=== PATIENT | female | born 1945 | race Hispanic/Latino ===

== ENCOUNTER 2019-07-05 19:05 | Emergency (ER) | payer MEDICARE ==
[~2019-07-05 19:05] MED LIST: AMLO-104 PO; ATOR40TA71 PO; DAPA5TAB PO; ESOM40SU PO; GLIP10TA19 PO; METF-446 PO
[2019-07-05] MEDS ORDERED: MECLIZINE HCL 25 MG TABLET ONE (19:33)
[2019-07-05 20:09] LABS: APPEARANCE,URINE Clear (CLEAR); BILIRUBIN,URINE Negative (NEGATIVE); COLOR,URINE Yellow (YELLOW); GLUCOSE, URINE (UA) >=1000 mg/dL (NEGATIVE); KETONES,URINE Negative (NEGATIVE); LEUKOCYTE ESTERASE ,URINE Negative (NEGATIVE); NITRATE,URINE Negative (NEGATIVE); OCCULT BLOOD,URINE Negative (NEGATIVE); PH,URINE 5.5 (5.0-8.0); PROTEIN,URINE POS 2+ mg/dL (NEGATIVE); UROBILINOGEN,URINE 0.2 mg/dL (0.2-1.0)
[2019-07-05 20:21] LABS: BACTERIA,URINE Rare /HPF (None Seen); MUCUS,URINE Few LPF (None Seen); RBC,URINE 0-1 /HPF (0-1); WBC,URINE 0-1 /HPF (0-1)
== END 2019-07-05 20:38 | disposition home or self-care (01) ==
LOC: EDH 19:05
DX: H81.399 Other peripheral vertigo, unspecified ear (principal); I10 Essential (primary) hypertension; E11.9 Type 2 diabetes mellitus without complications; K21.9 Gastro-esophageal reflux disease without esophagitis
CPT/HCPCS: 81001

== ENCOUNTER 2022-03-10 19:51 | Emergency (ER) | payer MEDICARE ==
[~2022-03-10] VITALS: Ht 157.5 cm; Wt 60.8 kg
[2022-03-10 20:40] LABS: BASOPHILS % (AUTO) 0.6 % (0.0-5.0); EOSINOPHILS % (AUTO) 2.7 % (0.0-8.0); HEMATOCRIT 37.7 % (36-48); LYMPHOCYTES % (AUTO) 18.9 % (21.0-51.0); MEAN CORPUSCULAR HEMOGLOBIN 30.6 pg (27.0-33.0); MEAN CORPUSCULAR HGB CONC 33.2 g/dL (32.0-36.0); MEAN CORPUSCULAR VOLUME 92.2 fL (79-99); MONOCYTES % (AUTO) 9.8 % (3.0-13.0); NEUTROPHILS % (AUTO) 67.7 % (40.0-77.0); PLATELET COUNT (AUTO) 262 K/uL (130-400); RED BLOOD CELL COUNT(AUTO) 4.09 MIL/uL (4.00-5.50); RED CELL DISTRIBUTION WIDTH 12.5 % (11.0-15.5); WHITE BLOOD COUNT (AUTO) 8.6 K/uL (4.8-10.8)
[2022-03-10 20:50] LABS: CREATININE 1.1 mg/dL (0.5-1.5); POTASSIUM 4.1 mmol/L (3.5-5.1)
[2022-03-10 20:57] LABS: ALBUMIN 3.3 g/dL (3.5-5.0); BILIRUBIN,TOTAL 0.6 mg/dL (0.2-1.0); MAGNESIUM 1.6 mg/dL (1.80-2.40); TOTAL PROTEIN, SERUM 6.8 g/dL (6.0-8.3)
[2022-03-10 21:28] LABS: APPEARANCE,URINE Clear (CLEAR); BILIRUBIN,URINE Negative (NEGATIVE); COLOR,URINE Yellow (YELLOW); GLUCOSE, URINE (UA) >=1000 mg/dL (NEGATIVE); KETONES,URINE Negative (NEGATIVE); LEUKOCYTE ESTERASE ,URINE Negative (NEGATIVE); NITRATE,URINE Negative (NEGATIVE); OCCULT BLOOD,URINE Negative (NEGATIVE); PROTEIN,URINE 300 mg/dL (NEGATIVE); UROBILINOGEN,URINE 0.2 mg/dL (0.2-1.0)
[2022-03-10] MEDS ORDERED: 0.9%NACL 1000ML 1,000 ML IV ONE (21:30)
[2022-03-10] MEDS ORDERED: MAGNESIUM 2GM PREMIX 50ML 50 ML IV SCH (21:30)
[2022-03-10 21:39] LABS: BACTERIA,URINE Few /HPF (None Seen); RBC,URINE 0-1 /HPF (0-1); SQUAMOUS EPITHELIAL CELL,UR Rare /HPF (0-2)
[2022-03-10] MEDS ORDERED: CEFTRIAXONE 1G VIAL IVP ONE (22:30)
[2022-03-10] MEDS ORDERED: CEPH500B PO (22:40)
[2022-03-10 23:00] VITALS: BP 132/74
== END 2022-03-10 23:54 | disposition home or self-care (01) ==
LOC: EDH 19:51
DX: R19.7 Diarrhea, unspecified (principal); N39.0 Urinary tract infection, site not specified; E83.42 Hypomagnesemia; E11.9 Type 2 diabetes mellitus without complications; E78.00 Pure hypercholesterolemia, unspecified; I10 Essential (primary) hypertension; Z90.89 Acquired absence of other organs; Z90.49 Acquired absence of other specified parts of digestive tract; Z79.899 Other long term (current) drug therapy; Z79.84 Long term (current) use of oral hypoglycemic drugs; Z98.890 Other specified postprocedural states
CPT/HCPCS: 36415; 74176; 80053; 81001; 83735; 84484; 85025; 87088; 93005; 96361; 96374; 99285; J0696; J3475; J7030

== ENCOUNTER 2022-04-14 19:03 | Observation (INO) | payer MEDICARE ==
[~2022-04-14] VITALS: Ht 157.5 cm; Wt 60.9 kg
[~2022-04-14 19:03] MED LIST changes: +CEPH500B PO
[2022-04-14 20:10] LABS: BASOPHILS % (AUTO) 0.5 % (0.0-5.0); EOSINOPHILS % (AUTO) 2.1 % (0.0-8.0); LYMPHOCYTES % (AUTO) 16.9 % (21.0-51.0); MEAN CORPUSCULAR HGB CONC 31.9 g/dL (32.0-36.0); MONOCYTES % (AUTO) 9.5 % (3.0-13.0); NEUTROPHILS % (AUTO) 70.6 % (40.0-77.0); PLATELET COUNT (AUTO) 240 K/uL (130-400); RED BLOOD CELL COUNT(AUTO) 3.83 MIL/uL (4.00-5.50); RED CELL DISTRIBUTION WIDTH 12.4 % (11.0-15.5); WHITE BLOOD COUNT (AUTO) 7.5 K/uL (4.8-10.8)
[2022-04-14 20:25] LABS: CREATININE 1.6 mg/dL (0.5-1.5); POTASSIUM 5.6 mmol/L (3.5-5.1)
[2022-04-14 20:29] LABS: ALBUMIN 3.3 g/dL (3.5-5.0); BILIRUBIN,TOTAL 0.4 mg/dL (0.2-1.0); TOTAL PROTEIN, SERUM 6.4 g/dL (6.0-8.3)
[2022-04-14] MEDS ORDERED: MORPHINE 2 MG SYG IVP ONE (20:30)
[2022-04-14] MEDS ORDERED: 0.9% NACL 500ML IV.SOLN 500 ML IV ONE ×2 (20:30)
[2022-04-14] MEDS ORDERED: ONDANSETRON 4MG INJ IVP ONE (20:30)
[2022-04-14] MEDS ORDERED: HYDRALAZINE 20MG/ML VIAL IV PRN (22:00)
[2022-04-14] MEDS ORDERED: ACETAMINOPHEN 650 MG SUPPOSITORY RC PRN (22:00)
[2022-04-14] MEDS ORDERED: ONDANSETRON 4MG INJ IVP PRN (22:00)
[2022-04-14] MEDS ORDERED: ACETAMINOPHEN 325 MG TAB PO PRN (22:00)
[2022-04-14] MEDS ORDERED: ATOR40TA71 PO (22:03)
[2022-04-14] MEDS ORDERED: GLIP10TA9 PO (22:03)
[2022-04-14] MEDS ORDERED: SITA50TA PO (22:03)
[2022-04-14] MEDS ORDERED: METF-446 PO (22:03)
[2022-04-14] MEDS ORDERED: AMLO1CAP6 PO (22:03)
[2022-04-14] MEDS ORDERED: MAGN250T10 PO (22:03)
[2022-04-14] MEDS ORDERED: DAPA10TA PO (22:03)
[2022-04-14] MEDS: LACTATED RINGERS 1000ML 1,000 ML IV SCH (22:16)
[2022-04-15] MEDS ORDERED: CALCIUM GLUC 1GM/10ML VIAL IV ONE
[2022-04-15] MEDS ORDERED: IPRATROPIUM 0.5 MG/2.5 ML INH IH SCH
[2022-04-15] MEDS ORDERED: INSULIN HUMULIN R 100 UNIT/ML 3ML SQ ONE
[2022-04-15 00:30] VITALS: BP 150/59
[2022-04-15] MEDS ORDERED: MAGNESIUM 2GM PREMIX 50ML 50 ML IV PRN (00:30)
[2022-04-15 01:59] LABS: APPEARANCE,URINE Clear (CLEAR); BILIRUBIN,URINE Negative (NEGATIVE); COLOR,URINE Yellow (YELLOW); GLUCOSE, URINE (UA) >=1000 mg/dL (NEGATIVE); KETONES,URINE Negative (NEGATIVE); LEUKOCYTE ESTERASE ,URINE Small (NEGATIVE); NITRATE,URINE Negative (NEGATIVE); OCCULT BLOOD,URINE Negative (NEGATIVE); PROTEIN,URINE POS 2+ mg/dL (NEGATIVE); UROBILINOGEN,URINE 0.2 mg/dL (0.2-1.0)
[2022-04-15 02:13] LABS: BACTERIA,URINE Rare /HPF (None Seen); RBC,URINE None Seen /HPF (0-1); SQUAMOUS EPITHELIAL CELL,UR 0-2 /HPF (0-2)
[2022-04-15 04:26] VITALS: BP 130/54
[2022-04-15 05:14] LABS: BASOPHILS % (AUTO) 0.5 % (0.0-5.0); EOSINOPHILS % (AUTO) 1.6 % (0.0-8.0); HEMATOCRIT 35.8 % (36-48); LYMPHOCYTES % (AUTO) 17.5 % (21.0-51.0); MEAN CORPUSCULAR HEMOGLOBIN 30.3 pg (27.0-33.0); MEAN CORPUSCULAR HGB CONC 32.4 g/dL (32.0-36.0); MEAN CORPUSCULAR VOLUME 93.5 fL (79-99); NEUTROPHILS % (AUTO) 69.8 % (40.0-77.0); PLATELET COUNT (AUTO) 236 K/uL (130-400); RED BLOOD CELL COUNT(AUTO) 3.83 MIL/uL (4.00-5.50); RED CELL DISTRIBUTION WIDTH 12.5 % (11.0-15.5); WHITE BLOOD COUNT (AUTO) 8.8 K/uL (4.8-10.8)
[2022-04-15 06:10] LABS: CREATININE 1.2 mg/dL (0.5-1.5); MAGNESIUM 2.2 mg/dL (1.80-2.40); PHOSPHORUS 3.5 mg/dL (2.5-4.9); POTASSIUM 4.8 mmol/L (3.5-5.1)
[2022-04-15] MEDS: INSULIN LISPRO 100 UNIT/ML 3ML SQ SCH ×4 (06:10→20:47)
[2022-04-15] MEDS: CEFTRIAXONE 2GM VIAL IVP SCH (06:17)
[2022-04-15] MEDS: ENOXAPARIN SODIUM 30 MG/0.3 ML SQ SCH (07:48)
[2022-04-15] MEDS: LACTATED RINGERS 1000ML 1,000 ML IV SCH ×2 (07:55→20:48)
[2022-04-15 08:00] VITALS: BP 150/56
[2022-04-15 12:00] VITALS: BP 162/68
[2022-04-15] MEDS: METRONIDAZOLE 500MG/100ML BAG 100 ML IVPB SCH ×2 (15:55→20:03)
[2022-04-15 16:00] VITALS: BP 158/68
[2022-04-15 20:00] VITALS: BP 183/78
[2022-04-16 00:25] VITALS: BP 164/68
[2022-04-16 04:41] VITALS: BP 152/69
[2022-04-16] MEDS: METRONIDAZOLE 500MG/100ML BAG 100 ML IVPB SCH ×2 (05:08→14:38)
[2022-04-16] MEDS: LACTATED RINGERS 1000ML 1,000 ML IV SCH ×2 (05:08→14:38)
[2022-04-16 05:17] LABS: HEMATOCRIT 36.7 % (36-48); MEAN CORPUSCULAR HEMOGLOBIN 30.1 pg (27.0-33.0); MEAN CORPUSCULAR HGB CONC 32.4 g/dL (32.0-36.0); MEAN CORPUSCULAR VOLUME 92.7 fL (79-99); RED BLOOD CELL COUNT(AUTO) 3.96 MIL/uL (4.00-5.50); RED CELL DISTRIBUTION WIDTH 12.1 % (11.0-15.5); WHITE BLOOD COUNT (AUTO) 6.3 K/uL (4.8-10.8)
[2022-04-16 05:31] LABS: MAGNESIUM 2.1 mg/dL (1.80-2.40); POTASSIUM 4.7 mmol/L (3.5-5.1)
[2022-04-16] MEDS: CEFTRIAXONE 2GM VIAL IVP SCH (07:01)
[2022-04-16] MEDS: INSULIN LISPRO 100 UNIT/ML 3ML SQ SCH ×3 (07:02→16:30)
[2022-04-16 07:47] VITALS: BP 159/62
[2022-04-16] MEDS: ENOXAPARIN SODIUM 30 MG/0.3 ML SQ SCH (09:29)
[2022-04-16] MEDS ORDERED: AMLODIPINE-BENAZEPRIL 5-20 MG PO SCH (11:34)
[2022-04-16] MEDS ORDERED: LINAGLIPTIN 5 MG TABLET PO SCH (11:36)
[2022-04-16 12:00] VITALS: BP 173/71
[2022-04-16] MEDS: METFORMIN HCL 500 MG TABLET PO SCH ×2 (12:08→16:55)
[2022-04-16 16:00] VITALS: BP 134/92
[2022-04-16] MEDS ORDERED: LEVO500T90 PO (17:51)
[2022-04-16] MEDS ORDERED: METR-172 PO (17:51)
[2022-04-16] MEDS ORDERED: ATORVASTATIN 40 MG TABLET PO SCH (21:00)
== END 2022-04-16 18:45 | disposition home or self-care (01) ==
LOC: EDH 19:03 → EDHIP 21:33 → 3DH 23:16
PROVIDERS: ADMIT Internal Medicine; ATTEND Internal Medicine
DX: K52.9 Noninfective gastroenteritis and colitis, unspecified (principal); Z20.822 Contact with and (suspected) exposure to COVID-19; N17.9 Acute kidney failure, unspecified; N39.0 Urinary tract infection, site not specified; E87.5 Hyperkalemia; E87.1 Hypo-osmolality and hyponatremia; I10 Essential (primary) hypertension; E83.42 Hypomagnesemia; E86.0 Dehydration; E11.65 Type 2 diabetes mellitus with hyperglycemia; E78.00 Pure hypercholesterolemia, unspecified; F41.9 Anxiety disorder, unspecified; Z90.710 Acquired absence of both cervix and uterus; Z79.899 Other long term (current) drug therapy; Z79.84 Long term (current) use of oral hypoglycemic drugs
CPT/HCPCS: 36415 ×3; 71045; 74176; 80048 ×2; 80053; 81001; 82550; 82948 ×7; 83605; 83690; 83735 ×3; 84100; 84484; 85025 ×2; 85027; 87077; 87088; 87186; 87635; 93005; 96361 ×2; 96365; 96366 ×2; 96367; 96375 ×2; 96376; 97039 ×3; 97116; 97161; 99285; C9803; G0378 ×44; J0610; J0696; J1650 ×2; J2405; J3475; J3490 ×4; J7040 ×2; J7120 ×2

== ENCOUNTER 2022-05-28 09:18 | Emergency (ER) | payer MEDICARE ==
[~2022-05-28 09:18] MED LIST changes: -AMLO-104 PO; +AMLO1CAP6 PO; -CEPH500B PO; +DAPA10TA PO; -DAPA5TAB PO; +DIPH1TAB PO; -ESOM40SU PO; -GLIP10TA19 PO; +GLIP10TA9 PO; +LEVO500T90 PO; +METR-172 PO; +SITA50TA PO
[2022-05-28 11:29] VITALS: BP 175/51
[2022-05-28] MEDS ORDERED: TETANUS/DIPHTHERIA TOXOID [ADULT] 0.5 ML VIAL IM ONE (11:30)
[2022-05-28] MEDS ORDERED: ACETAMINOPHEN 325 MG TAB PO ONE (11:30)
[2022-05-28] MEDS ORDERED: MECLIZINE HCL 25 MG TABLET PO ONE (11:30)
[2022-05-28] MEDS ORDERED: MECL-160 PO (12:08)
== END 2022-05-28 12:55 | disposition home or self-care (01) ==
LOC: EDH 09:18
DX: S60.222A Contusion of left hand, initial encounter (principal); S80.211A Abrasion, right knee, initial encounter; S80.212A Abrasion, left knee, initial encounter; R42 Dizziness and giddiness; E11.9 Type 2 diabetes mellitus without complications; I10 Essential (primary) hypertension; Z79.84 Long term (current) use of oral hypoglycemic drugs; Z79.899 Other long term (current) drug therapy; Z98.890 Other specified postprocedural states; W01.0XXA Fall on same level from slipping, tripping and stumbling without subsequent striking against object, initial encounter; Y93.89 Activity, other specified; Y92.89 Other specified places as the place of occurrence of the external cause; Y99.8 Other external cause status
CPT/HCPCS: 70450; 72125; 73130; 90471; 90714

== ENCOUNTER 2023-06-30 19:58 | Emergency (ER) | payer MEDICARE ==
[~2023-06-30] VITALS: Ht 160 cm; Wt 59.0 kg
[~2023-06-30 19:58] MED LIST changes: +CEPH500B PO; -DIPH1TAB PO; -LEVO500T90 PO; +MAG-55 PO; -METR-172 PO; +OMEP40CA21 PO
[2023-07-01 00:03] LABS: ADD UA MICROSCOPIC YES; APPEARANCE,URINE CLOUDY (CLEAR); BILIRUBIN,URINE NEGATIVE (NEGATIVE); COLOR,URINE LIGHT-YELLOW (YELLOW); GLUCOSE, URINE (UA) >=1000 mg/dL (NEGATIVE); KETONES,URINE NEGATIVE (NEGATIVE); LEUKOCYTE ESTERASE ,URINE 250 Leu/uL (NEGATIVE); NITRATE,URINE NEGATIVE (NEGATIVE); OCCULT BLOOD,URINE SMALL (NEGATIVE); PROTEIN,URINE 600 mg/dL (NEGATIVE); UROBILINOGEN,URINE 0.2 mg/dL (0.2-1.0)
[2023-07-01 00:04] LABS: MUCUS,URINE RARE LPF (None Seen); SQUAMOUS EPITHELIAL CELL,UR RARE /HPF (0-2); WBC,URINE 51-100 /HPF (0-1)
[2023-07-01 00:08] LABS: SARS-CoV-2, RNA, NAAT NEGATIVE SARS CoV-2 (NEGATIVE)
[2023-07-01 00:12] LABS: INFLUENZA TYPE A Negative For Type A (NEGATIVE); INFLUENZA TYPE B Negative For Type B (NEGATIVE)
[2023-07-01 00:30] LABS: CREATININE 2.2 mg/dL (0.5-1.5); POTASSIUM 4.8 mmol/L (3.5-5.1)
[2023-07-01 00:32] LABS: BASOPHILS # (AUTO) 0.08 K/uL (0.00-0.20); EOSINOPHILS # (AUTO) 0.22 K/uL (0.00-0.70); EOSINOPHILS % (AUTO) 2.6 % (0.0-8.0); HEMATOCRIT 35.1 % (36-48); IMMATURE GRANULOCYTE ABSOLUTE 0.04 K/uL (0-1); LYMPHOCYTES # (AUTO) 1.4 K/uL (1.0-4.8); LYMPHOCYTES % (AUTO) 16.5 % (21.0-51.0); MEAN CORPUSCULAR HEMOGLOBIN 30.3 pg (27.0-33.0); MEAN CORPUSCULAR HGB CONC 32.8 g/dL (32.0-36.0); MEAN CORPUSCULAR VOLUME 92.6 fL (79-99); MONOCYTES # (AUTO) 0.9 K/uL (0.1-1.0); MONOCYTES % (AUTO) 10.1 % (3.0-13.0); NEUTROPHILS # (AUTO) 5.8 K/uL (1.8-7.7); NEUTROPHILS % (AUTO) 69.3 % (40.0-77.0); PLATELET COUNT (AUTO) 275 K/uL (130-400); RED BLOOD CELL COUNT(AUTO) 3.79 MIL/uL (4.00-5.50); RED CELL DISTRIBUTION WIDTH 12.5 % (11.0-15.5); WHITE BLOOD COUNT (AUTO) 8.4 K/uL (4.8-10.8)
[2023-07-01 00:34] LABS: BILIRUBIN,TOTAL 0.4 mg/dL (0.2-1.0); TOTAL PROTEIN, SERUM 6.6 g/dL (6.0-8.3)
[2023-07-01] MEDS ORDERED: CEFTRIAXONE 1G VIAL IVPB ONE (01:30)
[2023-07-01] MEDS ORDERED: LIDOCAINE HCL 1% 20 ML VIAL ONE (02:22)
[2023-07-01 03:00] VITALS: BP 148/54; PULSE 80; RESP 18; O2SAT 99
[2023-07-01] MEDS ORDERED: ONDA-104 PO (03:27)
[2023-07-01] MEDS ORDERED: CEFU500T67 PO (03:27)
== END 2023-07-01 03:42 | disposition home or self-care (01) ==
LOC: EDH 19:58
DX: R53.1 Weakness (principal); R42 Dizziness and giddiness; R11.0 Nausea; E11.9 Type 2 diabetes mellitus without complications; E78.00 Pure hypercholesterolemia, unspecified; I10 Essential (primary) hypertension; Z79.84 Long term (current) use of oral hypoglycemic drugs; Z79.899 Other long term (current) drug therapy; Z90.49 Acquired absence of other specified parts of digestive tract; Z20.822 Contact with and (suspected) exposure to COVID-19
CPT/HCPCS: 99284; 87635; 80053; 83690; 85025; 87088; 87804 ×2; 81001; 36415; 96365; C9803; J0696

== ENCOUNTER 2023-11-17 09:51 | Emergency (ER) | payer MEDICARE ==
[~2023-11-17] VITALS: Ht 162.6 cm; Wt 63.5 kg
[~2023-11-17 09:51] MED LIST changes: +CEFU500T67 PO; +ONDA-104 PO
[2023-11-17 10:35] LABS: BASOPHILS # (AUTO) 0.05 K/uL (0.00-0.20); BASOPHILS % (AUTO) 0.5 % (0.0-5.0); EOSINOPHILS # (AUTO) 0.06 K/uL (0.00-0.70); EOSINOPHILS % (AUTO) 0.6 % (0.0-8.0); HEMATOCRIT 32.8 % (36-48); IMMATURE GRANULOCYTE ABSOLUTE 0.05 K/uL (0-1); LYMPHOCYTES # (AUTO) 0.8 K/uL (1.0-4.8); LYMPHOCYTES % (AUTO) 8.5 % (21.0-51.0); MEAN CORPUSCULAR HEMOGLOBIN 30.9 pg (27.0-33.0); MEAN CORPUSCULAR HGB CONC 32.9 g/dL (32.0-36.0); MONOCYTES # (AUTO) 0.5 K/uL (0.1-1.0); MONOCYTES % (AUTO) 5.8 % (3.0-13.0); NEUTROPHILS # (AUTO) 7.8 K/uL (1.8-7.7); NEUTROPHILS % (AUTO) 84.1 % (40.0-77.0); PLATELET COUNT (AUTO) 275 K/uL (130-400); RED BLOOD CELL COUNT(AUTO) 3.49 MIL/uL (4.00-5.50); RED CELL DISTRIBUTION WIDTH 13.2 % (11.0-15.5); WHITE BLOOD COUNT (AUTO) 9.3 K/uL (4.8-10.8)
[2023-11-17 10:40] LABS: CREATININE 2.2 mg/dL (0.5-1.5); POTASSIUM 4.6 mmol/L (3.5-5.1)
[2023-11-17 10:45] LABS: ALBUMIN 2.9 g/dL (3.5-5.0); BILIRUBIN,TOTAL 0.5 mg/dL (0.2-1.0); TOTAL PROTEIN, SERUM 6.8 g/dL (6.0-8.3)
[2023-11-17 12:27] LABS: APPEARANCE,URINE CLEAR (CLEAR); BILIRUBIN,URINE NEGATIVE (NEGATIVE); COLOR,URINE LIGHT-YELLOW (YELLOW); GLUCOSE, URINE (UA) 500 mg/dL (NEGATIVE); KETONES,URINE NEGATIVE (NEGATIVE); LEUKOCYTE ESTERASE ,URINE NEGATIVE Leu/uL (NEGATIVE); NITRATE,URINE NEGATIVE (NEGATIVE); OCCULT BLOOD,URINE SMALL (NEGATIVE); PROTEIN,URINE 300 mg/dL (NEGATIVE); UROBILINOGEN,URINE 0.2 mg/dL (0.2-1.0)
[2023-11-17 12:28] LABS: ADD UA MICROSCOPIC YES
[2023-11-17 12:33] LABS: BACTERIA,URINE RARE /HPF (None Seen); MUCUS,URINE RARE LPF (None Seen); SQUAMOUS EPITHELIAL CELL,UR RARE /HPF (0-2)
[2023-11-17 12:34] VITALS: BP 158/67; PULSE 67; RESP 16; O2SAT 97
[2023-11-17] MEDS: CEFTRIAXONE 1G VIAL IVPB ONE (12:45)
[2023-11-17] MEDS ORDERED: LANC1COM7 MC (12:54)
[2023-11-17] MEDS ORDERED: CEPH250C2 PO (12:54)
[2023-11-17] MEDS ORDERED: BLOO-140 MC (12:54)
== END 2023-11-17 13:13 | disposition home or self-care (01) ==
LOC: EDH 09:51
DX: E11.649 Type 2 diabetes mellitus with hypoglycemia without coma (principal); N39.0 Urinary tract infection, site not specified; N17.9 Acute kidney failure, unspecified; E78.00 Pure hypercholesterolemia, unspecified; Z79.84 Long term (current) use of oral hypoglycemic drugs; Z79.899 Other long term (current) drug therapy; Z90.49 Acquired absence of other specified parts of digestive tract
CPT/HCPCS: 99283; 96374; 80053; 85025; 87077 ×2; 87088; 87186 ×2; 82948 ×2; 81001; 36415; J0696 ×2

== ENCOUNTER 2024-05-31 10:36 | Inpatient (IN) | payer MEDICARE ==
[~2024-05-31] VITALS: Ht 165.1 cm; Wt 68.1 kg
[~2024-05-31 10:36] MED LIST changes: +BLOO-140 MC; +CEPH250C2 PO; +LANC1COM7 MC
[2024-05-31 11:01] LABS: BASOPHILS # (AUTO) 0.03 K/uL (0.00-0.20); BASOPHILS % (AUTO) 0.5 % (0.0-5.0); HEMATOCRIT 26.5 % (36-48); IMMATURE GRANULOCYTE ABSOLUTE 0.05 K/uL (0-1); LYMPHOCYTES # (AUTO) 0.7 K/uL (1.0-4.8); MEAN CORPUSCULAR HEMOGLOBIN 30.3 pg (27.0-33.0); MEAN CORPUSCULAR HGB CONC 32.5 g/dL (32.0-36.0); MEAN CORPUSCULAR VOLUME 93.3 fL (79-99); MONOCYTES # (AUTO) 0.6 K/uL (0.1-1.0); NEUTROPHILS % (AUTO) 76.7 % (40.0-77.0); PLATELET COUNT (AUTO) 294 K/uL (130-400); RED BLOOD CELL COUNT(AUTO) 2.84 MIL/uL (4.00-5.50); RED CELL DISTRIBUTION WIDTH 13.9 % (11.0-15.5); WHITE BLOOD COUNT (AUTO) 6.6 K/uL (4.8-10.8)
[2024-05-31 11:20] LABS: ALBUMIN 2.2 g/dL (3.5-5.0); BILIRUBIN,TOTAL 0.3 mg/dL (0.2-1.0); CREATININE 5.5 mg/dL (0.5-1.0); MAGNESIUM 1.5 mg/dL (1.80-2.40); POTASSIUM 4.4 mmol/L (3.5-5.1); TOTAL PROTEIN, SERUM 6.1 g/dL (6.0-8.3)
[2024-05-31 13:05] LABS: INR <= 0.93 (0.85-1.15); PROTHROMBIN TIME 10.1 SEC (9.6-11.6)
[2024-05-31 13:06] LABS: PARTIAL THROMBOPLASTIN TIME 25.6 SEC (26.3-35.5)
[2024-05-31] MEDS: 0.9%NACL 1000ML 1,000 ML IV ONE (14:04)
[2024-05-31] MEDS ORDERED: DiphenhydrAMINE HCL 50 MG/ML VIAL IV PRN (14:30)
[2024-05-31] MEDS ORDERED: GUAIFENESIN SUGAR-FREE 100 MG/5 ML UDCUP PO PRN (14:30)
[2024-05-31] MEDS ORDERED: DOCUSATE SODIUM 100 MG CAP PO PRN (14:30)
[2024-05-31] MEDS ORDERED: ZOLPIDEM TARTRATE 5 MG TAB PO PRN (14:30)
[2024-05-31] MEDS ORDERED: DIPHENHYDRAMINE HCL 25 MG CAPSULE PO PRN (14:30)
[2024-05-31] MEDS ORDERED: POLYETHYLENE GLYCOL 3350 17 GM POWD.PACK PO PRN (14:30)
[2024-05-31] MEDS ORDERED: LACTULOSE 20 GM/30 ML UDCUP PO PRN (14:30)
[2024-05-31] MEDS ORDERED: ONDANSETRON 4MG INJ IV PRN (14:30)
[2024-05-31 14:44] LABS: ADD UA MICROSCOPIC YES; APPEARANCE,URINE CLEAR (CLEAR); BILIRUBIN,URINE NEGATIVE (NEGATIVE); COLOR,URINE LIGHT-YELLOW (YELLOW); GLUCOSE, URINE (UA) >=1000 mg/dL (NEGATIVE); KETONES,URINE NEGATIVE (NEGATIVE); LEUKOCYTE ESTERASE ,URINE NEGATIVE Leu/uL (NEGATIVE); NITRATE,URINE NEGATIVE (NEGATIVE); OCCULT BLOOD,URINE SMALL (NEGATIVE); PROTEIN,URINE 300 mg/dL (NEGATIVE); UROBILINOGEN,URINE 0.2 mg/dL (0.2-1.0)
[2024-05-31 14:46] LABS: MUCUS,URINE RARE LPF (None Seen); SQUAMOUS EPITHELIAL CELL,UR RARE /HPF (0-2)
[2024-05-31] MEDS: HEPARIN 5,000 UNIT VIAL SQ SCH (14:47)
[2024-05-31 15:04] LABS: SARS-CoV-2, RNA, NAAT NEGATIVE SARS CoV-2 (NEGATIVE)
[2024-05-31 15:07] LABS: INFLUENZA TYPE A Negative For Type A (NEGATIVE); INFLUENZA TYPE B Negative For Type B (NEGATIVE)
[2024-05-31] MEDS: ACETAMINOPHEN 325 MG TAB PO PRN (15:24)
[2024-05-31] MEDS: INSULIN HUMULIN R 100 UNIT/ML 3ML SQ SCH (16:30)
[2024-05-31] MEDS: MAGNESIUM 2GM PREMIX 50ML 50 ML IV ONE ×2 (17:07→17:14)
[2024-05-31] MEDS: FAMOTIDINE 20MG TAB PO SCH (21:13)
[2024-06-01 03:30] VITALS: PULSE 88; RESP 18; O2SAT 96
[2024-06-01 07:28] LABS: ABG BASE EXCESS -10.2 mmol/L (-2.0-3.0); ABG OXYGEN SATURATION 93.6 % (95.0-99.0); ABG PCO2 31 mmHg (32-45); ABG PH 7.309 (7.35-7.450); CARBON MONOXIDE 0.3; HHb 6.4; PO2, ARTERIAL BG 73.8 mmHg (83.0-108.0); VENT MODE, BG RA,21 (ROOM AIR)
[2024-06-01] MEDS: AMLODIPINE-BENAZEPRIL 5-20 MG PO SCH (08:50)
[2024-06-01] MEDS: AMLODIPINE 5 MG TAB PO SCH (09:00)
[2024-06-01] MEDS: HYDRALAZINE 25MG TABLET PO PRN (15:27)
[2024-06-01 20:00] VITALS: O2SAT 96
[2024-06-01 21:36] VITALS: BP 162/68; PULSE 68; RESP 18
[2024-06-02] VITALS (9 sets, daily range): BP systolic 156–187; BP diastolic 62–74; PULSE 63–71; RESP 18–19; O2SAT 96
[2024-06-02] MEDS ORDERED: FOLI1TAB85 PO (02:26)
[2024-06-02] MEDS ORDERED: METO-391 PO (02:26)
[2024-06-02 05:59] LABS: BASOPHILS # (AUTO) 0.05 K/uL (0.00-0.20); BASOPHILS % (AUTO) 0.7 % (0.0-5.0); EOSINOPHILS # (AUTO) 0.34 K/uL (0.00-0.70); EOSINOPHILS % (AUTO) 4.9 % (0.0-8.0); HEMATOCRIT 24.2 % (36-48); IMMATURE GRANULOCYTE ABSOLUTE 0.04 K/uL (0-1); LYMPHOCYTES # (AUTO) 0.9 K/uL (1.0-4.8); LYMPHOCYTES % (AUTO) 13.3 % (21.0-51.0); MEAN CORPUSCULAR HEMOGLOBIN 29.3 pg (27.0-33.0); MEAN CORPUSCULAR HGB CONC 32.2 g/dL (32.0-36.0); MONOCYTES # (AUTO) 0.9 K/uL (0.1-1.0); MONOCYTES % (AUTO) 12.4 % (3.0-13.0); NEUTROPHILS # (AUTO) 4.8 K/uL (1.8-7.7); NEUTROPHILS % (AUTO) 68.1 % (40.0-77.0); PLATELET COUNT (AUTO) 274 K/uL (130-400); RED BLOOD CELL COUNT(AUTO) 2.66 MIL/uL (4.00-5.50)
[2024-06-02 06:30] LABS: CREATININE 5.3 mg/dL (0.5-1.0); PHOSPHORUS 5.2 mg/dL (2.5-4.9); POTASSIUM 3.9 mmol/L (3.5-5.1); THYROID STIMULATING HORMONE 4.51 uIU/mL (0.36-3.74)
[2024-06-02 06:35] LABS: % IRON SATURATION 20.6 % (22-44)
[2024-06-02] MEDS: IRON SUCROSE COMPLEX 300 MG in 0.9% NACL 250ML 250 ML IV ONE (21:01)
[2024-06-03] VITALS (17 sets, daily range): BP systolic 142–195; BP diastolic 58–81; PULSE 75–91; RESP 16–20; TEMP 98.6–98.7; O2SAT 94–96
[2024-06-03] MEDS: HYDRALAZINE 20MG/ML VIAL IV PRN (01:09)
[2024-06-03] MEDS: QUETIAPINE FUMARATE 25 MG TAB PO PRN (01:09)
[2024-06-03 01:27] LABS: CREATININE,URINE RANDOM 30.12 mg/dL (30-135)
[2024-06-03 01:39] LABS: PROTEIN,URINE RANDOM 369.5 mg/dL (0-11.9)
[2024-06-03] MEDS: LORAZEPAM 2 MG/ML 1 ML VIAL IVP STA (02:36)
[2024-06-03] MEDS ORDERED: HYDROCODONE/ACETAMINOPHEN 5/325 MG TAB PO PRN (04:30)
[2024-06-03] MEDS ORDERED: CYCLOBENZAPRINE HCL 10 MG TABLET PO PRN (04:30)
[2024-06-03] MEDS: HYDROMORPHONE 1 MG INJ IVP STA (04:32)
[2024-06-03 04:51] LABS: BASOPHILS # (AUTO) 0.03 K/uL (0.00-0.20); BASOPHILS % (AUTO) 0.4 % (0.0-5.0); EOSINOPHILS # (AUTO) 0.22 K/uL (0.00-0.70); EOSINOPHILS % (AUTO) 2.6 % (0.0-8.0); HEMATOCRIT 24.9 % (36-48); IMMATURE GRANULOCYTE ABSOLUTE 0.05 K/uL (0-1); LYMPHOCYTES # (AUTO) 0.7 K/uL (1.0-4.8); LYMPHOCYTES % (AUTO) 8.3 % (21.0-51.0); MEAN CORPUSCULAR HEMOGLOBIN 29.9 pg (27.0-33.0); MEAN CORPUSCULAR HGB CONC 33.3 g/dL (32.0-36.0); MEAN CORPUSCULAR VOLUME 89.6 fL (79-99); MONOCYTES # (AUTO) 0.8 K/uL (0.1-1.0); MONOCYTES % (AUTO) 9.4 % (3.0-13.0); NEUTROPHILS # (AUTO) 6.7 K/uL (1.8-7.7); NEUTROPHILS % (AUTO) 78.7 % (40.0-77.0); PLATELET COUNT (AUTO) 279 K/uL (130-400); RED BLOOD CELL COUNT(AUTO) 2.78 MIL/uL (4.00-5.50); WHITE BLOOD COUNT (AUTO) 8.5 K/uL (4.8-10.8)
[2024-06-03 05:05] LABS: INR 0.94 (0.85-1.15); PROTHROMBIN TIME 10.2 SEC (9.6-11.6)
[2024-06-03 05:06] LABS: PARTIAL THROMBOPLASTIN TIME 31.9 SEC (26.3-35.5)
[2024-06-03 05:19] LABS: ALBUMIN 2.1 g/dL (3.5-5.0); BILIRUBIN,DIRECT 0.1 mg/dL (0.0-0.3); BILIRUBIN,TOTAL 0.3 mg/dL (0.2-1.0); CREATININE 4.9 mg/dL (0.5-1.0); PHOSPHORUS 4.6 mg/dL (2.5-4.9); POTASSIUM 3.9 mmol/L (3.5-5.1); TOTAL PROTEIN, SERUM 5.6 g/dL (6.0-8.3)
[2024-06-03] MEDS: HEPARIN 5,000 UNIT VIAL SQ SCH (05:40)
[2024-06-03] MEDS ORDERED: 0.9%NACL 1000ML 1,000 ML IV PRN (09:00)
[2024-06-03 09:45] LABS: HEMATOCRIT 24.1 % (36-48)
[2024-06-03 10:03] LABS: % IRON SATURATION 89.7 % (22-44)
[2024-06-03 10:09] LABS: ALBUMIN 1.9 g/dL (3.5-5.0); CREATININE 4.9 mg/dL (0.5-1.0)
[2024-06-03 10:15] LABS: HEMOGLOBIN A1C 7.3 % (4.0-6.0)
[2024-06-03 10:21] LABS: HIV 1&2 ANTIBODY Non-Reactive (Negative); HIV-1 p24 Antigen Non-Reactive (Negative)
[2024-06-03] MEDS: EPOETIN ALFA-EPBX (NON-ESRD) 10,000 UNIT/ML VIAL SQ SCH (10:55)
[2024-06-03] MEDS ORDERED: LIDOCAINE HCL 400MG/20ML VIAL ONE (11:25)
[2024-06-03] MEDS ORDERED: HEPARIN 1,000 UNIT VIAL ONE (11:25)
[2024-06-03] MEDS ORDERED: HYDROMORPHONE 0.5 MG SYG (0.5MG/0.5ML) IVP PRN (16:30)
[2024-06-03 17:01] LABS: HEPATITIS B SURFACE ANTIGEN Non-Reactive (Nonreactive)
[2024-06-03] MEDS: AMLODIPINE 5 MG TAB PO SCH (17:15)
[2024-06-03] MEDS: TRAMADOL HCL 50 MG TABLET PO PRN (17:16)
[2024-06-03] MEDS: LIDOCAINE 4% ADH..PATCH TP SCH (17:17)
[2024-06-03] MEDS: GABAPENTIN 100 MG CAPSULE PO SCH (20:04)
[2024-06-03] MEDS: ATORVASTATIN 40 MG TABLET PO SCH (20:04)
[2024-06-03] MEDS: SODIUM BICARBONATE 650 MG TAB PO SCH (20:04)
[2024-06-04] VITALS (20 sets, daily range): BP systolic 137–175; BP diastolic 55–73; PULSE 61–85; RESP 16–20; TEMP 98.6–98.7; O2SAT 95–96
[2024-06-04] MEDS: BIOTIN PO SCH (08:55)
[2024-06-04] MEDS: [UNRECOGNIZED DRUG - OTHER] PO SCH (08:55)
[2024-06-04] MEDS: VIT B CMPLX PO SCH (08:55)
[2024-06-04] MEDS: METOPROLOL SUCCINATE 50 MG TAB.SR.24H PO SCH (09:20)
[2024-06-04] MEDS: NEOMY SULF/BACITRA/POLYMYXIN B 3.5 GM OINT OD SCH (16:26)
[2024-06-05] VITALS (7 sets, daily range): BP systolic 127–167; BP diastolic 52–64; PULSE 58–70; RESP 16–20; O2SAT 96
[2024-06-05 05:46] LABS: HEMATOCRIT 23.8 % (36-48); MEAN CORPUSCULAR HEMOGLOBIN 30.4 pg (27.0-33.0); MEAN CORPUSCULAR HGB CONC 33.6 g/dL (32.0-36.0); MEAN CORPUSCULAR VOLUME 90.5 fL (79-99); RED BLOOD CELL COUNT(AUTO) 2.63 MIL/uL (4.00-5.50); RED CELL DISTRIBUTION WIDTH 13.7 % (11.0-15.5); WHITE BLOOD COUNT (AUTO) 7.7 K/uL (4.8-10.8)
[2024-06-05 05:59] LABS: CREATININE 2.6 mg/dL (0.5-1.0); MAGNESIUM 1.4 mg/dL (1.80-2.40); POTASSIUM 3.1 mmol/L (3.5-5.1)
[2024-06-05] MEDS: KCL 20 MEQ ERTAB PO ONE (08:50)
[2024-06-05] MEDS: MAGNESIUM OXIDE 400 MG TABLET PO ONE (08:50)
[2024-06-05] MEDS: LISINOPRIL 40 MG TABLET PO SCH (09:01)
[2024-06-05] MEDS: ACETAMINOPHEN 325 MG TAB PO PRN (11:47)
[2024-06-06] VITALS (21 sets, daily range): BP systolic 113–157; BP diastolic 56–71; PULSE 53–71; RESP 14–20; TEMP 97.6–98.7; O2SAT 98
[2024-06-06 05:13] LABS: CREATININE 3.6 mg/dL (0.5-1.0); POTASSIUM 3.5 mmol/L (3.5-5.1)
[2024-06-06 14:12] LABS: ALBUMIN (IFE & ELECTROPHOR) 2.1 g/dL (2.9-4.4); ALBUMIN/GLOBULIN RATIO (IFE) 0.9 (0.7-1.7); ALPHA-1 (IFE & PEP) 0.3 g/dL (0.0-0.4); ALPHA-2 (IFE & PEP) 0.9 g/dL (0.4-1.0); BETA (IFE & ELP) 0.7 g/dL (0.7-1.3); GAMMA GLOBULINS (IFE & ELP) 0.6 g/dL (0.4-1.8); GLOBULIN TOTAL (IFE) 2.4 g/dL (2.2-3.9); IGA (IFE) 210 mg/dL (64-422); IGG (IMMUNOFIXATION) 631 mg/dL (586-1602); IGM (IMMUNOFIXATION) 9 mg/dL (26-217); M-SPIKE (IEP) Not Observed g/dL (Not Observed); TOTAL PROTEIN 4.5 g/dL (6.0-8.5)
[2024-06-06 15:13] LABS: ATYPICAL P-ANCA AB <1:20 titer (Neg:<1:20); CYTOPLASMIC (C-ANCA) AB, IGG <1:20 titer (Neg:<1:20)
[2024-06-06] MEDS: MAG/ALUM/SIMETH 30 ML UDCUP PO PRN (17:14)
[2024-06-06 18:27] LABS: HEPATITIS B SURFACE ANTIBODY Negative (Reactive)
[2024-06-06 18:28] LABS: HEPATITIS B CORE AB TOTAL Non-Reactive (Nonreactive); HEPATITIS C ANTIBODY Non-Reactive (Nonreactive)
[2024-06-06] MEDS ORDERED: HEPARIN 5,000 UNIT VIAL IV SCH (19:00)
[2024-06-06] MEDS ORDERED: 0.9% NACL 250ML 250 ML IV SCH (19:00)
[2024-06-06] MEDS: HEPARIN 5,000 UNIT VIAL IJ PRN (20:59)
[2024-06-06] MEDS: 0.9%NACL 1000ML 1,000 ML IV SCH (21:02)
[2024-06-06] MEDS: HEPARIN 5,000 UNIT VIAL SQ SCH (22:21)
[2024-06-07] VITALS (7 sets, daily range): BP systolic 123–162; BP diastolic 48–60; PULSE 59–70; RESP 16–20; O2SAT 95–96
[2024-06-07 08:47] LABS: HEMATOCRIT 23.6 % (36-48); MEAN CORPUSCULAR HEMOGLOBIN 29.8 pg (27.0-33.0); MEAN CORPUSCULAR HGB CONC 32.2 g/dL (32.0-36.0); MEAN CORPUSCULAR VOLUME 92.5 fL (79-99); NUCLEATED RED BLOOD CELLS 0.3 % (0.0-0.19); RED BLOOD CELL COUNT(AUTO) 2.55 MIL/uL (4.00-5.50); RED CELL DISTRIBUTION WIDTH 13.7 % (11.0-15.5); WHITE BLOOD COUNT (AUTO) 7.1 K/uL (4.8-10.8)
[2024-06-07 08:56] LABS: CREATININE 2.8 mg/dL (0.5-1.0); POTASSIUM 3.5 mmol/L (3.5-5.1)
[2024-06-07] MEDS: GABAPENTIN 100 MG CAPSULE PO SCH (20:48)
[2024-06-08] VITALS (22 sets, daily range): BP systolic 102–155; BP diastolic 45–60; PULSE 58–69; RESP 12–20; TEMP 97.9–98.4; O2SAT 95–96
[2024-06-08 08:26] LABS: APPEARANCE,URINE CLOUDY (CLEAR); BILIRUBIN,URINE NEGATIVE (NEGATIVE); COLOR,URINE LIGHT-YELLOW (YELLOW); GLUCOSE, URINE (UA) >=1000 mg/dL (NEGATIVE); KETONES,URINE NEGATIVE (NEGATIVE); LEUKOCYTE ESTERASE ,URINE 250 Leu/uL (NEGATIVE); NITRATE,URINE NEGATIVE (NEGATIVE); PROTEIN,URINE 300 mg/dL (NEGATIVE); UROBILINOGEN,URINE 0.2 mg/dL (0.2-1.0)
[2024-06-08 08:30] LABS: ADD UA MICROSCOPIC YES
[2024-06-08 08:45] LABS: BACTERIA,URINE RARE /HPF (None Seen); MUCUS,URINE RARE LPF (None Seen); SQUAMOUS EPITHELIAL CELL,UR RARE /HPF (0-2); UNCLASSIFIED CRYSTAL 1 /HPF (None Seen); WBC CLUMP FEW /HPF (0-1); WBC,URINE 51-100 /HPF (0-1)
[2024-06-08] MEDS: METOPROLOL SUCCINATE 50 MG TAB.SR.24H PO SCH (09:17)
[2024-06-08] MEDS ORDERED: 0.9%NACL 1000ML 1,000 ML IV SCH (12:00)
[2024-06-08] MEDS ORDERED: 0.9% NACL 250ML 250 ML IV SCH (12:00)
[2024-06-08] MEDS ORDERED: HEPARIN 5,000 UNIT VIAL SQ SCH (15:00)
[2024-06-08] MEDS: CEFTRIAXONE 2GM VIAL IVPB SCH (16:14)
[2024-06-08] MEDS: NYSTATIN 15 GM POWDER TP SCH (22:37)
[2024-06-09] VITALS (8 sets, daily range): BP systolic 128–169; BP diastolic 57–68; PULSE 59–69; RESP 18–19; O2SAT 96–98
[2024-06-10] VITALS (19 sets, daily range): BP systolic 129–180; BP diastolic 58–70; PULSE 63–71; RESP 14–18; TEMP 97.6–98.4; O2SAT 96
[2024-06-10 05:12] LABS: BASOPHILS # (AUTO) 0.03 K/uL (0.00-0.20); BASOPHILS % (AUTO) 0.4 % (0.0-5.0); EOSINOPHILS # (AUTO) 0.56 K/uL (0.00-0.70); EOSINOPHILS % (AUTO) 7.4 % (0.0-8.0); HEMATOCRIT 26.4 % (36-48); IMMATURE GRANULOCYTE ABSOLUTE 0.06 K/uL (0-1); LYMPHOCYTES # (AUTO) 0.8 K/uL (1.0-4.8); LYMPHOCYTES % (AUTO) 10.8 % (21.0-51.0); MEAN CORPUSCULAR HEMOGLOBIN 29.5 pg (27.0-33.0); MEAN CORPUSCULAR HGB CONC 31.4 g/dL (32.0-36.0); MONOCYTES % (AUTO) 12.9 % (3.0-13.0); NEUTROPHILS # (AUTO) 5.1 K/uL (1.8-7.7); NEUTROPHILS % (AUTO) 67.7 % (40.0-77.0); NUCLEATED RED BLOOD CELLS 0.3 % (0.0-0.19); PLATELET COUNT (AUTO) 275 K/uL (130-400); RED BLOOD CELL COUNT(AUTO) 2.81 MIL/uL (4.00-5.50); RED CELL DISTRIBUTION WIDTH 13.9 % (11.0-15.5); WHITE BLOOD COUNT (AUTO) 7.5 K/uL (4.8-10.8)
[2024-06-10 05:32] LABS: CREATININE 3.6 mg/dL (0.5-1.0); POTASSIUM 3.7 mmol/L (3.5-5.1)
[2024-06-10] MEDS ORDERED: 0.9%NACL 1000ML 1,000 ML IV SCH (14:00)
[2024-06-10] MEDS ORDERED: HEPARIN 5,000 UNIT VIAL IRRIG SCH (14:00)
== END 2024-06-10 18:10 | DRG 673 ==
LOC: EDH 10:36 → EDHIP 14:18 → 3DH 06-01 17:00
PROVIDERS: ADMIT Internal Medicine Critical Care Medicine; ATTEND Internal Medicine Critical Care Medicine
PROC: 5A1D70Z Performance of Urinary Filtration, Intermittent, Less than 6 Hours Per Day (ICD-10-PCS; principal; 2024-06-03)
PROC: 0JH63XZ Insertion of Tunneled Vascular Access Device into Chest Subcutaneous Tissue and Fascia, Percutaneous Approach (ICD-10-PCS; 2024-06-03)
PROC: 02HV33Z Insertion of Infusion Device into Superior Vena Cava, Percutaneous Approach (ICD-10-PCS; 2024-06-03)
PROC: B5181ZA Fluoroscopy of Superior Vena Cava using Low Osmolar Contrast, Guidance (ICD-10-PCS; 2024-06-03)
PROC: B548ZZA Ultrasonography of Superior Vena Cava, Guidance (ICD-10-PCS; 2024-06-03)
PROC: 5A1D70Z Performance of Urinary Filtration, Intermittent, Less than 6 Hours Per Day (ICD-10-PCS; 2024-06-04)
PROC: 5A1D70Z Performance of Urinary Filtration, Intermittent, Less than 6 Hours Per Day (ICD-10-PCS; 2024-06-06)
PROC: 5A1D70Z Performance of Urinary Filtration, Intermittent, Less than 6 Hours Per Day (ICD-10-PCS; 2024-06-08)
PROC: 5A1D70Z Performance of Urinary Filtration, Intermittent, Less than 6 Hours Per Day (ICD-10-PCS; 2024-06-10)
DX: N17.9 Acute kidney failure, unspecified (principal); G93.41 Metabolic encephalopathy; I12.0 Hypertensive chronic kidney disease with stage 5 chronic kidney disease or end stage renal disease; N30.00 Acute cystitis without hematuria; Z20.822 Contact with and (suspected) exposure to COVID-19; N18.6 End stage renal disease; E83.51 Hypocalcemia; E11.22 Type 2 diabetes mellitus with diabetic chronic kidney disease; E88.09 Other disorders of plasma-protein metabolism, not elsewhere classified; E83.42 Hypomagnesemia; F41.9 Anxiety disorder, unspecified; D63.1 Anemia in chronic kidney disease; E78.00 Pure hypercholesterolemia, unspecified; E11.65 Type 2 diabetes mellitus with hyperglycemia; G25.81 Restless legs syndrome; Z79.899 Other long term (current) drug therapy; Z99.2 Dependence on renal dialysis
CPT/HCPCS: 36415; 36558; 36600; 71045; 73030; 76770; 77001; 80048; 80053; 80061; 80076; 81001; 82040; 82435; 82565; 82570; 82728; 82803; 82947; 82948; 83036; 83540; 83550; 83605; 83735; 83970; 84100; 84132; 84156; 84295; 84443; 84484; 84520; 85014; 85018; 85025; 85027; 85610; 85730; 86255; 86334; 86701; 86704; 86706; 86803; 87086; 87186; 87340; 87390; 87635; 87804; 90935; 93005; 93306; 93356; 93971; C1750; G0378; J0360; J0696; J1170; J1644; J1756; J1815; J2060; J3475; J3490; J7050; C1894; Q5106

== ENCOUNTER 2024-10-12 20:07 | Emergency (ER) | payer MEDICARE ==
[~2024-10-12] VITALS: Ht 157.5 cm; Wt 55.8 kg
[~2024-10-12 20:07] MED LIST changes: +AMLO-258 PO; -AMLO1CAP6 PO; +ATOR10TA69 PO; -ATOR40TA71 PO; -BLOO-140 MC; -CEFU500T67 PO; -CEPH250C2 PO; -CEPH500B PO; +FOLI1TAB85 PO; +GABA-529 PO; -GLIP10TA9 PO; -LANC1COM7 MC; -MAG-55 PO; -METF-446 PO; -OMEP40CA21 PO; -ONDA-104 PO; -SITA50TA PO
[2024-10-12 20:24] VITALS: TEMP 98.5
[2024-10-12 21:22] LABS: BASOPHILS # (AUTO) 0.07 K/uL (0.00-0.20); BASOPHILS % (AUTO) 0.8 % (0.0-5.0); EOSINOPHILS # (AUTO) 0.23 K/uL (0.00-0.70); EOSINOPHILS % (AUTO) 2.5 % (0.0-8.0); HEMATOCRIT 37.3 % (36-48); IMMATURE GRANULOCYTE ABSOLUTE 0.04 K/uL (0-1); LYMPHOCYTES # (AUTO) 1.5 K/uL (1.0-4.8); LYMPHOCYTES % (AUTO) 16.1 % (21.0-51.0); MEAN CORPUSCULAR HEMOGLOBIN 31.5 pg (27.0-33.0); MEAN CORPUSCULAR HGB CONC 32.4 g/dL (32.0-36.0); MEAN CORPUSCULAR VOLUME 97.1 fL (79-99); MONOCYTES % (AUTO) 11.1 % (3.0-13.0); NEUTROPHILS # (AUTO) 6.4 K/uL (1.8-7.7); NEUTROPHILS % (AUTO) 69.1 % (40.0-77.0); PLATELET COUNT (AUTO) 174 K/uL (130-400); RED BLOOD CELL COUNT(AUTO) 3.84 MIL/uL (4.00-5.50); RED CELL DISTRIBUTION WIDTH 13.3 % (11.0-15.5); WHITE BLOOD COUNT (AUTO) 9.2 K/uL (4.8-10.8)
[2024-10-12] MEDS: INSULIN humuLIN R 100 UNIT/ML 3ML IV ONE ×2 (21:27→23:29)
--- NOTE | 2024-10-12 21:33 | ERN ---
General Chief Complaint: Hyperglycemia Stated Complaint: HIGH SUGAR LEVELS Time Seen by MD: 20:08 Source: patient History of Present Illness Initial Comments Patient is a 79-year-old female coming in to be evaluated for elevated blood glucose. Patient states that she checked her sugar noticed it too high to be read so she decided to come in to be evaluated. Patient does take glyburide for her hyperglycemia states he only took half of her normal dose and came in to be evaluated.. Allergies: Coded Allergies: No Known Drug Allergies (Verified Allergy, 10/16/12) Home Meds Reported Medications Atorvastatin Calcium (Atorvastatin Calcium) 10 Mg Tablet, 1 TAB PO HS for 30 Days, #30 TAB 0 Refills 09/13/24 Amlodipine Besylate (Amlodipine Besylate) 10 Mg Tablet, 10 MG PO DAILY, TAB 0 Refills 08/02/24 Gabapentin (Gabapentin) 100 Mg Capsule, 100 MG PO HS, CAP 08/02/24 Vit B Cmplx 3/FA/Vit C/Biotin (Shannan-Dia Rx Tablet) 1 Mg-60 Mg-300 Mcg Tablet, 1 TAB PO DAILY, TAB 06/02/24 Dapagliflozin Propanediol (Farxiga) 10 Mg Tablet, 10 MG PO DAILY, TAB 04/14/22 Past Medical History Past Medical History: Diabetes-Type II, High Cholesterol, Hypertension Past Surgical History: Other Surgical History Other: FISTULA TO LEFT ARM; Family History Family History: Negative Social History Social History: Negative, Lives with family Female( History) History: Not Applicable ROS Dictation CONSTITUTIONAL: No chills, no fever, no weakness, no diaphoresis, no malaise. HEAD/FACE: No signs of trauma. EENT: No eye pain, no blurred vision, no tearing, no double vision, no ear pain, no ear discharge, no nose pain, no nasal congestion, no throat pain, no throat swelling, no mouth pain. RESPIRATORY: No cough, no orthopnea, no SOB, no stridor, no wheezing. CARDIOVASCULAR: No chest pain, no edema, no palpitations, no syncope. GASTROINTESTINAL/ABDOMINAL: No abdominal pain, no constipation, no diarrhea, no nausea, no vomiting. GENITOURINARY: No abnormal discharge, no dysuria, no frequent urination, no hematuria. No complaints of pain in the genitals. MUSCULOSKELETAL: No back pain, no gout, no joint pain, no joint swelling, no muscle pain, no muscle stiffness, no neck pain. INTEGUMENTARY: No change in color, no change in hair/nails, no dryness, no lesion, no lumps, no rash. NEUROLOGICAL/PSYCH: No anxiety, not depressed, no emotional problem, no headache, no numbness, no pre-existing deficit, no history of seizures, no tremors, no weakness. HEMATOLOGIC/LYMPHATIC: Not anemic, no history of blood clots, no apparent bleeding, no bruising, glands not swollen. All Systems Negative, Except as Noted. Physical Exam Physical Exam Dictation VITAL SIGNS: Reviewed. GENERAL APPEARANCE: Alert, oriented x3, no acute distress, obese. HEAD AND FACE: Non-traumatic. EYES: PERRL, pink conjunctivas, eyelid no trauma, anterior chamber clear. EARS: Pinnas intact and no signs of trauma or erythema. Ear canals clear and no discharge. TMs no erythema. NOSE: No discharge, no bleeding. OROPHARYNX: Mouth normal, teeth no caries, tongue pink. Pharynx clear, no erythema. Tonsils no exudates, no abscesses noted. Mucous membrane moist. NECK: Supple, non-tender, no thyromegaly, no masses, no JVD, no bruits. BREAST: Deferred. CHEST: No tenderness, no crepitus, no paradoxical movement, no retractions. LUNGS: Clear, well-ventilated, symmetric, no rales, no wheezing, no rhonchi, no stridor, good breath sounds bilaterally. HEART: Regular rate, regular rhythm, no murmur, no gallops. VASCULAR: No peripheral edema. ABDOMEN: Soft, positive bowel sounds, nondistended, no guarding, nontender, no rebound, no masses no hepatomegaly, no splenomegaly, no Voss's sign, no hernias. RECTAL: Deferred. GENITAL: Deferred. NEUROLOGICAL: Normal speech, gross motor function intact, gross sensory function intact. MUSCULOSKELETAL: Neck nontender, full range of motion, back nontender, full range of motion. EXTREMITIES: Nontender, full range of motion. SKIN: Color pink, dry, no turgor, no rash, no lacerations, no abrasions, no contusions. LYMPHATICS: Deferred. Results Laboratory and Microbiology Lab and Micro Result Laboratory Tests Test 10/12/24 20:30 10/12/24 20:51 10/12/24 21:15 10/12/24 21:39 Whole Blood Glucose 507 MG/DL (70-110) *H 441 MG/DL (70-110) *H Bedside Glucose Comment Notified Nurse Notified Nurse White Blood Count 9.2 K/uL (4.8-10.8) Red Blood Count 3.84 MIL/uL (4.00-5.50) L Hemoglobin 12.1 g/dL (12.0-16.0) Hematocrit 37.3 % (36-48) Mean Corpuscular Volume 97.1 fL (79-99) Mean Corpuscular Hemoglobin 31.5 pg (27.0-33.0) Mean Corpuscular Hemoglobin Concent 32.4 g/dL (32.0-36.0) Red Cell Distribution Width 13.3 % (11.0-15.5) Platelet Count 174 K/uL (130-400) Mean Platelet Volume 11.2 fL (7.5-10.5) H Immature Granulocyte % (Auto) 0.4 % (0-1) Neutrophils (%) (Auto) 69.1 % (40.0-77.0) Lymphocytes (%) (Auto) 16.1 % (21.0-51.0) L Monocytes (%) (Auto) 11.1 % (3.0-13.0) Eosinophils (%) (Auto) 2.5 % (0.0-8.0) Basophils (%) (Auto) 0.8 % (0.0-5.0) Neutrophils # (Auto) 6.4 K/uL (1.8-7.7) Lymphocytes # (Auto) 1.5 K/uL (1.0-4.8) Monocytes # (Auto) 1.0 K/uL (0.1-1.0) Eosinophils # (Auto) 0.23 K/uL (0.00-0.70) Basophils # (Auto) 0.07 K/uL (0.00-0.20) Absolute Immature Granulocyte (auto 0.04 K/uL (0-1) Nucleated Red Blood Cells 0.0 % (0.0-0.19) Sodium Level 134 mmol/L (136-145) L Potassium Level 4.0 mmol/L (3.5-5.1) Chloride Level 97 mmol/L (101-111) L Carbon Dioxide Level 29 mmol/L (21-32) Blood Urea Nitrogen 47 mg/dL (7-18) H Creatinine 4.6 mg/dL (0.5-1.0) H Glomerular Filtration Rate Calc 9 mL/min (>90) Random Glucose 470 mg/dL (70-105) *H Total Calcium 8.3 mg/dL (8.5-10.1) L Test 10/12/24 23:07 Whole Blood Glucose 331 MG/DL (70-110) H Labs Reviewed?: Yes MDM MDM: Differential diagnosis: Hyperglycemia secondary to diabetes mellitus uncontrolled, end-stage renal disease Patient is a 79-year-old female coming in to be evaluated for elevated blood glucose. Patient states he has not taken her medications as indicated. Patient received insulin x2 doses of 5 units, patient's glucose improved significantly. Patient was educated on proper usage of her medications for hypoglycemia patient will be discharged in stable condition. Patient refused to stay states he would rather go home. ED Course Orders Procedure Category Date Status Time Cbc With Differential LAB 10/12/24 Complete 20:25 Insulin Regular, PHA 10/12/24 Complete Human 3ml (Humulin R 21:00 Basic Metabolic Panel LAB 10/12/24 Complete 21:30 Bedside Glucose CPOE 10/12/24 Transmitted Fingerstick 22:43 Insulin Regular, PHA 10/12/24 In Process Human 3ml (Humulin R 23:30 Current Medications Medications (Trade) Dose Ordered Sig/Sean Route PRN Reason Start Time Stop Time Status Last Admin Dose Admin Insulin Human Regular (humuLIN R 100 UNIT/ML 3ML) 5 unit ONCE ONCE IV 10/12/24 21:00 10/12/24 21:01 DC 10/12/24 21:27 Insulin Human Regular (humuLIN R 100 UNIT/ML 3ML) 5 unit ONCE ONCE IV 10/12/24 23:30 10/12/24 23:31 Vital Signs Date Time Temp Pulse Resp B/P (MAP) Pulse Ox O2 Delivery O2 Flow Rate FiO2 10/12/24 21:54 76 16 155/57 98 Room Air* 0 21 10/12/24 20:24 98.4 82 20 188/66 98 Room Air DX & DISP Disposition: Discharge Departure Impression: Primary Impression: Diabetes mellitus type 2, uncontrolled Condition: Stable Additional Instructions: FOLLOW-UP WITH PRIMARY CARE PROVIDER IN 1 TO 2 DAYS. TAKE MEDICATIONS DIRECTED HERE IN THE EMERGENCY ROOM. OKAY TO CONTINUE HOME MEDICATIONS UNLESS OTHERWISE DISCUSSED DURING YOUR VISIT IN THE EMERGENCY ROOM TODAY. RETURN TO YOUR NEAREST EMERGENCY ROOM IF SYMPTOMS WORSEN OR IF THERE IS NO IMPROVEMENT. CALL 911 IF YOU NEED IMMEDIATE ASSISTANCE. TAKE TYLENOL LNYD-NLO-RFIOLTU NEEDED AND IF NO CONTRAINDICATIONS ARE PRESENT. INCREASE ORAL HYDRATION. A WOUND CULTURE OR URINE CULTURE WAS ORDERED HERE IN THE EMERGENCY ROOM DEPARTMENT PLEASE FOLLOW-UP WITH PRIMARY CARE PROVIDER AND ADVISE THEM TO GET REPEAT PORTS FROM OUR FACILITY. IF YOU HAD ANY RAINA WRAP/SPLINTS THAT WERE APPLIED HERE, PLEASE DO NOT REMOVE THEM UNTIL YOU SEE YOUR PRIMARY CARE OR SPECIALTY. Referrals: Referrals: JOSHUA NUNES MD (PCP) Time of Disposition: 23:21 CASS WANG MD Oct 12, 2024 21:33
[2024-10-12 22:12] LABS: CREATININE 4.6 mg/dL (0.5-1.0)
[2024-10-12 23:40] VITALS: BP 149/48; PULSE 68; RESP 16; O2SAT 98
== END 2024-10-13 00:29 | disposition home or self-care (01) ==
LOC: EDH 20:07
DX: E11.65 Type 2 diabetes mellitus with hyperglycemia (principal); E78.00 Pure hypercholesterolemia, unspecified; I10 Essential (primary) hypertension; Z79.84 Long term (current) use of oral hypoglycemic drugs
CPT/HCPCS: 99284; 96374; 80048; 85025; 82948 ×4; 36415; 96376; J1815 ×2

== ENCOUNTER 2024-10-18 02:59 | Emergency (ER) | payer MEDICARE ==
[~2024-10-18] VITALS: Ht 157.5 cm; Wt 55.8 kg
[2024-10-18] MEDS ORDERED: 0.9%NACL 1000ML 1,000 ML IV ONE (03:30)
--- NOTE | 2024-10-18 03:45 | NUR ---
PATIENT REPORTS HIGH BLOOD SUGAR AT HOME 400
[2024-10-18 03:54] LABS: BASOPHILS # (AUTO) 0.05 K/uL (0.00-0.20); BASOPHILS % (AUTO) 0.6 % (0.0-5.0); EOSINOPHILS # (AUTO) 0.24 K/uL (0.00-0.70); EOSINOPHILS % (AUTO) 3.1 % (0.0-8.0); HEMATOCRIT 34.6 % (36-48); IMMATURE GRANULOCYTE ABSOLUTE 0.02 K/uL (0-1); LYMPHOCYTES # (AUTO) 1.4 K/uL (1.0-4.8); LYMPHOCYTES % (AUTO) 17.5 % (21.0-51.0); MEAN CORPUSCULAR HEMOGLOBIN 31.6 pg (27.0-33.0); MEAN CORPUSCULAR HGB CONC 33.2 g/dL (32.0-36.0); MEAN CORPUSCULAR VOLUME 95.1 fL (79-99); MONOCYTES # (AUTO) 0.8 K/uL (0.1-1.0); MONOCYTES % (AUTO) 10.5 % (3.0-13.0); NEUTROPHILS # (AUTO) 5.3 K/uL (1.8-7.7); PLATELET COUNT (AUTO) 218 K/uL (130-400); RED BLOOD CELL COUNT(AUTO) 3.64 MIL/uL (4.00-5.50); WHITE BLOOD COUNT (AUTO) 7.7 K/uL (4.8-10.8)
[2024-10-18] MEDS: 0.9% NACL 500ML IV.SOLN 500 ML IV ONE (04:07)
[2024-10-18 04:09] LABS: CREATININE 3.7 mg/dL (0.5-1.0); POTASSIUM 4.4 mmol/L (3.5-5.1)
--- NOTE | 2024-10-18 04:10 | ERN ---
ED Note History of Present Illness Stated Complaint: C/O HIGH SUGAR; 450 AT HOME Chief Complaint: Blood Sugar Problem Time Seen by MD: 03:06 Dictation: Patient is a 79-year-old female coming in to be evaluated for elevated blood glucose. Patient states that she checked her sugar noticed it too high to be read so she decided to come in to be evaluated. Patient does take glyburide for her hyperglycemia states he only took half of her normal dose and came in to be evaluated. Daughter stated that patient gets very weak and tired that is when they checked the sugar Temperature 98.1 pulse 73 respirations 20 blood pressure 154/52 with a pulse oximetry of 99% on room air Her chronic medical problems include diabetes mellitus type 2, hypertension, end-stage renal disease on hemodialysis-Thursday schedule Allergies: Coded Allergies: No Known Drug Allergies (Verified Allergy, 10/16/12) Home Meds Reported Medications Atorvastatin Calcium (Atorvastatin Calcium) 10 Mg Tablet, 1 TAB PO HS for 30 Days, #30 TAB 0 Refills 09/13/24 Amlodipine Besylate (Amlodipine Besylate) 10 Mg Tablet, 10 MG PO DAILY, TAB 0 Refills 08/02/24 Gabapentin (Gabapentin) 100 Mg Capsule, 100 MG PO HS, CAP 08/02/24 Vit B Cmplx 3/FA/Vit C/Biotin (Shannan-Dia Rx Tablet) 1 Mg-60 Mg-300 Mcg Tablet, 1 TAB PO DAILY, TAB 06/02/24 Dapagliflozin Propanediol (Farxiga) 10 Mg Tablet, 10 MG PO DAILY, TAB 04/14/22 Past Medical History Past Medical History: Diabetes-Type II, Hypertension, Renal Failure Surgical History: Other Surgical History Other: FISTULA TO LEFT ARM; Family History: Negative Social History: Negative, Lives with family History: Not Applicable RN Note Reviewed/Agreed w/PFSH: Yes Review of System Dictation Other than generalized body weakness with poor sugar control rest is as follows Constitutional: Negative for fever,chills, and weight loss Eyes: Negative for injury, pain,redness, and discharge ENT: Negative for injury,pain or swelling Cardiovascular: Negative for chest pain, palpitations, and edema Respiratory: Negative for shortness of breath, cough, and wheezing, Abdomen/GI: Negative for abdominal pain, nausea, vomiting, diarrhea, and constipation Back: Negative for injury and pain : Negative for injury, bleeding and discharge MS/Extremity: Negative for injury and deformity Skin: Negative for rash, and discoloration Neuro: Negative for headache, weakness, numbness, tingling, and seizure Psych: Negative for suicide ideation, homicidal ideation, and hallucinations Initial Vital Sign VS Vital Signs Date Time Temp Pulse Resp B/P (MAP) Pulse Ox O2 Delivery O2 Flow Rate FiO2 10/18/24 03:01 98.1 73 20 154/52 99 Room Air 10/18/24 05:00 0 21 Physical Exam Dictation General: awake, alert, NAD elderly lady not in any acute distress Head/Face: Normocephalic, atraumatic Eyes: PERRL, EOMI, vision at baseline ENT: oral cavity clear, TMs clear, no signs of infection Neck: Trachea midline, supple, no nuchal rigidity Cardiovascular: RRR, normal S1/S2, No MRGs, no JVD Respiratory: CTAB, no respiratory distress, No rales or wheezes Abdomen: Soft, non-tender, non-distended, normal bowel sounds, no guarding or rebound. Skin: Warm, dry, normal turgor, no rash MS/Extremity: Pulses equal, no cyanosis, neurovascular intact, FROM Neuro: COAx4, GCS 15, strength 5/5, CN 2-12 intact, normal cerebellar exam, normal gait, Psych: Normal behavior, mood, and affect normal Extremities-trace edema without any palpable cords, Homans sign is negative Results (Laboratory/Radiology) Laboratory/Radiology Laboratory Tests Test 10/18/24 03:04 10/18/24 03:40 10/18/24 04:05 10/18/24 04:56 Whole Blood Glucose 408 MG/DL (70-110) *H 195 MG/DL (70-110) #H White Blood Count 7.7 K/uL (4.8-10.8) Red Blood Count 3.64 MIL/uL (4.00-5.50) L Hemoglobin 11.5 g/dL (12.0-16.0) L Hematocrit 34.6 % (36-48) L Mean Corpuscular Volume 95.1 fL (79-99) Mean Corpuscular Hemoglobin 31.6 pg (27.0-33.0) Mean Corpuscular Hemoglobin Concent 33.2 g/dL (32.0-36.0) Red Cell Distribution Width 13.0 % (11.0-15.5) Platelet Count 218 K/uL (130-400) Mean Platelet Volume 10.5 fL (7.5-10.5) Immature Granulocyte % (Auto) 0.3 % (0-1) Neutrophils (%) (Auto) 68.0 % (40.0-77.0) Lymphocytes (%) (Auto) 17.5 % (21.0-51.0) L Monocytes (%) (Auto) 10.5 % (3.0-13.0) Eosinophils (%) (Auto) 3.1 % (0.0-8.0) Basophils (%) (Auto) 0.6 % (0.0-5.0) Neutrophils # (Auto) 5.3 K/uL (1.8-7.7) Lymphocytes # (Auto) 1.4 K/uL (1.0-4.8) Monocytes # (Auto) 0.8 K/uL (0.1-1.0) Eosinophils # (Auto) 0.24 K/uL (0.00-0.70) Basophils # (Auto) 0.05 K/uL (0.00-0.20) Absolute Immature Granulocyte (auto 0.02 K/uL (0-1) Nucleated Red Blood Cells 0.0 % (0.0-0.19) Sodium Level 137 mmol/L (136-145) Potassium Level 4.4 mmol/L (3.5-5.1) Chloride Level 98 mmol/L (101-111) L Carbon Dioxide Level 30 mmol/L (21-32) Blood Urea Nitrogen 30 mg/dL (7-18) H Creatinine 3.7 mg/dL (0.5-1.0) H Glomerular Filtration Rate Calc 12 mL/min (>90) Random Glucose 393 mg/dL (70-105) H Total Calcium 8.2 mg/dL (8.5-10.1) L Urine Color LIGHT-YELLOW (YELLOW) Urine Appearance CLEAR (CLEAR) Urine pH 6.0 (5.0-8.0) Urine Specific [place] 1.016 (1.001-1.031) Urine Protein 300 mg/dL (NEGATIVE) H Urine Glucose (UA) >=1000 mg/dL (NEGATIVE) H Urine Ketones NEGATIVE mg/dL (NEGATIVE) Urine Occult Blood +- (TRACE) (NEGATIVE) H Urine Nitrate NEGATIVE (NEGATIVE) Urine Bilirubin NEGATIVE mg/dL (NEGATIVE) Urine Urobilinogen 0.2 mg/dL (0.2-1.0) Urine Leukocyte Esterase 25 [place]/uL (NEGATIVE) H Urine RBC 0-1 /HPF (0-1) Urine WBC 6-10 /HPF (0-1) H Urine Squamous Epithelial Cells RARE /HPF (0-2) Urine Bacteria RARE /HPF (None Seen) Labs Reviewed?: Yes ED Course ED Course Orders Procedure Category Date Status Time Cbc With Differential LAB 10/18/24 Complete 03:06 Basic Metabolic Panel LAB 10/18/24 Complete 03:06 Urinalysis Profile LAB 10/18/24 Complete 03:06 0.9%Nacl 1000ml (Ns PHA 10/18/24 Complete 1000ml) 03:30 12 Lead Ekg Tracing- EKG 10/18/24 Logged Technical 03:22 0.9% Nacl 500ml PHA 10/18/24 Complete Iv.Soln (Ns 500ml 04:30 Insulin Regular, PHA 10/18/24 Complete Human 3ml (Humulin R 04:30 Culture Urine BABITA 10/18/24 In Process 04:52 Current Medications Medications (Trade) Dose Ordered Sig/Sean Route PRN Reason Start Time Stop Time Status Last Admin Dose Admin Insulin Human Regular (humuLIN R 100 UNIT/ML 3ML) 15 unit ONCE ONCE SQ 10/18/24 04:30 10/18/24 04:31 DC 10/18/24 04:22 Sodium Chloride 500 ml @ 0 mls/hr Q0M ONCE IV 10/18/24 04:30 10/18/24 04:31 DC 10/18/24 04:07 Sodium Chloride 1,000 ml @ 0 mls/hr ONCE ONCE IV 10/18/24 03:30 10/18/24 04:02 DC Vital Signs Date Time Temp Pulse Resp B/P (MAP) Pulse Ox O2 Delivery O2 Flow Rate FiO2 10/18/24 05:00 98.2 68 17 154/46 96 Room Air* 0 21 10/18/24 03:01 98.1 73 20 154/52 99 Room Air We will perform diagnostic labs, advanced imaging and administer medications according to the patient's complaint. Once the results are available, will review and personally interpreted the labs to rule out any acute life- threatening emergency the trach require immediate intervention and treatment. I will then re-evaluate the patient after treatment and diagnostic exams have return to determine whether the patient requires any further testing, can safely be discharged home or need further admission to hospital for additional treatment and evaluation. Labs reviewed CBC showed hemoglobin of 11.5. BNP 7 was significant for a BUN and creatinine of 30 and 3.7 and a glucose of 408. Patient received a small bolus of fluids and insulin-regular 5:12 a.m. repeat Accu-Chek 195. Patient feels better and she has not appointment with her primary care physician Dr. Velasco with [facility] and she wants to be discharged to home for optimal glycemic control Medical Decision Making MDM MDM: Differential diagnosis: Uncontrolled diabetes, hyperglycemia, DKA Rationale: Tests considered and ordered secondary to shared decision making include: Previous outside records reviewed: Old ER visits. Risk of complication and/or morbidity or mortality of patient management: None Medications-Per medication reconciliation Need for hospitalization: Patient does not meet criteria for hospitalization. Need for emergency major/minor surgery: No There are no social concerns with this patient. Prescription drug management Prescriptions will include symptomatic care Patient's prior external medical records from other ER visits were reviewed by me as indicated. Prior testing and results from previous visits were reviewed. Prior tests were taken into account with medical decision making and resource utilization, independent historian/historians were used to obtain complete medical history. I independently interpreted the test that were performed, results were reviewed by me and considered findings on radiology if ordered. Medical management and examination interpretation discussions were had by me with other qualified healthcare professionals as indicated for the patient's care. Problem List Problem List: (1) End stage renal disease on dialysis (2) Hypertension (3) Uncontrolled diabetes mellitus with hyperglycemia (4) Anemia of chronic kidney failure DX & DISP Disposition: Discharge Departure Impression: Primary Impression: Uncontrolled diabetes mellitus with hyperglycemia Additional Impressions: End stage renal disease on dialysis, Hypertension Condition: Stable Additional Instructions: Patient and the caregiver have been informed of all the diagnostic tests and the imaging conducted during the today's visit to the emergency room and has verbalized understanding of the results I have personally reviewed and interpreted all diagnostic exams performed here in the ER today as well as the vital signs documented by the nursing staff. The patient is now being discharge d to home and should follow up with the primary care physician or the specialist as directed by the ER staff. Follow-up with primary care provider in 1 to 2 days. Take medications as directed here in the emergency room. Okay to continue home medications unless otherwise discussed during your visit in the emergency room today. Return to your nearest emergency room if symptoms worsen or if there is no improvement. Call 911 if you need immediate assistance. Take Tylenol or Motrin [id number] as needed and if no contraindications are present. Increase oral hydration. A wound culture or urine culture was ordered here in the emergency room department please follow-up with primary care provider and advise them to get repeat ports from our facility. If you had any Gen wrap/splints that were applied here, please do not remove them until you see your primary care or specialty. Patient's primary care physician to address if patient has poorly controlled diabetes requiring insulin long-term Referrals: JOSHUA VELASCO MD (PCP) LIZ AVERY MD Oct 18, 2024 04:10
[2024-10-18] MEDS: INSULIN humuLIN R 100 UNIT/ML 3ML SQ ONE (04:22)
[2024-10-18 04:46] LABS: APPEARANCE,URINE CLEAR (CLEAR); BILIRUBIN,URINE NEGATIVE (NEGATIVE); COLOR,URINE LIGHT-YELLOW (YELLOW); GLUCOSE, URINE (UA) >=1000 mg/dL (NEGATIVE); KETONES,URINE NEGATIVE (NEGATIVE); LEUKOCYTE ESTERASE ,URINE 25 Leu/uL (NEGATIVE); NITRATE,URINE NEGATIVE (NEGATIVE); PROTEIN,URINE 300 mg/dL (NEGATIVE); UROBILINOGEN,URINE 0.2 mg/dL (0.2-1.0)
[2024-10-18 04:47] LABS: ADD UA MICROSCOPIC YES
[2024-10-18 04:48] LABS: BACTERIA,URINE RARE /HPF (None Seen); MUCUS,URINE RARE LPF (None Seen); RBC,URINE 0-1 /HPF (0-1); SQUAMOUS EPITHELIAL CELL,UR RARE /HPF (0-2)
[2024-10-18 05:00] VITALS: BP 154/46; PULSE 68; RESP 17; TEMP 98.2; O2SAT 96
--- NOTE | 2024-10-18 06:31 | EKG ---
[facility] Test Date: 2024-10-18 Test Time: 03:47:25 Pat Name: PREET DUKES Department: ED Room: Gender: F [employer] Coordinator: [id number] : 1945 Requested By: LIZ AVERY Order Number: [id number] Reading MD: Serafin Berman Measurements Intervals [place] Rate: 74 P: 15 AR: 179 QRS: -4 QRSD: 106 T: 21 QT: 420 QTc: 465 Interpretive Statements Sinus rhythm Compared to ECG 09/18/2024 12:05:31 No significant changes Electronically Signed On 10-18-2024 19:08:45 VAMPER by Serafin Berman Please click the below link to view image of tracing.
== END 2024-10-18 05:22 | disposition home or self-care (01) ==
LOC: EDH 02:59
DX: E11.65 Type 2 diabetes mellitus with hyperglycemia (principal); I12.0 Hypertensive chronic kidney disease with stage 5 chronic kidney disease or end stage renal disease; N18.6 End stage renal disease; E11.22 Type 2 diabetes mellitus with diabetic chronic kidney disease; Z79.84 Long term (current) use of oral hypoglycemic drugs; Z99.2 Dependence on renal dialysis
CPT/HCPCS: 99284; 80048; 85025; 87086; 82948 ×2; 81001; 36415; 93005; J1815; J7040; J7030

== ENCOUNTER 2024-10-24 22:38 | Emergency (ER) | payer MEDICARE ==
[~2024-10-24] VITALS: Ht 157.5 cm; Wt 55.8 kg
[2024-10-25 00:14] LABS: BASOPHILS # (AUTO) 0.07 K/uL (0.00-0.20); EOSINOPHILS # (AUTO) 0.24 K/uL (0.00-0.70); EOSINOPHILS % (AUTO) 3.5 % (0.0-8.0); HEMATOCRIT 32.9 % (36-48); IMMATURE GRANULOCYTE ABSOLUTE 0.02 K/uL (0-1); LYMPHOCYTES # (AUTO) 1.1 K/uL (1.0-4.8); LYMPHOCYTES % (AUTO) 15.7 % (21.0-51.0); MEAN CORPUSCULAR HGB CONC 33.4 g/dL (32.0-36.0); MEAN CORPUSCULAR VOLUME 95.6 fL (79-99); MONOCYTES # (AUTO) 0.7 K/uL (0.1-1.0); MONOCYTES % (AUTO) 9.9 % (3.0-13.0); NEUTROPHILS # (AUTO) 4.8 K/uL (1.8-7.7); NEUTROPHILS % (AUTO) 69.6 % (40.0-77.0); PLATELET COUNT (AUTO) 236 K/uL (130-400); RED BLOOD CELL COUNT(AUTO) 3.44 MIL/uL (4.00-5.50); RED CELL DISTRIBUTION WIDTH 12.8 % (11.0-15.5)
[2024-10-25 00:22] LABS: POTASSIUM 4.5 mmol/L (3.5-5.1)
--- NOTE | 2024-10-25 00:37 | HMCIMG ---
CT ABDOMEN/PELVIS W/O CONTRAST HISTORY: Bilateral flank pain COMPARISON: 09/18/2024 TECHNIQUE: Multiple sequential axial images of the abdomen and pelvis were obtained from the dome of the diaphragm through symphysis pubis. Patient was not given contrast through intravenous route. Oral contrast was not given. FINDINGS: No pleural effusion is seen bilaterally. There is no evidence of parenchymal disease or pulmonary nodule of the visualized lower lungs. Degenerative changes of the thoracolumbar spine are present. The heart is not enlarged. Liver is borderline in size measuring 16 cm. Postcholecystectomy changes are seen. There is right lower pole renal cyst measuring 4.3 cm. Mild small bowel dilatation is seen. The liver, spleen, adrenal glands and pancreas are unremarkable. There is no evidence of hydronephrosis bilaterally. No evidence of renal stone is seen. Fecal material is seen in the colon. There are normal size retroperitoneal and mesenteric lymph nodes. No ascites is seen. Atherosclerotic changes are present. No definite CT evidence of acute appendicitis is seen. There is diverticulosis Pelvic sidewalls are symmetric bilaterally. Bladder is poorly distended. IMPRESSION: 1. Diverticulosis. Fecal material in the colon. No ascites. CT was performed with one or more following dose reduction techniques: automated exposure control, adjustment of the mA and kv according to patient's size, or use of a iterative reconstruction technique.
[2024-10-25 01:00] LABS: APPEARANCE,URINE CLEAR (CLEAR); BILIRUBIN,URINE NEGATIVE (NEGATIVE); COLOR,URINE LIGHT-YELLOW (YELLOW); GLUCOSE, URINE (UA) >=1000 mg/dL (NEGATIVE); KETONES,URINE NEGATIVE (NEGATIVE); LEUKOCYTE ESTERASE ,URINE 75 Leu/uL (NEGATIVE); NITRATE,URINE NEGATIVE (NEGATIVE); PROTEIN,URINE 300 mg/dL (NEGATIVE); UROBILINOGEN,URINE 0.2 mg/dL (0.2-1.0)
[2024-10-25 01:01] LABS: ADD UA MICROSCOPIC YES
[2024-10-25 01:10] LABS: BACTERIA,URINE RARE /HPF (None Seen); MUCUS,URINE RARE LPF (None Seen); SQUAMOUS EPITHELIAL CELL,UR RARE /HPF (0-2)
[2024-10-25] MEDS: INSULIN humuLIN R 100 UNIT/ML 3ML IV STA (01:50)
--- NOTE | 2024-10-25 02:01 | ERN ---
ED Note History of Present Illness Stated Complaint: FLANK PAIN Chief Complaint: Flank Pain Time Seen by MD: 23:10 Time Seen by Midlevel: 23:14 Dictation: 79-YEAR-OLD FEMALE WITH A HISTORY OF ESRD, DIABETES, CHOLESTEROL, HYPERTENSION COMING IN COMPLAINING OF BILATERAL FLANK PAIN FOR THE LAST THREE DAYS. PATIENT STATES SHE TOOK TYLENOL BEFORE COMING TO THE ER, DENIES ANY FEVER, NAUSEA, VOMITING, OR DIARRHEA. PATIENT STATES SHE STARTED TRESIBIA THREE DAYS AGO. Allergies: Coded Allergies: No Known Drug Allergies (Verified Allergy, 10/16/12) Home Meds Reported Medications Atorvastatin Calcium (Atorvastatin Calcium) 10 Mg Tablet, 1 TAB PO HS for 30 Days, #30 TAB 0 Refills 09/13/24 Amlodipine Besylate (Amlodipine Besylate) 10 Mg Tablet, 10 MG PO DAILY, TAB 0 Refills 08/02/24 Gabapentin (Gabapentin) 100 Mg Capsule, 100 MG PO HS, CAP 08/02/24 Vit B Cmplx 3/FA/Vit C/Biotin (Shannan-Dia Rx Tablet) 1 Mg-60 Mg-300 Mcg Tablet, 1 TAB PO DAILY, TAB 06/02/24 Dapagliflozin Propanediol (Farxiga) 10 Mg Tablet, 10 MG PO DAILY, TAB 04/14/22 Past Medical History Past Medical History: Diabetes-Type II, High Cholesterol, Hypertension Surgical History: Cholecystectomy, Other, LAVA Surgical History Other: RIGHT UPPER ARM SX Family History: Negative Social History: Negative, Lives with family History: Not Applicable Review of System Dictation CONSTITUTIONAL: NEGATIVE FOR FEVER,CHILLS, AND WEIGHT LOSS EYES: NEGATIVE FOR INJURY, PAIN,REDNESS, AND DISCHARGE ENT: NEGATIVE FOR INJURY,PAIN OR SWELLING CARDIOVASCULAR: NEGATIVE FOR CHEST PAIN, PALPITATIONS, AND EDEMA RESPIRATORY: NEGATIVE FOR SHORTNESS OF BREATH, COUGH, AND WHEEZING, ABDOMEN/GI: NEGATIVE FOR ABDOMINAL PAIN, NAUSEA, VOMITING, DIARRHEA, AND CONSTIPATION BACK: NEGATIVE FOR INJURY AND PAIN COMPLAINING OF BILATERAL FLANK PAIN : NEGATIVE FOR INJURY, BLEEDING AND DISCHARGE MS/EXTREMITY: NEGATIVE FOR INJURY AND DEFORMITY SKIN: NEGATIVE FOR RASH, AND DISCOLORATION NEURO: NEGATIVE FOR HEADACHE, WEAKNESS, NUMBNESS, TINGLING, AND SEIZURE PSYCH: NEGATIVE FOR SUICIDE IDEATION, HOMICIDAL IDEATION, AND HALLUCINATIONS Review of Systems: was completed Initial Vital Sign VS Vital Signs Date Time Temp Pulse Resp B/P (MAP) Pulse Ox O2 Delivery O2 Flow Rate FiO2 12/9/24 22:41 98.8 76 18 163/52 100 Room Air 0 10/25/24 01:44 21 Physical Exam Dictation GENERAL: AWAKE, ALERT, NAD HEAD/FACE: NORMOCEPHALIC, ATRAUMATIC EYES: PERRL, EOMI, VISION AT BASELINE ENT: ORAL CAVITY CLEAR, TMS CLEAR, NO SIGNS OF INFECTION NECK: TRACHEA MIDLINE, SUPPLE, NO NUCHAL RIGIDITY CARDIOVASCULAR: RRR, NORMAL S1/S2, NO MRGS, NO JVD RESPIRATORY: CTAB, NO RESPIRATORY DISTRESS, NO RALES OR WHEEZES ABDOMEN: SOFT, NON-TENDER, NON-DISTENDED, NORMAL BOWEL SOUNDS, NO GUARDING OR REBOUND. SKIN: WARM, DRY, NORMAL TURGOR, NO RASH MS/EXTREMITY: PULSES EQUAL, NO CYANOSIS, NEUROVASCULAR INTACT, FROM NEURO: COAX4, GCS 15, STRENGTH 5/5, CN 2-12 INTACT, NORMAL CEREBELLAR EXAM, NORMAL GAIT, PSYCH: NORMAL BEHAVIOR, MOOD, AND AFFECT NORMAL Results (Laboratory/Radiology) Laboratory/Radiology Laboratory Tests Test 10/25/24 00:02 10/25/24 00:36 10/25/24 01:31 10/25/24 02:11 White Blood Count 7.0 K/uL (4.8-10.8) Red Blood Count 3.44 MIL/uL (4.00-5.50) L Hemoglobin 11.0 g/dL (12.0-16.0) L Hematocrit 32.9 % (36-48) L Mean Corpuscular Volume 95.6 fL (79-99) Mean Corpuscular Hemoglobin 32.0 pg (27.0-33.0) Mean Corpuscular Hemoglobin Concent 33.4 g/dL (32.0-36.0) Red Cell Distribution Width 12.8 % (11.0-15.5) Platelet Count 236 K/uL (130-400) Mean Platelet Volume 10.6 fL (7.5-10.5) H Immature Granulocyte % (Auto) 0.3 % (0-1) Neutrophils (%) (Auto) 69.6 % (40.0-77.0) Lymphocytes (%) (Auto) 15.7 % (21.0-51.0) L Monocytes (%) (Auto) 9.9 % (3.0-13.0) Eosinophils (%) (Auto) 3.5 % (0.0-8.0) Basophils (%) (Auto) 1.0 % (0.0-5.0) Neutrophils # (Auto) 4.8 K/uL (1.8-7.7) Lymphocytes # (Auto) 1.1 K/uL (1.0-4.8) Monocytes # (Auto) 0.7 K/uL (0.1-1.0) Eosinophils # (Auto) 0.24 K/uL (0.00-0.70) Basophils # (Auto) 0.07 K/uL (0.00-0.20) Absolute Immature Granulocyte (auto 0.02 K/uL (0-1) Nucleated Red Blood Cells 0.0 % (0.0-0.19) Sodium Level 138 mmol/L (136-145) Potassium Level 4.5 mmol/L (3.5-5.1) Chloride Level 99 mmol/L (101-111) L Carbon Dioxide Level 33 mmol/L (21-32) H Blood Urea Nitrogen 35 mg/dL (7-18) H Creatinine 4.0 mg/dL (0.5-1.0) H Glomerular Filtration Rate Calc 11 mL/min (>90) Random Glucose 370 mg/dL (70-105) H Total Calcium 8.5 mg/dL (8.5-10.1) Urine Color LIGHT-YELLOW (YELLOW) Urine Appearance CLEAR (CLEAR) Urine pH 7.0 (5.0-8.0) Urine Specific [place] 1.013 (1.001-1.031) Urine Protein 300 mg/dL (NEGATIVE) H Urine Glucose (UA) >=1000 mg/dL (NEGATIVE) H Urine Ketones NEGATIVE mg/dL (NEGATIVE) Urine Occult Blood +- (TRACE) (NEGATIVE) H Urine Nitrate NEGATIVE (NEGATIVE) Urine Bilirubin NEGATIVE mg/dL (NEGATIVE) Urine Urobilinogen 0.2 mg/dL (0.2-1.0) Urine Leukocyte Esterase 75 Doroteo/uL (NEGATIVE) H Urine RBC 2-5 /HPF (0-1) H Urine WBC 11-25 /HPF (0-1) H Urine Squamous Epithelial Cells RARE /HPF (0-2) Urine Bacteria RARE /HPF (None Seen) Whole Blood Glucose 331 MG/DL (70-110) H 233 MG/DL (70-110) H Labs Reviewed?: Yes EKG Comment: DATE:10/25/24 TIME:0206 VENTRICULAR RATE:83 IA INTERVAL:178 QRS DURATION:5 QT/QTC:387/454 EKG INTERPRETATION: SINUS RHYTHM REVIEWED BY ED ATTENDING NO STEMI INTERPRETED BY ER MD CT Scan Comment: PATIENT: PREET DUKES MR#: [id number] : 1945 SEX: F AGE: 79 LOCATION: [facility] ORDER [id number] STATUS: REG ER REPORT#: [id number] SERVICE [id number] REASON: bilateral flank pain ORDERING PHYSICIAN: MARLENE IBANEZ NP PROCEDURE: ABD PEL WO - CT ABDOMEN/PELVIS W/O CONTRAST CT ABDOMEN/PELVIS W/O CONTRAST HISTORY: Bilateral flank pain COMPARISON: 09/18/2024 TECHNIQUE: Multiple sequential axial images of the abdomen and pelvis were obtained from the dome of the diaphragm through symphysis pubis. Patient was not given contrast through intravenous route. Oral contrast was not given. FINDINGS: No pleural effusion is seen bilaterally. There is no evidence of parenchymal disease or pulmonary nodule of the visualized lower lungs. Degenerative changes of the thoracolumbar spine are present. The heart is not enlarged. Liver is borderline in size measuring 16 cm. Postcholecystectomy changes are seen. There is right lower pole renal cyst measuring 4.3 cm. Mild small bowel dilatation is seen. The liver, spleen, adrenal glands and pancreas are unremarkable. There is no evidence of hydronephrosis bilaterally. No evidence of renal stone is seen. Fecal material is seen in the colon. There are normal size retroperitoneal and mesenteric lymph nodes. No ascites is seen. Atherosclerotic changes are present. No definite CT evidence of acute appendicitis is seen. There is diverticulosis Pelvic sidewalls are symmetric bilaterally. Bladder is poorly distended. IMPRESSION: 1. Diverticulosis. Fecal material in the colon. No ascites. CT was performed with one or more following dose reduction techniques: automated exposure control, adjustment of the mA and kv according to patient's size, or use of a iterative reconstruction technique. DICTATED BY: MAURICIO CASTELAN MD DATE: 10/25/2430 ELECTRONICALLY SIGNED BY: MAURICIO CASTELAN MD DATE: 10/25/2437 ED Course ED Course Orders Procedure Category Date Status Time Cbc With Differential LAB 10/24/24 Complete 23:39 Basic Metabolic Panel LAB 10/24/24 Complete 23:39 Urinalysis Profile LAB 10/24/24 Complete 23:39 Ct Abdomen/Pelvis W/O CT 10/24/24 Resulted Contrast 23:39 Insulin Regular, PHA 10/25/24 Complete Human 3ml (Humulin R 00:50 Culture Urine BABITA 10/25/24 In Process 01:02 12 Lead Ekg Tracing- EKG 10/25/24 Logged Technical 02:01 Current Medications Medications (Trade) Dose Ordered Sig/Sean Route PRN Reason Start Time Stop Time Status Last Admin Dose Admin Insulin Human Regular (humuLIN R 100 UNIT/ML 3ML) 8 unit ONCE STAT IV 10/25/24 00:50 10/25/24 00:52 DC 10/25/24 01:50 Vital Signs Date Time Temp Pulse Resp B/P (MAP) Pulse Ox O2 Delivery O2 Flow Rate FiO2 10/25/24 02:09 86 18 163/52 96 Room Air* 0 21 10/25/24 01:44 98.2 79 18 188/54 95 Room Air* 0 21 10/24/24 22:41 98.8 76 18 163/52 100 Room Air 0 Medical Decision Making MDM MDM: 79-YEAR-OLD FEMALE WITH A HISTORY OF ESRD, DIABETES, CHOLESTEROL, HYPERTENSION COMING IN COMPLAINING OF BILATERAL FLANK PAIN FOR THE LAST THREE DAYS. PATIENT STATES SHE TOOK TYLENOL BEFORE COMING TO THE ER, DENIES ANY FEVER, NAUSEA, VOMITING, OR DIARRHEA. PATIENT STATES SHE STARTED TRESIBIA THREE DAYS AGO.CBC SHOWS A LEUKOCYTOSIS, NORMOCYTIC ANEMIA, MOST LIKELY RELATED TO HER END-STAGE RENAL DISEASE. NO THROMBOCYTOPENIA. CHEMISTRY SHOWS POTASSIUM OF 4.5. ELEVATED BUN AND CREATININE, CONSISTENT WITH ESRD. INITIAL BLOOD SUGAR OF 370, GAVE A UNITS OF INSULIN. REPEAT BLOOD SUGAR IS 233. URINE SHOWS EVIDENCE OF URINARY TRACT INFECTION. CT OF THE ABDOMEN AND PELVIS WITH THE CONTOUR OF THE SHOWING DIVERTICULOSIS, FECAL MATERIAL IN THE COLON, NO ASCITES, RIGHT RENAL POLE CYST. WE WILL GIVE PATIENT ROCEPHIN IN THE ER AND SENT HOME PATIENT WITH A PRESCRIPTION. DIFFERENTIAL DIAGNOSIS: PYELONEPHRITIS, URINARY TRACT INFECTION, KIDNEY STONE RATIONALE: TESTS CONSIDERED AND ORDERED SECONDARY TO SHARED DECISION MAKING INCLUDE: PREVIOUS OUTSIDE RECORDS REVIEWED: OLD ER VISITS. RISK OF COMPLICATION AND/OR MORBIDITY OR MORTALITY OF PATIENT MANAGEMENT: NONE MEDICATIONS-PER MEDICATION RECONCILIATION NEED FOR HOSPITALIZATION: PATIENT DOES NOT MEET CRITERIA FOR HOSPITALIZATION. NEED FOR EMERGENCY MAJOR/MINOR SURGERY: NO THERE ARE NO SOCIAL CONCERNS WITH THIS PATIENT. PRESCRIPTION DRUG MANAGEMENT PRESCRIPTIONS WILL INCLUDE SYMPTOMATIC CARE PATIENT'S PRIOR EXTERNAL MEDICAL RECORDS FROM OTHER ER VISITS WERE REVIEWED BY ME INDICATED. PRIOR TESTING AND RESULTS FROM PREVIOUS VISITS WERE REVIEWED. PRIOR TESTS WERE TAKEN INTO ACCOUNT WITH MEDICAL DECISION MAKING AND RESOURCE UTILIZATION, INDEPENDENT HISTORIAN/HISTORIANS WERE USED TO OBTAIN COMPLETE MEDICAL HISTORY. I INDEPENDENTLY INTERPRETED THE TEST THAT WERE PERFORMED, RESULTS WERE REVIEWED BY ME AND CONSIDERED FINDINGS ON RADIOLOGY IF ORDERED. MEDICAL MANAGEMENT AND EXAMINATION INTERPRETATION DISCUSSIONS WERE HAD BY ME WITH OTHER QUALIFIED HEALTHCARE PROFESSIONALS INDICATED FOR THE PATIENT'S CARE. DX & DISP Disposition: Discharge Departure Impression: Primary Impression: UTI (urinary tract infection) Additional Impressions: End stage renal disease on dialysis, Diabetes mellitus type 2, uncontrolled Condition: Stable Scripts Sulfamethoxazole/Trimethoprim (Bactrim Ds Tablet) 800 Mg-160 Mg Tablet 1 TAB PO BID for 7 Days, #14 TAB 0 Refills Prov: MARLENE IBANEZ NP 10/25/24 Additional Instructions: FOLLOW UP WITH YOUR PCP IN 1-2 DAYS. RETURN TO ER IF SYMPTOMS WORSEN. Referrals: JOSHUA NUNES MD (PCP) Time of Disposition: 02:37 I have reviewed the case, and I agree with, Diagnosis and Plan MARLENE IBANEZ NP Oct 25, 2024 02:01
[2024-10-25] MEDS ORDERED: SULF1TAB42 PO (02:37)
[2024-10-25] MEDS: cefTRIAXone 1G VIAL IVPB ONE (03:00)
[2024-10-25 03:30] VITALS: BP 144/60; PULSE 89; RESP 17; TEMP 97.9; O2SAT 96
--- NOTE | 2024-10-25 06:28 | EKG ---
[facility] Test Date: 2024-10-25 Test Time: 02:06:30 Pat Name: PREET DUKES Department: ED Room: Gender: F Toter: [id number] : 1945 Requested By: MARLENE IBANEZ Order Number: [id number] Reading MD: Raheel Barillas Measurements Intervals [place] Rate: 83 P: 19 KS: 178 QRS: 5 QRSD: 103 T: 1 QT: 387 QTc: 454 Interpretive Statements Sinus rhythm Compared to ECG 10/18/2024 03:47:25 No significant changes Electronically Signed On 10-25-2024 18:11:00 CLEARING DISTRIBUTION CLERK by Raheel Barillas Please click the below link to view image of tracing.
== END 2024-10-25 03:32 | disposition home or self-care (01) ==
LOC: EDH 22:38
DX: N39.0 Urinary tract infection, site not specified (principal); E11.22 Type 2 diabetes mellitus with diabetic chronic kidney disease; I12.0 Hypertensive chronic kidney disease with stage 5 chronic kidney disease or end stage renal disease; N18.6 End stage renal disease; E11.65 Type 2 diabetes mellitus with hyperglycemia; E78.00 Pure hypercholesterolemia, unspecified; Z79.84 Long term (current) use of oral hypoglycemic drugs; Z90.49 Acquired absence of other specified parts of digestive tract; Z99.2 Dependence on renal dialysis; Z98.890 Other specified postprocedural states
CPT/HCPCS: 99285; 74176; 80048; 85025; 87086; 82948 ×2; 81001; 36415; 96365; 96375; 93005; J1815; J0696

== ENCOUNTER 2024-10-28 23:27 | Inpatient (IN) | payer MEDICARE ==
[~2024-10-28] VITALS: Ht 157.5 cm; Wt 55.4 kg
[~2024-10-28 23:27] MED LIST changes: +SULF1TAB42 PO
--- NOTE | 2024-10-28 23:35 | NUR ---
UA CUP PROVIDED
[2024-10-28] MEDS: acetaMINOPHEN 325 MG TAB PO ONE (23:54)
--- NOTE | 2024-10-28 23:55 | NUR ---
PT IN LOBBY SITTING WITH DAUGHTER, DRINKING PO FLUIDS AND TOLERATING WELL
[2024-10-28 23:58] LABS: BASOPHILS # (AUTO) 0.06 K/uL (0.00-0.20); BASOPHILS % (AUTO) 0.5 % (0.0-5.0); EOSINOPHILS # (AUTO) 0.13 K/uL (0.00-0.70); EOSINOPHILS % (AUTO) 1.2 % (0.0-8.0); HEMATOCRIT 30.9 % (36-48); IMMATURE GRANULOCYTE ABSOLUTE 0.05 K/uL (0-1); LYMPHOCYTES # (AUTO) 0.9 K/uL (1.0-4.8); LYMPHOCYTES % (AUTO) 7.6 % (21.0-51.0); MEAN CORPUSCULAR HEMOGLOBIN 32.2 pg (27.0-33.0); MEAN CORPUSCULAR HGB CONC 33.3 g/dL (32.0-36.0); MEAN CORPUSCULAR VOLUME 96.6 fL (79-99); MONOCYTES % (AUTO) 9.1 % (3.0-13.0); NEUTROPHILS # (AUTO) 9.1 K/uL (1.8-7.7); NEUTROPHILS % (AUTO) 81.2 % (40.0-77.0); PLATELET COUNT (AUTO) 220 K/uL (130-400); RED CELL DISTRIBUTION WIDTH 12.9 % (11.0-15.5); WHITE BLOOD COUNT (AUTO) 11.2 K/uL (4.8-10.8)
[2024-10-29 00:13] LABS: CREATININE 3.3 mg/dL (0.5-1.0); POTASSIUM 4.3 mmol/L (3.5-5.1)
--- NOTE | 2024-10-29 00:41 | NUR ---
REPORT TO ELISABETH GUTIERRES
[2024-10-29 00:51] LABS: ALBUMIN 3.3 g/dL (3.5-5.0); BILIRUBIN,DIRECT 0.1 mg/dL (0.0-0.3); BILIRUBIN,TOTAL 0.4 mg/dL (0.2-1.0); TOTAL PROTEIN, SERUM 7.3 g/dL (6.0-8.3)
[2024-10-29] MEDS: INSULIN humuLIN R 100 UNIT/ML 3ML IV ONE (00:56)
--- NOTE | 2024-10-29 01:03 | NUR ---
POST VOID BLADDER SCAN 7 ML
[2024-10-29 01:42] LABS: APPEARANCE,URINE CLEAR (CLEAR); BILIRUBIN,URINE NEGATIVE (NEGATIVE); COLOR,URINE LIGHT-YELLOW (YELLOW); GLUCOSE, URINE (UA) >=1000 mg/dL (NEGATIVE); KETONES,URINE NEGATIVE (NEGATIVE); LEUKOCYTE ESTERASE ,URINE NEGATIVE Leu/uL (NEGATIVE); NITRATE,URINE NEGATIVE (NEGATIVE); PH,URINE 7.5 (5.0-8.0); PROTEIN,URINE 300 mg/dL (NEGATIVE); UROBILINOGEN,URINE 0.2 mg/dL (0.2-1.0)
[2024-10-29 01:44] LABS: ADD UA MICROSCOPIC YES
[2024-10-29 01:52] LABS: BACTERIA,URINE None Seen /HPF (None Seen); MUCUS,URINE Rare LPF (None Seen); RBC,URINE 0-1 /HPF (0-1); WBC,URINE 0-1 /HPF (0-1)
--- NOTE | 2024-10-29 03:53 | ERN ---
General Chief Complaint: UTI with Fever Stated Complaint: SUPRAPUBIC PAIN, URINARY RETENTION Time Seen by MD: 23:33 Time Seen by Midlevel: 23:33 Source: patient History of Present Illness Initial Comments Patient is an 79-year-old female with a past medical history of diverticulitis and end-stage renal disease on hemodialysis presenting to the emergency de partment with left lower quadrant abdominal pain that has been ongoing for the last four days and progressively worsening. Patient was diagnosed with a urinary tract infection earlier this week and started on Bactrim. Today she reports developing a fever so she decided to report to the ER for further evaluation. Allergies: Coded Allergies: No Known Drug Allergies (Verified Allergy, 10/16/12) Home Meds Active Scripts Sulfamethoxazole/Trimethoprim (Bactrim Ds Tablet) 800 Mg-160 Mg Tablet, 1 TAB PO BID for 7 Days, #14 TAB 0 Refills Prov:MARLENE IBANEZ CONTROLS TECHNICIAN 10/25/24 Reported Medications Atorvastatin Calcium (Atorvastatin Calcium) 10 Mg Tablet, 1 TAB PO HS for 30 Days, #30 TAB 0 Refills 09/13/24 Amlodipine Besylate (Amlodipine Besylate) 10 Mg Tablet, 10 MG PO DAILY, TAB 0 Refills 08/02/24 Gabapentin (Gabapentin) 100 Mg Capsule, 100 MG PO HS, CAP 08/02/24 Vit B Cmplx 3/FA/Vit C/Biotin (Shannan-Dia Rx Tablet) 1 Mg-60 Mg-300 Mcg Tablet, 1 TAB PO DAILY, TAB 06/02/24 Dapagliflozin Propanediol (Farxiga) 10 Mg Tablet, 10 MG PO DAILY, TAB 04/14/22 Past Medical History Past Medical History: Diabetes-Type I, Diabetes-Type II, Diverticulitis, High Cholesterol, Hypertension, Renal Disese, Other Medical History Other: ESBL Past Surgical History: Cholecystectomy, Other, LAVA Surgical History Other: RIGHT UPPER ARM SX, LAVA, CATARCTS, Family History Family History: Negative Social History Social History: Negative, Lives with family Female( History) History: Not Applicable ROS Dictation CONSTITUTIONAL: Negative except for HPI HEAD/FACE: Negative except for HPI EENT: Negative except for HPI RESPIRATORY: Negative except for HPI GASTROINTESTINAL/ABDOMINAL: Negative except for HPI GENITOURINARY: Negative except for HPI MUSCULOSKELETAL: Negative except for HPI INTEGUMENTARY: Negative except for HPI NEUROLOGICAL/PSYCH: Negative except for HPI HEMATOLOGIC/LYMPHATIC: Negative except for HPI All Systems Negative, Except as noted above. 13 point review of systems assessed and all negative except for above. Physical Exam Physical Exam Dictation Vital Signs reviewed General Appearance: Alert, oriented x 3, no acute distress, well developed, nourished. Head and Face: non-traumatic. Eyes: PERRL, pink conjunctivas, eyelid no trauma, anterior chamber with arcus senilis. Ears: Pinnas intact and no signs of trauma or erythema ear canals clear and no discharge TM no erythema Nose: No discharge, no bleeding. Oropharynx: Mouth normal, tongue pink, pharynx clear,no erythema, tonsils no exudates, no abscesses noted, mucous membrane moist Neck: Supple, non-tender, no thyromegaly, no masses, no JVD, no bruits Breast:Deferred Chest:No tenderness, no crepitus, no paradoxical movement, no retractions Lungs:Clear, well-ventilated, symmetric, no rales, no wheezing, no rhonchi, no stridor, good breath sounds bilaterally Heart: Regular rate, regular rhythm, no murmur, no gallops Vascular: no peripheral edema, Abdomen: Soft, positive bowel sounds, nondistended, no guarding, Left lower quadrant abdominal tenderness, no rebound, no masses no hepatomegaly, no splenomegaly, no Voss's sign, no hernias. Rectal: Deferred Genital: Deferred Neurological: Normal speech, motor function intact, sensory function intact Musculoskeletal: Neck nontender, full range of motion, back nontender, full range of motion, Extremities: nontender, full range of motion Skin: Color pink, dry, no turgor, no rash, no lacerations, no abrasions, no contusions. Lymphatic: Deferred Results Laboratory and Microbiology Lab and Micro Result Laboratory Tests Test 10/28/24 23:51 10/29/24 00:54 10/29/24 02:11 White Blood Count 11.2 K/uL (4.8-10.8) H Red Blood Count 3.20 MIL/uL (4.00-5.50) L Hemoglobin 10.3 g/dL (12.0-16.0) L Hematocrit 30.9 % (36-48) L Mean Corpuscular Volume 96.6 fL (79-99) Mean Corpuscular Hemoglobin 32.2 pg (27.0-33.0) Mean Corpuscular Hemoglobin Concent 33.3 g/dL (32.0-36.0) Red Cell Distribution Width 12.9 % (11.0-15.5) Platelet Count 220 K/uL (130-400) Mean Platelet Volume 10.2 fL (7.5-10.5) Immature Granulocyte % (Auto) 0.4 % (0-1) Neutrophils (%) (Auto) 81.2 % (40.0-77.0) H Lymphocytes (%) (Auto) 7.6 % (21.0-51.0) L Monocytes (%) (Auto) 9.1 % (3.0-13.0) Eosinophils (%) (Auto) 1.2 % (0.0-8.0) Basophils (%) (Auto) 0.5 % (0.0-5.0) Neutrophils # (Auto) 9.1 K/uL (1.8-7.7) H Lymphocytes # (Auto) 0.9 K/uL (1.0-4.8) L Monocytes # (Auto) 1.0 K/uL (0.1-1.0) Eosinophils # (Auto) 0.13 K/uL (0.00-0.70) Basophils # (Auto) 0.06 K/uL (0.00-0.20) Absolute Immature Granulocyte (auto 0.05 K/uL (0-1) Nucleated Red Blood Cells 0.0 % (0.0-0.19) White Cell Morphology Comment See comments Sodium Level 135 mmol/L (136-145) L Potassium Level 4.3 mmol/L (3.5-5.1) Chloride Level 98 mmol/L (101-111) L Carbon Dioxide Level 32 mmol/L (21-32) Blood Urea Nitrogen 22 mg/dL (7-18) H Creatinine 3.3 mg/dL (0.5-1.0) H Glomerular Filtration Rate Calc 14 mL/min (>90) Random Glucose 469 mg/dL (70-105) *H Total Calcium 8.8 mg/dL (8.5-10.1) Total Bilirubin 0.4 mg/dL (0.2-1.0) Direct Bilirubin 0.1 mg/dL (0.0-0.3) Aspartate Amino Transf (AST/SGOT) 15 U/L (10-37) Alanine Aminotransferase (ALT/SGPT) 22 U/L (12-78) Alkaline Phosphatase 99 U/L (50-136) Total Protein 7.3 g/dL (6.0-8.3) Albumin 3.3 g/dL (3.5-5.0) L Lipase 83 U/L (16-77) H Procalcitonin 0.16 ng/mL (0.05-0.5) Urine Color LIGHT-YELLOW (YELLOW) Urine Appearance CLEAR (CLEAR) Urine pH 7.5 (5.0-8.0) Urine Specific [place] 1.015 (1.001-1.031) Urine Protein 300 mg/dL (NEGATIVE) H Urine Glucose (UA) >=1000 mg/dL (NEGATIVE) H Urine Ketones NEGATIVE mg/dL (NEGATIVE) Urine Occult Blood +- (TRACE) (NEGATIVE) H Urine Nitrate NEGATIVE (NEGATIVE) Urine Bilirubin NEGATIVE mg/dL (NEGATIVE) Urine Urobilinogen 0.2 mg/dL (0.2-1.0) Urine Leukocyte Esterase NEGATIVE Doroteo/uL Urine RBC 0-1 /HPF (0-1) Urine WBC 0-1 /HPF (0-1) Urine Bacteria None Seen /HPF (None Seen) Whole Blood Glucose 293 MG/DL (70-110) H Labs Reviewed?: Yes MDM MDM: Differential diagnosis: Urinary tract infection, small-bowel obstruction, diverticulitis Rationale: Tests considered and ordered secondary to shared decision making include: Previous outside records reviewed: Old ER visits. Risk of complication and/or morbidity or mortality of patient management: None Medications-Per medication reconciliation Need for hospitalization: Patient does meet criteria for hospitalization. Need for emergency major/minor surgery: No There are no social concerns with this patient. Prescription drug management Prescriptions will include symptomatic care Patient's prior external medical records from other ER visits were reviewed by me as indicated. Prior testing and results from previous visits were reviewed. Prior tests were taken into account with medical decision making and resource utilization, independent historian/historians were used to obtain complete medical history. I independently interpreted the test that were performed, results were reviewed by me and considered findings on radiology if ordered. Medical management and examination interpretation discussions were had by me with other qualified healthcare professionals as indicated for the patient's care. ED Course Orders Procedure Category Date Status Time Cbc With Differential LAB 10/28/24 Complete 23:34 Basic Metabolic Panel LAB 10/28/24 Complete 23:34 Urinalysis Profile LAB 10/28/24 Complete 23:34 Lipase LAB 10/28/24 Complete 23:34 Procalcitonin LAB 10/28/24 Complete 23:34 Acetaminophen 325 Tab PHA 10/29/24 Complete (Tylenol 325mg Tab 00:00 Hepatic Function Panel LAB 10/28/24 Complete 23:55 Insulin Regular, PHA 10/29/24 Complete Human 3ml (Humulin R 00:30 Ct Abdomen/Pelvis W/O CT 10/29/24 Taken Contrast 02:25 Zosyn 3.375gm+Ns 50ml PHA 10/29/24 Logged (Zosyn 3.375gm+Ns 04:00 Current Medications Medications (Trade) Dose Ordered Sig/Sean Route PRN Reason Start Time Stop Time Status Last Admin Dose Admin Acetaminophen (TYLenol 325MG TAB) 650 mg ONCE ONCE PO 10/29/24 00:00 10/29/24 00:01 DC 10/28/24 23:54 Insulin Human Regular (humuLIN R 100 UNIT/ML 3ML) 6 unit ONCE ONCE IV 10/29/24 00:30 10/29/24 00:31 DC 10/29/24 00:56 Piperacillin Sod/ Tazobactam Sod (Zosyn 3.375gm+NS 50ml) 3.375 gm ONCE ONCE IVPB 10/29/24 04:00 10/29/24 04:01 UNV Vital Signs Date Time Temp Pulse Resp B/P (MAP) Pulse Ox O2 Delivery O2 Flow Rate FiO2 10/29/24 01:08 97.5 78 17 152/48 99 Room Air* 0 21 10/28/24 23:54 100.0 10/28/24 23:29 100.0 83 16 154/50 98 Room Air 3:40 a.m.. Received phone call from radiologist Dr. Robles regarding CT abdomen and pelvis without contrast. Per radiologist there is concerned of an abscess formation surrounding small-bowel. There is likely contained perforation. 3:50 a.m. case discussed with general surgeon on-call Dr. Marcum who agrees to consult. 3:52 a.m. case discussed with benchmark service who agrees to admit the patient for further observation and management. Stat read read: CT abdomen and pelvis without contrast At the left lower abdomen there is a predominantly gas fluid collection spanning 4.1 x 3.9 x 3.5 cm suspicious for abscess formation from a likely contained perforation. This structure appears to be surrounded by multiple loops of small bowel. Consider further surgical or interventional evaluation. 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
[2024-10-29] MEDS: ZOSYN 3.375GM +NS 50ML IVPB ONE (04:04)
[2024-10-29] MEDS ORDERED: GABA-529 PO (04:33)
[2024-10-29] MEDS ORDERED: DAPA10TA PO (04:33)
[2024-10-29] MEDS ORDERED: ATOR40TA71 PO (04:33)
[2024-10-29] MEDS ORDERED: INSU100V37 SQ (04:33)
[2024-10-29] MEDS ORDERED: AMLO-258 PO (04:33)
[2024-10-29] MEDS ORDERED: FOLI0.8T22 PO (04:33)
[2024-10-29] MEDS: ondanSETRON 4MG INJ IVP ONE (04:45)
[2024-10-29] MEDS: morPHINE 2 MG SYG IVP ONE (04:45)
[2024-10-29] MEDS ORDERED: LACTULOSE 20 GM/30 ML UDCUP PO PRN (05:00)
[2024-10-29] MEDS ORDERED: acetaMINOPHEN 650 MG SUPPOSITORY RC PRN (05:00)
[2024-10-29] MEDS ORDERED: ondanSETRON 4MG INJ IVP PRN (05:00)
[2024-10-29] MEDS ORDERED: TEMAZepam 15 MG CAPSULE PO PRN (05:00)
[2024-10-29] MEDS ORDERED: doCUSate SODIUM 100 MG CAP PO PRN (05:00)
[2024-10-29] MEDS ORDERED: morPHINE 2 MG SYG IVP PRN (05:30)
--- NOTE | 2024-10-29 07:59 | HP ---
[facility] HISTORY & PHYSICAL Date Patient Seen: Oct 29, 2024 Time of Visit: 07:52 Supervising Physician: Eric Iqbal MD Primary Care Physician: Artur Velasco MD Outpatient Specialists: Dr Berman (Neprhologist) Inpatient Consults: Dr Berman, Dr Marcum PROBLEM LIST: Suspected diverticular abscess, POA Leukocytosis, POA ESRD on HD (MWF) Uncontrolled T2DM, POA HGA1C 8.8 Mild hypoalbuminemia, POA Cardiomegaly, POA Anemia of chronic illness History of: Anxiety, CHF, hyperlipidemia, Levophed, right chest wall PermCath HPI: This is an 79-year-old chronically ill female with a past medical history of ESRD on hemodialysis, left arm AV fistula, type 2 diabetes mellitus, hypertension, hyperlipidemia, CHF, anxiety and diverticulosis who presented to the emergency department for complaints of left lower quadrant abdominal pain. Patient reports the pain started approximately four days ago and started worsening in intensity. Patient reports he went to her PCP and was given Bactrim for UTI earlier in the week. She developed fever last night and came into the emergency department for evaluation of fever and abdominal pain. On arrival to the emergency department patient has a temperature of 100 F, heart rate in the 80s, hemodynamically stable with a blood pressure 154/50 saturating 98% on room air with a respiratory rate of 16 and unlabored. On laboratory WBCs were 11.2 H&H 10.3/30.9 with a platelet count that is normal and neutrophils of 81.2. Chemistry consistent with ESRD and a glucose of 226 mg/dL with a albumin of 3.1 and hemoglobin A1c 8.8. She tested negative for influenza type a, B, COVID-19 and strep. On urinalysis patient had protein of 300, glucose of greater than 1000, ketones negative occult blood trace. On chest x-ray clear lungs noted with cardiomegaly. No pneumothorax. PermCath to right chest wall. On CT abdomen and pelvis without contrast there was fluid and feces filled collection and suspected left lower quadrant measuring 4.1 cm with surrounding stranding. This may represent an abscess but this is unclear at this time, repeat CT recommended after vigorous 0 contrast administration or diluted CT enema to confirm extraluminal location. On assessment patient is awake alert and oriented x3. Reports pain has subsided with medication given in the ED for pain. Reports pain is 4/10 to left lower quadrant she is tender. Otherwise denies any nausea vomiting or diarrhea. She denies any chest pain palpitations or shortness for breath at this time. She denies any chills or fevers. Daughter is at bedside and I have explained to them the findings and plan of care. Both patient and daughter are in agreement. I have consulted General surgery for eval recommendations due to suspicion of diverticular abscess. For now we will need other forms of nutrition other than very mild. We will order for a PICC line and once it's in place we can start TPN for now. We will follow General surgery recommendations. For now light hydration with D5 NS at 50 mL/hour and broad-spectrum antibiotics with Zosyn. PAST MEDICAL HX: Hypertension Type 2 diabetes mellitus ESRD on hemodialysis Wednesdays and Fridays Anemia chronic illness Hyperlipidemia CHF Anxiety Diverticulitis PAST SURGICAL HX: Left arm AV fistula SOCIAL HISTORY: No tobacco, ETOH, or illicit drug use Lives with family good support. Coded Allergies: No Known Drug Allergies (Verified Allergy, 10/16/12) REVIEW OF SYSTEMS: 12 point ROS reviewed with patient. Pertinent positives mentioned above. Otherwise negative. PHYSICAL EXAM: GENERAL: alert, weak, awake oriented x 3 HEENT: EOMI, Sclera non icteric, moist mucosa NECK: Supple, no JVD, trachea midline LUNGS: Clear breath sounds bilaterally. No wheezes HEART: Regular rate and rhythm. Normal S1 and S2, without murmurs right chest wall PermCath. ABD: Abdomen soft, tender to left lower quadrant. Bowel sounds present EXT: No clubbing cyanosis or edema, left arm AV fistula. NEURO: Alert and oriented to person, follows commands Vital Signs (last 8hr) Date Time Temp Pulse Resp B/P (MAP) Pulse Ox O2 Delivery O2 Flow Rate FiO2 10/29/24 07:45 98.8 69 12 115/39 93 Room Air* 0 10/29/24 05:57 98.1 71 17 125/42 95 Room Air* 0 10/29/24 04:16 72 17 143/45 96 Room Air* 0 10/29/24 01:08 97.5 78 17 152/48 99 Room Air* 0 10/28/24 23:54 100.0 LABS: Hematology Labs: Test 10/28/24 23:51 Range/Units White Blood Count 11.2 H 4.8-10.8 K/uL Red Blood Count 3.20 L 4.00-5.50 MIL/uL Hemoglobin 10.3 L 12.0-16.0 g/dL Hematocrit 30.9 L 36-48 % Mean Corpuscular Volume 96.6 79-99 fL Mean Corpuscular Hemoglobin 32.2 27.0-33.0 pg Mean Corpuscular Hemoglobin Concent 33.3 32.0-36.0 g/dL Red Cell Distribution Width 12.9 11.0-15.5 % Platelet Count 220 130-400 K/uL Mean Platelet Volume 10.2 7.5-10.5 fL Immature Granulocyte % (Auto) 0.4 0-1 % Neutrophils (%) (Auto) 81.2 H 40.0-77.0 % Lymphocytes (%) (Auto) 7.6 L 21.0-51.0 % Monocytes (%) (Auto) 9.1 3.0-13.0 % Eosinophils (%) (Auto) 1.2 0.0-8.0 % Basophils (%) (Auto) 0.5 0.0-5.0 % Neutrophils # (Auto) 9.1 H 1.8-7.7 K/uL Lymphocytes # (Auto) 0.9 L 1.0-4.8 K/uL Monocytes # (Auto) 1.0 0.1-1.0 K/uL Eosinophils # (Auto) 0.13 0.00-0.70 K/uL Basophils # (Auto) 0.06 0.00-0.20 K/uL Absolute Immature Granulocyte (auto 0.05 0-1 K/uL Nucleated Red Blood Cells 0.0 0.0-0.19 % White Cell Morphology Comment See comments Chemistry Labs: Test 10/29/24 07:28 10/28/24 23:51 Range/Units Whole Blood Glucose 214 H 70-110 MG/DL Sodium Level 135 L 136-145 mmol/L Potassium Level 4.3 3.5-5.1 mmol/L Chloride Level 98 L 101-111 mmol/L Carbon Dioxide Level 32 21-32 mmol/L Blood Urea Nitrogen 22 H 7-18 mg/dL Creatinine 3.3 H 0.5-1.0 mg/dL Glomerular Filtration Rate Calc 14 >90 mL/min Random Glucose 469 *H 70-105 mg/dL Total Calcium 8.8 8.5-10.1 mg/dL Total Bilirubin 0.4 0.2-1.0 mg/dL Direct Bilirubin 0.1 0.0-0.3 mg/dL Aspartate Amino Transf (AST/SGOT) 15 10-37 U/L Alanine Aminotransferase (ALT/SGPT) 22 12-78 U/L Alkaline Phosphatase 99 50-136 U/L Total Protein 7.3 6.0-8.3 g/dL Albumin 3.3 L 3.5-5.0 g/dL Lipase 83 H 16-77 U/L Procalcitonin 0.16 0.05-0.5 ng/mL DIAGNOSTICS / RADIOLOGY RESULTS: Signed PATIENT: PREET DUKES MR#: [id number] : 1945 SEX: F AGE: 79 LOCATION: [facility] ORDER 5 STATUS: ADM IN REPORT#: [id number] SERVICE 4 REASON: llq abd pain hx of diverticulitis, fever, leukocytosis ORDERING PHYSICIAN: AKILA VELASCO PROCEDURE: ABD PEL WO - CT ABDOMEN/PELVIS W/O CONTRAST Exam Type: CT ABDOMEN/PELVIS W/O CONTRAST Clinical Information: llq abd pain hx of diverticulitis, fever, leukocytosis Comparison: None CT Dose Index (CTDI): 10.20 mGy Dose Length Product (DLP): 530.00 total mGy-cm PROTOCOL: Routine noncontrast helical scanning of the abdomen and pelvis was performed at 5mm collimation. Findings: No evidence of nephro or ureterolithiasis is found. No hydronephrosis or ureteral dilatation is seen. The lung bases are clear. The stomach is unremarkable. It shows no wall thickening. No gross ulceration is seen. It is not overly distended. There are no surrounding inflammatory changes. No wall lesions are identified to suggest cancer. The spleen is unremarkable. It is not enlarged. The pancreas shows normal anatomy. It is not fatty replaced. It shows no lesions. The pancreatic duct is not dilated. The gallbladder is unremarkable. It shows no cholelithiasis. The gallbladder wall is normal in thickness. There is no pericholecystic fluid. The is no acute or chronic inflammation noted. The adrenal glands are unremarkable. There is no enlargement. No lesions are noted. The liver is unremarkable. It shows no focal masses. The appendix is unremarkable. It shows no evidence of inflammation. No appendicolith is seen. The small bowel is unremarkable. There is no evidence of dilatation to suggest obstruction. No evidence of adynamic ileus is seen. There is no small bowel wall thickening to suggest enteritis. Fluid and feces filled collection is suspected left lower quadrant measuring 4.1 cm with surrounding stranding. This may represent an abscess but this is unclear at this time and I recommend repeat CT after vigorous oral contrast administration or dilute CT enema to confirm extraluminal location. The urinary bladder is unremarkable. There is no wall thickening to suggest tumor or inflammation. There are no intraluminal calculi. There are no diverticula. There is no evidence of chronic bladder outlet obstruction. There is no evidence of urinary bladder distention to suggest urinary retention. The other pelvic structures are unremarkable. The bony and vascular structures are unremarkable for the patient's age. IMPRESSION: Fluid and feces filled collection is suspected left lower quadrant measuring 4.1 cm with surrounding stranding. This may represent an abscess but this is unclear at this time and I recommend repeat CT after vigorous oral contrast administration or dilute CT enema to confirm extraluminal location. This study was performed using dose reduction techniques to include automated exposure control and/or adjustment of the mA and/or kV according to patient size. DICTATED BY: TANNA HORTA MD DATE: 10/29/24816 ELECTRONICALLY SIGNED BY: TANNA HORTA MD DATE: 10/29/24827 Signed PATIENT: PREET DUKES MR#: [id number] : 1945 SEX: F AGE: 79 LOCATION: [facility] ORDER 8 STATUS: ADM IN REPORT#: [id number] SERVICE 7 REASON: sepsis ORDERING PHYSICIAN: PAM HALL PROCEDURE: CXR1VW - CHEST 1VW Exam Type: CHEST 1VW Clinical Information: sepsis Comparison: None Findings: The right double-lumen central line in place. No pneumothorax. The lungs are clear of infiltrates. The heart is enlarged. Bony and soft tissue structures of the chest wall are unremarkable. IMPRESSION: Cardiomegaly. Clear lungs. DICTATED BY: TANNA HORTA MD DATE: 10/29/24915 ELECTRONICALLY SIGNED BY: TANNA HORTA MD DATE: 10/29/24918 PLAN Consult general surgery PICC line D5 NS at 50 mL/hour for light hydration Keep NPO Broad-spectrum antibiotic with Zosyn to cover for intra-abdominal infection Low cultures Urine cultures Consult nephrology for HD while in the hospital and follow his recommendations. Once PICC line has been established we can start TPN NEURO: Minimize central acting medications as possible. Maintain fall precautions, adequate lighting during the day PULMONARY: Supplemental 02 as needed. Maintain aspiration precautions at all times Maintain O2 sats above 92% Monitor for signs and symptoms of fluid overload CARDIOVASCULAR: Follow hemodynamics. Vital signs per facility protocol Telemetry monitoring GI & NUTRITION: Continue with nutritional support. Continue stool softeners and laxatives as needed. NPO Start TPN once patient has a established PICC line. KIDNEYS & ELECTROLYTES: Strict monitoring of intake, output and overall fluid balance. Avoid nephrotoxic medications to the extent possible. Medications to be dosed according to renal function. Monitor electrolytes and replace as needed Follow Nephrology recommendations ENDOCRINE: Maintain blood glucose between 100-180 at all times. Hypoglycemia protocol in place INFECTIOUS DISEASE: Trend temperature, WBC and procalcitonin level Follow cultures, deescalate antibiotics as soon as possible. Panculture if new onset fever Start broad-spectrum antibiotic with Zosyn ONCOLOGY/HEMATOLOGY/COAGULATION: Monitor for s/s of bleeding Monitor hemoglobin, coagulation studies as needed SKIN: Pressure ulcer prevention per facility protocol Specialty mattress ORTHO/REHAB: Continue PT/OT Prophylaxis: Continue GI and DVT prophylaxis Code Status: Full Resuscitation Disposition: TBD Other: Total patient care time exceeds 35 minutes excluding all procedures. PAM HALL [facility] Oct 29, 2024 07:59
[2024-10-29] MEDS: INSULIN GLARgine 100 UNITS/ML 10 ML VIAL SQ SCH (08:00)
[2024-10-29] MEDS ORDERED: DEXTROSE 50%-WATER 50 ML DISP.SYRIN IV PRN (08:00)
[2024-10-29] MEDS ORDERED: GLUCAGON 1MG KIT 1 MG ML IM PRN (08:00)
[2024-10-29] MEDS: HEParin 5,000 UNIT VIAL SQ SCH (08:00)
[2024-10-29] MEDS ORDERED: PoTASSium chloRIDE 10MEQ/100ML 100 ML IV PRN (08:00)
[2024-10-29] MEDS: LACTATED RINGERS 1000ML 1,000 ML IV SCH (08:27)
--- NOTE | 2024-10-29 08:28 | HMCIMG ---
Exam Type: CT ABDOMEN/PELVIS W/O CONTRAST Clinical Information: llq abd pain hx of diverticulitis, fever, leukocytosis Comparison: None CT Dose Index (CTDI): 10.20 mGy Dose Length Product (DLP): 530.00 total mGy-cm PROTOCOL: Routine noncontrast helical scanning of the abdomen and pelvis was performed at 5mm collimation. Findings: No evidence of nephro or ureterolithiasis is found. No hydronephrosis or ureteral dilatation is seen. The lung bases are clear. The stomach is unremarkable. It shows no wall thickening. No gross ulceration is seen. It is not overly distended. There are no surrounding inflammatory changes. No wall lesions are identified to suggest cancer. The spleen is unremarkable. It is not enlarged. The pancreas shows normal anatomy. It is not fatty replaced. It shows no lesions. The pancreatic duct is not dilated. The gallbladder is unremarkable. It shows no cholelithiasis. The gallbladder wall is normal in thickness. There is no pericholecystic fluid. The is no acute or chronic inflammation noted. The adrenal glands are unremarkable. There is no enlargement. No lesions are noted. The liver is unremarkable. It shows no focal masses. The appendix is unremarkable. It shows no evidence of inflammation. No appendicolith is seen. The small bowel is unremarkable. There is no evidence of dilatation to suggest obstruction. No evidence of adynamic ileus is seen. There is no small bowel wall thickening to suggest enteritis. Fluid and feces filled collection is suspected left lower quadrant measuring 4.1 cm with surrounding stranding. This may represent an abscess but this is unclear at this time and I recommend repeat CT after vigorous oral contrast administration or dilute CT enema to confirm extraluminal location. The urinary bladder is unremarkable. There is no wall thickening to suggest tumor or inflammation. There are no intraluminal calculi. There are no diverticula. There is no evidence of chronic bladder outlet obstruction. There is no evidence of urinary bladder distention to suggest urinary retention. The other pelvic structures are unremarkable. The bony and vascular structures are unremarkable for the patient's age. IMPRESSION: Fluid and feces filled collection is suspected left lower quadrant measuring 4.1 cm with surrounding stranding. This may represent an abscess but this is unclear at this time and I recommend repeat CT after vigorous oral contrast administration or dilute CT enema to confirm extraluminal location. This study was performed using dose reduction techniques to include automated exposure control and/or adjustment of the mA and/or kV according to patient size.
[2024-10-29] MEDS: INSULIN humuLIN R 100 UNIT/ML 3ML SQ SCH (08:30)
[2024-10-29 09:09] LABS: BASOPHILS # (AUTO) 0.06 K/uL (0.00-0.20); BASOPHILS % (AUTO) 0.6 % (0.0-5.0); EOSINOPHILS # (AUTO) 0.18 K/uL (0.00-0.70); EOSINOPHILS % (AUTO) 1.7 % (0.0-8.0); HEMATOCRIT 29.7 % (36-48); IMMATURE GRANULOCYTE ABSOLUTE 0.05 K/uL (0-1); LYMPHOCYTES % (AUTO) 9.6 % (21.0-51.0); MEAN CORPUSCULAR HEMOGLOBIN 31.7 pg (27.0-33.0); MEAN CORPUSCULAR HGB CONC 32.7 g/dL (32.0-36.0); MEAN CORPUSCULAR VOLUME 97.1 fL (79-99); MONOCYTES # (AUTO) 1.4 K/uL (0.1-1.0); MONOCYTES % (AUTO) 13.5 % (3.0-13.0); NEUTROPHILS # (AUTO) 7.7 K/uL (1.8-7.7); NEUTROPHILS % (AUTO) 74.1 % (40.0-77.0); PLATELET COUNT (AUTO) 206 K/uL (130-400); RED BLOOD CELL COUNT(AUTO) 3.06 MIL/uL (4.00-5.50); RED CELL DISTRIBUTION WIDTH 12.8 % (11.0-15.5); WHITE BLOOD COUNT (AUTO) 10.3 K/uL (4.8-10.8)
--- NOTE | 2024-10-29 09:19 | HMCIMG ---
Exam Type: CHEST 1VW Clinical Information: sepsis Comparison: None Findings: The right double-lumen central line in place. No pneumothorax. The lungs are clear of infiltrates. The heart is enlarged. Bony and soft tissue structures of the chest wall are unremarkable. IMPRESSION: Cardiomegaly. Clear lungs.
--- NOTE | 2024-10-29 09:20 | NUR ---
SPOKE TO DOCTOR ESTEPHANIE AWARE OF CONSULT
[2024-10-29 09:21] LABS: INR 0.98 (0.85-1.15); PROTHROMBIN TIME 10.6 SEC (9.6-11.6)
[2024-10-29 09:51] LABS: ALBUMIN 3.1 g/dL (3.5-5.0); BILIRUBIN,TOTAL 0.6 mg/dL (0.2-1.0); CREATININE 3.9 mg/dL (0.5-1.0); MAGNESIUM 1.9 mg/dL (1.80-2.40); PHOSPHORUS 4.1 mg/dL (2.5-4.9); POTASSIUM 4.3 mmol/L (3.5-5.1); THYROID STIMULATING HORMONE 3.14 uIU/mL (0.36-3.74); TOTAL PROTEIN, SERUM 6.7 g/dL (6.0-8.3)
[2024-10-29 10:05] LABS: HEMOGLOBIN A1C 8.8 % (4.0-6.0)
[2024-10-29] MEDS: PANTOPrazole 40 MG/VIAL IVP SCH (10:19)
--- NOTE | 2024-10-29 12:09 | CONS ---
CONSULT NOTE: Consulting physician: Pillo Consulting service: General surgery Reason for consultation: Diverticulitis with possible abscess History of present illness: This is an 79-year-old female with a known history of diverticulosis with one previous episode of [id number] years prior that has been consulted to surgery for concerns of diverticulitis with possible abscess. Patient reports that pain began four days prior and due to significant worsening presented to [facility] for further evaluation. Patient also being treated for UTI. At time of exam in ER patient reporting no abdominal pain. WBCs today 10.3 with a hemoglobin of 9.7. Initial imaging concerning for a fluid and feces filled collection in the left lower quadrant measuring 4.1 cm with surrounding stranding. Abscess and able to be ruled out Medical history: End-stage renal disease on hemodialysis Diabetes Surgical history: Hemodialysis access Cholecystectomy Review of systems: General: No Fever, No Chills, No Night Sweats, No Fatigue, No Malaise, No Appetite, No Other HEENT: No Head Aches, No Visual Changes, No Eye Pain, No Ear Pain, No Dysphasia, No Sinus Congestion, No Post Nasal Drip, No Sore Throat, No Other Pulmonary: No Dyspnea, No Cough, No Pleuritic Chest Pain, No Other Cardiovascular: No: Chest Pain, Palpitations, Orthopnea, Paroxysmal No Dyspnea, Edema, Lt Headedness, Other Gastrointestinal: No: Nausea, Vomiting, Diarrhea, Constipation, Melena, Hematochezia, Other Genitourinary: No Dysuria, No Frequency, No Incontinence, No Hematuria, No Retention, No Other Musculoskeletal: No: other, neck pain, shoulder pain, arm pain, back pain, hand pain, leg pain, foot pain Skin: No Urticaria, No Rash, No Other Neurological: No: Weakness, Numbness, Incoordination, Change in speech, Confusion, Seizures, Other Physical exam: General: Awake alert and oriented Heart: Regular rate and rhythm} Lungs: Clear to auscultation no distress Abdomen: [Soft, nontender, nondistended Assessment: This is a 79-year-old female with concerns of diverticular abscess Plan: This point in time we will reach out to Interventional Radiology for evaluation and possible percutaneous drainage Patient to remain NPO on IV fluids and IV antibiotics Conservative management for now Surgical team to follow patient closely nursing report any further acute events ABHIJIT XIONG Jr. Oct 29, 2024 12:08
[2024-10-29 12:10] LABS: RAPID GROUP A STREP negative (NEGATIVE)
[2024-10-29 12:20] LABS: COVID19 (SARS ANTIGEN RAPID) PRESUMPTIVE NEGATIVE (NEGATIVE); INFLUENZA TYPE A Negative For Type A (NEGATIVE); INFLUENZA TYPE B Negative For Type B (NEGATIVE)
--- NOTE | 2024-10-29 12:26 | NUR ---
called doctor Arian Marcum and informed him he would have to contact IR doctor operations and maintenance technican in order to do drainage with ct, per doctor angie okay to wait unitl thursday for procedure
[2024-10-29] MEDS: amLODIPine 5 MG TAB PO SCH (12:39)
[2024-10-29] MEDS: Vitamin B Complex/Vit C/Folic Acid PO SCH (12:39)
[2024-10-29] MEDS: ZOSYN 3.375GM +NS 50ML IV SCH (16:52)
[2024-10-29] MEDS: DEXTROSE 5 % AND 0.9 % NACL 1,000 ML IV SCH (16:52)
--- NOTE | 2024-10-29 16:56 | NUR ---
OUTSIDE BARREL LATHE OPERATOR AWARE OF PICC LINE ORDER
[2024-10-29 18:35] VITALS: BP 133/48; PULSE 75; RESP 18; TEMP 98.3
--- NOTE | 2024-10-29 18:35 | NUR ---
PATIENT ARRIVED TO UNIT FROM ER. NO S/S OF DISTRESS NOTED. PATIENT ON TELE. 22 GAUGE TO RT HAND PATENT AND INTACT.
[2024-10-29 20:00] VITALS: BP 153/60; PULSE 77; RESP 18; TEMP 98.3
[2024-10-29] MEDS: atorVAStatin 40 MG TABLET PO SCH (21:08)
[2024-10-29] MEDS: GABApentin 100 MG CAPSULE PO SCH (21:09)
[2024-10-29] MEDS: acetaMINOPHEN 325 MG TAB PO PRN (23:36)
[2024-10-30] VITALS: BP 156/57; PULSE 79; RESP 20; TEMP 100.3
--- NOTE | 2024-10-30 01:57 | CONS ---
REFERRING PHYSICIAN: Pepe Adams MD REASON FOR CONSULTATION: Abdominal abscess, ESRD. HISTORY OF PRESENT ILLNESS: An 79-year-old female with history of diabetes mellitus and hypertension, has a history of end-stage renal disease, on dialysis 3 times per week. The patient presented to the hospital with complaints of abdominal pain as well as fevers. In the Emergency Room, the patient underwent CT scan of the abdomen that revealed possible abdominal abscess. The patient was started on broad-spectrum IV antibiotics. The patient is pending Surgical evaluation. She is being seen for all the above. She does receive dialysis on a Thursday, Thursday, Thursday schedule. PAST MEDICAL HISTORY: Diabetes mellitus, hypertension, hypercholesterolemia, ESRD. SURGICAL HISTORY: Cholecystectomy, AV access. SOCIAL HISTORY: She lives independently. There is no active tobacco use. FAMILY HISTORY: Positive for ESRD. ALLERGIES: There are no allergies. MEDICATIONS: Noted. REVIEW OF SYSTEMS: GENERAL: The patient is feeling weak and tired. HEENT: No change in vision. No change in hearing. CARDIOVASCULAR: There is no current chest pain or palpitations. PULMONARY: No shortness of breath. GASTROINTESTINAL: As described above. MUSCULOSKELETAL: Complains of weakness. PHYSICAL EXAMINATION: VITAL SIGNS: Blood pressure 126/40, pulse in the 70s. GENERAL: Chronically ill female, lying in bed on medical floor. HEENT: Head is atraumatic. Pupils equal, roving to light. Oropharynx is without exudate. Nares clear. NECK: There is no JVP. There is no thyromegaly, no mass. CARDIOVASCULAR: Regular. There is no S3, S4 gallop. LUNGS: Coarse with equal thoracic movement. ABDOMEN: Soft, nondistended, nontender. EXTREMITIES: No clubbing, no cyanosis. NEUROLOGICAL: She is awake. She is alert. LABORATORY DATA: Hemoglobin 9.7, hematocrit 29. Sodium 139, potassium 4.3, BUN 26, creatinine is 3.9. DIAGNOSTIC DATA: A CT scan does reveal left lower abdominal abscess. IMPRESSION: * Abdominal abscess. * Diabetes mellitus. * Hypertension. * End-stage renal disease. PLAN: The patient has been started on the broad-spectrum IV antibiotics while we await culture results. The patient is to be seen by Surgical Service. She will remain n.p.o. The patient can continue with gentle hydration until she is able to take adequate diet. I did have a long discussion with the patient and family. All labs will be repeated in the morning. TID: [id number] RECEIPT: [id number]
[2024-10-30 04:00] VITALS: BP 130/54; PULSE 66; RESP 18; TEMP 98.4
[2024-10-30 06:02] LABS: MAGNESIUM 1.9 mg/dL (1.80-2.40); PHOSPHORUS 4.7 mg/dL (2.5-4.9); POTASSIUM 4.9 mmol/L (3.5-5.1)
[2024-10-30 07:28] LABS: HEMATOCRIT 29.6 % (36-48); MEAN CORPUSCULAR HGB CONC 32.1 g/dL (32.0-36.0); MEAN CORPUSCULAR VOLUME 99.7 fL (79-99); RED BLOOD CELL COUNT(AUTO) 2.97 MIL/uL (4.00-5.50); WHITE BLOOD COUNT (AUTO) 10.9 K/uL (4.8-10.8)
[2024-10-30 08:00] VITALS: BP 155/57; PULSE 70; RESP 16; TEMP 98.5; O2SAT 93
--- NOTE | 2024-10-30 10:31 | PN ---
[facility] PROGRESS NOTE Date Patient Seen: Oct 30, 2024 Time of Visit: 10:30 Supervising Physician: Dr. Iqbal Primary Care Physician: Artur Velasco MD Outpatient Specialists: Dr Berman (Neprhologist) Inpatient Consults: Dr Berman, Dr Marcum PROBLEM LIST: Perforated diverticulitis with abscess formation Diabetes Mellitus, Type II ESRD on HD (MWF) Hypertension Hyperlipidemia Chronic diastolic heart failure Anemia of chronic disease Anxiety INTERVAL HISTORY: Pt remains weak at this point. Continues on IV abx for diverticular abscess. Pending further recommendations from general surgery team. She is NPO at this time, awaiting PICC line for TPN Denies any headache or dizziness. Denies any chest pain or palpitations. Denies any cough or shortness of breath at rest. Denies any nausea, vomiting, abdominal pain, or melena REVIEW OF SYSTEMS: 12 point ROS reviewed with patient. Pertinent positives mentioned above. Otherwise negative. PHYSICAL EXAM: GENERAL: alert, weak, awake oriented x 3 HEENT: EOMI, Sclera non icteric, moist mucosa NECK: Supple, no JVD, trachea midline LUNGS: Clear breath sounds bilaterally. No wheezes HEART: Regular rate and rhythm. Normal S1 and S2, without murmurs right chest wall PermCath. ABD: Abdomen soft, tender to left lower quadrant. Bowel sounds present EXT: No clubbing cyanosis or edema, left arm AV fistula. NEURO: Alert and oriented to person, follows commands Vital Signs (last 8hr) Date Time Temp Pulse Resp B/P (MAP) Pulse Ox O2 Delivery O2 Flow Rate FiO2 10/30/24 08:00 93 Room Air* 0 21 10/30/24 08:00 98.4 70 16 155/57 93 Room Air 10/30/24 04:00 98.4 66 18 130/54 95 Room Air LABS: Hematology Labs: Test 10/30/24 07:20 10/29/24 08:50 10/28/24 23:51 Range/Units White Blood Count 10.9 H 4.8-10.8 K/uL Red Blood Count 2.97 L 4.00-5.50 MIL/uL Hemoglobin 9.5 L 12.0-16.0 g/dL Hematocrit 29.6 L 36-48 % Mean Corpuscular Volume 99.7 H 79-99 fL Mean Corpuscular Hemoglobin 32.0 27.0-33.0 pg Mean Corpuscular Hemoglobin Concent 32.1 32.0-36.0 g/dL Red Cell Distribution Width 13.0 11.0-15.5 % Platelet Count 189 130-400 K/uL Mean Platelet Volume 10.0 7.5-10.5 fL Nucleated Red Blood Cells 0.0 0.0-0.19 % Immature Granulocyte % (Auto) 0.5 0-1 % Neutrophils (%) (Auto) 74.1 40.0-77.0 % Lymphocytes (%) (Auto) 9.6 L 21.0-51.0 % Monocytes (%) (Auto) 13.5 H 3.0-13.0 % Eosinophils (%) (Auto) 1.7 0.0-8.0 % Basophils (%) (Auto) 0.6 0.0-5.0 % Neutrophils # (Auto) 7.7 1.8-7.7 K/uL Lymphocytes # (Auto) 1.0 1.0-4.8 K/uL Monocytes # (Auto) 1.4 H 0.1-1.0 K/uL Eosinophils # (Auto) 0.18 0.00-0.70 K/uL Basophils # (Auto) 0.06 0.00-0.20 K/uL Absolute Immature Granulocyte (auto 0.05 0-1 K/uL White Cell Morphology Comment See comments Chemistry Labs: Test 10/30/24 05:19 10/30/24 05:06 10/29/24 08:50 10/28/24 23:51 Range/Units Sodium Level 135 L 136-145 mmol/L Potassium Level 4.9 3.5-5.1 mmol/L Chloride Level 103 101-111 mmol/L Carbon Dioxide Level 25 21-32 mmol/L Blood Urea Nitrogen 28 H 7-18 mg/dL Creatinine 5.0 H 0.5-1.0 mg/dL Glomerular Filtration Rate Calc 8 >90 mL/min Random Glucose 196 H 70-105 mg/dL Total Calcium 8.4 L 8.5-10.1 mg/dL Phosphorus Level 4.7 2.5-4.9 mg/dL Magnesium Level 1.90 1.80-2.40 mg/dL Whole Blood Glucose 181 H 70-110 MG/DL Hemoglobin A1c 8.8 H 4.0-6.0 % Estimated Average Glucose (eAG) 206 H 70-126 mg/dL Lactic Acid Level 1.3 0.8-2.5 mmol/L Total Bilirubin 0.6 # 0.2-1.0 mg/dL Aspartate Amino Transf (AST/SGOT) 15 10-37 U/L Alanine Aminotransferase (ALT/SGPT) 21 12-78 U/L Alkaline Phosphatase 84 50-136 U/L Total Protein 6.7 6.0-8.3 g/dL Albumin 3.1 L 3.5-5.0 g/dL Lipase 58 16-77 U/L Thyroid Stimulating Hormone (TSH) 3.14 # 0.36-3.74 uIU/mL Direct Bilirubin 0.1 0.0-0.3 mg/dL Procalcitonin 0.16 0.05-0.5 ng/mL Coagulation Labs: Test 10/29/24 08:50 Range/Units Prothrombin Time 10.6 9.6-11.6 SEC Prothromb Time International Ratio 0.98 0.85-1.15 Fibrinogen 444 H 180-350 mg/dL DIAGNOSTICS / RADIOLOGY RESULTS: Reviewed with supervising MD Plan: Neuro: Minimize central acting medications as possible. Maintain fall precautions, adequate lighting during the day Cardiovascular: Follow hemodynamics. Vital signs per facility protocol Pulmonary: Supplemental 02 as needed. Maintain aspiration precautions at all times GI and nutrition: Continue with nutritional support. Continue stool softeners and laxatives as needed. Kidney and electrolytes: Strict monitoring of intake, output and overall fluid balance. Avoid nephrotoxic medications to the extent possible. Medications to be dosed according to renal function. Monitor electrolytes and replace as needed Endocrine: Maintain blood glucose between 100-180 at all times. Hypoglycemia protocol in place Infectious disease: Trend temperature, WBC and procalcitonin level Follow cultures, deescalate antibiotics as soon as possible. Panculture if new onset fever Oncology/Hematology/Coagulation: Monitor for s/s of bleeding Monitor hemoglobin, coagulation studies as needed Skin: Pressure ulcer prevention per facility protocol Specialty mattress Ortho/Rehab: Continue PT/OT Prophylaxis:. Continue GI and DVT prophylaxis as appropriate Disposition:. TBD Total patient care time excluding any procedures: 40 min MARIUSZ ROBLES NP Oct 30, 2024 10:31
--- NOTE | 2024-10-30 11:00 | NUR ---
Patient with abdominal pain, pending abd surgery for drainage of abscess. Patient also undergoes dialysis. Addendum: 10/30/24 at 1410 by CLAYTON HOLLIDAY PT Amended: Links added.
[2024-10-30 12:00] VITALS: BP 153/58; PULSE 74; RESP 18; TEMP 98.4
--- NOTE | 2024-10-30 12:44 | PN ---
FOLLOWUP PROGRESS NOTE SUBJECTIVE: An 79-year-old female with history of diabetes mellitus and hypertension. She initially presented, found to have abdominal abscess. The patient does have a history of diverticular disease. The patient is being seen by Surgical Service for drainage of the wound. She remains n.p.o. per surgery request and the patient is being seen for all of the above. REVIEW OF SYSTEMS: CONSTITUTIONAL: She complained of pain. HEENT: No change in vision. No change in hearing. CARDIOVASCULAR: There is no current chest pain or palpitations. PULMONARY: There is no shortness of breath. GASTROINTESTINAL: As described above. MUSCULOSKELETAL: Complains of weakness. PHYSICAL EXAMINATION: VITAL SIGNS: Blood pressure is 155/57, pulse in the 70s. GENERAL: She is a chronically ill female, elderly, lying in bed on the medical floor. SKIN: Head is atraumatic. Pupils equal, roving to light. Oropharynx is without exudate. Nares clear. NECK: There is no JVP. There is no thyromegaly, no mass. CARDIOVASCULAR: Regular. There is no S3, S4 gallop. LUNGS: Coarse with equal thoracic movement. ABDOMEN: Soft, nondistended, nontender. EXTREMITIES: Reveal no clubbing, no cyanosis. NEUROLOGIC: She is awake. She is alert. LABORATORY DATA: Sodium 135, BUN 28, creatinine is 5. IMPRESSION: * Abdominal abscess. * Diabetes mellitus. * Hypertension. * End-stage renal disease. PLAN: The patient is being seen by Surgical Service. The patient will continue with the dialysis 3 times per week. The patient can be given erythropoietin injections with the dialysis. The patient does continue with the antibiotics as prescribed and we will follow closely. TID: [id number] RECEIPT: [id number]
--- NOTE | 2024-10-30 15:06 | NUR ---
DCP Pt in bed swedish speaking daughter Trang See at bedside [phone]. Daughter states pt has walker, wheelchair, and [facility] Home health services for her insulin. Pt [facility] at 3:15pm last HD prior to hospital visit was 10/28/24. Pt has been to [facility] if needs additional rehab would like to go back to [facility]. Addendum: 10/30/24 at 1512 by SUKH HAWLEY RN CM Amended: Links added.
[2024-10-30 16:00] VITALS: BP 150/55; PULSE 72; RESP 16; TEMP 98.5
--- NOTE | 2024-10-30 16:03 | PN ---
Interval history: This 79-year-old female seen in her room resting Patient NPO IR scheduled for tomorrow for percutaneous drain placement Hemodialysis to be performed tomorrow Patient is currently pending TPN Physical exam General: Awake alert and oriented Heart: Regular rate and rhythm} Lungs: [Clear to auscultation no distress Abdomen: Improving abdominal pain Assessment : This is an 79-year-old female with concerns of perforated diverticulitis with abscess formation Plan: Patient to be allowed clear liquids Await for IR evaluation tomorrow with possible drain placement Continue with scheduled dialysis Dr. Marcum to be updated in patient's status and surgical team to follow patient closely. Conservative management for now with no surgical intervention planned Vitals/Labs Vital Signs Date Time Temp Pulse Resp B/P (MAP) Pulse Ox O2 Delivery O2 Flow Rate FiO2 10/30/24 12:00 98.4 74 18 153/58 96 10/30/24 08:00 Room Air* 0 21 Laboratory Tests 10/30/24 05:19 10/30/24 07:20 Medications Current Medications Acetaminophen 650 mg ONCE ONCE PO Last administered on 10/28/24at 23:54; Start 10/29/24 at 00:00; Stop 10/29/24 at 00:01; Status DC Insulin Human Regular 6 unit ONCE ONCE IV Last administered on 10/29/24at 00:56; Start 10/29/24 at 00:30; Stop 10/29/24 at 00:31; Status DC Piperacillin Sod/ Tazobactam Sod 3.375 gm ONCE ONCE IVPB Last administered on 10/29/24at 04:04; Start 10/29/24 at 04:00; Stop 10/29/24 at 04:01; Status DC Morphine Sulfate 2 mg ONCE ONCE IVP Last administered on 10/29/24at 04:45; Start 10/29/24 at 05:00; Stop 10/29/24 at 05:01; Status DC Ondansetron HCl 4 mg ONCE ONCE IVP Last administered on 10/29/24at 04:45; Start 10/29/24 at 05:00; Stop 10/29/24 at 05:01; Status DC Lactated Ringer's 1,000 ml @ 50 mls/hr Q20H IV Last administered on 10/29/24at 10:19; Start 10/29/24 at 05:00; Stop 10/29/24 at 16:57; Status DC Piperacillin Sod/ Tazobactam Sod 3.375 gm Q12H IV Last administered on 10/30/24at 04:02; Start 10/29/24 at 16:00; Stop 11/08/24 at 15:59 Acetaminophen 650 mg Q6H PRN PO Last administered on 10/29/24at 23:36; Start 10/29/24 at 05:00; Stop 11/28/24 at 04:59 Acetaminophen 650 mg Q6H PRN RC; Start 10/29/24 at 05:00; Stop 11/28/24 at 04:59 Lactulose 20 gm Q6H PRN PO; Start 10/29/24 at 05:00; Stop 11/28/24 at 04:59 Docusate Sodium 100 mg BID PRN PO; Start 10/29/24 at 05:00; Stop 11/28/24 at 04:59 Temazepam 15 mg HS PRN PO; Start 10/29/24 at 05:00; Stop 11/28/24 at 04:59 Ondansetron HCl 4 mg Q6H PRN IVP; Start 10/29/24 at 05:00; Stop 11/28/24 at 04:59 Hydralazine HCl 10 mg Q2H PRN IV; Start 10/29/24 at 05:00; Stop 11/28/24 at 04:59 Morphine Sulfate 2 mg Q4H PRN IVP; Start 10/29/24 at 05:30; Stop 10/29/24 at 07:51; Status DC Insulin Human Regular INSULIN SLIDING SCAL... ACHS SQ Last administered on 10/29/24at 08:30; Start 10/29/24 at 07:30; Stop 11/28/24 at 07:29 Hydromorphone HCl 0.5 mg Q4H PRN IVP; Start 10/29/24 at 08:00; Stop 11/03/24 at 07:59 Insulin Glargine 10 units BID@0730,2100 SQ; Start 10/29/24 at 08:00; Stop 11/28/24 at 07:59 Dextrose 50 ml AD PRN IV; Start 10/29/24 at 08:00; Stop 11/28/24 at 07:59 Glucagon 1 mg AD PRN IM; Start 10/29/24 at 08:00; Stop 11/28/24 at 07:59 Potassium Chloride 100 ml @ 100 mls/hr AD PRN IV; Start 10/29/24 at 08:00; Stop 11/28/24 at 07:59 Atorvastatin Calcium 40 mg HS PO Last administered on 10/29/24at 21:08; Start 10/29/24 at 21:00; Stop 11/28/24 at 20:59 Gabapentin 100 mg HS PO Last administered on 10/29/24at 21:09; Start 10/29/24 at 21:00; Stop 11/28/24 at 20:59 Amlodipine Besylate 10 mg DAILY PO Last administered on 10/30/24at 08:55; Start 10/29/24 at 09:00; Stop 11/28/24 at 08:59 Vitamin B Complex/ Vit C/Folic Acid 1 cap DAILY PO Last administered on 10/30/24at 08:55; Start 10/29/24 at 09:00; Stop 11/28/24 at 08:59 Pantoprazole Sodium 40 mg DAILY IVP Last administered on 10/29/24at 10:19; Start 10/29/24 at 09:00; Stop 11/28/24 at 08:59 Heparin Sodium (Porcine) 5,000 unit Q12H SQ Last administered on 10/30/24at 09:02; Start 10/29/24 at 08:00; Stop 11/28/24 at 07:59 Dextrose/Sodium Chloride 1,000 ml @ 50 mls/hr Q20H IV Last administered on 10/29/24at 16:52; Start 10/29/24 at 16:30; Stop 11/28/24 at 16:29 Epoetin Augustus-epbx 10,000 unit QMOWEFR[DIALYSIS] SQ; Start 10/31/24 at 16:00; Stop 11/30/24 at 15:59 ABHIJIT XIONG Jr. Oct 30, 2024 16:03
[2024-10-30 20:00] VITALS: BP 143/58; PULSE 69; RESP 18; TEMP 98.4; O2SAT 96
--- NOTE | 2024-10-30 23:08 | NUR ---
Patient did not want to sign consent for procedure in the morning until daughter comes back in the morning.
[2024-10-31] VITALS (22 sets, daily range): BP systolic 132–184; BP diastolic 39–73; PULSE 68–82; RESP 14–20; TEMP 97.7–98.8; O2SAT 96–98
[2024-10-31 02:39] LABS: BASOPHILS # (AUTO) 0.04 K/uL (0.00-0.20); BASOPHILS % (AUTO) 0.4 % (0.0-5.0); EOSINOPHILS # (AUTO) 0.44 K/uL (0.00-0.70); EOSINOPHILS % (AUTO) 4.5 % (0.0-8.0); HEMATOCRIT 26.8 % (36-48); IMMATURE GRANULOCYTE ABSOLUTE 0.04 K/uL (0-1); LYMPHOCYTES # (AUTO) 1.1 K/uL (1.0-4.8); LYMPHOCYTES % (AUTO) 11.6 % (21.0-51.0); MEAN CORPUSCULAR HEMOGLOBIN 32.2 pg (27.0-33.0); MEAN CORPUSCULAR HGB CONC 33.2 g/dL (32.0-36.0); MEAN CORPUSCULAR VOLUME 97.1 fL (79-99); MONOCYTES # (AUTO) 1.2 K/uL (0.1-1.0); NEUTROPHILS % (AUTO) 71.1 % (40.0-77.0); PLATELET COUNT (AUTO) 205 K/uL (130-400); RED BLOOD CELL COUNT(AUTO) 2.76 MIL/uL (4.00-5.50); RED CELL DISTRIBUTION WIDTH 12.7 % (11.0-15.5); WHITE BLOOD COUNT (AUTO) 9.8 K/uL (4.8-10.8)
[2024-10-31 02:51] LABS: INR <= 0.93 (0.85-1.15); PROTHROMBIN TIME 10.5 SEC (9.6-11.6)
[2024-10-31 02:54] LABS: ALBUMIN 2.4 g/dL (3.5-5.0); BILIRUBIN,TOTAL 0.6 mg/dL (0.2-1.0); CREATININE 5.7 mg/dL (0.5-1.0); MAGNESIUM 1.9 mg/dL (1.80-2.40); PHOSPHORUS 4.3 mg/dL (2.5-4.9); POTASSIUM 4.1 mmol/L (3.5-5.1)
[2024-10-31] MEDS: hydrALAZine 20MG/ML VIAL IV PRN (03:11)
--- NOTE | 2024-10-31 03:22 | NUR ---
NURSE NOTE Patient states not feeling well and noted shaking hands. 94 blood glucose at 0300. Blood pressure elevated 169/75 and 77 pulse, 20 RR. Administered Hydralazine 10 mg IVP. Recheck of blood glucose at 105. Patient states she feels cold. PICC line nurse at bedside. Daughter Trang at bedside.
--- NOTE | 2024-10-31 04:29 | NUR ---
PICC LINE INSERTION 5FR 2 LUMEN PICC LINE INSERTED TO RIGHT UPPER ARM BASILIC VEIN USING STERILE TECHNIQUE. ULTRASOUND GUIDED USING MST. INTERNAL CATHETER LENGTH: 36CM. EXTERNAL CATHETER LENGTH: 0CM. (+) VPS BULLSEYE AND CHEST XRAY OBTAINED. PLEASE REPORT RESULTS TO MD FOR ORDERS TO OKAY TO USE PICC LINE PICC LINE CARE: -PERFORM HAND HYGIENE, WEAR GLOVES, SCRUB THE HUB FOR 15 SECONDS BEFORE EVERY ACCESS. -FLUSH BOTH LUMENS WITH 10ML NS FLUSH EVERY 12 HOURS IF LINE IS NOT IN USE AND CLAMP AFTER EVERY ACCESS -CHANGE DRESSING, STATLOCK, AND PORT CAPS USING STERILE TECHNIQUE EVERY 7 DAYS AND PRN IF SOILED OR PEELING OFF.
--- NOTE | 2024-10-31 09:08 | HMCIMG ---
CHEST 1VW HISTORY: PICC line placement COMPARISON: 10/29/2024 FINDINGS: A frontal projection of the chest was obtained. No acute pulmonary infiltrates is seen. The heart is borderline enlarged. Right venous catheters are seen with distal tip in the plane of the superior vena cava. All the lines and tubes are again seen in place. The calcifications are seen. IMPRESSION: 1. No acute pulmonary infiltrate is seen.
--- NOTE | 2024-10-31 09:38 | HMCIMG ---
ABD 1VW HISTORY: Abdominal pain COMPARISON: None FINDINGS: A frontal projection of the abdomen was obtained. A nonspecific bowel gas pattern is seen. Fecal material is seen in the colon. Findings may be related to constipation. Degenerative changes of the thoracolumbar spine are noted. Cholecystectomy changes are seen. IMPRESSION: 1. A nonspecific bowel gas pattern is seen.
--- NOTE | 2024-10-31 09:47 | PN ---
DIALYSIS NOTE SUBJECTIVE: An 79-year-old female seen and evaluated on hemodialysis, prescription noted. OBJECTIVE: VITAL SIGNS: Blood pressure is 169/65. CARDIOVASCULAR: Regular. LUNGS: Coarse. IMPRESSION: End-stage renal disease. PLAN: The patient will continue with maximal multiple trace blood pressure allows. The patient is receiving erythropoietin injections for the anemia. The patient continues with the antibiotics. The patient is being seen by surgical service in regards to drainage of the abdominal abscess. I did discuss with the patient's family. TID: [id number] RECEIPT: [id number]
--- NOTE | 2024-10-31 10:20 | NUR ---
CT GD DRAIN PLACEMENT EVALUATION IMAGES REVIEWED BY DR Sapna STONER. PER DR STONER NEED A CT WITH ORAL CONTRAST. HAYWARD TABLEAU ADMINISTRATOR INFORMED. SYARA GUTIERRES NOTIFIED. CHANGE DATE OF CT GF DRAIN PLACEMENT FOR 11/[address] STONER.
[2024-10-31] MEDS ORDERED: DIATR MEGLU/DIATRIZOATE SODIUM 30 ML BOTTLE ONE (12:08)
[2024-10-31] MEDS: hydroMORPHone 0.5 MG SYG (0.5MG/0.5ML) IVP PRN (16:15)
--- NOTE | 2024-10-31 16:18 | PN ---
[facility] PROGRESS NOTE Date Patient Seen: Oct 31, 2024 Time of Visit: 16:15 Supervising Physician: AARON ESCALANTE Primary Care Physician: Atrur Velasco MD Outpatient Specialists: Dr Berman (Neprhologist) Inpatient Consults: Dr Berman, Dr Marcum PROBLEM LIST: Perforated diverticulitis with abscess formation Diabetes Mellitus, Type II ESRD on HD (MWF) Hypertension Hyperlipidemia Chronic diastolic heart failure Anemia of chronic disease Anxiety INTERVAL HISTORY: Pt remains weak at this point. Continues on IV abx for diverticular abscess. she is npo pending Ct abd pelvis with oral contrast as per general surgery .She will be undergiong Ct guided drain placement . Also Will be started on TPN . Patient's white blood cell count is at 9.8, hemoglobin has been downtrended from admission from 10.3-8.9. Denies any melena or hematochezia. Chemistry reveals BUN and creatinine consistent with end-stage renal disease. Liver enzymes are within normal limits, bilirubin is 0.6. Patient was afebrile, pulse rate 79, respiratory rate normal , blood pressure in the 140s to 160s systolic. Given her NPO status she will continue with IV hydralazine p.r.n. blood pressure over 160 mm Hg. REVIEW OF SYSTEMS: 12 point ROS reviewed with patient. Pertinent positives mentioned above. Otherwise negative. PHYSICAL EXAM: GENERAL: alert, weak, awake oriented x 3 HEENT: EOMI, Sclera non icteric, moist mucosa NECK: Supple, no JVD, trachea midline LUNGS: Clear breath sounds bilaterally. No wheezes HEART: Regular rate and rhythm. Normal S1 and S2, without murmurs right chest wall PermCath. ABD: Abdomen soft, tender to left lower quadrant. Bowel sounds present EXT: No clubbing cyanosis or edema, left arm AV fistula. NEURO: Alert and oriented to person, follows commands Vital Signs (last 8hr) Date Time Temp Pulse Resp B/P (MAP) Pulse Ox O2 Delivery O2 Flow Rate FiO2 10/31/24 12:00 98.4 79 17 167/73 97 Room Air 10/31/24 09:53 75 171/64 LABS: Hematology Labs: Test 10/31/24 02:33 Range/Units White Blood Count 9.8 4.8-10.8 K/uL Red Blood Count 2.76 L 4.00-5.50 MIL/uL Hemoglobin 8.9 L 12.0-16.0 g/dL Hematocrit 26.8 L 36-48 % Mean Corpuscular Volume 97.1 79-99 fL Mean Corpuscular Hemoglobin 32.2 27.0-33.0 pg Mean Corpuscular Hemoglobin Concent 33.2 32.0-36.0 g/dL Red Cell Distribution Width 12.7 11.0-15.5 % Platelet Count 205 130-400 K/uL Mean Platelet Volume 9.6 7.5-10.5 fL Immature Granulocyte % (Auto) 0.4 0-1 % Neutrophils (%) (Auto) 71.1 40.0-77.0 % Lymphocytes (%) (Auto) 11.6 L 21.0-51.0 % Monocytes (%) (Auto) 12.0 3.0-13.0 % Eosinophils (%) (Auto) 4.5 0.0-8.0 % Basophils (%) (Auto) 0.4 0.0-5.0 % Neutrophils # (Auto) 7.0 1.8-7.7 K/uL Lymphocytes # (Auto) 1.1 1.0-4.8 K/uL Monocytes # (Auto) 1.2 H 0.1-1.0 K/uL Eosinophils # (Auto) 0.44 0.00-0.70 K/uL Basophils # (Auto) 0.04 0.00-0.20 K/uL Absolute Immature Granulocyte (auto 0.04 0-1 K/uL Nucleated Red Blood Cells 0.0 0.0-0.19 % Chemistry Labs: Test 10/31/24 16:08 10/31/24 02:33 Range/Units Whole Blood Glucose 277 #H 70-110 MG/DL Sodium Level 138 136-145 mmol/L Potassium Level 4.1 3.5-5.1 mmol/L Chloride Level 101 101-111 mmol/L Carbon Dioxide Level 28 21-32 mmol/L Blood Urea Nitrogen 33 H 7-18 mg/dL Creatinine 5.7 H 0.5-1.0 mg/dL Glomerular Filtration Rate Calc 7 >90 mL/min Random Glucose 107 H 70-105 mg/dL Total Calcium 8.1 L 8.5-10.1 mg/dL Phosphorus Level 4.3 2.5-4.9 mg/dL Magnesium Level 1.90 1.80-2.40 mg/dL Total Bilirubin 0.6 0.2-1.0 mg/dL Aspartate Amino Transf (AST/SGOT) 13 10-37 U/L Alanine Aminotransferase (ALT/SGPT) 18 12-78 U/L Alkaline Phosphatase 74 50-136 U/L Total Protein 6.0 6.0-8.3 g/dL Albumin 2.4 L 3.5-5.0 g/dL Coagulation Labs: Test 10/31/24 02:33 Range/Units Prothrombin Time 10.5 9.6-11.6 SEC Prothromb Time International Ratio <= 0.93 0.85-1.15 DIAGNOSTICS / RADIOLOGY RESULTS: [ ] Plan: Neuro: Minimize central acting medications as possible. Maintain fall precautions, adequate lighting during the day Cardiovascular: Follow hemodynamics. Vital signs per facility protocol Pulmonary: Supplemental 02 as needed. Maintain aspiration precautions at all times GI and nutrition: Continue with nutritional support via TPN NPO status until further recs from general surgery given perf diverticulitis Iv antibiotics pain control and IVF . Continue stool softeners and laxatives as needed. Kidney and electrolytes: Strict monitoring of intake, output and overall fluid balance. Avoid nephrotoxic medications to the extent possible. Medications to be dosed according to renal function. Monitor electrolytes and replace as needed Endocrine: Maintain blood glucose between 100-180 at all times. Hypoglycemia protocol in place Infectious disease: Trend temperature, WBC and procalcitonin level Follow cultures, deescalate antibiotics as soon as possible. Panculture if new onset fever Oncology/Hematology/Coagulation: Monitor for s/s of bleeding Monitor hemoglobin, coagulation studies as needed Skin: Pressure ulcer prevention per facility protocol Specialty mattress Ortho/Rehab: Continue PT/OT Prophylaxis:. Continue GI and DVT prophylaxis as appropriate Disposition:. TBD Total patient care time excluding any procedures: 40 min VICKI CARRENO Oct 31, 2024 16:18
--- NOTE | 2024-10-31 16:18 | NUR ---
PAIN Patient complaining of pain 10/10, guarding and crying, right arm related to picc site. no s/sx swelling, redness, picc flushing well. IV pain medication given per unit policy for Kathleen Harmon LVN. Bp 189/67
[2024-10-31] MEDS: 0.9%NACL 1000ML 1,000 ML IV SCH (17:40)
[2024-10-31] MEDS: HEParin 5,000 UNIT VIAL IRRIG SCH (18:36)
--- NOTE | 2024-10-31 20:45 | NUR ---
[facility] PT'S FAMILY WANTED UPDATES ON PT'S CONDITION. ANSWERED FAMILY QUESTIONS MUCH WITHIN THE SCOOP OF GAME DEVELOPER. ADVISED FAMILY TO ASK QUESTIONS TO PRACTITIONER IN AM. SHIFT ASSESSMENT DONE, PLEASE REFER TO CHART. DUE MEDS ADMINISTERED, TOLERATED WELL. INSULIN DOSES REFUSED BY FAMILY, CLAIMS THAT PT IS VERY SENSITIVE TO INSULIN AND TENDS TO DROP HER BLOOD SUGAR. PT NPO ORDERED. NEW BAG OF D51/2 NS HUNG WITH NEW TUBINGS. PT CLAIMS OF PAINS TO PICC LINE SITE SINCE IT WAS PLACED. NO REDNESS NOTED BUT WITH EDEMA. PT UNABLE TO MOVE ARM WITH PICC LINE DUE TO PAIN. PICC LINE NOT USED FOR NOW, PIV USED. MEDICATED WITH DILAUDID IV FOR PAIN. KEPT RESTED AND COMFORTABLE IN BED. WILL RE-ASSESS PT. FAMILY AT BEDSIDE.
[2024-10-31] MEDS: EPOETIN ALFA-EPBX (NON-ESRD) 10,000 UNIT/ML VIAL SQ SCH (20:55)
[2024-11-01] VITALS (9 sets, daily range): BP systolic 126–180; BP diastolic 22–82; PULSE 67–81; RESP 16–20; TEMP 98.1–99; O2SAT 96
[2024-11-01 04:18] LABS: HEPATITIS B SURFACE ANTIGEN Non-Reactive (Nonreactive)
[2024-11-01 04:19] LABS: HEPATITIS B CORE AB TOTAL Non-Reactive (Nonreactive); HEPATITIS C ANTIBODY Non-Reactive (Nonreactive)
--- NOTE | 2024-11-01 05:14 | NUR ---
ROUNDS PT SLEPT AT INTERVALS DURING THE SHIFT. NO DISTRESS NOTED. STILL CLAIMS OF PAIN TO PICC SITE. KEPT RESTED AND COMFORTABLE IN BED. KEPT NPO FOR PROCEDURE. FOR MORE CARE.
[2024-11-01 05:36] LABS: BASOPHILS # (AUTO) 0.03 K/uL (0.00-0.20); BASOPHILS % (AUTO) 0.3 % (0.0-5.0); EOSINOPHILS # (AUTO) 0.21 K/uL (0.00-0.70); EOSINOPHILS % (AUTO) 2.2 % (0.0-8.0); HEMATOCRIT 27.9 % (36-48); IMMATURE GRANULOCYTE ABSOLUTE 0.05 K/uL (0-1); LYMPHOCYTES # (AUTO) 1.1 K/uL (1.0-4.8); LYMPHOCYTES % (AUTO) 11.7 % (21.0-51.0); MEAN CORPUSCULAR HEMOGLOBIN 31.9 pg (27.0-33.0); MEAN CORPUSCULAR VOLUME 96.9 fL (79-99); MONOCYTES # (AUTO) 1.2 K/uL (0.1-1.0); MONOCYTES % (AUTO) 12.3 % (3.0-13.0); NEUTROPHILS # (AUTO) 6.9 K/uL (1.8-7.7); PLATELET COUNT (AUTO) 217 K/uL (130-400); RED BLOOD CELL COUNT(AUTO) 2.88 MIL/uL (4.00-5.50); RED CELL DISTRIBUTION WIDTH 12.6 % (11.0-15.5); WHITE BLOOD COUNT (AUTO) 9.4 K/uL (4.8-10.8)
[2024-11-01 06:01] LABS: CREATININE 4.1 mg/dL (0.5-1.0); POTASSIUM 3.5 mmol/L (3.5-5.1)
[2024-11-01 06:11] LABS: ALBUMIN 2.5 g/dL (3.5-5.0); BILIRUBIN,TOTAL 0.7 mg/dL (0.2-1.0); MAGNESIUM 1.7 mg/dL (1.80-2.40); TOTAL PROTEIN, SERUM 6.3 g/dL (6.0-8.3)
[2024-11-01 06:31] LABS: HEPATITIS B SURFACE ANTIBODY Negative (Reactive)
[2024-11-01 06:54] LABS: INR 0.95 (0.85-1.15); PROTHROMBIN TIME 10.7 SEC (9.6-11.6)
[2024-11-01 06:56] LABS: PARTIAL THROMBOPLASTIN TIME 32.2 SEC (26.3-35.5)
--- NOTE | 2024-11-01 09:06 | NUR ---
CT GD DRAIN PLACEMENT CANCELLED IMAGES REVIEWED BY DR Tadeo ENGRON. PER DR NEGRON NO FLUID COLLECTION NOTED ON CT WITH ORAL CONTRAST. DIVERTICULITIS PRESENT WITH SURROUNDING BOWEL. SAYRA ENVIRONMENTAL GEOLOGIST NOTIFIED.
--- NOTE | 2024-11-01 09:10 | PN ---
FOLLOWUP PROGRESS NOTE SUBJECTIVE: An 79-year-old female with history of diabetes mellitus and hypertension. She was initially admitted to the hospital and found to have an abdominal abscess. The patient is being seen by surgical service. The patient remains on the antibiotics and she is being seen as a followup visit for all of the above. REVIEW OF SYSTEMS: GENERAL: She is feeling weak and tired. HEENT: No change in vision. No change in hearing. CARDIOVASCULAR: There is no current chest pain or palpitations. PULMONARY: No shortness of breath. GASTROINTESTINAL: As described above. MUSCULOSKELETAL: Complains of weakness. PHYSICAL EXAMINATION:. VITAL SIGNS: Blood pressure 148/82, pulse 70s. GENERAL: She is a chronically ill female, elderly, lying in bed on the medical floor. HEENT: Head is atraumatic. Pupils are equal, roving to light. Oropharynx is without exudate. Nares clear. NECK: There is no JVP. There is no thyromegaly, no mass. CARDIOVASCULAR: Regular. There is no S3, S4 gallop. LUNGS: Coarse with equal thoracic movement. ABDOMEN: Soft, nondistended, nontender. EXTREMITIES: No clubbing, no cyanosis. NEUROLOGIC: She is awake. She is alert. LABORATORY DATA: Hemoglobin 9.2, hematocrit 27, white cell count 9000. BUN is 18, creatinine is 4. IMPRESSION: * Abdominal abscess. * Diabetes mellitus. * Hypertension. * End-stage renal disease. PLAN: The patient does remain on the IV antibiotics. The patient is being seen by surgical service for drainage of abscess. Once the abscess is drained, the patient will be started on a diet. We will continue to follow closely. She remains on dialysis 3 times per week. TID: [id number] RECEIPT: [id number]
--- NOTE | 2024-11-01 10:00 | NUR ---
RECEIVED REPORT FROM SAYRA GUTIERRES, WILL CONTINUE CARE FROM THIS POINT.
--- NOTE | 2024-11-01 11:07 | PN ---
Interval history: This 79-year-old female seen in her room resting comfortably Nursing reporting that no need for drain placement at this time as per IR recommendations Patient on IV fluids and IV antibiotics Patient tolerating diet Physical exam General: Awake alert and oriented Heart: Regular rate and rhythm} Lungs: Clear to auscultation no distress Abdomen: [Soft, nontender, nondistended Assessment : This is a 79-year-old female with the acute diverticulitis with a initial concerns of diverticular abscess Plan: Diet to be advanced Continue with IV antibiotics Repeat imaging on day five to assess previously noted abscess Continue with conservative management No surgical intervention this time and Dr. Marcum to be patient's status. Thank you Vitals/Labs Vital Signs Date Time Temp Pulse Resp B/P (MAP) Pulse Ox O2 Delivery O2 Flow Rate FiO2 11/01/24 08:16 98.8 79 18 148/82 96 Room Air 21 10/31/24 20:55 0 Laboratory Tests 11/01/24 05:05 Medications Current Medications Acetaminophen 650 mg ONCE ONCE PO Last administered on 10/28/24at 23:54; Start 10/29/24 at 00:00; Stop 10/29/24 at 00:01; Status DC Insulin Human Regular 6 unit ONCE ONCE IV Last administered on 10/29/24at 00:56; Start 10/29/24 at 00:30; Stop 10/29/24 at 00:31; Status DC Piperacillin Sod/ Tazobactam Sod 3.375 gm ONCE ONCE IVPB Last administered on 10/29/24at 04:04; Start 10/29/24 at 04:00; Stop 10/29/24 at 04:01; Status DC Morphine Sulfate 2 mg ONCE ONCE IVP Last administered on 10/29/24at 04:45; Start 10/29/24 at 05:00; Stop 10/29/24 at 05:01; Status DC Ondansetron HCl 4 mg ONCE ONCE IVP Last administered on 10/29/24at 04:45; Start 10/29/24 at 05:00; Stop 10/29/24 at 05:01; Status DC Lactated Ringer's 1,000 ml @ 50 mls/hr Q20H IV Last administered on 10/29/24at 10:19; Start 10/29/24 at 05:00; Stop 10/29/24 at 16:57; Status DC Piperacillin Sod/ Tazobactam Sod 3.375 gm Q12H IV Last administered on 11/01/24at 03:32; Start 10/29/24 at 16:00; Stop 11/08/24 at 15:59 Acetaminophen 650 mg Q6H PRN PO Last administered on 10/29/24at 23:36; Start 10/29/24 at 05:00; Stop 11/28/24 at 04:59 Acetaminophen 650 mg Q6H PRN RC; Start 10/29/24 at 05:00; Stop 11/28/24 at 04:59 Lactulose 20 gm Q6H PRN PO; Start 10/29/24 at 05:00; Stop 11/28/24 at 04:59 Docusate Sodium 100 mg BID PRN PO; Start 10/29/24 at 05:00; Stop 11/28/24 at 04:59 Temazepam 15 mg HS PRN PO; Start 10/29/24 at 05:00; Stop 11/28/24 at 04:59 Ondansetron HCl 4 mg Q6H PRN IVP; Start 10/29/24 at 05:00; Stop 11/28/24 at 04:59 Hydralazine HCl 10 mg Q2H PRN IV Last administered on 10/31/24at 03:11; Start 10/29/24 at 05:00; Stop 11/28/24 at 04:59 Morphine Sulfate 2 mg Q4H PRN IVP; Start 10/29/24 at 05:30; Stop 10/29/24 at 07:51; Status DC Insulin Human Regular INSULIN SLIDING SCAL... ACHS SQ Last administered on 10/31/24at 18:52; Start 10/29/24 at 07:30; Stop 11/28/24 at 07:29 Hydromorphone HCl 0.5 mg Q4H PRN IVP Last administered on 11/01/24at 10:36; Start 10/29/24 at 08:00; Stop 11/03/24 at 07:59 Insulin Glargine 10 units BID@0730,2100 SQ Last administered on 10/30/24at 20:47; Start 10/29/24 at 08:00; Stop 11/28/24 at 07:59 Dextrose 50 ml AD PRN IV; Start 10/29/24 at 08:00; Stop 11/28/24 at 07:59 Glucagon 1 mg AD PRN IM; Start 10/29/24 at 08:00; Stop 11/28/24 at 07:59 Potassium Chloride 100 ml @ 100 mls/hr AD PRN IV; Start 10/29/24 at 08:00; Stop 11/28/24 at 07:59 Atorvastatin Calcium 40 mg HS PO Last administered on 10/30/24at 20:50; Start 10/29/24 at 21:00; Stop 11/28/24 at 20:59 Gabapentin 100 mg HS PO Last administered on 10/30/24at 20:50; Start 10/29/24 at 21:00; Stop 11/28/24 at 20:59 Amlodipine Besylate 10 mg DAILY PO Last administered on 11/01/24at 09:37; Start 10/29/24 at 09:00; Stop 11/28/24 at 08:59 Vitamin B Complex/ Vit C/Folic Acid 1 cap DAILY PO Last administered on 11/01/24at 09:37; Start 10/29/24 at 09:00; Stop 11/28/24 at 08:59 Pantoprazole Sodium 40 mg DAILY IVP Last administered on 11/01/24at 09:37; Start 10/29/24 at 09:00; Stop 11/28/24 at 08:59 Heparin Sodium (Porcine) 5,000 unit Q12H SQ Last administered on 11/01/24at 09:44; Start 10/29/24 at 08:00; Stop 11/28/24 at 07:59 Dextrose/Sodium Chloride 1,000 ml @ 50 mls/hr Q20H IV Last administered on 10/31/24at 20:59; Start 10/29/24 at 16:30; Stop 11/28/24 at 16:29 Epoetin Augustus-epbx 10,000 unit QMOWEFR[DIALYSIS] SQ Last administered on 10/31/24at 20:55; Start 10/31/24 at 16:00; Stop 11/30/24 at 15:59 Sodium Chloride 1,000 ml @ 0 mls/hr ONCE IV Last administered on 10/31/24at 17:40; Start 10/31/24 at 10:30; Stop 11/30/24 at 10:29 Diatrizoate Meglum/ Diatrizoate Sod 30 ml STK-MED ONCE .ROUTE; Start 10/31/24 at 12:08; Stop 10/31/24 at 12:11; Status DC Heparin Sodium (Porcine) 10,000 unit AD IRRIG Last administered on 10/31/24at 18:36; Start 10/31/24 at 18:00; Stop 11/30/24 at 17:59 ABHIJIT XIONG Jr. Nov 01, 2024 11:07
--- NOTE | 2024-11-01 13:02 | NUR ---
Physical Therapy approached patient to attempt gait; patient refused gait yesterday due to feeling weak and today because her upper extremities hurt due to a picc line in one and permacath placement in the other. Therapist attempted to educate pt the longer she is in bed the weaker she will get; she should be able to use her lower extremities that don't hurt to get up. Patient wants something for pain; GLEN Smith administered dilauted through IV, now sitting EOB pt reports she is too dizzy to do anything. Assisted patient BTB. Addendum: 11/01/24 at 1308 by BRIANNA VARGAS PTA PT Amended: Links added.
--- NOTE | 2024-11-01 13:40 | PN ---
[facility] PROGRESS NOTE Date Patient Seen: Nov 01, 2024 Time of Visit: 13:35 Supervising Physician: Dr Iqbal Primary Care Physician: Artur Velasco MD Outpatient Specialists: Dr Berman (Neprhologist) Inpatient Consults: Dr Berman, Dr Marcum PROBLEM LIST: Perforated diverticulitis with abscess formation Diabetes Mellitus, Type II ESRD on HD (MWF) Hypertension Hyperlipidemia Chronic diastolic heart failure Anemia of chronic disease Anxiety Plan Summary: Supplemental oxygen as needed Continue clear liquid diet and advanced as tolerated If tolerated oral diet and no need for TPN Continue Zosyn Follow up Dr. Covarrubias recommendation Out of bed to chair and ambulate PT as tolerated Dispo: Home once medically stable for discharge INTERVAL HISTORY: Pt remains weak at this point. Continues on IV abx for diverticular abscess. she is npo pending Ct abd pelvis with oral contrast as per general surgery .She will be undergiong Ct guided drain placement . Also Will be started on TPN . Patient's white blood cell count is at 9.8, hemoglobin has been downtrended from admission from 10.3-8.9. Denies any melena or hematochezia. Chemistry reveals BUN and creatinine consistent with end-stage renal disease. Liver enzymes are within normal limits, bilirubin is 0.6. Patient was afebrile, pulse rate 79, respiratory rate normal , blood pressure in the 140s to 160s systolic. Given her NPO status she will continue with IV hydralazine p.r.n. blood pressure over 160 mm Hg. 11/01 - patient is seen and evaluated at the bedside. Patient is accompanied by her daughter. Patient is sitting up at the side of the bed currently eating clear liquid diet and tolerating well. Patient denies nausea, vomiting, or worsening abdominal pain. No acute changes reported overnight. Patient was scheduled for percutaneous drain placement by Interventional Radiology this morning. Nursing reports that radiologist reviewed the CT scan and the abscess has resolved therefore no need for drain. We are still pending official CT report. Patient does continue on Zosyn. Vital signs are stable. Labs are within normal limits. We will continue to advance patient's diet as tolerated. We will plan to DC home in the next 24-48 hours if okay with surgical team. REVIEW OF SYSTEMS: 12 point ROS reviewed with patient. Pertinent positives mentioned above. Otherwise negative. PHYSICAL EXAM: GENERAL: alert, weak, awake oriented x 3 HEENT: EOMI, Sclera non icteric, moist mucosa NECK: Supple, no JVD, trachea midline LUNGS: Clear breath sounds bilaterally. No wheezes HEART: Regular rate and rhythm. Normal S1 and S2, without murmurs right chest wall PermCath. ABD: Abdomen soft, tender to left lower quadrant. Bowel sounds present EXT: No clubbing cyanosis or edema, left arm AV fistula. NEURO: Alert and oriented to person, follows commands Vital Signs (last 8hr) Date Time Temp Pulse Resp B/P (MAP) Pulse Ox O2 Delivery O2 Flow Rate FiO2 11/01/24 12:10 98.8 71 18 180/68 96 Room Air 11/01/24 08:16 98.8 79 18 148/82 96 Room Air 21 LABS: Hematology Labs: Test 11/01/24 05:05 Range/Units White Blood Count 9.4 4.8-10.8 K/uL Red Blood Count 2.88 L 4.00-5.50 MIL/uL Hemoglobin 9.2 L 12.0-16.0 g/dL Hematocrit 27.9 L 36-48 % Mean Corpuscular Volume 96.9 79-99 fL Mean Corpuscular Hemoglobin 31.9 27.0-33.0 pg Mean Corpuscular Hemoglobin Concent 33.0 32.0-36.0 g/dL Red Cell Distribution Width 12.6 11.0-15.5 % Platelet Count 217 130-400 K/uL Mean Platelet Volume 10.0 7.5-10.5 fL Immature Granulocyte % (Auto) 0.5 0-1 % Neutrophils (%) (Auto) 73.0 40.0-77.0 % Lymphocytes (%) (Auto) 11.7 L 21.0-51.0 % Monocytes (%) (Auto) 12.3 3.0-13.0 % Eosinophils (%) (Auto) 2.2 0.0-8.0 % Basophils (%) (Auto) 0.3 0.0-5.0 % Neutrophils # (Auto) 6.9 1.8-7.7 K/uL Lymphocytes # (Auto) 1.1 1.0-4.8 K/uL Monocytes # (Auto) 1.2 H 0.1-1.0 K/uL Eosinophils # (Auto) 0.21 0.00-0.70 K/uL Basophils # (Auto) 0.03 0.00-0.20 K/uL Absolute Immature Granulocyte (auto 0.05 0-1 K/uL Nucleated Red Blood Cells 0.0 0.0-0.19 % Chemistry Labs: Test 11/01/24 11:08 11/01/24 05:05 10/31/24 02:33 Range/Units Whole Blood Glucose 190 H 70-110 MG/DL Sodium Level 137 136-145 mmol/L Potassium Level 3.5 3.5-5.1 mmol/L Chloride Level 100 L 101-111 mmol/L Carbon Dioxide Level 29 21-32 mmol/L Blood Urea Nitrogen 18 7-18 mg/dL Creatinine 4.1 H 0.5-1.0 mg/dL Glomerular Filtration Rate Calc 10 >90 mL/min Random Glucose 147 H 70-105 mg/dL Total Calcium 8.2 L 8.5-10.1 mg/dL Magnesium Level 1.70 L 1.80-2.40 mg/dL Total Bilirubin 0.7 0.2-1.0 mg/dL Aspartate Amino Transf (AST/SGOT) 16 10-37 U/L Alanine Aminotransferase (ALT/SGPT) 17 12-78 U/L Alkaline Phosphatase 79 50-136 U/L Total Protein 6.3 6.0-8.3 g/dL Albumin 2.5 L 3.5-5.0 g/dL Phosphorus Level 4.3 2.5-4.9 mg/dL Coagulation Labs: Test 11/01/24 05:05 Range/Units Prothrombin Time 10.7 9.6-11.6 SEC Prothromb Time International Ratio 0.95 0.85-1.15 Activated Partial Thromboplast Time 32.2 26.3-35.5 SEC DIAGNOSTICS / RADIOLOGY RESULTS: [ ] Plan: Neuro: Minimize central acting medications as possible. Maintain fall precautions, adequate lighting during the day Cardiovascular: Follow hemodynamics. Vital signs per facility protocol Pulmonary: Supplemental 02 as needed. Maintain aspiration precautions at all times GI and nutrition: Continue with nutritional support via TPN Clear liquid diet and advance as tolerated. Iv antibiotics pain control and IVF . Continue stool softeners and laxatives as needed. Kidney and electrolytes: Strict monitoring of intake, output and overall fluid balance. Avoid nephrotoxic medications to the extent possible. Medications to be dosed according to renal function. Monitor electrolytes and replace as needed Endocrine: Maintain blood glucose between 100-180 at all times. Hypoglycemia protocol in place Infectious disease: Trend temperature, WBC and procalcitonin level Follow cultures, deescalate antibiotics as soon as possible. Panculture if new onset fever Oncology/Hematology/Coagulation: Monitor for s/s of bleeding Monitor hemoglobin, coagulation studies as needed Skin: Pressure ulcer prevention per facility protocol Specialty mattress Ortho/Rehab: Continue PT/OT Prophylaxis:. Continue GI and DVT prophylaxis as appropriate Disposition:. Home once medically stable for discharge. Total patient care time excluding any procedures: 40 min ATTESTATION BY PHYSICIAN I reviewed the documentation, medical decision making, and treatment plan as noted by the mid-level provider above. I agree with the findings and plan of care. Eric Iqbal MD, ECTOR N NP Nov 01, 2024 13:40
--- NOTE | 2024-11-01 20:45 | NUR ---
MEDS SHIFT ASSESSMENT DONE, PLEASE REFER TO CHART. DUE MEDS ADMINISTERED, TOLERATED WELL. KEPT RESTED AND COMFORTABLE IN BED. CALL LIGHT WITHIN REACH. BED ALARM KEPT ACTIVATED.
[2024-11-02] VITALS (20 sets, daily range): BP systolic 120–187; BP diastolic 37–68; PULSE 68–85; RESP 16–18; TEMP 97.6–98.9; O2SAT 95–96
[2024-11-02 04:02] LABS: MEAN CORPUSCULAR HGB CONC 32.5 g/dL (32.0-36.0); MEAN CORPUSCULAR VOLUME 98.4 fL (79-99); RED BLOOD CELL COUNT(AUTO) 2.44 MIL/uL (4.00-5.50); RED CELL DISTRIBUTION WIDTH 12.7 % (11.0-15.5); WHITE BLOOD COUNT (AUTO) 6.3 K/uL (4.8-10.8)
[2024-11-02 04:25] LABS: CREATININE 4.7 mg/dL (0.5-1.0); MAGNESIUM 1.6 mg/dL (1.80-2.40); POTASSIUM 3.3 mmol/L (3.5-5.1)
--- NOTE | 2024-11-02 05:00 | NUR ---
ROUNDS PT SLEPT AT INTERVALS DURING THE SHIFT. NO DISTRESS NOTED. KEPT RESTED AND COMFORTABLE. CALL LIGHT WITHIN REACH. FOR MORE CARE.
--- NOTE | 2024-11-02 09:13 | PN ---
DIALYSIS NOTE SUBJECTIVE: The patient is seen and evaluated on hemodialysis, prescription noted. OBJECTIVE: VITAL SIGNS: Blood pressure 143/47, pulse 60s. CARDIOVASCULAR: Regular. LUNGS: Coarse. IMPRESSION: End-stage renal disease. PLAN: The patient continues with the antibiotics. The patient is being seen by surgical service, felt no need for any surgery at this time. The patient's diet will be advanced to a renal diet. Once the patient is discharged, the patient will follow up at the dialysis unit. TID: [id number] RECEIPT: [id number]
--- NOTE | 2024-11-02 10:48 | PN ---
This is a 79-year-old female concerns of diverticular abscess Interval history: This 79-year-old female seen in her room resting Patient continues IV antibiotics Patient tolerating diet Patient is hemodynamically stable Physical exam General: Awake alert and oriented Heart: Regular rate and rhythm} Lungs: Clear to auscultation no distress Abdomen: [Soft, nontender, nondistended Assessment : This is a 79-year-old female with concerns of diverticular abscess Plan: Continue with conservative management No surgical intervention planned Repeat imaging over the weekend to evaluate for improvement of abscess Dr. Covarrubias to be updated in patient's status and surgical team to follow patient closely Vitals/Labs Vital Signs Date Time Temp Pulse Resp B/P (MAP) Pulse Ox O2 Delivery O2 Flow Rate FiO2 11/02/24 07:59 98.2 68 18 143/37 92 Room Air 11/01/24 20:45 0 21 Laboratory Tests 11/02/24 03:44 Medications Current Medications Acetaminophen 650 mg ONCE ONCE PO Last administered on 10/28/24at 23:54; Start 10/29/24 at 00:00; Stop 10/29/24 at 00:01; Status DC Insulin Human Regular 6 unit ONCE ONCE IV Last administered on 10/29/24at 00:56; Start 10/29/24 at 00:30; Stop 10/29/24 at 00:31; Status DC Piperacillin Sod/ Tazobactam Sod 3.375 gm ONCE ONCE IVPB Last administered on 10/29/24at 04:04; Start 10/29/24 at 04:00; Stop 10/29/24 at 04:01; Status DC Morphine Sulfate 2 mg ONCE ONCE IVP Last administered on 10/29/24at 04:45; Start 10/29/24 at 05:00; Stop 10/29/24 at 05:01; Status DC Ondansetron HCl 4 mg ONCE ONCE IVP Last administered on 10/29/24at 04:45; Start 10/29/24 at 05:00; Stop 10/29/24 at 05:01; Status DC Lactated Ringer's 1,000 ml @ 50 mls/hr Q20H IV Last administered on 10/29/24at 10:19; Start 10/29/24 at 05:00; Stop 10/29/24 at 16:57; Status DC Piperacillin Sod/ Tazobactam Sod 3.375 gm Q12H IV Last administered on 11/02/24at 03:17; Start 10/29/24 at 16:00; Stop 11/08/24 at 15:59 Acetaminophen 650 mg Q6H PRN PO Last administered on 10/29/24at 23:36; Start 10/29/24 at 05:00; Stop 11/28/24 at 04:59 Acetaminophen 650 mg Q6H PRN RC; Start 10/29/24 at 05:00; Stop 11/28/24 at 04:59 Lactulose 20 gm Q6H PRN PO; Start 10/29/24 at 05:00; Stop 11/28/24 at 04:59 Docusate Sodium 100 mg BID PRN PO; Start 10/29/24 at 05:00; Stop 11/28/24 at 04:59 Temazepam 15 mg HS PRN PO; Start 10/29/24 at 05:00; Stop 11/28/24 at 04:59 Ondansetron HCl 4 mg Q6H PRN IVP; Start 10/29/24 at 05:00; Stop 11/28/24 at 04:59 Hydralazine HCl 10 mg Q2H PRN IV Last administered on 11/01/24at 13:34; Start 10/29/24 at 05:00; Stop 11/28/24 at 04:59 Morphine Sulfate 2 mg Q4H PRN IVP; Start 10/29/24 at 05:30; Stop 10/29/24 at 07:51; Status DC Insulin Human Regular INSULIN SLIDING SCAL... ACHS SQ Last administered on 11/01/24at 20:41; Start 10/29/24 at 07:30; Stop 11/28/24 at 07:29 Hydromorphone HCl 0.5 mg Q4H PRN IVP Last administered on 11/01/24at 18:29; Start 10/29/24 at 08:00; Stop 11/03/24 at 07:59 Insulin Glargine 10 units BID@0730,2100 SQ Last administered on 11/01/24at 20:42; Start 10/29/24 at 08:00; Stop 11/28/24 at 07:59 Dextrose 50 ml AD PRN IV; Start 10/29/24 at 08:00; Stop 11/28/24 at 07:59 Glucagon 1 mg AD PRN IM; Start 10/29/24 at 08:00; Stop 11/28/24 at 07:59 Potassium Chloride 100 ml @ 100 mls/hr AD PRN IV; Start 10/29/24 at 08:00; Stop 11/28/24 at 07:59 Atorvastatin Calcium 40 mg HS PO Last administered on 11/01/24at 20:33; Start 10/29/24 at 21:00; Stop 11/28/24 at 20:59 Gabapentin 100 mg HS PO Last administered on 11/01/24at 20:33; Start 10/29/24 at 21:00; Stop 11/28/24 at 20:59 Amlodipine Besylate 10 mg DAILY PO Last administered on 11/01/24at 09:37; Start 10/29/24 at 09:00; Stop 11/28/24 at 08:59 Vitamin B Complex/ Vit C/Folic Acid 1 cap DAILY PO Last administered on 11/01/24at 09:37; Start 10/29/24 at 09:00; Stop 11/28/24 at 08:59 Pantoprazole Sodium 40 mg DAILY IVP Last administered on 11/01/24at 09:37; Start 10/29/24 at 09:00; Stop 11/28/24 at 08:59 Heparin Sodium (Porcine) 5,000 unit Q12H SQ Last administered on 11/01/24at 20:42; Start 10/29/24 at 08:00; Stop 11/28/24 at 07:59 Dextrose/Sodium Chloride 1,000 ml @ 50 mls/hr Q20H IV Last administered on 10/31/24at 20:59; Start 10/29/24 at 16:30; Stop 11/28/24 at 16:29 Epoetin Augustus-epbx 10,000 unit QMOWEFR[DIALYSIS] SQ Last administered on 10/31/24at 20:55; Start 10/31/24 at 16:00; Stop 11/30/24 at 15:59 Sodium Chloride 1,000 ml @ 0 mls/hr ONCE IV Last administered on 10/31/24at 17:40; Start 10/31/24 at 10:30; Stop 11/30/24 at 10:29 Diatrizoate Meglum/ Diatrizoate Sod 30 ml STK-MED ONCE .ROUTE; Start 10/31/24 at 12:08; Stop 10/31/24 at 12:11; Status DC Heparin Sodium (Porcine) 10,000 unit AD IRRIG Last administered on 10/31/24at 18:36; Start 10/31/24 at 18:00; Stop 11/30/24 at 17:59 ABHIJIT XIONG Jr. Nov 02, 2024 10:48
--- NOTE | 2024-11-02 11:20 | PN ---
[facility] PROGRESS NOTE Date Patient Seen: Nov 02, 2024 Time of Visit: 11:16 Supervising Physician: Dr Bhumi Persaud Primary Care Physician: Artur Velasco MD Outpatient Specialists: Dr Berman (Neprhologist) Inpatient Consults: Dr Berman, Dr Marcum PROBLEM LIST: Perforated diverticulitis with abscess formation Diabetes Mellitus, Type II ESRD on HD (MWF) Hypertension Hyperlipidemia Chronic diastolic heart failure Anemia of chronic disease Anxiety Plan Summary: Supplemental oxygen as needed Advance diet to GI soft If tolerates DC PICC line Continue Zosyn Follow Dr. Marcum recommendation Repeat CT abdomen in a.m. as per surgical team recs Out of bed to chair and ambulate PT as tolerated Dispo: Home once medically stable for discharge INTERVAL HISTORY: Pt remains weak at this point. Continues on IV abx for diverticular abscess. she is npo pending Ct abd pelvis with oral contrast as per general surgery .She will be undergiong Ct guided drain placement . Also Will be started on TPN . Patient's white blood cell count is at 9.8, hemoglobin has been downtrended from admission from 10.3-8.9. Denies any melena or hematochezia. Chemistry reveals BUN and creatinine consistent with end-stage renal disease. Liver enzymes are within normal limits, bilirubin is 0.6. Patient was afebrile, pulse rate 79, respiratory rate normal , blood pressure in the 140s to 160s systolic. Given her NPO status she will continue with IV hydralazine p.r.n. blood pressure over 160 mm Hg. 11/01 - patient is seen and evaluated at the bedside. Patient is accompanied by her daughter. Patient is sitting up at the side of the bed currently eating clear liquid diet and tolerating well. Patient denies nausea, vomiting, or worsening abdominal pain. No acute changes reported overnight. Patient was scheduled for percutaneous drain placement by Interventional Radiology this morning. Nursing reports that radiologist reviewed the CT scan and the abscess has resolved therefore no need for drain. We are still pending official CT report. Patient does continue on Zosyn. Vital signs are stable. Labs are within normal limits. We will continue to advance patient's diet as tolerated. We will plan to DC home in the next 24-48 hours if okay with surgical team. 11/02 - patient is seen and evaluated at the bedside accompanied by her daughter. Patient does not show any signs of acute distress. Patient is to lerating full liquid diet at this time with no nausea, vomiting or worsening abdominal pain. As per daughter, patient is eating over 75% of all meals. Instructed nursing to advance diet to GI soft. Given the fact the patient is tolerating oral diet no need for TPN therefore we will discontinue PICC line. Patient does appear to be weak therefore advised patient to work with physical and occupational therapy as tolerates. As per surgical team, recommended a repeat CT scan of the abdomen to evaluate improvement of abscess. We will continue current antibiotic treatments for now. REVIEW OF SYSTEMS: 12 point ROS reviewed with patient. Pertinent positives mentioned above. Otherwise negative. PHYSICAL EXAM: GENERAL: alert, weak, awake oriented x 3 HEENT: EOMI, Sclera non icteric, moist mucosa NECK: Supple, no JVD, trachea midline LUNGS: Clear breath sounds bilaterally. No wheezes HEART: Regular rate and rhythm. Normal S1 and S2, without murmurs right chest wall PermCath. ABD: Abdomen soft, tender to left lower quadrant. Bowel sounds present EXT: No clubbing cyanosis or edema, left arm AV fistula. NEURO: Alert and oriented to person, follows commands Vital Signs (last 8hr) Date Time Temp Pulse Resp B/P (MAP) Pulse Ox O2 Delivery O2 Flow Rate FiO2 11/02/24 07:59 98.2 68 18 143/37 92 Room Air 11/02/24 04:05 97.5 71 16 158/47 94 Room Air LABS: Hematology Labs: Test 11/02/24 03:44 11/01/24 05:05 Range/Units White Blood Count 6.3 # 4.8-10.8 K/uL Red Blood Count 2.44 L 4.00-5.50 MIL/uL Hemoglobin 7.8 L 12.0-16.0 g/dL Hematocrit 24.0 L 36-48 % Mean Corpuscular Volume 98.4 79-99 fL Mean Corpuscular Hemoglobin 32.0 27.0-33.0 pg Mean Corpuscular Hemoglobin Concent 32.5 32.0-36.0 g/dL Red Cell Distribution Width 12.7 11.0-15.5 % Platelet Count 186 130-400 K/uL Mean Platelet Volume 9.7 7.5-10.5 fL Nucleated Red Blood Cells 0.0 0.0-0.19 % Immature Granulocyte % (Auto) 0.5 0-1 % Neutrophils (%) (Auto) 73.0 40.0-77.0 % Lymphocytes (%) (Auto) 11.7 L 21.0-51.0 % Monocytes (%) (Auto) 12.3 3.0-13.0 % Eosinophils (%) (Auto) 2.2 0.0-8.0 % Basophils (%) (Auto) 0.3 0.0-5.0 % Neutrophils # (Auto) 6.9 1.8-7.7 K/uL Lymphocytes # (Auto) 1.1 1.0-4.8 K/uL Monocytes # (Auto) 1.2 H 0.1-1.0 K/uL Eosinophils # (Auto) 0.21 0.00-0.70 K/uL Basophils # (Auto) 0.03 0.00-0.20 K/uL Absolute Immature Granulocyte (auto 0.05 0-1 K/uL Chemistry Labs: Test 11/02/24 10:34 11/02/24 05:59 11/02/24 03:44 11/01/24 05:05 Range/Units Whole Blood Glucose 259 #H 70-110 MG/DL Bedside Glucose Comment Protocol Initiated Sodium Level 141 136-145 mmol/L Potassium Level 3.3 L 3.5-5.1 mmol/L Chloride Level 107 101-111 mmol/L Carbon Dioxide Level 25 21-32 mmol/L Blood Urea Nitrogen 19 H 7-18 mg/dL Creatinine 4.7 H 0.5-1.0 mg/dL Glomerular Filtration Rate Calc 9 >90 mL/min Random Glucose 394 #H 70-105 mg/dL Total Calcium 7.1 L 8.5-10.1 mg/dL Phosphorus Level 4.0 2.5-4.9 mg/dL Magnesium Level 1.60 L 1.80-2.40 mg/dL Procalcitonin 0.14 0.05-0.5 ng/mL Total Bilirubin 0.7 0.2-1.0 mg/dL Aspartate Amino Transf (AST/SGOT) 16 10-37 U/L Alanine Aminotransferase (ALT/SGPT) 17 12-78 U/L Alkaline Phosphatase 79 50-136 U/L Total Protein 6.3 6.0-8.3 g/dL Albumin 2.5 L 3.5-5.0 g/dL Coagulation Labs: Test 11/01/24 05:05 Range/Units Prothrombin Time 10.7 9.6-11.6 SEC Prothromb Time International Ratio 0.95 0.85-1.15 Activated Partial Thromboplast Time 32.2 26.3-35.5 SEC DIAGNOSTICS / RADIOLOGY RESULTS: [ ] Plan: Neuro: Minimize central acting medications as possible. Maintain fall precautions, adequate lighting during the day Cardiovascular: Follow hemodynamics. Vital signs per facility protocol Pulmonary: Supplemental 02 as needed. Maintain aspiration precautions at all times GI and nutrition: Continue with nutritional support via TPN Clear liquid diet and advance as tolerated. Iv antibiotics pain control and IVF . Continue stool softeners and laxatives as needed. Kidney and electrolytes: Strict monitoring of intake, output and overall fluid balance. Avoid nephrotoxic medications to the extent possible. Medications to be dosed according to renal function. Monitor electrolytes and replace as needed Endocrine: Maintain blood glucose between 100-180 at all times. Hypoglycemia protocol in place Infectious disease: Trend temperature, WBC and procalcitonin level Follow cultures, deescalate antibiotics as soon as possible. Panculture if new onset fever Oncology/Hematology/Coagulation: Monitor for s/s of bleeding Monitor hemoglobin, coagulation studies as needed Skin: Pressure ulcer prevention per facility protocol Specialty mattress Ortho/Rehab: Continue PT/OT Prophylaxis:. Continue GI and DVT prophylaxis as appropriate Disposition:. Home once medically stable for discharge. Total patient care time excluding any procedures: 40 min ATTESTATION BY PHYSICIAN The patient has been seen and evaluated, the case has been discussed with the [employer] TAMPER, I agree with the clinical findings and plan of care. Domingo Persaud MD, ECTOR N [employer]HALT TAMPER Nov 02, 2024 11:20
--- NOTE | 2024-11-02 11:41 | HMCIMG ---
CT ABDOMEN/PELVIS W/O CONTRAST HISTORY: Evaluation for drain placement COMPARISON: 10/29/2024 TECHNIQUE: Multiple sequential axial images of the abdomen and pelvis were obtained from the dome of the diaphragm through symphysis pubis. Patient was not given contrast through intravenous route. Oral contrast was given. FINDINGS: No pleural effusion is seen bilaterally. There is no evidence of parenchymal disease or pulmonary nodule of the visualized lower lungs. Degenerative changes of the thoracolumbar spine are present. The heart is not enlarged. Postcholecystectomy changes are seen. The liver, spleen, adrenal glands and pancreas are unremarkable. There is no evidence of hydronephrosis bilaterally. No evidence of renal stone is seen. Fecal material is seen in the colon. There are normal size retroperitoneal and mesenteric lymph nodes. No ascites is seen. Atherosclerotic changes are present. Note is again made of complex structure with air collection in the left lower abdomen/pelvis measuring 4.8 x 4.7 cm suggestive of abscess also seen on previous study. Surrounding bowel loops are noted. Pelvic sidewalls are symmetric bilaterally. Bladder is well distended without wall thickening. IMPRESSION: 1. Note is again made of complex structure with air collection in the left lower abdomen/pelvis measuring 4.8 x 4.7 cm suggestive of abscess also seen on previous study. Surrounding bowel loops are noted. CT was performed with one or more following dose reduction techniques: automated exposure control, adjustment of the mA and kv according to patient's size, or use of a iterative reconstruction technique.
[2024-11-02 17:42] LABS: CREATININE 2.9 mg/dL (0.5-1.0); POTASSIUM 3.4 mmol/L (3.5-5.1)
[2024-11-03] VITALS (7 sets, daily range): BP systolic 136–163; BP diastolic 51–71; PULSE 65–82; RESP 18–20; TEMP 97.4–98.9; O2SAT 95–96
--- NOTE | 2024-11-03 00:44 | NUR ---
NURSING NOTES D5NS NOT ADMINISTERED, BECAUSE SHE'S A DIALYSIS PATIENT.
[2024-11-03 04:15] LABS: BASOPHILS # (AUTO) 0.06 K/uL (0.00-0.20); BASOPHILS % (AUTO) 0.8 % (0.0-5.0); EOSINOPHILS # (AUTO) 0.35 K/uL (0.00-0.70); EOSINOPHILS % (AUTO) 4.8 % (0.0-8.0); HEMATOCRIT 27.6 % (36-48); IMMATURE GRANULOCYTE ABSOLUTE 0.08 K/uL (0-1); LYMPHOCYTES # (AUTO) 1.2 K/uL (1.0-4.8); LYMPHOCYTES % (AUTO) 16.1 % (21.0-51.0); MEAN CORPUSCULAR HEMOGLOBIN 32.1 pg (27.0-33.0); MEAN CORPUSCULAR HGB CONC 33.3 g/dL (32.0-36.0); MEAN CORPUSCULAR VOLUME 96.2 fL (79-99); MONOCYTES # (AUTO) 1.1 K/uL (0.1-1.0); MONOCYTES % (AUTO) 15.6 % (3.0-13.0); NEUTROPHILS # (AUTO) 4.5 K/uL (1.8-7.7); NEUTROPHILS % (AUTO) 61.6 % (40.0-77.0); PLATELET COUNT (AUTO) 232 K/uL (130-400); RED BLOOD CELL COUNT(AUTO) 2.87 MIL/uL (4.00-5.50); RED CELL DISTRIBUTION WIDTH 12.5 % (11.0-15.5); WHITE BLOOD COUNT (AUTO) 7.3 K/uL (4.8-10.8)
[2024-11-03 04:23] LABS: CREATININE 4.3 mg/dL (0.5-1.0); MAGNESIUM 1.8 mg/dL (1.80-2.40); POTASSIUM 3.8 mmol/L (3.5-5.1)
--- NOTE | 2024-11-03 10:04 | PN ---
This is an 79-year-old female with diverticulitis with concerns of intestinal abscess Interval history: This 79-year-old female seen in her room No significant abdominal pain reported Patient tolerating diet Patient is scheduled for dialysis tomorrow Physical exam General: Awake alert and oriented Heart: Regular rate and rhythm} Lungs: Clear to auscultation no distress Abdomen: [Soft, nontender, nondistended Assessment : This is an 79-year-old female with concerns intestinal abscess with diverticulitis Plan: Continue with conservative management of IV fluids and IV antibiotics No surgical intervention planned at this time Plan will be to repeat imaging to reassess improvement of abscess Pending results will determine if IR can be reconsulted for reassessment or if patient will continue with IV antibiotics Dr. Covarrubias to be updated in patient's status and nursing report any further acute events Vitals/Labs Vital Signs Date Time Temp Pulse Resp B/P (MAP) Pulse Ox O2 Delivery O2 Flow Rate FiO2 11/03/24 08:00 97.3 65 18 137/56 95 Room Air 11/02/24 20:40 0 21 Laboratory Tests 11/02/24 17:20 11/03/24 03:40 Medications Current Medications Acetaminophen 650 mg ONCE ONCE PO Last administered on 10/28/24at 23:54; Start 10/29/24 at 00:00; Stop 10/29/24 at 00:01; Status DC Insulin Human Regular 6 unit ONCE ONCE IV Last administered on 10/29/24at 00:56; Start 10/29/24 at 00:30; Stop 10/29/24 at 00:31; Status DC Piperacillin Sod/ Tazobactam Sod 3.375 gm ONCE ONCE IVPB Last administered on 10/29/24at 04:04; Start 10/29/24 at 04:00; Stop 10/29/24 at 04:01; Status DC Morphine Sulfate 2 mg ONCE ONCE IVP Last administered on 10/29/24at 04:45; Start 10/29/24 at 05:00; Stop 10/29/24 at 05:01; Status DC Ondansetron HCl 4 mg ONCE ONCE IVP Last administered on 10/29/24at 04:45; Start 10/29/24 at 05:00; Stop 10/29/24 at 05:01; Status DC Lactated Ringer's 1,000 ml @ 50 mls/hr Q20H IV Last administered on 10/29/24at 10:19; Start 10/29/24 at 05:00; Stop 10/29/24 at 16:57; Status DC Piperacillin Sod/ Tazobactam Sod 3.375 gm Q12H IV Last administered on 11/03/24at 04:38; Start 10/29/24 at 16:00; Stop 11/08/24 at 15:59 Acetaminophen 650 mg Q6H PRN PO Last administered on 11/02/24at 22:34; Start 10/29/24 at 05:00; Stop 11/28/24 at 04:59 Acetaminophen 650 mg Q6H PRN RC; Start 10/29/24 at 05:00; Stop 11/28/24 at 04:59 Lactulose 20 gm Q6H PRN PO; Start 10/29/24 at 05:00; Stop 11/28/24 at 04:59 Docusate Sodium 100 mg BID PRN PO; Start 10/29/24 at 05:00; Stop 11/28/24 at 04:59 Temazepam 15 mg HS PRN PO; Start 10/29/24 at 05:00; Stop 11/28/24 at 04:59 Ondansetron HCl 4 mg Q6H PRN IVP; Start 10/29/24 at 05:00; Stop 11/28/24 at 04:59 Hydralazine HCl 10 mg Q2H PRN IV Last administered on 11/01/24at 13:34; Start 10/29/24 at 05:00; Stop 11/28/24 at 04:59 Morphine Sulfate 2 mg Q4H PRN IVP; Start 10/29/24 at 05:30; Stop 10/29/24 at 07:51; Status DC Insulin Human Regular INSULIN SLIDING SCAL... ACHS SQ Last administered on 11/01/24at 20:41; Start 10/29/24 at 07:30; Stop 11/28/24 at 07:29 Hydromorphone HCl 0.5 mg Q4H PRN IVP Last administered on 11/01/24at 18:29; Start 10/29/24 at 08:00; Stop 11/03/24 at 07:59; Status DC Insulin Glargine 10 units BID@0730,2100 SQ Last administered on 11/02/24at 23:01; Start 10/29/24 at 08:00; Stop 11/28/24 at 07:59 Dextrose 50 ml AD PRN IV; Start 10/29/24 at 08:00; Stop 11/28/24 at 07:59 Glucagon 1 mg AD PRN IM; Start 10/29/24 at 08:00; Stop 11/28/24 at 07:59 Potassium Chloride 100 ml @ 100 mls/hr AD PRN IV; Start 10/29/24 at 08:00; Stop 11/28/24 at 07:59 Atorvastatin Calcium 40 mg HS PO Last administered on 11/02/24at 22:33; Start 10/29/24 at 21:00; Stop 11/28/24 at 20:59 Gabapentin 100 mg HS PO Last administered on 11/02/24at 22:33; Start 10/29/24 at 21:00; Stop 11/28/24 at 20:59 Amlodipine Besylate 10 mg DAILY PO Last administered on 11/02/24at 17:53; Start 10/29/24 at 09:00; Stop 11/28/24 at 08:59 Vitamin B Complex/ Vit C/Folic Acid 1 cap DAILY PO Last administered on 11/02/24at 12:18; Start 10/29/24 at 09:00; Stop 11/28/24 at 08:59 Pantoprazole Sodium 40 mg DAILY IVP Last administered on 11/02/24at 12:18; Start 10/29/24 at 09:00; Stop 11/28/24 at 08:59 Heparin Sodium (Porcine) 5,000 unit Q12H SQ Last administered on 11/03/24at 00:42; Start 10/29/24 at 08:00; Stop 11/28/24 at 07:59 Dextrose/Sodium Chloride 1,000 ml @ 50 mls/hr Q20H IV Last administered on 10/31/24at 20:59; Start 10/29/24 at 16:30; Stop 11/28/24 at 16:29 Epoetin Augustus-epbx 10,000 unit QMOWEFR[DIALYSIS] SQ Last administered on 11/02/24at 17:54; Start 10/31/24 at 16:00; Stop 11/30/24 at 15:59 Sodium Chloride 1,000 ml @ 0 mls/hr ONCE IV Last administered on 11/02/24at 14:18; Start 10/31/24 at 10:30; Stop 11/30/24 at 10:29 Diatrizoate Meglum/ Diatrizoate Sod 30 ml STK-MED ONCE .ROUTE; Start 10/31/24 at 12:08; Stop 10/31/24 at 12:11; Status DC Heparin Sodium (Porcine) 10,000 unit AD IRRIG Last administered on 11/02/24at 15:03; Start 10/31/24 at 18:00; Stop 11/30/24 at 17:59 Magnesium Sulfate 50 ml @ 0 mls/hr PROTOCOL PRN IV; Start 11/03/24 at 09:30; Stop 12/03/24 at 09:29 ABHIJIT XIONG Jr. Nov 03, 2024 10:04
[2024-11-03] MEDS: MAGNESIUM 2GM PREMIX 50ML 50 ML IV PRN (10:25)
--- NOTE | 2024-11-03 10:54 | PN ---
[facility] PROGRESS NOTE Date Patient Seen: Nov 03, 2024 Time of Visit: 10:51 Supervising Physician: Dr Bhumi Persaud Primary Care Physician: Artur Velasco MD Outpatient Specialists: Dr Berman (Neprhologist) Inpatient Consults: Dr Berman, Dr Marcum PROBLEM LIST: Perforated diverticulitis with abscess formation Diabetes Mellitus, Type II ESRD on HD (MWF) Hypertension Hyperlipidemia Chronic diastolic heart failure Anemia of chronic disease Anxiety Plan Summary: Supplemental oxygen as needed Advance diet to GI soft Continue Zosyn Follow Dr. Marcum recommendation Repeat CT abdomen in a.m. HD as per nephrology Out of bed to chair and ambulate PT as tolerated Dispo: Home once medically stable for discharge INTERVAL HISTORY: Pt remains weak at this point. Continues on IV abx for diverticular abscess. she is npo pending Ct abd pelvis with oral contrast as per general surgery .She will be undergiong Ct guided drain placement . Also Will be started on TPN . Patient's white blood cell count is at 9.8, hemoglobin has been downtrended from admission from 10.3-8.9. Denies any melena or hematochezia. Chemistry reveals BUN and creatinine consistent with end-stage renal disease. Liver enzymes are within normal limits, bilirubin is 0.6. Patient was afebrile, pulse rate 79, respiratory rate normal , blood pressure in the 140s to 160s systolic. Given her NPO status she will continue with IV hy dralazine p.r.n. blood pressure over 160 mm Hg. 11/01 - patient is seen and evaluated at the bedside. Patient is accompanied by her daughter. Patient is sitting up at the side of the bed currently eating clear liquid diet and tolerating well. Patient denies nausea, vomiting, or worsening abdominal pain. No acute changes reported overnight. Patient was scheduled for percutaneous drain placement by Interventional Radiology this morning. Nursing reports that radiologist reviewed the CT scan and the abscess has resolved therefore no need for drain. We are still pending official CT report. Patient does continue on Zosyn. Vital signs are stable. Labs are within normal limits. We will continue to advance patient's diet as tolerated. We will plan to DC home in the next 24-48 hours if okay with surgical team. 11/02 - patient is seen and evaluated at the bedside accompanied by her daughter. Patient does not show any signs of acute distress. Patient is tolerating full liquid diet at this time with no nausea, vomiting or worsening abdominal pain. As per daughter, patient is eating over 75% of all meals. Inst ructed nursing to advance diet to GI soft. Given the fact the patient is tolerating oral diet no need for TPN therefore we will discontinue PICC line. Patient does appear to be weak therefore advised patient to work with physical and occupational therapy as tolerates. As per surgical team, recommended a repeat CT scan of the abdomen to evaluate improvement of abscess. We will c ontinue current antibiotic treatments for now. 11/03 - patient is seen sitting at the side of the bed with no signs of acute distress. Patient is accompanied by her daughter. Patient has been advanced to a GI soft diet and tolerating at this time with no nausea, vomiting, abdominal pain. As per daughter, patient had a bowel movement overnight and this morning. No acute changes reported overnight. We will repeat CT abdomen and pelvis tomorrow morning. Vital signs are stable. White count within normal limits. We will continue IV antibiotics for now. REVIEW OF SYSTEMS: 12 point ROS reviewed with patient. Pertinent positives mentioned above. Otherwise negative. PHYSICAL EXAM: GENERAL: alert, weak, awake oriented x 3 HEENT: EOMI, Sclera non icteric, moist mucosa NECK: Supple, no JVD, trachea midline LUNGS: Clear breath sounds bilaterally. No wheezes HEART: Regular rate and rhythm. Normal S1 and S2, without murmurs right chest wall PermCath. ABD: Abdomen soft, tender to left lower quadrant. Bowel sounds present EXT: No clubbing cyanosis or edema, left arm AV fistula. NEURO: Alert and oriented to person, follows commands Vital Signs (last 8hr) Date Time Temp Pulse Resp B/P (MAP) Pulse Ox O2 Delivery O2 Flow Rate FiO2 11/03/24 08:00 97.3 65 18 137/56 95 Room Air 11/03/24 04:25 98.8 75 20 143/58 95 Room Air LABS: Hematology Labs: Test 11/03/24 03:40 Range/Units White Blood Count 7.3 4.8-10.8 K/uL Red Blood Count 2.87 L 4.00-5.50 MIL/uL Hemoglobin 9.2 L 12.0-16.0 g/dL Hematocrit 27.6 L 36-48 % Mean Corpuscular Volume 96.2 79-99 fL Mean Corpuscular Hemoglobin 32.1 27.0-33.0 pg Mean Corpuscular Hemoglobin Concent 33.3 32.0-36.0 g/dL Red Cell Distribution Width 12.5 11.0-15.5 % Platelet Count 232 130-400 K/uL Mean Platelet Volume 9.6 7.5-10.5 fL Immature Granulocyte % (Auto) 1.1 H 0-1 % Neutrophils (%) (Auto) 61.6 40.0-77.0 % Lymphocytes (%) (Auto) 16.1 L 21.0-51.0 % Monocytes (%) (Auto) 15.6 H 3.0-13.0 % Eosinophils (%) (Auto) 4.8 0.0-8.0 % Basophils (%) (Auto) 0.8 0.0-5.0 % Neutrophils # (Auto) 4.5 1.8-7.7 K/uL Lymphocytes # (Auto) 1.2 1.0-4.8 K/uL Monocytes # (Auto) 1.1 H 0.1-1.0 K/uL Eosinophils # (Auto) 0.35 0.00-0.70 K/uL Basophils # (Auto) 0.06 0.00-0.20 K/uL Absolute Immature Granulocyte (auto 0.08 0-1 K/uL Nucleated Red Blood Cells 0.0 0.0-0.19 % Chemistry Labs: Test 11/03/24 05:15 11/03/24 03:40 11/02/24 05:59 11/02/24 03:44 Range/Units Whole Blood Glucose 150 H 70-110 MG/DL Sodium Level 139 136-145 mmol/L Potassium Level 3.8 3.5-5.1 mmol/L Chloride Level 101 101-111 mmol/L Carbon Dioxide Level 33 H 21-32 mmol/L Blood Urea Nitrogen 16 7-18 mg/dL Creatinine 4.3 H 0.5-1.0 mg/dL Glomerular Filtration Rate Calc 10 >90 mL/min Random Glucose 181 H 70-105 mg/dL Total Calcium 8.0 L 8.5-10.1 mg/dL Magnesium Level 1.80 1.80-2.40 mg/dL Bedside Glucose Comment Protocol Initiated Phosphorus Level 4.0 2.5-4.9 mg/dL Procalcitonin 0.14 0.05-0.5 ng/mL DIAGNOSTICS / RADIOLOGY RESULTS: [ ] Plan: Neuro: Minimize central acting medications as possible. Maintain fall precautions, adequate lighting during the day Cardiovascular: Follow hemodynamics. Vital signs per facility protocol Pulmonary: Supplemental 02 as needed. Maintain aspiration precautions at all times GI and nutrition: Continue with nutritional support via TPN Clear liquid diet and advance as tolerated. Iv antibiotics pain control and IVF . Continue stool softeners and laxatives as needed. Kidney and electrolytes: Strict monitoring of intake, output and overall fluid balance. Avoid nephrotoxic medications to the extent possible. Medications to be dosed according to renal function. Monitor electrolytes and replace as needed Endocrine: Maintain blood glucose between 100-180 at all times. Hypoglycemia protocol in place Infectious disease: Trend temperature, WBC and procalcitonin level Follow cultures, deescalate antibiotics as soon as possible. Panculture if new onset fever Oncology/Hematology/Coagulation: Monitor for s/s of bleeding Monitor hemoglobin, coagulation studies as needed Skin: Pressure ulcer prevention per facility protocol Specialty mattress Ortho/Rehab: Continue PT/OT Prophylaxis:. Continue GI and DVT prophylaxis as appropriate Disposition:. Home once medically stable for discharge. Total patient care time excluding any procedures: 40 min ATTESTATION BY PHYSICIAN The patient has been seen and evaluated, the case has been discussed with the TEACHER [employer]ER[employer]ART[employer], I agree with the clinical findings and plan of care. Domingo Persaud MD, ECTOR N TEACHER [employer] Nov 03, 2024 10:54
--- NOTE | 2024-11-03 18:49 | PN ---
NEPHROLOGY PROGRESS NOTE Date/Time Patient Seen: Nov 03, 2024 Reason for Consultation: 18:47 SUBJECTIVE: This is an 79-year-old female with history of diabetes mellitus and hypertension. She was initially admitted to the hospital and found to have an abdominal abscess. The patient is being seen by surgical service. The patient remains on the antibiotics She is pending CT of the abdomen with contrast tomorrow, dialysis to follow. She has been tolerating dialysis without difficulty She was in the medical floor, no acute distress No family at the bedside Progress remains guarded REVIEW OF SYSTEMS: GENERAL: Negative for any nausea, vomiting, fevers, chills, or weight loss. NEUROLOGIC: Negative for any blurry vision, blind spots, double vision, facial asymmetry, dysphagia, dysarthria, hemiparesis, hemisensory deficits, vertigo, ataxia. HEENT: Negative for any head trauma, neck trauma, neck stiffness, photophobia, phonophobia, sinusitis, rhinitis. CARDIAC: Negative for any chest pain, dyspnea on exertion, paroxysmal nocturnal dyspnea, peripheral edema. PULMONARY: Negative for any shortness of breath, wheezing, COPD, or TB exposure. GASTROINTESTINAL: Negative for any abdominal pain, nausea, vomiting, bright red blood per rectum, melena. GENITOURINARY: Negative for any dysuria, hematuria, incontinence. INTEGUMENTARY: Negative for any rashes, cuts, insect bites. RHEUMATOLOGIC: Negative for any joint pains, photosensitive rashes, history of vasculitis or kidney problems. HEMATOLOGIC: Negative for any abnormal bruising, frequent infections or bleeding. Vital Signs (last 8hr) Date Time Temp Pulse Resp B/P (MAP) Pulse Ox O2 Delivery O2 Flow Rate FiO2 11/03/24 16:00 98.2 77 18 147/61 97 Room Air 11/03/24 12:00 98.1 73 18 136/71 97 Room Air PHYSICAL EXAM: GENERAL: Alert and oriented x 3. No acute distress. Well-nourished. EYES: EOMI. Anicteric. HENT: Moist mucous membranes. No scleral icterus. No cervical lymphadenopathy. LUNGS: Clear to auscultation bilaterally. No accessory muscle use. CARDIOVASCULAR: Regular rate and rhythm. No murmur. No JVD. ABDOMEN: Soft, non-tender and non-distended. No palpable masses. EXTREMITIES: No edema. Non-tender.?SKIN: No rashes or lesions. Warm. NEUROLOGIC: No focal neurological deficits. CN II-XII grossly intact, but not individually tested. PSYCHIATRIC: Cooperative. Appropriate mood and affect. Current Medications Medications (Trade) Dose Ordered Sig/Sean Route PRN Reason Start Time Stop Time Status Last Admin Dose Admin Acetaminophen (TYLenol 325MG TAB) 650 mg Q6H PRN PO FEVER/MILD PAIN LEVEL 1-3 10/29/24 05:00 11/28/24 04:59 11/02/24 22:34 650 MG Acetaminophen (TYLenol 650MG SUPPOSITORY) 650 mg Q6H PRN RC FEVER / MILD PAIN 1-3 IF NPO 10/29/24 05:00 11/28/24 04:59 Amlodipine Besylate (NorvASC 5MG TAB) 10 mg DAILY PO 10/29/24 09:00 11/28/24 08:59 11/03/24 10:20 10 MG Atorvastatin Calcium (LIPItor 40MG) 40 mg HS PO 10/29/24 21:00 11/28/24 20:59 11/02/24 22:33 40 MG Dextrose (D50w) 50 ml AD PRN IV HYPOGLYCEMIA PROTOCOL 10/29/24 08:00 11/28/24 07:59 Dextrose/Sodium Chloride 1,000 ml @ 50 mls/hr Q20H IV 10/29/24 16:30 11/28/24 16:29 10/31/24 20:59 50 MLS/HR Docusate Sodium (COLace 100MG CAP) 100 mg BID PRN PO c 10/29/24 05:00 11/28/24 04:59 Epoetin Augustus-epbx (Retacrit) 10,000 unit QMOWEFR[DIALYSIS] SQ 10/31/24 16:00 11/30/24 15:59 11/02/24 17:54 10,000 UNIT Gabapentin (NEURontin 100 mg CAP) 100 mg HS PO 10/29/24 21:00 11/28/24 20:59 11/02/24 22:33 100 MG Glucagon (Glucagon 1mg Kit) 1 mg AD PRN IM HYPOGLYCEMIA PROTOCOL 10/29/24 08:00 11/28/24 07:59 Heparin Sodium (Porcine) (HEParin 5,000 UNIT VIAL) 5,000 unit Q12H SQ 10/29/24 08:00 11/28/24 07:59 11/03/24 10:19 5,000 UNIT Heparin Sodium (Porcine) (HEParin 5,000 UNIT VIAL) 10,000 unit AD IRRIG 10/31/24 18:00 11/30/24 17:59 11/02/24 15:03 10,000 UNIT Hydralazine HCl (APRESOLine 20MG INJ) 10 mg Q2H PRN IV SBP GREATER THAN 160 10/29/24 05:00 11/28/24 04:59 11/01/24 13:34 10 MG Hydromorphone HCl (DiLAUDid 0.5MG INJ) 0.5 mg Q4H PRN IVP SEVERE PAIN (7-10) 10/29/24 08:00 11/03/24 07:59 DC 11/01/24 18:29 0.5 MG Insulin Glargine (LANtus 100 UNITS/ML 10 ML VIAL) 10 units BID@0730,2100 SQ 10/29/24 08:00 11/28/24 07:59 11/03/24 10:20 10 UNITS Insulin Human Regular (humuLIN R 100 UNIT/ML 3ML) INSULIN SLIDING SCAL... ACHS SQ 10/29/24 07:30 11/28/24 07:29 11/03/24 16:51 12 UNIT Lactated Ringer's 1,000 ml @ 50 mls/hr Q20H IV 10/29/24 05:00 10/29/24 16:57 DC 10/29/24 10:19 50 MLS/HR Lactulose (Constulose 20gm/ 30ml Udcup) 20 gm Q6H PRN PO CONSTIPATION 10/29/24 05:00 11/28/24 04:59 Magnesium Sulfate 50 ml @ 0 mls/hr PROTOCOL PRN IV LOW MAG <2.0 11/03/24 09:30 12/03/24 09:29 11/03/24 10:25 0 MLS/HR Morphine Sulfate (morPHINE 2MG SYG) 2 mg Q4H PRN IVP SEVERE PAIN (7-10) 10/29/24 05:30 10/29/24 07:51 DC Ondansetron HCl (zoFRAN 4MG INJ) 4 mg Q6H PRN IVP NAUSEA/VOMITING 10/29/24 05:00 11/28/24 04:59 Pantoprazole Sodium (PROTonix 40MG INJ) 40 mg DAILY IVP 10/29/24 09:00 11/28/24 08:59 11/03/24 10:22 40 MG Piperacillin Sod/ Tazobactam Sod (Zosyn 3.375gm+NS 50ml) 3.375 gm Q12H IV 10/29/24 16:00 11/08/24 15:59 11/03/24 16:53 3.375 GM Potassium Chloride 100 ml @ 100 mls/hr AD PRN IV POTASSIUM PROTOCOL 10/29/24 08:00 11/28/24 07:59 Sodium Chloride 1,000 ml @ 0 mls/hr ONCE IV 10/31/24 10:30 11/30/24 10:29 11/02/24 14:18 100 MLS/HR Temazepam (restORIL 15 MG CAP) 15 mg HS PRN PO INSOMNIA/SLEEP 10/29/24 05:00 11/28/24 04:59 Vitamin B Complex/ Vit C/Folic Acid (Nephrovite Tablet) 1 cap DAILY PO 10/29/24 09:00 11/28/24 08:59 11/03/24 10:18 1 CAP LABORATORY: [ ] Hematology Labs: Test 11/03/24 03:40 Range/Units White Blood Count 7.3 4.8-10.8 K/uL Red Blood Count 2.87 L 4.00-5.50 MIL/uL Hemoglobin 9.2 L 12.0-16.0 g/dL Hematocrit 27.6 L 36-48 % Mean Corpuscular Volume 96.2 79-99 fL Mean Corpuscular Hemoglobin 32.1 27.0-33.0 pg Mean Corpuscular Hemoglobin Concent 33.3 32.0-36.0 g/dL Red Cell Distribution Width 12.5 11.0-15.5 % Platelet Count 232 130-400 K/uL Mean Platelet Volume 9.6 7.5-10.5 fL Immature Granulocyte % (Auto) 1.1 H 0-1 % Neutrophils (%) (Auto) 61.6 40.0-77.0 % Lymphocytes (%) (Auto) 16.1 L 21.0-51.0 % Monocytes (%) (Auto) 15.6 H 3.0-13.0 % Eosinophils (%) (Auto) 4.8 0.0-8.0 % Basophils (%) (Auto) 0.8 0.0-5.0 % Neutrophils # (Auto) 4.5 1.8-7.7 K/uL Lymphocytes # (Auto) 1.2 1.0-4.8 K/uL Monocytes # (Auto) 1.1 H 0.1-1.0 K/uL Eosinophils # (Auto) 0.35 0.00-0.70 K/uL Basophils # (Auto) 0.06 0.00-0.20 K/uL Absolute Immature Granulocyte (auto 0.08 0-1 K/uL Nucleated Red Blood Cells 0.0 0.0-0.19 % Chemistry Labs: Test 11/03/24 15:42 11/03/24 03:40 11/02/24 05:59 11/02/24 03:44 Range/Units Whole Blood Glucose 298 H 70-110 MG/DL Sodium Level 139 136-145 mmol/L Potassium Level 3.8 3.5-5.1 mmol/L Chloride Level 101 101-111 mmol/L Carbon Dioxide Level 33 H 21-32 mmol/L Blood Urea Nitrogen 16 7-18 mg/dL Creatinine 4.3 H 0.5-1.0 mg/dL Glomerular Filtration Rate Calc 10 >90 mL/min Random Glucose 181 H 70-105 mg/dL Total Calcium 8.0 L 8.5-10.1 mg/dL Magnesium Level 1.80 1.80-2.40 mg/dL Bedside Glucose Comment Protocol Initiated Phosphorus Level 4.0 2.5-4.9 mg/dL Procalcitonin 0.14 0.05-0.5 ng/mL DIAGNOSTICS / RADIOLOGY: REASON: EVALUATION FOR DRAIN PLACEMENT, DIVERTICULAR ABSCESS ORDERING PHYSICIAN: RUY STONER DO PROCEDURE: ABD PEL WO - CT ABDOMEN/PELVIS W/O CONTRAST CT ABDOMEN/PELVIS W/O CONTRAST HISTORY: Evaluation for drain placement COMPARISON: 10/29/2024 TECHNIQUE: Multiple sequential axial images of the abdomen and pelvis were obtained from the dome of the diaphragm through symphysis pubis. Patient was not given contrast through intravenous route. Oral contrast was given. FINDINGS: No pleural effusion is seen bilaterally. There is no evidence of parenchymal disease or pulmonary nodule of the visualized lower lungs. Degenerative changes of the thoracolumbar spine are present. The heart is not enlarged. Postcholecystectomy changes are seen. The liver, spleen, adrenal glands and pancreas are unremarkable. There is no evidence of hydronephrosis bilaterally. No evidence of renal stone is seen. Fecal material is seen in the colon. There are normal size retroperitoneal and mesenteric lymph nodes. No ascites is seen. Atherosclerotic changes are present. Note is again made of complex structure with air collection in the left lower abdomen/pelvis measuring 4.8 x 4.7 cm suggestive of abscess also seen on previous study. Surrounding bowel loops are noted. Pelvic sidewalls are symmetric bilaterally. Bladder is well distended without wall thickening. IMPRESSION: 1. Note is again made of complex structure with air collection in the left lower abdomen/pelvis measuring 4.8 x 4.7 cm suggestive of abscess also seen on previous study. Surrounding bowel loops are noted. CT was performed with one or more following dose reduction techniques: automated exposure control, adjustment of the mA and kv according to patient's size, or use of a iterative reconstruction technique. DICTATED BY: MAURICIO CASTELAN MD DATE: 11/02/24 0915 ASSESSMENT: Perforated diverticulitis with abscess formation Diabetes Mellitus, Type II ESRD Hypertension Hyperlipidemia Chronic diastolic heart failure Anemia of chronic disease Anxiety PLAN: Labs and Diagnostics/ Radiology personally reviewed and interpreted by myself and supervising physician We have reviewed dialysis and external records in detail Continue dialysis schedule Thursday Pending CT of the abdomen tomorrow, dialysis to follow 1.5 L fluid restriction Continue to monitor H&H Epogen on dialysis days, as needed Continue with frequent monitoring of renal function, anemia, and electrolytes Order CBC, BMP, and electrolytes in the morning May use Dilaudid 0.5 mg IV every 6 hours as needed for severe pain Monitor blood pressure adjust medication doses as needed Maintain normotensive state; keep systolic blood pressure between 110-160 Strict intake, output, and daily weight should be monitored Please renally adjust medications. Avoid nephrotoxics and nonsteroidal drugs. We will continue to monitor the patient closely We have discussed with the other team physicians in detail about the care plan ATTESTATION BY PHYSICIAN I have seen and examined the patient. I reviewed the documentation, medical decision making, and treatment plan as noted by the mid-level provider above. I agree with the findings and plan of care. BEAR TITUS MD, [facility] Nov 03, 2024 18:49
[2024-11-04] VITALS (23 sets, daily range): BP systolic 120–171; BP diastolic 48–70; PULSE 63–78; RESP 16–19; TEMP 97.6–98.9; O2SAT 95
--- NOTE | 2024-11-04 05:52 | NUR ---
called floor to schedule CT no answer
[2024-11-04] MEDS ORDERED: DIATR MEGLU/DIATRIZOATE SODIUM 30 ML BOTTLE ONE (09:44)
--- NOTE | 2024-11-04 10:41 | PN ---
[facility] PROGRESS NOTE Date Patient Seen: Nov 04, 2024 Time of Visit: 10:39 Supervising Physician: [DR Chavis Primary Care Physician: Artur Velasco MD Outpatient Specialists: Dr Berman (Neprhologist) Inpatient Consults: Dr Berman, Dr Marcum PROBLEM LIST: Perforated diverticulitis with abscess formation Diabetes Mellitus, Type II ESRD on HD (MWF) Hypertension Hyperlipidemia Chronic diastolic heart failure Anemia of chronic disease Anxiety Plan Summary: Supplemental oxygen as needed NPO today for CT Resume diet post CT scan Continue Zosyn Follow Dr. Marcum recommendation Repeat CT abdomen /pelvis today HD as per nephrology Out of bed to chair and ambulate PT as tolerated Dispo: Home once medically stable for discharge INTERVAL HISTORY: Pt remains weak at this point. Continues on IV abx for diverticular abscess. she is npo pending Ct abd pelvis with oral contrast as per general surgery .She will be undergiong Ct guided drain placement . Also Will be started on TPN . Patient's white blood cell count is at 9.8, hemoglobin has been downtrended from admission from 10.3-8.9. Denies any melena or hematochezia. Chemistry reveals BUN and creatinine consistent with end-stage renal disease. Liver enzymes are within normal limits, bilirubin is 0.6. Patient was afebrile, pulse rate 79, respiratory rate normal , blood pressure in the 140s to 160s systolic. Given her NPO status she will continue with IV hydralazine p.r.n. blood pressure over 160 mm Hg. 11/01 - patient is seen and evaluated at the bedside. Patient is accompanied by her daughter. Patient is sitting up at the side of the bed currently eating clear liquid diet and tolerating well. Patient denies nausea, vomiting, or worsening abdominal pain. No acute changes reported overnight. Patient was scheduled for percutaneous drain placement by Interventional Radiology this morning. Nursing reports that radiologist reviewed the CT scan and the abscess has resolved therefore no need for drain. We are still pending official CT report. Patient does continue on Zosyn. Vital signs are stable. Labs are within normal limits. We will continue to advance patient's diet as tolerated. We will plan to DC home in the next 24-48 hours if okay with surgical team. 11/02 - patient is seen and evaluated at the bedside accompanied by her daughter. Patient does not show any signs of acute distress. Patient is tolerating full liquid diet at this time with no nausea, vomiting or worsening abdominal pain. As per daughter, patient is eating over 75% of all meals. Instructed nursing to advance diet to GI soft. Given the fact the patient is tolerating oral diet no need for TPN therefore we will discontinue PICC line. Patient does appear to be weak therefore advised patient to work with physical and occupational therapy as tolerates. As per surgical team, recommended a repeat CT scan of the abdomen to evaluate improvement of abscess. We will continue current antibiotic treatments for now. 11/03 - patient is seen sitting at the side of the bed with no signs of acute distress. Patient is accompanied by her daughter. Patient has been advanced to a GI soft diet and tolerating at this time with no nausea, vomiting, abdominal pain. As per daughter, patient had a bowel movement overnight and this morning. No acute changes reported overnight. We will repeat CT abdomen and pelvis tomorrow morning. Vital signs are stable. White count within normal limits. We will continue IV antibiotics for now. 11/04 - patient is seen lying in bed resting quietly accompanied by her daughter. Patient reports her glucose dropped yesterday evening as she was not very fond of dinner. Patient remains NPO as she was scheduled for repeat CT scan of the abdomen and pelvis to evaluate abdominal abscess. Vital signs have been stable. Labs are within normal limits. General surgery is on board and appreciate their recommendations. We will continue IV antibiotics for now. We will follow CT results. REVIEW OF SYSTEMS: 12 point ROS reviewed with patient. Pertinent positives mentioned above. Otherwise negative. PHYSICAL EXAM: GENERAL: alert, weak, awake oriented x 3 HEENT: EOMI, Sclera non icteric, moist mucosa NECK: Supple, no JVD, trachea midline LUNGS: Clear breath sounds bilaterally. No wheezes HEART: Regular rate and rhythm. Normal S1 and S2, without murmurs right chest wall PermCath. ABD: Abdomen soft, tender to left lower quadrant. Bowel sounds present EXT: No clubbing cyanosis or edema, left arm AV fistula. NEURO: Alert and oriented to person, follows commands Vital Signs (last 8hr) Date Time Temp Pulse Resp B/P (MAP) Pulse Ox O2 Delivery O2 Flow Rate FiO2 11/04/24 08:00 98.1 63 16 127/48 95 Room Air 21 11/04/24 04:00 98.1 64 19 128/51 94 Room Air LABS: Hematology Labs: Test 11/03/24 03:40 Range/Units White Blood Count 7.3 4.8-10.8 K/uL Red Blood Count 2.87 L 4.00-5.50 MIL/uL Hemoglobin 9.2 L 12.0-16.0 g/dL Hematocrit 27.6 L 36-48 % Mean Corpuscular Volume 96.2 79-99 fL Mean Corpuscular Hemoglobin 32.1 27.0-33.0 pg Mean Corpuscular Hemoglobin Concent 33.3 32.0-36.0 g/dL Red Cell Distribution Width 12.5 11.0-15.5 % Platelet Count 232 130-400 K/uL Mean Platelet Volume 9.6 7.5-10.5 fL Immature Granulocyte % (Auto) 1.1 H 0-1 % Neutrophils (%) (Auto) 61.6 40.0-77.0 % Lymphocytes (%) (Auto) 16.1 L 21.0-51.0 % Monocytes (%) (Auto) 15.6 H 3.0-13.0 % Eosinophils (%) (Auto) 4.8 0.0-8.0 % Basophils (%) (Auto) 0.8 0.0-5.0 % Neutrophils # (Auto) 4.5 1.8-7.7 K/uL Lymphocytes # (Auto) 1.2 1.0-4.8 K/uL Monocytes # (Auto) 1.1 H 0.1-1.0 K/uL Eosinophils # (Auto) 0.35 0.00-0.70 K/uL Basophils # (Auto) 0.06 0.00-0.20 K/uL Absolute Immature Granulocyte (auto 0.08 0-1 K/uL Nucleated Red Blood Cells 0.0 0.0-0.19 % Chemistry Labs: Test 11/04/24 04:52 11/03/24 03:40 Range/Units Whole Blood Glucose 99 70-110 MG/DL Sodium Level 139 136-145 mmol/L Potassium Level 3.8 3.5-5.1 mmol/L Chloride Level 101 101-111 mmol/L Carbon Dioxide Level 33 H 21-32 mmol/L Blood Urea Nitrogen 16 7-18 mg/dL Creatinine 4.3 H 0.5-1.0 mg/dL Glomerular Filtration Rate Calc 10 >90 mL/min Random Glucose 181 H 70-105 mg/dL Total Calcium 8.0 L 8.5-10.1 mg/dL Magnesium Level 1.80 1.80-2.40 mg/dL DIAGNOSTICS / RADIOLOGY RESULTS: [ ] Plan: Neuro: Minimize central acting medications as possible. Maintain fall precautions, adequate lighting during the day Cardiovascular: Follow hemodynamics. Vital signs per facility protocol Pulmonary: Supplemental 02 as needed. Maintain aspiration precautions at all times GI and nutrition: Continue with nutritional support via TPN Clear liquid diet and advance as tolerated. Iv antibiotics pain control and IVF . Continue stool softeners and laxatives as needed. Kidney and electrolytes: Strict monitoring of intake, output and overall fluid balance. Avoid nephrotoxic medications to the extent possible. Medications to be dosed according to renal function. Monitor electrolytes and replace as needed Endocrine: Maintain blood glucose between 100-180 at all times. Hypoglycemia protocol in place Infectious disease: Trend temperature, WBC and procalcitonin level Follow cultures, deescalate antibiotics as soon as possible. Panculture if new onset fever Oncology/Hematology/Coagulation: Monitor for s/s of bleeding Monitor hemoglobin, coagulation studies as needed Skin: Pressure ulcer prevention per facility protocol Specialty mattress Ortho/Rehab: Continue PT/OT Prophylaxis:. Continue GI and DVT prophylaxis as appropriate Disposition:. Home once medically stable for discharge. Total patient care time excluding any procedures: 40 min ATTESTATION BY PHYSICIAN I have evaluated the patient chart, medical records, and spoke with appropriate staff. I reviewed the documentation, medical decision making, and treatment plan as noted by the mid-level provider above. I agree with the findings and plan of care. Jeff Chavis MD, ECTOR N NP Nov 04, 2024 10:41
--- NOTE | 2024-11-04 14:00 | NUR ---
Attempted to see patient in am however she and daughter refused stating she was going down for a procedure later. Informed patient PT would visit her again in the pm. In the pm, patient stated she was still waiting to go down for procedure. Educated patient in the need for OOB activity however she and daughter refused stating patient was dirty and needed to be cleaned. Informed Mildred nurse. PT team to follow.
[2024-11-04] MEDS ORDERED: IOHEXOL-350 75 ML VIAL IV ONE (15:33)
--- NOTE | 2024-11-04 16:20 | HMCIMG ---
CT ABDOMEN/PELVIS W/WO CONTRAS HISTORY: No additional history given. COMPARISON: None TECHNIQUE: Multiple sequential axial images of the abdomen and pelvis were obtained including post processing sagittal and coronal reconstruction images. Patient received 75 mL Omnipaque intravenous and 30 mL Gastrografin oral. Coronal and sagittal reconstructions obtained. FINDINGS: The inferior aspect lungs are clear. The liver, spleen, pancreas, and adrenal glands appear normal. Previous cholecystectomy. 2.5 cm right inferior renal cortical cysts present. The remainder the kidneys appear homogeneous. No hydronephrosis or calyceal calcifications. Mesenteric fat normal attenuation. Nonobstructive bowel pattern. Appendix is visualized and appears normal. No inflammatory changes or free fluid within the abdomen or pelvis. Diverticulosis present without evidence of diverticulitis. Abdominal aorta normal diameter, heavily calcified. Osseous structures intact. IMPRESSION: 1. Diverticulosis without evidence of diverticulitis. 2. Nonspecific small bowel ileus. No evidence of obstruction. Previous cholecystectomy. Left renal cyst. CT was performed with one or more following dose reduction techniques: automated exposure control, adjustment of the mA and kv according to patient's size, or use of a iterative reconstruction technique.
--- NOTE | 2024-11-04 22:03 | PN ---
NEPHROLOGY NOTE SUBJECTIVE: The patient has been evaluated and seen for dialysis. No other associated finding. No other aggravating or relieving factors. The patient is generally weak. Other systemic review is unchanged and unremarkable from the past and otherwise unchanged review. All the other systemic review is unchanged and unremarkable. PHYSICAL EXAMINATION: GENERAL: Pale, no other distress or deformities, lying in bed. VITAL SIGNS: Blood pressure is 158/70, respiratory rate is 18. HEENT: Head is atraumatic, normocephalic. Pupils are round, reactive to light. Sclerae are anicteric. Conjunctivae are not pale. Oral mucosa is not dry. NECK: Supple. No masses, bruits. Thyroid is palpable. Neck has no bruits. CHEST: Shows equal thoracic percussion note being resonant in all areas. CARDIAC: Regular rhythm. No rub, no S3, S4. No parasternal heave. Apical beat is not localized. ABDOMEN: No guarding or tenderness. Bowel sounds are normoactive. No free fluid. EXTREMITIES: No edema and no cyanosis, clubbing. LYMPHATICS: With no lymph node swelling in neck or axillary area. BACK: No CVA tenderness or back deformities. NEUROLOGIC: Fully awake, alert, nonfocal. No cranial nerve palsies. No motor or sensory deficits. LABORATORY DATA: We have reviewed old records in detail and old imaging studies are personally reviewed. PROBLEMS: Renal failure, anemia, multiple other comorbidities. PLAN: Plan is to continue dialysis support. Continued monitoring of renal function. Continued monitoring of electrolytes. Intake, output, weight will be monitored. Nonsteroidal drugs will be avoided. Doses of medicine to be adjusted and we will be following up closely. The patient was evaluated and seen for dialysis and seen several times today. Overall condition is poor. I have discussed with other team members in detail. Thank you for this patient. TID: [id number] RECEIPT: [id number]
--- NOTE | 2024-11-04 23:06 | PN ---
NEPHROLOGY NOTE SUBJECTIVE: The patient has been evaluated and seen for dialysis and seen several times. No other aggravating or relieving factors. No other associated symptoms. The patient has no other associated finding. PLAN: To continue monitoring. Followup on renal function. Followup on electrolytes. The patient has renal failure and anemia. Epogen as needed. Intake, output, weight, and overall status will be monitored. The patient was evaluated and seen for dialysis and seen multiple times. We have continued with close followup. The patient has been counseled on the diet. TID: [id number] RECEIPT: [id number]
[2024-11-05] VITALS: BP 107/52; PULSE 73; RESP 18; TEMP 98.3
[2024-11-05 04:00] VITALS: BP 144/62; PULSE 76; RESP 19; TEMP 97.8
[2024-11-05 05:22] LABS: MEAN CORPUSCULAR HEMOGLOBIN 32.3 pg (27.0-33.0); MEAN CORPUSCULAR HGB CONC 33.3 g/dL (32.0-36.0); MEAN CORPUSCULAR VOLUME 96.8 fL (79-99); RED BLOOD CELL COUNT(AUTO) 2.79 MIL/uL (4.00-5.50); RED CELL DISTRIBUTION WIDTH 12.7 % (11.0-15.5); WHITE BLOOD COUNT (AUTO) 6.6 K/uL (4.8-10.8)
[2024-11-05 05:38] LABS: CREATININE 3.7 mg/dL (0.5-1.0); POTASSIUM 4.3 mmol/L (3.5-5.1)
--- NOTE | 2024-11-05 07:03 | NUR ---
bs blood sugar 202 daughter refuses 6units sc, only wants 2 units regular insulin will talk to doctor this am
[2024-11-05 08:00] VITALS: O2SAT 96
[2024-11-05 08:12] VITALS: BP 128/79; PULSE 79; RESP 16; TEMP 98.2
[2024-11-05 08:30] LABS: MAGNESIUM 2.1 mg/dL (1.80-2.40); PHOSPHORUS 3.4 mg/dL (2.5-4.9)
[2024-11-05] MEDS ORDERED: AMOX-426 PO (11:59)
[2024-11-05 12:00] VITALS: BP 143/54; PULSE 76; RESP 18; TEMP 98.2
--- NOTE | 2024-11-05 12:05 | DS ---
[facility] DISCHARGE SUMMARY Date Patient Seen: Nov 05, 2024 Time of Visit: 12:00 Supervising Physician: Dr Chavis Primary Care Physician: Artur Velasco MD Outpatient Specialists: Dr Berman (Neprhologist) Inpatient Consults: Dr Berman, Dr Marcum PROBLEM LIST: Perforated diverticulitis with abscess formation poa resolved Diabetes Mellitus, Type II ESRD on HD (MWF) Hypertension Hyperlipidemia Chronic diastolic heart failure Anemia of chronic disease Anxiety HOSPITAL COURSE: HPI (per admitting provider) This is an 79-year-old chronically ill female with a past medical history of ESRD on hemodialysis, left arm AV fistula, type 2 diabetes mellitus, hypertension, hyperlipidemia, CHF, anxiety and diverticulosis who presented to the emergency department for complaints of left lower quadrant abdominal pain. Patient reports the pain started approximately four days ago and started worsening in intensity. Patient reports he went to her PCP and was given Bactrim for UTI earlier in the week. She developed fever last night and came into the emergency department for evaluation of fever and abdominal pain. On arrival to the emergency department patient has a temperature of 100 F, heart rate in the 80s, hemodynamically stable with a blood pressure 154/50 saturating 98% on room air with a respiratory rate of 16 and unlabored. On laboratory WBCs were 11.2 H&H 10.3/30.9 with a platelet count that is normal and neutrophils of 81.2. Chemistry consistent with ESRD and a glucose of 226 mg/dL with a albumin of 3.1 and hemoglobin A1c 8.8. She tested negative for influenza type a, B, COVID-19 and strep. On urinalysis patient had protein of 300, glucose of greater than 1000, ketones negative occult blood trace. On chest x-ray clear lungs noted with cardiomegaly. No pneumothorax. PermCath to right chest wall. On CT abdomen and pelvis without contrast there was fluid and feces filled collection and suspected left lower quadrant measuring 4.1 cm with surrounding stranding. This may represent an abscess but this is unclear at this time, repeat CT recommended after vigorous 0 contrast administration or diluted CT enema to confirm extraluminal location. On assessment patient is awake alert and oriented x3. Reports pain has subsided with medication given in the ED for pain. Reports pain is 4/10 to left lower quadrant she is tender. Otherwise denies any nausea vomiting or diarrhea. She denies any chest pain palpitations or shortness for breath at this time. She denies any chills or fevers. Daughter is at bedside and I have explained to them the findings and plan of care. Both patient and daughter are in agreement. I have consulted General surgery for eval recommendations due to suspicion of diverticular abscess. For now we will need other forms of nutrition other than very mild. We will order for a PICC line and once it's in place we can start TPN for now. We will follow General surgery recommendations. For now light hydration with D5 NS at 50 mL/hour and broad-spectrum antibiotics with Zosyn. Pt remains weak at this point. Continues on IV abx for diverticular abscess. Pending further recommendations from general surgery team. She is NPO at this time, awaiting PICC line for TPN Denies any headache or dizziness. Denies any chest pain or palpitations. Denies any cough or shortness of breath at rest. Denies any nausea, vomiting, abdominal pain, or melena Pt remains weak at this point. Continues on IV abx for diverticular abscess. she is npo pending Ct abd pelvis with oral contrast as per general surgery .She will be undergiong Ct guided drain placement . Also Will be started on TPN . Patient's white blood cell count is at 9.8, hemoglobin has been downtrended from admission from 10.3-8.9. Denies any melena or hematochezia. Chemistry reveals BUN and creatinine consistent with end-stage renal disease. Liver enzymes are within normal limits, bilirubin is 0.6. Patient was afebrile, pulse rate 79, respiratory rate normal , blood pressure in the 140s to 160s systolic. Given her NPO status she will continue with IV hydralazine p.r.n. blood pressure over 160 mm Hg. 11/01 - patient is seen and evaluated at the bedside. Patient is accompanied by her daughter. Patient is sitting up at the side of the bed currently eating clear liquid diet and tolerating well. Patient denies nausea, vomiting, or worsening abdominal pain. No acute changes reported overnight. Patient was scheduled for percutaneous drain placement by Interventional Radiology this morning. Nursing reports that radiologist reviewed the CT scan and the abscess has resolved therefore no need for drain. We are still pending official CT report. Patient does continue on Zosyn. Vital signs are stable. Labs are within normal limits. We will continue to advance patient's diet as tolerated. We will plan to DC home in the next 24-48 hours if okay with surgical team. 11/02 - patient is seen and evaluated at the bedside accompanied by her daughter. Patient does not show any signs of acute distress. Patient is tolerating full liquid diet at this time with no nausea, vomiting or worsening abdominal pain. As per daughter, patient is eating over 75% of all meals. Instructed nursing to advance diet to GI soft. Given the fact the patient is tolerating oral diet no need for TPN therefore we will discontinue PICC line. Patient does appear to be weak therefore advised patient to work with physical and occupational therapy as tolerates. As per surgical team, recommended a repeat CT scan of the abdomen to evaluate improvement of abscess. We will continue current antibiotic treatments for now. 11/03 - patient is seen sitting at the side of the bed with no signs of acute distress. Patient is accompanied by her daughter. Patient has been advanced to a GI soft diet and tolerating at this time with no nausea, vomiting, abdominal pain. As per daughter, patient had a bowel movement overnight and this morning. No acute changes reported overnight. We will repeat CT abdomen and pelvis tomorrow morning. Vital signs are stable. White count within normal limits. We will continue IV antibiotics for now. 11/04 - patient is seen lying in bed resting quietly accompanied by her daughter. Patient reports her glucose dropped yesterday evening as she was not very fond of dinner. Patient remains NPO as she was scheduled for repeat CT scan of the abdomen and pelvis to evaluate abdominal abscess. Vital signs have been stable. Labs are within normal limits. General surgery is on board and appreciate their recommendations. We will continue IV antibiotics for now. We will follow CT results. 11/05 - today patient is seen lying in bed resting quietly with no signs of acute distress. Patient continues tolerating oral diet with no nausea, vomiting or abdominal pain. Patient had a repeat CT scan which shows diverticulosis without evidence of diverticulitis. No evidence of obstruction. No inflammatory changes or free fluid within the abdomen or pelvis. These findings were discussed with daughter and patient. Patient has been advised to follow up with PCP in the next 1-2 days. Patient has been advised to follow up with General surgery within 1 week. Patient has been advised to continue oral a ntibiotics as prescribed. Patient and daughter both verbalized understanding. The vital signs are stable. Labs are within normal limits. Medication reconciliation has been completed. Education regarding current diagnosis been prior to the patient. All questions have been answered. Patient to be discharged home. The patient was treated for the following problems: ACTIVE PROBLEM LIST FOR THE HOSPITALIZATION: Perforated diverticulitis with abscess formation poa resolved Diabetes Mellitus, Type II ESRD on HD (MWF) Hypertension Hyperlipidemia Chronic diastolic heart failure Anemia of chronic disease Anxiety CHRONIC PROBLEMS: continue previous management per PCP unless otherwise indicated DEEP SEA DIVER FINDINGS/RECOMMENDATIONS: [ ] PROCEDURES: as mentioned above DISCHARGE MEDICATIONS: See DC med list Pt hemodynamically stable and afebrile at time of discharge. PCP notified of patients admission, hospital course and discharge. New Medications: Amoxicillin/Potassium Clav (Augmentin 500-125 Tablet) 500 Mg-125 Mg Tablet 1 TAB PO BID for 10 Days, #20 TAB 0 Refills Continued Medications: Amlodipine Besylate (Amlodipine Besylate) 10 Mg Tablet 1 TAB PO DAILY for 30 Days, #30 TAB 0 Refills Atorvastatin Calcium (Atorvastatin Calcium) 40 Mg Tablet 1 TAB PO HS for 30 Days, #30 TAB 0 Refills Dapagliflozin Propanediol (Farxiga) 10 Mg Tablet 1 TAB PO DAILY for 30 Days, #30 TAB 0 Refills Folic Acid/Vitamin B Comp W-C (Shannan-Dia Tablet) 0.8 Mg Tablet 1 TAB PO DAILY for 30 Days, #30 TAB 0 Refills Gabapentin (Gabapentin) 100 Mg Capsule 100 MG PO HS, CAP Insulin Degludec (Tresiba) 100 Unit/Ml Vial 15 UNITS SQ DAILY, VIAL PHYSICAL EXAM: GENERAL: alert, weak, awake oriented x 3 HEENT: EOMI, Sclera non icteric, moist mucosa NECK: Supple, no JVD, trachea midline LUNGS: Clear breath sounds bilaterally. No wheezes HEART: Regular rate and rhythm. Normal S1 and S2, without murmurs right chest wall PermCath. ABD: Abdomen soft, tender to left lower quadrant. Bowel sounds present EXT: No clubbing cyanosis or edema, left arm AV fistula. NEURO: Alert and oriented to person, follows commands FOLLOW-UP: Follow-up with PCP in 2-3 days Follow up with Dr. Marcum in 1 week Continue hemodialysis as scheduled RECOMMENDATIONS: See Discharge Instructions This case was seen and discussed with my supervising physician. More than 30 minutes spent on discharge process, including evaluation of the patient, discussion with nursing staff, medication reconciliation and follow-up appointments ATTESTATION BY PHYSICIAN I have evaluated the patient chart, medical records, and spoke with appropriate staff. I reviewed the documentation, medical decision making, and treatment plan as noted by the mid-level provider above. I agree with the findings and plan of care. Jeff Chavis MD, ECTOR N NP Nov 05, 2024 12:05
[2024-11-05 16:00] VITALS: BP 143/63; PULSE 77; RESP 17; TEMP 98.2
--- NOTE | 2024-11-05 16:08 | PN ---
NEPHROLOGY PROGRESS NOTE Date/Time Patient Seen: Nov 05, 2024 SUBJECTIVE: This is an 79-year-old female with history of diabetes mellitus and hypertension. She was initially admitted to the hospital and found to have an abdominal abscess. The patient is being seen by surgical service. The patient remains on the antibiotics Repeat CT of the abdomen showed diverticulosis without evidence of diverticulitis. She has been tolerating dialysis without difficulty She was in the medical floor, no acute distress Pending discharge disposition later today REVIEW OF SYSTEMS: GENERAL: Negative for any nausea, vomiting, fevers, chills, or weight loss. NEUROLOGIC: Negative for any blurry vision, blind spots, double vision, facial asymmetry, dysphagia, dysarthria, hemiparesis, hemisensory deficits, vertigo, ataxia. HEENT: Negative for any head trauma, neck trauma, neck stiffness, photophobia, phonophobia, sinusitis, rhinitis. CARDIAC: Negative for any chest pain, dyspnea on exertion, paroxysmal nocturnal dyspnea, peripheral edema. PULMONARY: Negative for any shortness of breath, wheezing, COPD, or TB exposure. GASTROINTESTINAL: Negative for any abdominal pain, nausea, vomiting, bright red blood per rectum, melena. GENITOURINARY: Negative for any dysuria, hematuria, incontinence. INTEGUMENTARY: Negative for any rashes, cuts, insect bites. RHEUMATOLOGIC: Negative for any joint pains, photosensitive rashes, history of vasculitis or kidney problems. HEMATOLOGIC: Negative for any abnormal bruising, frequent infections or bleeding. Vital Signs (last 8hr) Date Time Temp Pulse Resp B/P (MAP) Pulse Ox O2 Delivery O2 Flow Rate FiO2 11/03/24 16:00 98.2 77 18 147/61 97 Room Air 11/03/24 12:00 98.1 73 18 136/71 97 Room Air PHYSICAL EXAM: GENERAL: Alert and oriented x 3. No acute distress. Well-nourished. EYES: EOMI. Anicteric. HENT: Moist mucous membranes. No scleral icterus. No cervical lymphadenopathy. LUNGS: Clear to auscultation bilaterally. No accessory muscle use. CARDIOVASCULAR: Regular rate and rhythm. No murmur. No JVD. ABDOMEN: Soft, non-tender and non-distended. No palpable masses. EXTREMITIES: No edema. Non-tender.?SKIN: No rashes or lesions. Warm. NEUROLOGIC: No focal neurological deficits. CN II-XII grossly intact, but not individually tested. PSYCHIATRIC: Cooperative. Appropriate mood and affect. Current Medications Medications (Trade) Dose Ordered Sig/Sean Route PRN Reason Start Time Stop Time Status Last Admin Dose Admin Acetaminophen (TYLenol 325MG TAB) 650 mg Q6H PRN PO FEVER/MILD PAIN LEVEL 1-3 10/29/24 05:00 11/28/24 04:59 11/02/24 22:34 650 MG Acetaminophen (TYLenol 650MG SUPPOSITORY) 650 mg Q6H PRN RC FEVER / MILD PAIN 1-3 IF NPO 10/29/24 05:00 11/28/24 04:59 Amlodipine Besylate (NorvASC 5MG TAB) 10 mg DAILY PO 10/29/24 09:00 11/28/24 08:59 11/03/24 10:20 10 MG Atorvastatin Calcium (LIPItor 40MG) 40 mg HS PO 10/29/24 21:00 11/28/24 20:59 11/02/24 22:33 40 MG Dextrose (D50w) 50 ml AD PRN IV HYPOGLYCEMIA PROTOCOL 10/29/24 08:00 11/28/24 07:59 Dextrose/Sodium Chloride 1,000 ml @ 50 mls/hr Q20H IV 10/29/24 16:30 11/28/24 16:29 10/31/24 20:59 50 MLS/HR Docusate Sodium (COLace 100MG CAP) 100 mg BID PRN PO c 10/29/24 05:00 11/28/24 04:59 Epoetin Augustus-epbx (Retacrit) 10,000 unit QMOWEFR[DIALYSIS] SQ 10/31/24 16:00 11/30/24 15:59 11/02/24 17:54 10,000 UNIT Gabapentin (NEURontin 100 mg CAP) 100 mg HS PO 10/29/24 21:00 11/28/24 20:59 11/02/24 22:33 100 MG Glucagon (Glucagon 1mg Kit) 1 mg AD PRN IM HYPOGLYCEMIA PROTOCOL 10/29/24 08:00 11/28/24 07:59 Heparin Sodium (Porcine) (HEParin 5,000 UNIT VIAL) 5,000 unit Q12H SQ 10/29/24 08:00 11/28/24 07:59 11/03/24 10:19 5,000 UNIT Heparin Sodium (Porcine) (HEParin 5,000 UNIT VIAL) 10,000 unit AD IRRIG 10/31/24 18:00 11/30/24 17:59 11/02/24 15:03 10,000 UNIT Hydralazine HCl (APRESOLine 20MG INJ) 10 mg Q2H PRN IV SBP GREATER THAN 160 10/29/24 05:00 11/28/24 04:59 11/01/24 13:34 10 MG Hydromorphone HCl (DiLAUDid 0.5MG INJ) 0.5 mg Q4H PRN IVP SEVERE PAIN (7-10) 10/29/24 08:00 11/03/24 07:59 DC 11/01/24 18:29 0.5 MG Insulin Glargine (LANtus 100 UNITS/ML 10 ML VIAL) 10 units BID@0730,2100 SQ 10/29/24 08:00 11/28/24 07:59 11/03/24 10:20 10 UNITS Insulin Human Regular (humuLIN R 100 UNIT/ML 3ML) INSULIN SLIDING SCAL... ACHS SQ 10/29/24 07:30 11/28/24 07:29 11/03/24 16:51 12 UNIT Lactated Ringer's 1,000 ml @ 50 mls/hr Q20H IV 10/29/24 05:00 10/29/24 16:57 DC 10/29/24 10:19 50 MLS/HR Lactulose (Constulose 20gm/ 30ml Udcup) 20 gm Q6H PRN PO CONSTIPATION 10/29/24 05:00 11/28/24 04:59 Magnesium Sulfate 50 ml @ 0 mls/hr PROTOCOL PRN IV LOW MAG <2.0 11/03/24 09:30 12/03/24 09:29 11/03/24 10:25 0 MLS/HR Morphine Sulfate (morPHINE 2MG SYG) 2 mg Q4H PRN IVP SEVERE PAIN (7-10) 10/29/24 05:30 10/29/24 07:51 DC Ondansetron HCl (zoFRAN 4MG INJ) 4 mg Q6H PRN IVP NAUSEA/VOMITING 10/29/24 05:00 11/28/24 04:59 Pantoprazole Sodium (PROTonix 40MG INJ) 40 mg DAILY IVP 10/29/24 09:00 11/28/24 08:59 11/03/24 10:22 40 MG Piperacillin Sod/ Tazobactam Sod (Zosyn 3.375gm+NS 50ml) 3.375 gm Q12H IV 10/29/24 16:00 11/08/24 15:59 11/03/24 16:53 3.375 GM Potassium Chloride 100 ml @ 100 mls/hr AD PRN IV POTASSIUM PROTOCOL 10/29/24 08:00 11/28/24 07:59 Sodium Chloride 1,000 ml @ 0 mls/hr ONCE IV 10/31/24 10:30 11/30/24 10:29 11/02/24 14:18 100 MLS/HR Temazepam (restORIL 15 MG CAP) 15 mg HS PRN PO INSOMNIA/SLEEP 10/29/24 05:00 11/28/24 04:59 Vitamin B Complex/ Vit C/Folic Acid (Nephrovite Tablet) 1 cap DAILY PO 10/29/24 09:00 11/28/24 08:59 11/03/24 10:18 1 CAP LABORATORY: [ ] Hematology Labs: Test 11/05/24 05:11 Range/Units White Blood Count 6.6 4.8-10.8 K/uL Red Blood Count 2.79 L 4.00-5.50 MIL/uL Hemoglobin 9.0 L 12.0-16.0 g/dL Hematocrit 27.0 L 36-48 % Mean Corpuscular Volume 96.8 79-99 fL Mean Corpuscular Hemoglobin 32.3 27.0-33.0 pg Mean Corpuscular Hemoglobin Concent 33.3 32.0-36.0 g/dL Red Cell Distribution Width 12.7 11.0-15.5 % Platelet Count 301 # 130-400 K/uL Mean Platelet Volume 9.1 7.5-10.5 fL Nucleated Red Blood Cells 0.0 0.0-0.19 % Chemistry Labs: Test 11/05/24 14:51 11/05/24 05:11 Range/Units Whole Blood Glucose 316 H 70-110 MG/DL Sodium Level 138 136-145 mmol/L Potassium Level 4.3 3.5-5.1 mmol/L Chloride Level 101 101-111 mmol/L Carbon Dioxide Level 34 H 21-32 mmol/L Blood Urea Nitrogen 16 7-18 mg/dL Creatinine 3.7 H 0.5-1.0 mg/dL Glomerular Filtration Rate Calc 12 >90 mL/min Random Glucose 228 H 70-105 mg/dL Total Calcium 8.1 L 8.5-10.1 mg/dL Phosphorus Level 3.4 2.5-4.9 mg/dL Magnesium Level 2.10 1.80-2.40 mg/dL Procalcitonin 0.23 0.05-0.5 ng/mL DIAGNOSTICS / RADIOLOGY: REASON: Evaluate diverticular abscess ORDERING PHYSICIAN: JULIO CESAR BAIRD NP PROCEDURE: ABD PELWWO - CT ABDOMEN/PELVIS W/WO CONTRAS CT ABDOMEN/PELVIS W/WO CONTRAS HISTORY: No additional history given. COMPARISON: None TECHNIQUE: Multiple sequential axial images of the abdomen and pelvis were obtained including post processing sagittal and coronal reconstruction images. Patient received 75 mL Omnipaque intravenous and 30 mL Gastrografin oral. Coronal and sagittal reconstructions obtained. FINDINGS: The inferior aspect lungs are clear. The liver, spleen, pancreas, and adrenal glands appear normal. Previous cholecystectomy. 2.5 cm right inferior renal cortical cysts present. The remainder the kidneys appear homogeneous. No hydronephrosis or calyceal calcifications. Mesenteric fat normal attenuation. Nonobstructive bowel pattern. Appendix is visualized and appears normal. No inflammatory changes or free fluid within the abdomen or pelvis. Diverticulosis present without evidence of diverticulitis. Abdominal aorta normal diameter, heavily calcified. Osseous structures intact. IMPRESSION: 1. Diverticulosis without evidence of diverticulitis. 2. Nonspecific small bowel ileus. No evidence of obstruction. Previous cholecystectomy. Left renal cyst. CT was performed with one or more following dose reduction techniques: automated exposure control, adjustment of the mA and kv according to patient's size, or use of a iterative reconstruction technique. DICTATED BY: RUY STONER DO DATE: 11/04/24 1613 REASON: EVALUATION FOR DRAIN PLACEMENT, DIVERTICULAR ABSCESS ORDERING PHYSICIAN: RUY STONER DO PROCEDURE: ABD PEL WO - CT ABDOMEN/PELVIS W/O CONTRAST CT ABDOMEN/PELVIS W/O CONTRAST HISTORY: Evaluation for drain placement COMPARISON: 10/29/2024 TECHNIQUE: Multiple sequential axial images of the abdomen and pelvis were obtained from the dome of the diaphragm through symphysis pubis. Patient was not given contrast through intravenous route. Oral contrast was given. FINDINGS: No pleural effusion is seen bilaterally. There is no evidence of parenchymal disease or pulmonary nodule of the visualized lower lungs. Degenerative changes of the thoracolumbar spine are present. The heart is not enlarged. Postcholecystectomy changes are seen. The liver, spleen, adrenal glands and pancreas are unremarkable. There is no evidence of hydronephrosis bilaterally. No evidence of renal stone is seen. Fecal material is seen in the colon. There are normal size retroperitoneal and mesenteric lymph nodes. No ascites is seen. Atherosclerotic changes are present. Note is again made of complex structure with air collection in the left lower abdomen/pelvis measuring 4.8 x 4.7 cm suggestive of abscess also seen on previous study. Surrounding bowel loops are noted. Pelvic sidewalls are symmetric bilaterally. Bladder is well distended without wall thickening. IMPRESSION: 1. Note is again made of complex structure with air collection in the left lower abdomen/pelvis measuring 4.8 x 4.7 cm suggestive of abscess also seen on previous study. Surrounding bowel loops are noted. CT was performed with one or more following dose reduction techniques: automated exposure control, adjustment of the mA and kv according to patient's size, or use of a iterative reconstruction technique. DICTATED BY: MAURICIO CASTELAN MD DATE: 11/02/24 1136 ASSESSMENT: Perforated diverticulitis with abscess formation Diabetes Mellitus, Type II ESRD Hypertension Hyperlipidemia Chronic diastolic heart failure Anemia of chronic disease Anxiety PLAN: Labs and Diagnostics/ Radiology personally reviewed and interpreted by myself and supervising physician We have reviewed dialysis and external records in detail Pending discharge disposition later today. From Nephrology standpoint, patient may be discharged Follow up in the outpatient dialysis center tomorrow for dialysis. 1.5 L fluid restriction May use Dilaudid 0.5 mg IV every 6 hours as needed for severe pain Monitor blood pressure adjust medication doses as needed Maintain normotensive state; keep systolic blood pressure between 110-160 Strict intake, output, and daily weight should be monitored Please renally adjust medications. Avoid nephrotoxics and nonsteroidal drugs. We will continue to monitor the patient closely We have discussed with the other team physicians in detail about the care plan ATTESTATION BY PHYSICIAN I have seen and examined the patient. I reviewed the documentation, medical decision making, and treatment plan as noted by the mid-level provider above. I agree with the findings and plan of care. BEAR TITUS MD, [facility] Nov 05, 2024 16:08
== END 2024-11-05 17:20 | disposition home or self-care (01) | DRG 391 ==
LOC: EDH 23:27 → EDHIP 10-29 03:53 → OBSVTOIN 10-29 13:16 → 4BH 10-29 18:44
PROVIDERS: ADMIT Internal Medicine Critical Care Medicine; ATTEND Internal Medicine Critical Care Medicine
PROC: 5A1D70Z Performance of Urinary Filtration, Intermittent, Less than 6 Hours Per Day (ICD-10-PCS; principal; 2024-10-31)
PROC: 02HV33Z Insertion of Infusion Device into Superior Vena Cava, Percutaneous Approach (ICD-10-PCS; 2024-10-31)
PROC: 5A1D70Z Performance of Urinary Filtration, Intermittent, Less than 6 Hours Per Day (ICD-10-PCS; 2024-11-02)
PROC: 5A1D70Z Performance of Urinary Filtration, Intermittent, Less than 6 Hours Per Day (ICD-10-PCS; 2024-11-04)
DX: K57.20 Diverticulitis of large intestine with perforation and abscess without bleeding (principal); N18.6 End stage renal disease; I13.2 Hypertensive heart and chronic kidney disease with heart failure and with stage 5 chronic kidney disease, or end stage renal disease; I50.32 Chronic diastolic (congestive) heart failure; D63.1 Anemia in chronic kidney disease; E11.22 Type 2 diabetes mellitus with diabetic chronic kidney disease; Z20.822 Contact with and (suspected) exposure to COVID-19; E11.65 Type 2 diabetes mellitus with hyperglycemia; E78.00 Pure hypercholesterolemia, unspecified; E88.09 Other disorders of plasma-protein metabolism, not elsewhere classified; F41.9 Anxiety disorder, unspecified; N28.1 Cyst of kidney, acquired; Z90.49 Acquired absence of other specified parts of digestive tract; Z99.2 Dependence on renal dialysis; Z79.899 Other long term (current) drug therapy
CPT/HCPCS: 36415; 36569; 71045; 74018; 74176; 74178; 80048; 80053; 80076; 81001; 82948; 83036; 83605; 83690; 83735; 84100; 84145; 84443; 85025; 85027; 85384; 85610; 85730; 86704; 86706; 86803; 87040; 87086; 87340; 87426; 87804; 87880; 90935; 96361; 96374; 96375; 99285; C1894; G0378; J0360; J1171; J1644; J1815; J2270; J2405; J2470; J2543; J3475; J7120; Q9963; Q9967; Q5106

== ENCOUNTER 2024-12-21 15:01 | Observation (INO) | payer MEDICARE ==
[~2024-12-21] VITALS: Ht 157.5 cm; Wt 56.2 kg
[~2024-12-21 15:01] MED LIST changes: +AMOX-426 PO; -ATOR10TA69 PO; +ATOR40TA71 PO; +FOLI0.8T22 PO; -FOLI1TAB85 PO; +INSU100V37 SQ; -SULF1TAB42 PO
--- NOTE | 2024-12-21 15:35 | ERN ---
ED Note History of Present Illness Stated Complaint: BOWEL ISSUES,MULTIPLE COMPLAINTS Chief Complaint: Weakness Time Seen by MD: 15:09 Dictation: The patient is an 79-year-old female patient presents with a medical history that includes type 2 diabetes mellitus, hyperlipidemia, hypertension, anxiety disorder, a left arm fistula, and end-stage renal disease requiring hemodialysis three times a week, a recent hospitalization due to diverticulitis with an abscess presented to ED after experiencing frequent bowel movements over the past two weeks, which have progressively worsened since their onset four weeks ago. Currently, she finds herself needing to use the restroom nearly every hour, with stool consistency described as semi-solid. She denies any presence of blood in her stool, as well as symptoms of constipation, nausea, or vomiting. During her previous hospitalization, she received treatment with intravenous antibiotics. The patient is under the care of Dr. Berman, a director child, for her end-stage renal disease and is due for a dialysis session today. Allergies: Coded Allergies: No Known Drug Allergies (Verified Allergy, 10/16/12) Home Meds Active Scripts Amoxicillin/Potassium Clav (Augmentin 500-125 Tablet) 500 Mg-125 Mg Tablet, 1 TAB PO BID for 10 Days, #20 TAB 0 Refills Prov:JULIO CESAR BAIRD Kvng [employer] 11/05/24 Reported Medications Folic Acid/Vitamin B Comp W-C (Shannan-Dia Tablet) 0.8 Mg Tablet, 1 TAB PO DAILY for 30 Days, #30 TAB 0 Refills 12/22/24 Gabapentin (Gabapentin) 100 Mg Capsule, 100 MG PO HS, CAP 10/29/24 Amlodipine Besylate (Amlodipine Besylate) 10 Mg Tablet, 1 TAB PO DAILY for 30 Days, #30 TAB 0 Refills 10/29/24 Atorvastatin Calcium (Atorvastatin Calcium) 40 Mg Tablet, 1 TAB PO HS for 30 Days, #30 TAB 0 Refills 10/29/24 Dapagliflozin Propanediol (Farxiga) 10 Mg Tablet, 1 TAB PO DAILY for 30 Days, #30 TAB 0 Refills 10/29/24 Folic Acid/Vitamin B Comp W-C (Shannan-Dia Tablet) 0.8 Mg Tablet, 1 TAB PO DAILY for 30 Days, #30 TAB 0 Refills 10/29/24 Insulin Degludec (Tresiba) 100 Unit/Ml Vial, 15 UNITS SQ DAILY, VIAL 10/29/24 Past Medical History Past Medical History: Diabetes-Type I, Diabetes-Type II, Diverticulitis, High Cholesterol, Hypertension, Renal Disese, Renal Failure, Other Additional Past Medical Hx: ESBL Surgical History: Cholecystectomy, Other, LAVA Surgical History Other: RIGHT UPPER ARM SX, LAVA, CATARCTS, Family History: Negative Social History: Negative, Lives with family History: Not Applicable Review of System Dictation REVIEW OF SYSTEMS CONSTITUTIONAL: Denies fevers, chills, or night sweats. No unintentional weight loss reported. NEUROLOGICAL: Denies headache, amaurosis fugax, motor weakness, sensory deficit, vertigo/spinning sensation, gait abnormalities, or tremors. ENT: No hearing loss, otalgia, otorrhea, rhinitis, rhinorrhea, hoarseness, or sore throat. CARDIOVASCULAR: Denies any exertional angina, dyspnea on exertion, orthopnea, paroxysmal nocturnal dyspnea, palpitations, life-threatening arrhythmias, claudication. PULMONARY: Denies any shortness of breath, cough, phlegm/sputum, hemoptysis, pleuritic chest pain. SLEEP: Denies morning headaches, daytime somnolence or napping. Denies difficulty falling asleep, staying asleep, waking from sleep. Denies knowledge of snoring. GASTROINTESTINAL: Complains of frequent bowel movements, Denies any type of dysphagia to either liquids or solids. Denies nausea, vomiting, pyrosis, early satiety, abdominal pain, diarrhea, constipation, or changes in stool consistency or caliber. Denies coffee-ground emesis, hematemesis, hematochezia, or melanotic stools. GENITOURINARY: Denies frequency, urgency, nocturia, hematuria or incontinence (Storage/Irritative symptoms.) Low urinary stream, straining to void, urinary intermittency or hesitancy, splitting of the voiding stream, terminal dribbling. ENDOCRINOLOGIC: Denies polyuria, polydipsia, polyphagia or heat/cold intolerances. HEMATOLOGIC: Denies thrombophilia/previous clots, or coagulopathy/bleeding dis orders. ONCOLOGIC: Denies personal history of malignancy. DERMATOLOGIC: Denies rashes or pruritus. PSYCHIATRIC: Denies any suicidal or homicidal ideation. Denies hallucinations. Initial Vital Sign VS Vital Signs Date Time Temp Pulse Resp B/P (MAP) Pulse Ox O2 Delivery O2 Flow Rate FiO2 12/21/24 15:08 99.9 78 20 129/53 98 0 12/21/24 23:30 Room Air* 21 Physical Exam Dictation PHYSICAL EXAM GENERAL APPEARANCE: The patient is awake, alert, and oriented, in no acute cardiopulmonary distress. NEUROLOGICAL: Cranial nerves II-XII grossly intact. Motor is 5/5 in bilateral upper and lower extremities proximal to distal. No sensory deficits. HEENT: Face is symmetric. Pupils are equal and reactive. Extraocular movements are intact. NECK: Supple. No JVD. No thyromegaly. No submental, submandibular, pre- /postauricular, occipital or supraclavicular lymphadenopathy. CHEST: Normal chest expansion. No Telemetry. LUNGS: Absence of any rales, rhonchi or any wheezing. CARDIOVASCULAR: Regular. S1 and S2 normal. No appreciable rubs, murmurs or gallops. ABDOMEN: Soft, nontender, and nondistended. There is no rebound, voluntary guarding, or rigidity. : Deferred. No Paredes. EXTREMITIES: Non-edematous and not cyanotic. No clubbing. Good capillary refill. SKIN: No skin breakdown. Results (Laboratory/Radiology) Laboratory/Radiology Laboratory Tests Test 12/21/24 16:10 12/21/24 16:20 12/21/24 23:36 12/22/24 05:17 White Blood Count 14.4 K/uL (4.8-10.8) H 10.9 K/uL (4.8-10.8) H Red Blood Count 3.79 MIL/uL (4.00-5.50) L 3.14 MIL/uL (4.00-5.50) L Hemoglobin 12.4 g/dL (12.0-16.0) 10.5 g/dL (12.0-16.0) L Hematocrit 38.7 % (36-48) 32.5 % (36-48) L Mean Corpuscular Volume 102.1 fL (79-99) H 103.5 fL (79-99) H Mean Corpuscular Hemoglobin 32.7 pg (27.0-33.0) 33.4 pg (27.0-33.0) H Mean Corpuscular Hemoglobin Concent 32.0 g/dL (32.0-36.0) 32.3 g/dL (32.0-36.0) Red Cell Distribution Width 13.6 % (11.0-15.5) 13.6 % (11.0-15.5) Platelet Count 254 K/uL (130-400) 233 K/uL (130-400) Mean Platelet Volume 9.5 fL (7.5-10.5) 9.4 fL (7.5-10.5) Immature Granulocyte % (Auto) 0.6 % (0-1) Neutrophils (%) (Auto) 75.3 % (40.0-77.0) Lymphocytes (%) (Auto) 10.6 % (21.0-51.0) L Monocytes (%) (Auto) 11.2 % (3.0-13.0) Eosinophils (%) (Auto) 1.7 % (0.0-8.0) Basophils (%) (Auto) 0.6 % (0.0-5.0) Neutrophils # (Auto) 10.9 K/uL (1.8-7.7) H Lymphocytes # (Auto) 1.5 K/uL (1.0-4.8) Monocytes # (Auto) 1.6 K/uL (0.1-1.0) H Eosinophils # (Auto) 0.25 K/uL (0.00-0.70) Basophils # (Auto) 0.09 K/uL (0.00-0.20) Absolute Immature Granulocyte (auto 0.08 K/uL (0-1) Nucleated Red Blood Cells 0.0 % (0.0-0.19) 0.0 % (0.0-0.19) Sodium Level 139 mmol/L (136-145) 143 mmol/L (136-145) Potassium Level 3.7 mmol/L (3.5-5.1) 3.6 mmol/L (3.5-5.1) Chloride Level 99 mmol/L (101-111) L 105 mmol/L (101-111) Carbon Dioxide Level 32 mmol/L (21-32) 30 mmol/L (21-32) Blood Urea Nitrogen 35 mg/dL (7-18) H 44 mg/dL (7-18) H Creatinine 5.6 mg/dL (0.5-1.0) H 6.1 mg/dL (0.5-1.0) H Glomerular Filtration Rate Calc 7 mL/min (>90) 6 mL/min (>90) Random Glucose 117 mg/dL (70-105) H 125 mg/dL (70-105) H Total Calcium 8.9 mg/dL (8.5-10.1) 8.4 mg/dL (8.5-10.1) L B-Type Natriuretic Peptide 78 pg/mL (0-100) Urine Color YELLOW (YELLOW) Urine Appearance CLEAR (CLEAR) Urine pH 6.0 (5.0-8.0) Urine Specific [place] 1.015 (1.001-1.031) Urine Protein 300 mg/dL (NEGATIVE) H Urine Glucose (UA) >=1000 mg/dL (NEGATIVE) H Urine Ketones NEGATIVE mg/dL (NEGATIVE) Urine Occult Blood +- (TRACE) (NEGATIVE) H Urine Nitrate NEGATIVE (NEGATIVE) Urine Bilirubin NEGATIVE mg/dL (NEGATIVE) Urine Urobilinogen 0.2 mg/dL (0.2-1.0) Urine Leukocyte Esterase 25 Doroteo/uL (NEGATIVE) H Urine RBC 2-5 /HPF (0-1) H Urine WBC 6-10 /HPF (0-1) H Urine Squamous Epithelial Cells RARE /HPF (0-2) Urine Non-Squamous Epithelial Cells <1 /HPF (0-2) Urine Bacteria RARE /HPF (None Seen) Urine Yeast FEW /HPF (None Seen) Whole Blood Glucose 301 MG/DL (70-110) H Phosphorus Level 4.0 mg/dL (2.5-4.9) Magnesium Level 1.90 mg/dL (1.80-2.40) Thyroid Stimulating Hormone (TSH) 1.29 uIU/mL (0.36-3.74) # Test 12/22/24 05:37 Whole Blood Glucose 92 MG/DL (70-110) # ED Course ED Course Orders Procedure Category Date Status Time Cbc With Differential LAB 12/21/24 Complete 15:24 Basic Metabolic Panel LAB 12/21/24 Complete 15:24 Urinalysis Profile LAB 12/21/24 Complete 15:25 Ct Abdomen/Pelvis W/O CT 12/21/24 Resulted Contrast 15:25 Culture Urine BABITA 12/21/24 Complete 16:44 Zosyn 3.375gm+Ns 50ml PHA 12/21/24 Complete (Zosyn 3.375gm+Ns 17:00 Chest 1vw RAD 12/21/24 Resulted 16:43 B-Type Natriuretic LAB 12/21/24 Complete Peptide 16:43 C Difficile A/B LAB 12/21/24 Logged 16:43 Stool Panel Gi By Pcr LAB 12/21/24 In Process 16:43 Admit Orders ADM 12/21/24 Transmitted 17:46 Vital Signs Every 4 CPOE 12/21/24 Transmitted Hours 17:50 Daily Weights CPOE 12/21/24 Transmitted 17:50 Activity: Ambulate W/ CPOE 12/21/24 Transmitted Assist 17:50 Renal Dialysis Diet DIET 12/22/24 Transmitted Breakfast O2 Order RT 12/21/24 Transmitted 17:50 Cbc Without LAB 12/22/24 Complete Differential 04:00 Basic Metabolic Panel LAB 12/22/24 Complete 04:00 Magnesium LAB 12/22/24 Complete 04:00 Phosphorus LAB 12/22/24 Complete 04:00 Thyroid Stimulating LAB 12/22/24 Complete Hormone 04:00 Acetaminophen 325 Tab PHA 12/21/24 In Process (Tylenol 325mg Tab 18:00 Acetaminophen 650mg PHA 12/21/24 In Process Supp (Tylenol 650mg 18:00 Temazepam 15 Mg Cap PHA 12/21/24 Complete (Restoril 15 Mg Cap) 18:00 Ondansetron 4mg Inj PHA 12/21/24 In Process (Zofran 4mg Inj) 18:00 Initiate ZARIA 12/21/24 Complete Hyperglycemia Protoco 17:50 Insulin Regular, PHA 12/21/24 Complete Human 3ml (Humulin R 21:00 Zosyn 3.375gm+Ns 50ml PHA 12/21/24 In Process (Zosyn 3.375gm+Ns 18:00 Pharmacy To Renal PHA 12/21/24 Complete Dose (Renal Dose) 18:00 *Nursing CPOE 12/21/24 Transmitted Communication: 18:01 Nephrology Consult CONPHYSVC 12/22/24 Transmitted 08:00 I&O Q Shift CPOE 12/22/24 Transmitted 06:11 Hydrocodone/Apap PHA 12/22/24 In Process 5/325 (Russell 5/325mg) 06:30 Docusate Sodium 100 PHA 12/22/24 In Process Mg Cap (Colace 100mg 06:30 Temazepam 15 Mg Cap PHA 12/22/24 In Process (Restoril 15 Mg Cap) 06:30 Hydralazine 20mg Inj PHA 12/22/24 In Process (Apresoline 20mg In 06:30 Initiate ZARIA 12/22/24 In Process Hyperglycemia Protoco 06:11 Insulin Regular, PHA 12/22/24 In Process Human 3ml (Humulin R 07:30 Enoxaparin Sodium 30 PHA 12/22/24 In Process Mg/0.3 Ml (Lovenox) 09:00 Hydrocodone/Apap PHA 12/22/24 In Process 5/325 (Russell 5/325mg) 06:30 Current Medications Medications (Trade) Dose Ordered Sig/Sean Route PRN Reason Start Time Stop Time Status Last Admin Dose Admin Piperacillin Sod/ Tazobactam Sod (Zosyn 3.375gm+NS 50ml) 3.375 gm ONCE ONCE IVPB 12/21/24 17:00 12/21/24 17:01 DC Vital Signs Date Time Temp Pulse Resp B/P (MAP) Pulse Ox O2 Delivery O2 Flow Rate FiO2 12/22/24 04:00 98.2 58 17 111/38 97 Room Air 12/22/24 02:20 98.1 62 17 140/31 93 Room Air 12/22/24 02:20 Room Air* 0 21 12/22/24 01:58 98.4 89 18 125/66 98 Room Air* 0 21 12/21/24 23:30 98.4 98 18 122/65 99 Room Air* 0 21 12/21/24 23:27 99.9 12/21/24 15:08 99.9 78 20 129/53 98 0 15:20 The patient was examined in ED triage room 1 accompanied with her daughter. She is sitting comfortably in the wheelchair. She is a Hungarian speaker and the daughter helped with the translation. She appears hemodynamically stable, temperature 99.9, pulse rate 78, blood pressure 129/53. She does not appear in any acute cardiopulmonary distress. Given her history of recent diverticulitis with abscess and end-stage renal disease, we will order basic labs including CBC, BMP, urinalysis. We will also obtain CT abdomen pelvis without contrast and evaluate if the patient requires an emergency treatment or inpatient hospitalization. We will closely monitor the patient. 17:00 CT abdomen pelvis without contrast showed mild nonspecific colitis. Labs showed WBC 14.4, chloride 99, GFR 7, BUN 35, creatinine 5.6. The patient will be receiving Zosyn 3.375 IV stat. We will order BNP and chest x-ray to rule out any volume overload and we will start treatment with IV fluids. Based on the labs and radiology investigations, the patient will be requiring close monitoring in inpatient hospitalization. [facility] team was informed and accepted the admission. Medical Decision Making MDM MDM Differential diagnosis: Nonspecific colitis, end-stage renal disease on dialysis, leukocytosis Rationale: Tests considered and ordered secondary to shared decision making include: Previous outside records reviewed: Old ER visits. Risk of complication and/or morbidity or mortality of patient management: None Medications-Per medication reconciliation Need for hospitalization: Patient does meet criteria for hospitalization. Need for emergency major/minor surgery: No There are no social concerns with this patient. Prescription drug management Prescriptions will include symptomatic care Patient's prior external medical records from other ER visits were reviewed by me as indicated. Prior testing and results from previous visits were reviewed. Prior tests were taken into account with medical decision making and resource utilization, independent historian/historians were used to obtain complete medical history. I independently interpreted the test that were performed, results were reviewed by me and considered findings on radiology if ordered. DX & DISP Disposition: Inpatient Departure Impression: Primary Impression: Non-specific colitis Additional Impressions: End stage renal disease on dialysis, Leukocytosis Condition: Stable Referrals: JOSHUA NUNES MD (PCP) I have reviewed, & agreed with my scribe's, documentation. I have reviewed the case, and I agree with, Diagnosis and Plan I have examined patient, & reviewed all documents, & agreed W/ the Diagnosis, and Plan ATTESTATION BY PHYSICIAN I have seen and examined the patient. I reviewed the documentation, medical decision making, and treatment plan as noted by the resident provider above. I agree with the findings and plan of care. Norbert Miller MD I performed a substantive portion of the visit. I have reviewed and personally made and approve the management plan that is documented in the notes by myself with RONALD/resident. I acknowledged full responsibility for the patient's management plan. PRINCESS TOLEDO MD Dec 21, 2024 15:35 NORBERT MILLER DO Dec 22, 2024 09:07
--- NOTE | 2024-12-21 16:18 | HMCIMG ---
Exam Type: CT ABDOMEN/PELVIS W/O CONTRAST Clinical Information: H/o diverticular abscess, Lower abdominal pain Comparison: None CT Dose Index (CTDI): 10.20 mGy Dose Length Product (DLP): 530.00 total mGy-cm PROTOCOL: Routine noncontrast helical scanning of the abdomen and pelvis was performed at 5mm collimation. Findings: No evidence of nephro or ureterolithiasis is found. No hydronephrosis or ureteral dilatation is seen. The lung bases are clear. The stomach is unremarkable. It shows no wall thickening. No gross ulceration is seen. It is not overly distended. There are no surrounding inflammatory changes. No wall lesions are identified to suggest cancer. The spleen is unremarkable. It is not enlarged. The pancreas shows normal anatomy. It is not fatty replaced. It shows no lesions. The pancreatic duct is not dilated. The gallbladder is surgically absent. The adrenal glands are unremarkable. There is no enlargement. No lesions are noted. The liver is unremarkable. It shows no focal masses. The appendix is unremarkable. It shows no evidence of inflammation. No appendicolith is seen. The small bowel is unremarkable. There is no evidence of dilatation to suggest obstruction. No evidence of adynamic ileus is seen. There is no small bowel wall thickening to suggest enteritis. Diffuse thickening of the colon wall particularly right hemicolon suggestive of mild nonspecific colitis. The urinary bladder is unremarkable. There is no wall thickening to suggest tumor or inflammation. There are no intraluminal calculi. There are no diverticula. There is no evidence of chronic bladder outlet obstruction. There is no evidence of urinary bladder distention to suggest urinary retention. The other pelvic structures are unremarkable. The bony and vascular structures are unremarkable for the patient's age. IMPRESSION: Mild nonspecific colitis. Status post cholecystectomy. This study was performed using dose reduction techniques to include automated exposure control and/or adjustment of the mA and/or kV according to patient size.
[2024-12-21 16:32] LABS: BASOPHILS # (AUTO) 0.09 K/uL (0.00-0.20); BASOPHILS % (AUTO) 0.6 % (0.0-5.0); EOSINOPHILS # (AUTO) 0.25 K/uL (0.00-0.70); EOSINOPHILS % (AUTO) 1.7 % (0.0-8.0); HEMATOCRIT 38.7 % (36-48); IMMATURE GRANULOCYTE ABSOLUTE 0.08 K/uL (0-1); LYMPHOCYTES # (AUTO) 1.5 K/uL (1.0-4.8); LYMPHOCYTES % (AUTO) 10.6 % (21.0-51.0); MEAN CORPUSCULAR HEMOGLOBIN 32.7 pg (27.0-33.0); MEAN CORPUSCULAR VOLUME 102.1 fL (79-99); MONOCYTES # (AUTO) 1.6 K/uL (0.1-1.0); MONOCYTES % (AUTO) 11.2 % (3.0-13.0); NEUTROPHILS # (AUTO) 10.9 K/uL (1.8-7.7); NEUTROPHILS % (AUTO) 75.3 % (40.0-77.0); PLATELET COUNT (AUTO) 254 K/uL (130-400); RED BLOOD CELL COUNT(AUTO) 3.79 MIL/uL (4.00-5.50); RED CELL DISTRIBUTION WIDTH 13.6 % (11.0-15.5); WHITE BLOOD COUNT (AUTO) 14.4 K/uL (4.8-10.8)
[2024-12-21 16:41] LABS: CREATININE 5.6 mg/dL (0.5-1.0); POTASSIUM 3.7 mmol/L (3.5-5.1)
[2024-12-21 16:41] LABS: APPEARANCE,URINE CLEAR (CLEAR); BILIRUBIN,URINE NEGATIVE (NEGATIVE); COLOR,URINE YELLOW (YELLOW); GLUCOSE, URINE (UA) >=1000 mg/dL (NEGATIVE); KETONES,URINE NEGATIVE (NEGATIVE); LEUKOCYTE ESTERASE ,URINE 25 Leu/uL (NEGATIVE); NITRATE,URINE NEGATIVE (NEGATIVE); PROTEIN,URINE 300 mg/dL (NEGATIVE); UROBILINOGEN,URINE 0.2 mg/dL (0.2-1.0)
[2024-12-21 16:42] LABS: ADD UA MICROSCOPIC YES
[2024-12-21 16:43] LABS: BACTERIA,URINE RARE /HPF (None Seen); MUCUS,URINE RARE LPF (None Seen); NON-SQUAMOUS EPITHELIAL CELL <1 /HPF (0-2); SQUAMOUS EPITHELIAL CELL,UR RARE /HPF (0-2); YEAST,URINE BUDDING FEW /HPF (None Seen)
[2024-12-21] MEDS: ZOSYN 3.375GM +NS 50ML IVPB ONE (17:00)
--- NOTE | 2024-12-21 17:24 | HMCIMG ---
PORTABLE CHEST RADIOGRAPH INDICATION: Evaluate for fluid overload COMPARISON: 10/31/2024 FINDINGS: Heart size is normal. The pulmonary vascularity and ambrosio appear normal. No abnormal pulmonary parenchymal opacity or consolidation identified. No significant pleural effusion noted. No pneumothorax detected. IMPRESSION: No radiographic evidence for any acute cardiopulmonary process.
--- NOTE | 2024-12-21 17:46 | HP ---
[facility] HISTORY & PHYSICAL Date Patient Seen: Dec 21, 2024 Time of Visit: 17:45 Supervising Physician: Dr. Adams Primary Care Physician: Dr. Artur Velasco Outpatient Specialists: Inpatient Consults: PROBLEM LIST: Nonspecific colitis, per CT abdomen and pelvis on 12/21/2024, POA Acute complicated cystitis, POA Leukocytosis, POA Anemia chronic disease End-stage renal disease on hemodialysis Diabetes mellitus with hyperglycemia Chronic problem list: DM, diverticulitis, hypercholesteremia, anemia, hypertension, ESRD, history of ESBL HPI: Ms Woods is an 79-year-old female with history of type 2 diabetes mellitus, hyperlipidemia, hypertension, anxiety disorder, a left arm fistula, and end- stage renal disease on hemodialysis, a recent hospitalization due to diverticulitis with an abscess presented to ED for evaluation of frequent bowel movements over the past two weeks, which have progressively worsened since their onset four weeks ago. The patient reported that she finds herself needing to use the restroom nearly every hour, with stool consistency described as semi- solid. She denied any presence of blood in her stool, as well as symptoms of constipation, nausea, or vomiting. During her previous hospitalization, she received treatment with intravenous antibiotics. The patient is under the care of Dr. Berman, a pain management specialist, for her end-stage renal disease and was due for a dialysis session today, but did not go. CT abdomen and pelvis without contrast: Mild nonspecific colitis. Status post cholecystectomy. Chest x-ray: Negative. ED physician request patient be admitted with the diagnosis of nonspecific colitis, end-stage renal disease on dialysis, leukocytopenia I assessed the patient in ED three. Daughter was at bedside and another daughter was on the phone. Patient's breathing was even, unlabored, appeared comfortable, in no distress. I answered the two daughters multiple questions. They verbalized understanding and are in agreement with the plan. Plan and assessment are listed below. PAST MEDICAL HX: see above PAST SURGICAL HX: Cholecystectomy, Lava to right upper arm, cataracts SOCIAL HISTORY: No tobacco, ETOH, or illicit drug use Coded Allergies: No Known Drug Allergies (Verified Allergy, 10/16/12) REVIEW OF SYSTEMS: 12 point ROS reviewed with patient. Pertinent positives mentioned above. Otherwise negative. PHYSICAL EXAM: GENERAL: Alert, awake oriented x 3 HEENT: EOMI, Sclera non icteric, moist mucosa NECK: Supple, no JVD, trachea midline LUNGS: Clear breath sounds bilaterally. No wheezes HEART: Regular rate and rhythm. Normal S1 and S2, without murmurs ABD: Abdomen soft, obese, nontender. Bowel sounds present EXT: No clubbing cyanosis or edema NEURO: Alert and oriented to x3, follows commands, no neuro deficits noted Vital Signs (last 8hr) Date Time Temp Pulse Resp B/P (MAP) Pulse Ox O2 Delivery O2 Flow Rate FiO2 12/21/24 15:08 99.9 78 20 129/53 98 0 LABS: Hematology Labs: Test 12/21/24 16:10 Range/Units White Blood Count 14.4 H 4.8-10.8 K/uL Red Blood Count 3.79 L 4.00-5.50 MIL/uL Hemoglobin 12.4 12.0-16.0 g/dL Hematocrit 38.7 36-48 % Mean Corpuscular Volume 102.1 H 79-99 fL Mean Corpuscular Hemoglobin 32.7 27.0-33.0 pg Mean Corpuscular Hemoglobin Concent 32.0 32.0-36.0 g/dL Red Cell Distribution Width 13.6 11.0-15.5 % Platelet Count 254 130-400 K/uL Mean Platelet Volume 9.5 7.5-10.5 fL Immature Granulocyte % (Auto) 0.6 0-1 % Neutrophils (%) (Auto) 75.3 40.0-77.0 % Lymphocytes (%) (Auto) 10.6 L 21.0-51.0 % Monocytes (%) (Auto) 11.2 3.0-13.0 % Eosinophils (%) (Auto) 1.7 0.0-8.0 % Basophils (%) (Auto) 0.6 0.0-5.0 % Neutrophils # (Auto) 10.9 H 1.8-7.7 K/uL Lymphocytes # (Auto) 1.5 1.0-4.8 K/uL Monocytes # (Auto) 1.6 H 0.1-1.0 K/uL Eosinophils # (Auto) 0.25 0.00-0.70 K/uL Basophils # (Auto) 0.09 0.00-0.20 K/uL Absolute Immature Granulocyte (auto 0.08 0-1 K/uL Nucleated Red Blood Cells 0.0 0.0-0.19 % Chemistry Labs: Test 12/21/24 16:10 Range/Units Sodium Level 139 136-145 mmol/L Potassium Level 3.7 3.5-5.1 mmol/L Chloride Level 99 L 101-111 mmol/L Carbon Dioxide Level 32 21-32 mmol/L Blood Urea Nitrogen 35 H 7-18 mg/dL Creatinine 5.6 H 0.5-1.0 mg/dL Glomerular Filtration Rate Calc 7 >90 mL/min Random Glucose 117 H 70-105 mg/dL Total Calcium 8.9 8.5-10.1 mg/dL DIAGNOSTICS / RADIOLOGY RESULTS: [ ] PLAN Admit to medical floor. Continue Zosyn 3.375 IV BID per renal dose. Consult Nephrology for hemodialysis. P.r.n. medications for: Pain management, nausea, vomiting, hypertension, fever. Glucometer checks a.c. and HS with insulin regular sliding scale per protocol. Blood pressure checks every4 hours and as needed. Reconcile home medications once available. Monitor renal and liver function. Monitor electrolytes and treat accordingly. A.m. labs: CBC, CMP, Mag, phos, TSH, A1c. GI and DVT prophylaxis. Pending stool for C-diff, cultures. NEURO: Minimize central acting medications as possible. Maintain fall precautions, adequate lighting during the day PULMONARY: Supplemental 02 as needed. Maintain aspiration precautions at all times CARDIOVASCULAR: Follow hemodynamics. Vital signs per facility protocol GI & NUTRITION: Continue with nutritional support. Continue stool softeners and laxatives as needed. KIDNEYS & ELECTROLYTES: Strict monitoring of intake, output and overall fluid balance. Avoid nephrotoxic medications to the extent possible. Medications to be dosed according to renal function. Monitor electrolytes and replace as needed ENDOCRINE: Maintain blood glucose between 100-180 at all times. Hypoglycemia protocol in place INFECTIOUS DISEASE: Trend temperature, WBC and procalcitonin level Follow cultures, deescalate antibiotics as soon as possible. Panculture if new onset fever ONCOLOGY/HEMATOLOGY/COAGULATION: Monitor for s/s of bleeding Monitor hemoglobin, coagulation studies as needed SKIN: Pressure ulcer prevention per facility protocol Specialty mattress ORTHO/REHAB: Continue PT/OT Prophylaxis: Continue GI and DVT prophylaxis Code Status: Full Resuscitation Disposition: ERIC MARTINEZP Dec 21, 2024 17:45
[2024-12-21] MEDS ORDERED: acetaMINOPHEN 650 MG SUPPOSITORY RC PRN (18:00)
[2024-12-21] MEDS ORDERED: RENAL DOSE IV SCH (18:00)
--- NOTE | 2024-12-21 23:16 | NUR ---
ASSUMED PT CARE
[2024-12-21] MEDS: ZOSYN 3.375GM +NS 50ML IVPB SCH (23:26)
[2024-12-21] MEDS: ondanSETRON 4MG INJ IVP PRN (23:27)
[2024-12-21] MEDS: TEMAZepam 15 MG CAPSULE PO PRN (23:27)
[2024-12-21] MEDS: acetaMINOPHEN 325 MG TAB PO PRN (23:27)
[2024-12-22] VITALS (7 sets, daily range): BP systolic 111–158; BP diastolic 31–45; PULSE 58–71; RESP 16–18; TEMP 98.1–98.8; O2SAT 95
[2024-12-22] MEDS: INSULIN humuLIN R 100 UNIT/ML 3ML SQ SCH ×2 (00:04→06:34)
[2024-12-22 05:33] LABS: HEMATOCRIT 32.5 % (36-48); MEAN CORPUSCULAR HEMOGLOBIN 33.4 pg (27.0-33.0); MEAN CORPUSCULAR HGB CONC 32.3 g/dL (32.0-36.0); MEAN CORPUSCULAR VOLUME 103.5 fL (79-99); RED BLOOD CELL COUNT(AUTO) 3.14 MIL/uL (4.00-5.50); RED CELL DISTRIBUTION WIDTH 13.6 % (11.0-15.5); WHITE BLOOD COUNT (AUTO) 10.9 K/uL (4.8-10.8)
[2024-12-22 06:02] LABS: CREATININE 6.1 mg/dL (0.5-1.0); MAGNESIUM 1.9 mg/dL (1.80-2.40); POTASSIUM 3.6 mmol/L (3.5-5.1); THYROID STIMULATING HORMONE 1.29 uIU/mL (0.36-3.74)
[2024-12-22] MEDS ORDERED: doCUSate SODIUM 100 MG CAP PO PRN (06:30)
[2024-12-22] MEDS ORDERED: HYDROcodone/APAP 5/325 1 TAB TABLET PO PRN ×2 (06:30)
[2024-12-22] MEDS ORDERED: hydrALAZine 20MG/ML VIAL IV PRN (06:30)
[2024-12-22] MEDS ORDERED: TEMAZepam 15 MG CAPSULE PO PRN (06:30)
[2024-12-22] MEDS ORDERED: ENOXAPARIN SODIUM 30 MG/0.3 ML SQ SCH (09:00)
--- NOTE | 2024-12-22 10:13 | PN ---
[facility] PROGRESS NOTE Date Patient Seen: Dec 22, 2024 Time of Visit: 10:12 Supervising Physician: [Dr. Chavis] Primary Care Physician: Dr. Artur Velasco Outpatient Specialists: Inpatient Consults: PROBLEM LIST: Nonspecific colitis, per CT abdomen and pelvis on 12/21/2024, POA Acute complicated cystitis, POA Leukocytosis, POA Anemia chronic disease End-stage renal disease on hemodialysis Diabetes mellitus with hyperglycemia Chronic problem list: DM, diverticulitis, hypercholesteremia, anemia, hypertension, ESRD, history of ESBL, hx of cholecystectomy INTERVAL HISTORY: [Patient is evaluated at bedside. She was admitted for treatment of colitis. She currently denies any nausea, vomiting or diarrhea. Per caregiver at bedside, patient did have a soft BM this a.m. No blood in the stool. Her abdomen is soft and nontender with palpation on exam. WBC is improved to 10, UA was positive for leukocyte esterase, urine culture his urine 100 K CFUs, pending final results. Patient continues on Zosyn. She is pending C diff and s tool culture studies. She was recently treated with antibiotics for diverticulitis with abscess but seems to have resolved per repeat CT imaging.] REVIEW OF SYSTEMS: 12 point ROS reviewed with patient. Pertinent positives mentioned above. Otherwise negative. PHYSICAL EXAM: GENERAL: Alert, awake oriented x 3 HEENT: EOMI, Sclera non icteric, moist mucosa NECK: Supple, no JVD, trachea midline LUNGS: Clear breath sounds bilaterally. No wheezes HEART: Regular rate and rhythm. Normal S1 and S2, without murmurs ABD: Abdomen soft, obese, nontender. Bowel sounds present EXT: No clubbing cyanosis or edema NEURO: Alert and oriented to x3, follows commands, no neuro deficits noted Vital Signs (last 8hr) Date Time Temp Pulse Resp B/P (MAP) Pulse Ox O2 Delivery O2 Flow Rate FiO2 12/22/24 08:00 98.8 71 16 158/40 95 Room Air 21 12/22/24 04:00 98.2 58 17 111/38 97 Room Air 12/22/24 02:20 98.1 62 17 140/31 93 Room Air 12/22/24 02:20 Room Air* 0 21 LABS: Hematology Labs: Test 12/22/24 05:17 12/21/24 16:10 Range/Units White Blood Count 10.9 H 4.8-10.8 K/uL Red Blood Count 3.14 L 4.00-5.50 MIL/uL Hemoglobin 10.5 L 12.0-16.0 g/dL Hematocrit 32.5 L 36-48 % Mean Corpuscular Volume 103.5 H 79-99 fL Mean Corpuscular Hemoglobin 33.4 H 27.0-33.0 pg Mean Corpuscular Hemoglobin Concent 32.3 32.0-36.0 g/dL Red Cell Distribution Width 13.6 11.0-15.5 % Platelet Count 233 130-400 K/uL Mean Platelet Volume 9.4 7.5-10.5 fL Nucleated Red Blood Cells 0.0 0.0-0.19 % Immature Granulocyte % (Auto) 0.6 0-1 % Neutrophils (%) (Auto) 75.3 40.0-77.0 % Lymphocytes (%) (Auto) 10.6 L 21.0-51.0 % Monocytes (%) (Auto) 11.2 3.0-13.0 % Eosinophils (%) (Auto) 1.7 0.0-8.0 % Basophils (%) (Auto) 0.6 0.0-5.0 % Neutrophils # (Auto) 10.9 H 1.8-7.7 K/uL Lymphocytes # (Auto) 1.5 1.0-4.8 K/uL Monocytes # (Auto) 1.6 H 0.1-1.0 K/uL Eosinophils # (Auto) 0.25 0.00-0.70 K/uL Basophils # (Auto) 0.09 0.00-0.20 K/uL Absolute Immature Granulocyte (auto 0.08 0-1 K/uL Chemistry Labs: Test 12/22/24 05:37 12/22/24 05:17 12/21/24 16:10 Range/Units Whole Blood Glucose 92 # 70-110 MG/DL Sodium Level 143 136-145 mmol/L Potassium Level 3.6 3.5-5.1 mmol/L Chloride Level 105 101-111 mmol/L Carbon Dioxide Level 30 21-32 mmol/L Blood Urea Nitrogen 44 H 7-18 mg/dL Creatinine 6.1 H 0.5-1.0 mg/dL Glomerular Filtration Rate Calc 6 >90 mL/min Random Glucose 125 H 70-105 mg/dL Total Calcium 8.4 L 8.5-10.1 mg/dL Phosphorus Level 4.0 2.5-4.9 mg/dL Magnesium Level 1.90 1.80-2.40 mg/dL Thyroid Stimulating Hormone (TSH) 1.29 # 0.36-3.74 uIU/mL B-Type Natriuretic Peptide 78 0-100 pg/mL DIAGNOSTICS / RADIOLOGY RESULTS: Findings: No evidence of nephro or ureterolithiasis is found. No hydronephrosis or ureteral dilatation is seen. The lung bases are clear. The stomach is unremarkable. It shows no wall thickening. No gross ulceration is seen. It is not overly distended. There are no surrounding inflammatory changes. No wall lesions are identified to suggest cancer. The spleen is unremarkable. It is not enlarged. The pancreas shows normal anatomy. It is not fatty replaced. It shows no lesions. The pancreatic duct is not dilated. The gallbladder is surgically absent. The adrenal glands are unremarkable. There is no enlargement. No lesions are noted. The liver is unremarkable. It shows no focal masses. The appendix is unremarkable. It shows no evidence of inflammation. No appendicolith is seen. The small bowel is unremarkable. There is no evidence of dilatation to suggest obstruction. No evidence of adynamic ileus is seen. There is no small bowel wall thickening to suggest enteritis. Diffuse thickening of the colon wall particularly right hemicolon suggestive of mild nonspecific colitis. The urinary bladder is unremarkable. There is no wall thickening to suggest tumor or inflammation. There are no intraluminal calculi. There are no diverticula. There is no evidence of chronic bladder outlet obstruction. There is no evidence of urinary bladder distention to suggest urinary retention. The other pelvic structures are unremarkable. The bony and vascular structures are unremarkable for the patient's age. IMPRESSION: Mild nonspecific colitis. Status post cholecystectomy. PLAN Order procal, CMP, lactic acid Continue Zosyn 3.375 IV BID per renal dose. Continue clear liquid/bland diet Consult Nephrology for hemodialysis. P.r.n. medications for: Pain management, nausea, vomiting, hypertension, fever. Glucometer checks a.c. and HS with insulin regular sliding scale per protocol. Blood pressure checks every4 hours and as needed. Reconcile home medications once available. Monitor renal and liver function. Monitor electrolytes and treat accordingly. A.m. labs: CBC, CMP, Mag, phos, TSH, A1c. GI and DVT prophylaxis. Pending stool for C-diff, cultures. NEURO: Minimize central acting medications as possible. Maintain fall precautions, adequate lighting during the day PULMONARY: Supplemental 02 as needed. Maintain aspiration precautions at all times CARDIOVASCULAR: Follow hemodynamics. Vital signs per facility protocol GI & NUTRITION: Continue with nutritional support. Continue stool softeners and laxatives as needed. KIDNEYS & ELECTROLYTES: Strict monitoring of intake, output and overall fluid balance. Avoid nephrotoxic medications to the extent possible. Medications to be dosed according to renal function. Monitor electrolytes and replace as needed ENDOCRINE: Maintain blood glucose between 100-180 at all times. Hypoglycemia protocol in place INFECTIOUS DISEASE: Trend temperature, WBC and procalcitonin level Follow cultures, deescalate antibiotics as soon as possible. Panculture if new onset fever ONCOLOGY/HEMATOLOGY/COAGULATION: Monitor for s/s of bleeding Monitor hemoglobin, coagulation studies as needed SKIN: Pressure ulcer prevention per facility protocol Specialty mattress ORTHO/REHAB: Continue PT/OT Prophylaxis: Continue GI and DVT prophylaxis Code Status: Full Resuscitation Disposition: JULIET MENON Dec 22, 2024 10:12
--- NOTE | 2024-12-22 11:40 | NUR ---
DCP Patient lives with Khushboo Matamoros, daughter [phone], in [address], per Trang See, daughter [phone]. Trang states mother needs help with all her ADL's. States she has a shower chair for the tub, wheelchair, regular walker and bedside commode. Trang See, Daughter [phone] is her provider with [facility] for 34.5 hours. daughter states patient has been accepted for the Waiver Program to build walk in shower. [facility] Thursday, Thursday and Thursday. PCP - José Velasco MD Pharmacy - [address] Daughter states no needs anticipated after discharge. Trang See, daughter [phone] at discharge. Addendum: 12/22/24 at 1148 by MARTHA DOMINGUEZ RN CM Amended: Links added.
[2024-12-22 12:42] LABS: ALBUMIN 2.8 g/dL (3.5-5.0); BILIRUBIN,TOTAL 0.3 mg/dL (0.2-1.0); CREATININE 6.3 mg/dL (0.5-1.0); POTASSIUM 3.5 mmol/L (3.5-5.1)
--- NOTE | 2024-12-22 20:56 | CONS ---
REFERRING PHYSICIAN: Pepe Adams MD REASON FOR CONSULTATION: Colitis, cystitis, ESRD. HISTORY OF PRESENT ILLNESS: The patient is an 79-year-old female with a history of diabetes mellitus and hypertension. She presented to the hospital with complaints of failure to thrive. The patient has been having significant diarrhea as well as some nausea at home. The patient was just recently admitted to the hospital and diagnosed with diverticulitis. In the emergency room, the patient was found to have significant leukocytosis and was started on the antibiotics. The patient also noted to have urinary tract infection. She is being seen in consultation for all of the above. PAST MEDICAL HISTORY: Diabetes mellitus, hypertension, ESRD, diverticular disease. PAST SURGICAL HISTORY: She has an AV access, cholecystectomy. SOCIAL HISTORY: No active tobacco use. FAMILY HISTORY: Positive for ESRD in the family. ALLERGIES: There are no allergies. MEDICATIONS: Noted. REVIEW OF SYSTEMS: GENERAL: She is feeling weak and tired. HEENT: No change in vision. No change in hearing. CARDIOVASCULAR: There is no current chest pain or palpitations. PULMONARY: She denies any shortness of breath. GASTROINTESTINAL: As described above. MUSCULOSKELETAL: Complains of weakness. NEUROLOGIC: No seizures or focal deficits. PSYCHIATRIC: No history of hallucinations or psychosis. ENDOCRINE: Diabetes mellitus. No history of thyroid disease. HEME: History of anemia. No history of malignancy. PHYSICAL EXAMINATION: VITAL SIGNS: Blood pressure 158/40, pulse in the 70s. GENERAL: She is a chronically ill female, elderly, lying in bed in the medical floor. HEENT: Head is atraumatic. Pupils equal, roving to light. Oropharynx is without exudate. Nares clear. NECK: There is no JVP. There is no thyromegaly, no mass. CARDIOVASCULAR: Regular. There is no S3 or S4 gallop. LUNGS: Clear with equal thoracic movement. ABDOMEN: Soft, nontender. She has good bowel sounds. EXTREMITIES: Reveal no clubbing, no cyanosis. NEUROLOGICAL: She is awake. She is alert. She is oriented. SKIN: Reveals no rash or nodules. BACK: There is no CVA tenderness, no back deformities. LABORATORY DATA: Sodium 143, potassium 3.6, BUN 44, creatinine 6, glucose is 176. Hemoglobin 10, hematocrit 32, white cell count is 10,000. CT scan is consistent with colitis. Urine reveals significant pyuria. IMPRESSION: * Gastroenteritis. * Urinary tract infection. * Diabetes mellitus. * Hypertension. * Anemia. PLAN: The patient presented to the hospital with significant colitis. The patient also with evidence of urinary tract infection. She has been started on the broad-spectrum IV antibiotics. The patient's GI symptoms have somewhat improved. Stool for C. diff is pending. The patient can continue dialysis on a Thursday, Thursday, Thursday schedule. She will be started on erythropoietin injections for the anemia. All labs can be repeated in the a.m. The patient and family at the bedside. Multiple questions were all answered. TID: [id number] RECEIPT: [id number]
[2024-12-23] VITALS (23 sets, daily range): BP systolic 110–173; BP diastolic 40–82; PULSE 59–66; RESP 14–19; TEMP 97.7–98.5; O2SAT 96
[2024-12-23 05:31] LABS: BASOPHILS # (AUTO) 0.06 K/uL (0.00-0.20); BASOPHILS % (AUTO) 0.8 % (0.0-5.0); EOSINOPHILS # (AUTO) 0.27 K/uL (0.00-0.70); EOSINOPHILS % (AUTO) 3.6 % (0.0-8.0); HEMATOCRIT 32.3 % (36-48); IMMATURE GRANULOCYTE ABSOLUTE 0.03 K/uL (0-1); LYMPHOCYTES # (AUTO) 1.3 K/uL (1.0-4.8); MEAN CORPUSCULAR HEMOGLOBIN 32.7 pg (27.0-33.0); MEAN CORPUSCULAR HGB CONC 31.9 g/dL (32.0-36.0); MEAN CORPUSCULAR VOLUME 102.5 fL (79-99); MONOCYTES # (AUTO) 0.9 K/uL (0.1-1.0); MONOCYTES % (AUTO) 11.7 % (3.0-13.0); NEUTROPHILS % (AUTO) 66.5 % (40.0-77.0); PLATELET COUNT (AUTO) 243 K/uL (130-400); RED BLOOD CELL COUNT(AUTO) 3.15 MIL/uL (4.00-5.50); RED CELL DISTRIBUTION WIDTH 13.6 % (11.0-15.5); WHITE BLOOD COUNT (AUTO) 7.5 K/uL (4.8-10.8)
[2024-12-23 05:42] LABS: ALBUMIN 2.6 g/dL (3.5-5.0); BILIRUBIN,TOTAL 0.4 mg/dL (0.2-1.0); CREATININE 6.8 mg/dL (0.5-1.0); POTASSIUM 4.1 mmol/L (3.5-5.1); TOTAL PROTEIN, SERUM 5.9 g/dL (6.0-8.3)
--- NOTE | 2024-12-23 09:40 | PN ---
FOLLOWUP PROGRESS NOTE SUBJECTIVE: An 79-year-old female initially presented with failure to thrive. The patient was found to have underlying urinary tract infection. The patient also with underlying gastroenteritis. Cultures growing out Klebsiella species in the urine that is pansensitive. She is feeling much improved and the patient is being seen for all the above. She is scheduled for dialysis. REVIEW OF SYSTEMS: GENERAL: She is feeling weak and tired. HEENT: No change in vision. No change in hearing. CARDIOVASCULAR: No current chest pains or palpitations. PULMONARY: No shortness of breath. GASTROINTESTINAL: She is tolerating diet. MUSCULOSKELETAL: Complains of weakness. PHYSICAL EXAMINATION: VITAL SIGNS: Blood pressure is 145/53, pulse in the 60s. GENERAL: She is a chronically ill female, elderly, lying in bed on medical floor. HEENT: Head is atraumatic. Pupils equal, roving to light. Oropharynx is without exudate. Nares clear. NECK: There is no JVP. There is no thyromegaly, no mass. CARDIOVASCULAR: Regular. There is no S3, S4 gallop. LUNGS: Coarse with equal thoracic movement. ABDOMEN: Soft, nondistended, nontender. EXTREMITIES: No clubbing, no cyanosis. NEUROLOGIC: She is awake. She is alert. LABORATORY DATA: Sodium 140, potassium is 4, BUN 47, creatinine 6.8. Hemoglobin 10.3, hematocrit 32. IMPRESSION: * Urinary tract infection. * Gastroenteritis. * Diabetes mellitus. * Hypertension. PLAN: The patient is feeling much improved. The patient remains on the antibiotics. She is now tolerating a diet without difficulty. The patient will continue with dialysis on a Thursday, Thursday, Thursday schedule. The patient is anxious for discharge. Once the patient is discharged, she will follow up in the dialysis unit. TID: [id number] RECEIPT: [id number]
[2024-12-23] MEDS: 0.9%NACL 1000ML 1,000 ML IV SCH (09:53)
--- NOTE | 2024-12-23 12:00 | NUR ---
Order received and spoke to patient and daughter. Patient had not yet started on dialysis. Informed patient order received for PT eval and treat however patient refused stating she wanted to her dialysis started. PT team to follow.
[2024-12-23] MEDS ORDERED: HEParin 5,000 UNIT VIAL IRRIG ONE (12:30)
[2024-12-23] MEDS ORDERED: LEVO250T75 PO (15:37)
--- NOTE | 2024-12-23 15:37 | DS ---
[facility] DISCHARGE SUMMARY Date Patient Seen: Dec 23, 2024 Time of Visit: 15:37 Supervising Physician: [Dr. Chavis] Primary Care Physician: Dr. Artur Velasco Outpatient Specialists: Inpatient Consults: PROBLEM LIST: Nonspecific colitis, per CT abdomen and pelvis on 12/21/2024, POA Acute complicated cystitis, POA Leukocytosis, POA Anemia chronic disease End-stage renal disease on hemodialysis Diabetes mellitus with hyperglycemia Chronic problem list: DM, diverticulitis, hypercholesteremia, anemia, hypertension, ESRD, history of ESBL, hx of cholecystectomy HOSPITAL COURSE: HPI (per admitting provider) Ms Woods is an 79-year-old female with history of type 2 diabetes mellitus, hyperlipidemia, hypertension, anxiety disorder, a left arm fistula, and end-stag e renal disease on hemodialysis, a recent hospitalization due to diverticulitis with an abscess presented to ED for evaluation of frequent bowel movements over the past two weeks, which have progressively worsened since their onset four weeks ago. The patient reported that she finds herself needing to use the restroom nearly every hour, with stool consistency described as semi-solid. She denied any presence of blood in her stool, as well as symptoms of constipation, nausea, or vomiting. During her previous hospitalization, she received treatment with intravenous antibiotics. The patient is under the care of Dr. 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 She was admitted for treatment of colitis. She currently denies any nausea, vomiting or diarrhea since admission. Per caregiver at bedside, patient did have a soft BM this a.m. No blood in the stool. Her abdomen is soft and nonte nder with palpation on exam. WBC is improved to 10, UA was positive for leukocyte esterase, urine culture his urine 100 K CFUs, pending final results. Patient continues on Zosyn. She is pending C diff and stool culture studies. She was recently treated with antibiotics for diverticulitis with abscess but seems to have resolved per repeat CT imaging. Her C-diff study was cancelled as it did not meet "criteria." Patient states her diarrhea resolved without recurrence. She underwent dialysis treatments while admitted. She was found with klebsiella urine infection and treated with antibiotics. She was discharged home to continue levaquin renally adjusted outpatient and repeat UA with PCP. No abdominal pain, N/V/D upon discharge. All questions answered and concerns addressed. CHRONIC PROBLEMS: continue previous management per PCP unless otherwise indicated DISCHARGE MEDICATIONS: As listed below Pt hemodynamically stable and afebrile at time of discharge. PCP notified of patients admission, hospital course and discharge. New Medications: Levofloxacin (Levofloxacin) 250 Mg Tablet 1 TAB PO QODAY for 5 Days, #5 TAB 0 Refills Continued Medications: Amlodipine Besylate (Amlodipine Besylate) 10 Mg Tablet 1 TAB PO DAILY for 30 Days, #30 TAB 0 Refills Atorvastatin Calcium (Atorvastatin Calcium) 40 Mg Tablet 1 TAB PO HS for 30 Days, #30 TAB 0 Refills Folic Acid/Vitamin B Comp W-C (Shannan-Dia Tablet) 0.8 Mg Tablet 1 TAB PO DAILY for 30 Days, #30 TAB 0 Refills Folic Acid/Vitamin B Comp W-C (Shannan-Dia Tablet) 0.8 Mg Tablet 1 TAB PO DAILY for 30 Days, #30 TAB 0 Refills Gabapentin (Gabapentin) 100 Mg Capsule 100 MG PO HS, CAP Insulin Degludec (Tresiba) 100 Unit/Ml Vial 15 UNITS SQ DAILY, VIAL Discontinued Medications: Amoxicillin/Potassium Clav (Augmentin 500-125 Tablet) 500 Mg-125 Mg Tablet 1 TAB PO BID for 10 Days, #20 TAB 0 Refills Dapagliflozin Propanediol (Farxiga) 10 Mg Tablet 1 TAB PO DAILY for 30 Days, #30 TAB 0 Refills PHYSICAL EXAM: GENERAL: Alert, awake oriented x 3 HEENT: EOMI, Sclera non icteric, moist mucosa NECK: Supple, no JVD, trachea midline LUNGS: Clear breath sounds bilaterally. No wheezes HEART: Regular rate and rhythm. Normal S1 and S2, without murmurs ABD: Abdomen soft, obese, nontender. Bowel sounds present EXT: No clubbing cyanosis or edema NEURO: Alert and oriented to x3, follows commands, no neuro deficits noted FOLLOW-UP: Follow-up with PCP in 2-3 days RECOMMENDATIONS: See Discharge Instructions This case was seen and discussed with my supervising physician. More than 30 minutes spent on discharge process, including evaluation of the patient, discussion with nursing staff, medication reconciliation and follow-up appointments JULIET LORENZO Dec 23, 2024 15:37
[2024-12-23 17:00] LABS: HEPATITIS B CORE AB TOTAL Non-Reactive (Nonreactive); HEPATITIS B SURFACE ANTIBODY Negative (Reactive); HEPATITIS B SURFACE ANTIGEN Non-Reactive (Nonreactive)
--- NOTE | 2024-12-23 17:33 | NUR ---
Discharge Patient been discharge home with Trang Esa, daughter, all discharge instructions given to patient and daughter, all questions answered, no concerns at this time, aware prescription for Levaquin sent electronically to her pharmacy of choice.
[2024-12-24 17:09] LABS: C DIFFICILE TOXIN A/B Detected (Not Detected); ENTEROAGGREGATIVE ECOLI Not Detected (Not Detected); GIARDIA LAMBLIA Not Detected (Not Detected); PLESIOMONAS SHIGELOIDES Not Detected (Not Detected); SAPOVIRUS Not Detected (Not Detected); SHIGELLA/ENTEROINVASIVE E COLI Not Detected (Not Detected); VIBRIO Not Detected (Not Detected); VIBRIO CHOLERAE Not Detected (Not Detected)
== END 2024-12-23 17:45 | disposition home or self-care (01) ==
LOC: EDH 15:01 → EDHIP 17:46 → 4DH 12-22 01:36
PROVIDERS: ADMIT Internal Medicine Critical Care Medicine; ATTEND Internal Medicine Critical Care Medicine
DX: K52.9 Noninfective gastroenteritis and colitis, unspecified (principal); I12.0 Hypertensive chronic kidney disease with stage 5 chronic kidney disease or end stage renal disease; E11.22 Type 2 diabetes mellitus with diabetic chronic kidney disease; E11.65 Type 2 diabetes mellitus with hyperglycemia; D63.1 Anemia in chronic kidney disease; D72.819 Decreased white blood cell count, unspecified; E78.00 Pure hypercholesterolemia, unspecified; F41.9 Anxiety disorder, unspecified; K57.20 Diverticulitis of large intestine with perforation and abscess without bleeding; N18.6 End stage renal disease; N30.00 Acute cystitis without hematuria; Z86.19 Personal history of other infectious and parasitic diseases; Z90.49 Acquired absence of other specified parts of digestive tract; Z99.2 Dependence on renal dialysis; Z79.899 Other long term (current) drug therapy; Z98.890 Other specified postprocedural states
CPT/HCPCS: 96365; 96375; 99284; 80048; 83880; 85025 ×2; 87086 ×2; 87186; 82948 ×8; 81001; 36415 ×3; 71045; 74176; 96366 ×2; 84443; 83735; 84100; 80053 ×2; 85027; 83605; 87507; 84145; 86706; 87340; 86704; J1815 ×4; G0378 ×45; J2405; J2543 ×4; 90935

== ENCOUNTER 2025-01-04 16:50 | Emergency (ER) | payer MEDICARE ==
[~2025-01-04] VITALS: Ht 152.4 cm; Wt 70.8 kg
[~2025-01-04 16:50] MED LIST changes: -AMOX-426 PO; -DAPA10TA PO; +LEVO250T75 PO
[2025-01-04 18:25] LABS: BASOPHILS % (AUTO) 0.8 % (0.0-5.0); EOSINOPHILS # (AUTO) 0.18 K/uL (0.00-0.70); EOSINOPHILS % (AUTO) 1.4 % (0.0-8.0); HEMATOCRIT 36.8 % (36-48); IMMATURE GRANULOCYTE ABSOLUTE 0.06 K/uL (0-1); LYMPHOCYTES # (AUTO) 0.8 K/uL (1.0-4.8); LYMPHOCYTES % (AUTO) 6.2 % (21.0-51.0); MEAN CORPUSCULAR HEMOGLOBIN 32.7 pg (27.0-33.0); MEAN CORPUSCULAR HGB CONC 31.8 g/dL (32.0-36.0); MEAN CORPUSCULAR VOLUME 102.8 fL (79-99); MONOCYTES % (AUTO) 8.1 % (3.0-13.0); NEUTROPHILS # (AUTO) 10.6 K/uL (1.8-7.7); PLATELET COUNT (AUTO) 258 K/uL (130-400); RED BLOOD CELL COUNT(AUTO) 3.58 MIL/uL (4.00-5.50); RED CELL DISTRIBUTION WIDTH 13.2 % (11.0-15.5); WHITE BLOOD COUNT (AUTO) 12.8 K/uL (4.8-10.8)
[2025-01-04 18:40] LABS: CREATININE 2.6 mg/dL (0.5-1.0); POTASSIUM 3.8 mmol/L (3.5-5.1)
[2025-01-04 20:21] LABS: APPEARANCE,URINE CLOUDY (CLEAR); BILIRUBIN,URINE NEGATIVE (NEGATIVE); COLOR,URINE YELLOW (YELLOW); GLUCOSE, URINE (UA) >=1000 mg/dL (NEGATIVE); KETONES,URINE NEGATIVE (NEGATIVE); LEUKOCYTE ESTERASE ,URINE 250 Leu/uL (NEGATIVE); NITRATE,URINE NEGATIVE (NEGATIVE); PH,URINE 6.5 (5.0-8.0); PROTEIN,URINE 300 mg/dL (NEGATIVE); UROBILINOGEN,URINE 0.2 mg/dL (0.2-1.0)
[2025-01-04 20:22] LABS: ADD UA MICROSCOPIC YES
[2025-01-04 20:24] LABS: BACTERIA,URINE RARE /HPF (None Seen); MUCUS,URINE RARE LPF (None Seen); SQUAMOUS EPITHELIAL CELL,UR RARE /HPF (0-2); TRANSITIONAL EPI CELLS,URINE RARE /HPF (None Seen)
[2025-01-04 20:40] VITALS: BP 125/50; PULSE 67; RESP 16; TEMP 97.7; O2SAT 98
[2025-01-04] MEDS ORDERED: MACR100 PO (20:40)
--- NOTE | 2025-01-04 20:41 | ERN ---
General Chief Complaint: Weakness Stated Complaint: GBW AFTER DIALYSIS Time Seen by MD: 17:03 Time Seen by Midlevel: 17:03 Source: patient, EMS History of Present Illness Initial Comments Patient is an 79-year-old female with a past medical history of end-stage renal disease on hemodialysis presenting to the emergency department via EMS for evaluation of generalized body weakness. The patient reports having her dialysis treatment done today when she arrived at home she reports developing generalized body weakness. Her blood pressure was checked and according to family they received a blood pressure of 70 systolic. Upon EMS arrival on scene the patient had a normal blood pressure with a systolic blood pressure of 150s. On arrival the patient reports feeling improved. Allergies: Coded Allergies: No Known Drug Allergies (Verified Allergy, 10/16/12) Home Meds Active Scripts Nitrofurantoin/Nitrofuran Mac (Macrobid) 100 Mg Cap, 1 CAP PO BID for 5 Days, #10 CAP 0 Refills Prov:AKILA NUNES PA 01/04/25 Levofloxacin (Levofloxacin) 250 Mg Tablet, 1 TAB PO QODAY for 5 Days, #5 TAB 0 Refills Prov:JULIET LORENZO PA 12/23/24 Reported Medications Folic Acid/Vitamin B Comp W-C (Shannan-Dia Tablet) 0.8 Mg Tablet, 1 TAB PO DAILY for 30 Days, #30 TAB 0 Refills 12/22/24 Gabapentin (Gabapentin) 100 Mg Capsule, 100 MG PO HS, CAP 10/29/24 Amlodipine Besylate (Amlodipine Besylate) 10 Mg Tablet, 1 TAB PO DAILY for 30 Days, #30 TAB 0 Refills 10/29/24 Atorvastatin Calcium (Atorvastatin Calcium) 40 Mg Tablet, 1 TAB PO HS for 30 Days, #30 TAB 0 Refills 10/29/24 Folic Acid/Vitamin B Comp W-C (Shannan-Dia Tablet) 0.8 Mg Tablet, 1 TAB PO DAILY for 30 Days, #30 TAB 0 Refills 10/29/24 Insulin Degludec (Tresiba) 100 Unit/Ml Vial, 15 UNITS SQ DAILY, VIAL 10/29/24 Past Medical History Past Medical History: Diabetes-Type I, Diabetes-Type II, Diverticulitis, High Cholesterol, Hypertension, Renal Disese, Renal Failure, Other Medical History Other: ESBL Past Surgical History: Cholecystectomy, Other, LAVA Surgical History Other: RIGHT UPPER ARM SX, LAVA, CATARCTS, Family History Family History: Negative Social History Social History: Negative, Lives with family Female( History) History: Not Applicable ROS Dictation CONSTITUTIONAL: Negative except for HPI HEAD/FACE: Negative except for HPI EENT: Negative except for HPI RESPIRATORY: Negative except for HPI GASTROINTESTINAL/ABDOMINAL: Negative except for HPI GENITOURINARY: Negative except for HPI MUSCULOSKELETAL: Negative except for HPI INTEGUMENTARY: Negative except for HPI NEUROLOGICAL/PSYCH: Negative except for HPI HEMATOLOGIC/LYMPHATIC: Negative except for HPI All Systems Negative, Except as noted above. 13 point review of systems assessed and all negative except for above. Physical Exam Physical Exam Dictation Vital Signs reviewed General Appearance: Alert, oriented x 3, no acute distress, well developed, nourished. Head and Face: non-traumatic. Eyes: PERRL, pink conjunctivas, eyelid no trauma, anterior chamber with arcus senilis. Ears: Pinnas intact and no signs of trauma or erythema ear canals clear and no discharge TM no erythema Nose: No discharge, no bleeding. Oropharynx: Mouth normal, tongue pink, pharynx clear,no erythema, tonsils no exudates, no abscesses noted, mucous membrane moist Neck: Supple, non-tender, no thyromegaly, no masses, no JVD, no bruits Breast:Deferred Chest:No tenderness, no crepitus, no paradoxical movement, no retractions Lungs:Clear, well-ventilated, symmetric, no rales, no wheezing, no rhonchi, no stridor, good breath sounds bilaterally Heart: Regular rate, regular rhythm, no murmur, no gallops Vascular: no peripheral edema, Abdomen: Soft, positive bowel sounds, nondistended, no guarding, nontender, no rebound, no masses no hepatomegaly, no splenomegaly, no Voss's sign, no hernias. Rectal: Deferred Genital: Deferred Neurological: Normal speech, motor function intact, sensory function intact Musculoskeletal: Neck nontender, full range of motion, back nontender, full range of motion, Extremities: nontender, full range of motion Skin: Color pink, dry, no turgor, no rash, no lacerations, no abrasions, no contusions. Lymphatic: Deferred Results Laboratory and Microbiology Lab and Micro Result Laboratory Tests Test 01/04/25 17:51 01/04/25 19:24 White Blood Count 12.8 K/uL (4.8-10.8) H Red Blood Count 3.58 MIL/uL (4.00-5.50) L Hemoglobin 11.7 g/dL (12.0-16.0) L Hematocrit 36.8 % (36-48) Mean Corpuscular Volume 102.8 fL (79-99) H Mean Corpuscular Hemoglobin 32.7 pg (27.0-33.0) Mean Corpuscular Hemoglobin Concent 31.8 g/dL (32.0-36.0) L Red Cell Distribution Width 13.2 % (11.0-15.5) Platelet Count 258 K/uL (130-400) Mean Platelet Volume 9.8 fL (7.5-10.5) Immature Granulocyte % (Auto) 0.5 % (0-1) Neutrophils (%) (Auto) 83.0 % (40.0-77.0) H Lymphocytes (%) (Auto) 6.2 % (21.0-51.0) L Monocytes (%) (Auto) 8.1 % (3.0-13.0) Eosinophils (%) (Auto) 1.4 % (0.0-8.0) Basophils (%) (Auto) 0.8 % (0.0-5.0) Neutrophils # (Auto) 10.6 K/uL (1.8-7.7) H Lymphocytes # (Auto) 0.8 K/uL (1.0-4.8) L Monocytes # (Auto) 1.0 K/uL (0.1-1.0) Eosinophils # (Auto) 0.18 K/uL (0.00-0.70) Basophils # (Auto) 0.10 K/uL (0.00-0.20) Absolute Immature Granulocyte (auto 0.06 K/uL (0-1) Nucleated Red Blood Cells 0.0 % (0.0-0.19) White Cell Morphology Comment See comments Sodium Level 138 mmol/L (136-145) Potassium Level 3.8 mmol/L (3.5-5.1) Chloride Level 97 mmol/L (101-111) L Carbon Dioxide Level 36 mmol/L (21-32) H Blood Urea Nitrogen 13 mg/dL (7-18) Creatinine 2.6 mg/dL (0.5-1.0) H Glomerular Filtration Rate Calc 18 mL/min (>90) Random Glucose 295 mg/dL (70-105) H Total Calcium 8.8 mg/dL (8.5-10.1) Urine Color YELLOW (YELLOW) Urine Appearance CLOUDY (CLEAR) H Urine pH 6.5 (5.0-8.0) Urine Specific Bagley 1.018 (1.001-1.031) Urine Protein 300 mg/dL (NEGATIVE) H Urine Glucose (UA) >=1000 mg/dL (NEGATIVE) H Urine Ketones NEGATIVE mg/dL (NEGATIVE) Urine Occult Blood +- (TRACE) (NEGATIVE) H Urine Nitrate NEGATIVE (NEGATIVE) Urine Bilirubin NEGATIVE mg/dL (NEGATIVE) Urine Urobilinogen 0.2 mg/dL (0.2-1.0) Urine Leukocyte Esterase 250 Doroteo/uL (NEGATIVE) H Urine RBC 2-5 /HPF (0-1) H Urine WBC 6-10 /HPF (0-1) H Urine Squamous Epithelial Cells RARE /HPF (0-2) Urine Transitional Epithelial Cells RARE /HPF (None Seen) Urine Bacteria RARE /HPF (None Seen) Labs Reviewed?: Yes MDM MDM: Patient is an 79-year-old female with a past medical history of end-stage renal disease on hemodialysis presenting to the emergency department via EMS for evaluation of generalized body weakness. The patient reports having her dialysis treatment done today when she arrived at home she reports developing generalized body weakness. Her blood pressure was checked and according to family they received a blood pressure of 70 systolic. Upon EMS arrival on scene the patient had a normal blood pressure with a systolic blood pressure of 150s. On arrival the patient reports feeling improved. On physical examination the patient is in no acute respiratory distress. We obtained basic labs which appears to be at baseline. Urinalysis shows small amounts of leuk esterase. We will start on antibiotic and discharged home. Patient was observed in the ER for over 3 hours and has remained stable and asymptomatic. Blood pressure has been stable. Differential diagnosis: Dehydration, electrolyte abnormality, severe anemia, urinary tract infection There are no social concerns with this patient. Prescription drug management Prescriptions will include: Macrobid Medical management and examination interpretation discussions were had by me with other qualified healthcare professionals as indicated for the patient's care. ED Course Orders Procedure Category Date Status Time Cbc With Differential LAB 2/19/25 Complete 17:06 Basic Metabolic Panel LAB 01/04/25 Complete 17:06 Urinalysis Profile LAB 01/04/25 Complete 17:06 Culture Urine BABITA 01/04/25 In Process 20:22 Vital Signs Date Time Temp Pulse Resp B/P (MAP) Pulse Ox O2 Delivery O2 Flow Rate FiO2 01/04/25 19:42 97.9 70 16 127/52 99 Room Air* 0 21 01/04/25 17:46 97.9 70 16 150/72 99 Room Air* 0 21 01/04/25 17:10 97.9 70 16 150/72 99 Room Air 0 DX & DISP Disposition: Discharge Departure Impression: Primary Impression: End stage renal disease on dialysis Additional Impression: UTI (urinary tract infection) Condition: Stable Scripts Nitrofurantoin/Nitrofuran Mac (Macrobid) 100 Mg Cap 1 CAP PO BID for 5 Days, #10 CAP 0 Refills Prov: AKILA NUNES 01/04/25 Referrals: JOSHUA NUNES MD (PCP) I have reviewed the case, and I agree with, Diagnosis and Plan I performed the substantive portion of the visit. I have reviewed and personally made and approve the management plan that is documented in the note by myself or the RONALD. I acknowledge for responsibility for the patient's management plan. AKILA NUNES Jan 04, 2025 20:41
== END 2025-01-04 20:57 | disposition home or self-care (01) ==
LOC: EDH 16:50
DX: I12.0 Hypertensive chronic kidney disease with stage 5 chronic kidney disease or end stage renal disease (principal); E11.22 Type 2 diabetes mellitus with diabetic chronic kidney disease; N18.6 End stage renal disease; N39.0 Urinary tract infection, site not specified; E78.00 Pure hypercholesterolemia, unspecified; Z79.4 Long term (current) use of insulin; Z90.49 Acquired absence of other specified parts of digestive tract; Z99.2 Dependence on renal dialysis
CPT/HCPCS: 36415; 80048; 81001; 85025; 87086; 99283

== ENCOUNTER 2025-02-24 21:08 | Emergency (ER) | payer MEDICARE ==
[~2025-02-24] VITALS: Ht 154.9 cm; Wt 61.2 kg
[~2025-02-24 21:08] MED LIST changes: -LEVO250T75 PO; +LINE600T11 PO; +METO5TAB2 PO; +PANT40TA PO
[2025-02-24 21:10] VITALS: TEMP 99.1
--- NOTE | 2025-02-24 21:46 | ERN ---
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 Patient finished her dialysis session earlier today in the family measured her systolic blood pressure as 60. A repeat blood pressure by manager news was 150 with a heart rate of 83 and room O2 sats 98% family insisted patient come to the [facility] room to be evaluated. Talking with the patient she says she is fine she has no chest pain no shortness of breath no dizziness. Timing/Duration: 1-3 hours Severity: mild Allergies: Coded Allergies: No Known Drug Allergies (Verified Allergy, 10/16/12) Home Meds Active Scripts Pantoprazole Sodium (Protonix) 40 Mg Tablet.dr, 40 MG PO BID for 14 Days, #28 TAB Prov:VICKI CARRENO 01/19/25 Metoclopramide HCl (Metoclopramide HCl) 5 Mg Tablet, 5 MG PO TIDAC for 30 Days, #90 TAB Prov:VICKI CARRENO 01/19/25 Linezolid (Zyvox) 600 Mg Tablet, 600 MG PO Q12H, #14 TAB Prov:VICKI CARRENO 01/19/25 Reported Medications Folic Acid/Vitamin B Comp W-C (Shannan-Dia Tablet) 0.8 Mg Tablet, 1 TAB PO DAILY for 30 Days, #30 TAB 0 Refills 12/22/24 Gabapentin (Gabapentin) 100 Mg Capsule, 100 MG PO HS, CAP 10/29/24 Amlodipine Besylate (Amlodipine Besylate) 10 Mg Tablet, 1 TAB PO DAILY for 30 Days, #30 TAB 0 Refills 10/29/24 Atorvastatin Calcium (Atorvastatin Calcium) 40 Mg Tablet, 1 TAB PO HS for 30 Days, #30 TAB 0 Refills 10/29/24 Folic Acid/Vitamin B Comp W-C (Shannan-Dia Tablet) 0.8 Mg Tablet, 1 TAB PO DAILY for 30 Days, #30 TAB 0 Refills 10/29/24 Insulin Degludec (Tresiba) 100 Unit/Ml Vial, 15 UNITS SQ DAILY, VIAL 10/29/24 Past Medical History Past Medical History: Diabetes-Type II, High Cholesterol, Hypertension, Renal Failure Medical History Other: ESBL Past Surgical History: Hysterectomy, Cholecystectomy, Other Surgical History Other: DIALYSIS FISTULA TO LEFT UPPER ARM; CATARACT SX Family History Family History: Negative Social History Social History: Negative, Lives with family Female( History) History: Not Applicable Constitutional: (-) chills, (-) diaphoresis, (-) fever, (-) malaise, (-) weakness, (-) other documentation EENTM: (-) eye pain, (-) blurred vision, (-) tearing, (-) double vision, (-) ear pain, (-) ear discharge, (-) nose pain, (-) nose congestion, (-) throat pain, (-) Throat swelling, (-) mouth pain, (-) tooth pain, (-) mouth swelling, (-) other documentation Respiratory: (-) cough, (-) orthopnea, (-) short of breath, (-) stridor, (-) wheezing, (-) other documentation Cardiovascular: (-) chest pain, (-) edema, (-) palpitations, (-) syncope, (-) dyspnea on exertion, (-) other documentation Gastrointestinal/Abdominal: (-) nausea, (-) vomiting, (-) diarrhea, (-) abdominal pain, (-) abdominal distention, (-) constipation, (-) rectal bleeding, (-) dark stool/melena, (-) other documentation Neuro: (-) altered mental status, (-) headache, (-) syncope, (-) paralysis, (-) numbness, (-) seizure, (-) pre-existing deficit, (-) tremors, (-) weakness, (-) dizziness, (-) slurred speech, (-) vertigo, (-) other documentation Physical Exam General Appearance: (+) no apparent distress Orientation: (+) alert Head/Face Trauma: No Eye: bilateral eye normal inspection, bilateral eye PERRL, bilateral eye EOMI Ear, Nose, Throat: (+) hearing grossly normal, (+) normal ENT inspection, (+) moist mucous membraine Neck: (+) normal inspection, (+) supple, (+) no JVD Respiratory: (+) chest non-tender, (+) lungs clear, (+) well ventilated Heart: (+) regular, (+) systolic murmur Vascular: (+) no edema Vascular Comment Patient has a strong DP on the left but an absent DP on the right. No signs of arterial insufficiency on the right Gastrointestinal: (+) soft, (+) non-tender, (+) bowel sound present Results Laboratory and Microbiology Lab and Micro Result Laboratory Tests Test 02/24/25 22:25 White Blood Count 7.0 K/uL (4.8-10.8) Red Blood Count 3.79 MIL/uL (4.00-5.50) L Hemoglobin 12.4 g/dL (12.0-16.0) Hematocrit 37.9 % (36-48) Mean Corpuscular Volume 100.0 fL (79-99) H Mean Corpuscular Hemoglobin 32.7 pg (27.0-33.0) Mean Corpuscular Hemoglobin Concent 32.7 g/dL (32.0-36.0) Red Cell Distribution Width 13.3 % (11.0-15.5) Platelet Count 165 K/uL (130-400) Mean Platelet Volume 10.3 fL (7.5-10.5) Nucleated Red Blood Cells 0.0 % (0.0-0.19) MDM Patient admitted based on a single systolic blood pressure measurement of 60 at home. Currently patient feels fine. She had just finished dialysis session today before the isolated systolic hypotension measurement at home. To rule out pathology I will get a quick EKG reading orthostatic hypotension readings and a CBC. Patient's blood pressure measurements I negative for orthostatic hypotension. Patient's EKG is negative for ischemic changes. Patient's CBC is normal except for a high MCV. She can go home. ED Course Orders Procedure Category Date Status Time 12 Lead Ekg Tracing- EKG 02/24/25 Logged Technical 21:46 Orthostatic Vital CPOE 02/24/25 Transmitted Signs 21:46 Cbc Without LAB 02/24/25 Complete Differential 21:46 Vital Signs Date Time Temp Pulse Resp B/P (MAP) Pulse Ox O2 Delivery O2 Flow Rate FiO2 02/24/25 22:13 76 16 168/54 97 Room Air* 0 21 02/24/25 21:10 99.1 82 16 157/61 97 Room Air 0 02/24/25 21:10 99.1 82 16 157/61 97 Room Air* 0 21 DX & DISP Disposition: Discharge Departure Impression: Primary Impression: Hypertension Condition: Stable Additional Instructions: Patient needs to start taking vitamin B12 and folate tablets. Referrals: JOSHUA NUNES MD (PCP) MONET SILVA MD Feb 24, 2025 21:46
[2025-02-24 22:13] VITALS: BP 168/54; PULSE 76; RESP 16; O2SAT 97
[2025-02-24 22:33] LABS: HEMATOCRIT 37.9 % (36-48); MEAN CORPUSCULAR HEMOGLOBIN 32.7 pg (27.0-33.0); MEAN CORPUSCULAR HGB CONC 32.7 g/dL (32.0-36.0); RED BLOOD CELL COUNT(AUTO) 3.79 MIL/uL (4.00-5.50); RED CELL DISTRIBUTION WIDTH 13.3 % (11.0-15.5)
--- NOTE | 2025-02-25 11:25 | EKG ---
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
== END 2025-02-24 23:03 | disposition home or self-care (01) ==
LOC: EDH 21:08
DX: I12.0 Hypertensive chronic kidney disease with stage 5 chronic kidney disease or end stage renal disease (principal); E11.22 Type 2 diabetes mellitus with diabetic chronic kidney disease; N18.6 End stage renal disease; E78.00 Pure hypercholesterolemia, unspecified; Z79.4 Long term (current) use of insulin; Z79.899 Other long term (current) drug therapy; Z90.49 Acquired absence of other specified parts of digestive tract; Z90.710 Acquired absence of both cervix and uterus; Z99.2 Dependence on renal dialysis; Z98.890 Other specified postprocedural states
CPT/HCPCS: 36415; 85027; 93005; 99284

== ENCOUNTER 2025-03-07 09:22 | Emergency (ER) | payer MEDICARE ==
[~2025-03-07] VITALS: Ht 157.5 cm; Wt 54.4 kg
[2025-03-07 09:24] VITALS: TEMP 98.5
--- NOTE | 2025-03-07 09:40 | NUR ---
PT JUST PLACED IN MY ED BED 9
--- NOTE | 2025-03-07 09:59 | NUR ---
URINE WAS COLLECTED, LABELED AND SENT TO LAB
--- NOTE | 2025-03-07 10:05 | NUR ---
PT WAS TAKEN TO CT SCAN
--- NOTE | 2025-03-07 10:08 | NUR ---
PT JUST RETURNED FROM CT SCAN
[2025-03-07 10:10] LABS: BASOPHILS # (AUTO) 0.06 K/uL (0.00-0.20); BASOPHILS % (AUTO) 0.7 % (0.0-5.0); EOSINOPHILS % (AUTO) 1.2 % (0.0-8.0); HEMATOCRIT 34.8 % (36-48); IMMATURE GRANULOCYTE ABSOLUTE 0.03 K/uL (0-1); LYMPHOCYTES # (AUTO) 0.8 K/uL (1.0-4.8); LYMPHOCYTES % (AUTO) 9.5 % (21.0-51.0); MEAN CORPUSCULAR HEMOGLOBIN 32.7 pg (27.0-33.0); MEAN CORPUSCULAR HGB CONC 33.3 g/dL (32.0-36.0); MONOCYTES # (AUTO) 1.2 K/uL (0.1-1.0); MONOCYTES % (AUTO) 14.1 % (3.0-13.0); NEUTROPHILS # (AUTO) 6.3 K/uL (1.8-7.7); NEUTROPHILS % (AUTO) 74.1 % (40.0-77.0); PLATELET COUNT (AUTO) 249 K/uL (130-400); RED BLOOD CELL COUNT(AUTO) 3.55 MIL/uL (4.00-5.50); RED CELL DISTRIBUTION WIDTH 13.1 % (11.0-15.5); WHITE BLOOD COUNT (AUTO) 8.5 K/uL (4.8-10.8)
[2025-03-07 10:13] LABS: APPEARANCE,URINE CLEAR (CLEAR); BILIRUBIN,URINE NEGATIVE (NEGATIVE); COLOR,URINE LIGHT-YELLOW (YELLOW); GLUCOSE, URINE (UA) >=1000 mg/dL (NEGATIVE); KETONES,URINE NEGATIVE (NEGATIVE); LEUKOCYTE ESTERASE ,URINE NEGATIVE Leu/uL (NEGATIVE); MUCUS,URINE RARE LPF (None Seen); NITRATE,URINE NEGATIVE (NEGATIVE); PH,URINE 7.5 (5.0-8.0); PROTEIN,URINE 300 mg/dL (NEGATIVE); RBC,URINE 0-1 /HPF (0-1); SQUAMOUS EPITHELIAL CELL,UR FEW /HPF (0-2); UROBILINOGEN,URINE 0.2 mg/dL (0.2-1.0)
--- NOTE | 2025-03-07 10:21 | HMCIMG ---
Exam Type: CT ABDOMEN/PELVIS W/O CONTRAST Clinical Information: lower back pain/ right flank pain Comparison: None CT Dose Index (CTDI): 10.20 mGy Dose Length Product (DLP): 530.00 total mGy-cm PROTOCOL: Routine noncontrast helical scanning of the abdomen and pelvis was performed at 5mm collimation. Findings: No evidence of nephro or ureterolithiasis is found. No hydronephrosis or ureteral dilatation is seen. The lung bases are clear. The stomach is unremarkable. It shows no wall thickening. No gross ulceration is seen. It is not overly distended. There are no surrounding inflammatory changes. No wall lesions are identified to suggest cancer. The spleen is unremarkable. It is not enlarged. The pancreas shows normal anatomy. It is not fatty replaced. It shows no lesions. The pancreatic duct is not dilated. The gallbladder is surgically absent. The adrenal glands are unremarkable. There is no enlargement. No lesions are noted. The liver is unremarkable. It shows no focal masses. The appendix is unremarkable. It shows no evidence of inflammation. No appendicolith is seen. The small bowel is unremarkable. There is no evidence of dilatation to suggest obstruction. No evidence of adynamic ileus is seen. There is no small bowel wall thickening to suggest enteritis. The colon is unremarkable. The urinary bladder is unremarkable. There is no wall thickening to suggest tumor or inflammation. There are no intraluminal calculi. There are no diverticula. There is no evidence of chronic bladder outlet obstruction. There is no evidence of urinary bladder distention to suggest urinary retention. The other pelvic structures are unremarkable. The bony and vascular structures are unremarkable for the patient's age. IMPRESSION: NEGATIVE CT SCAN OF THE ABDOMEN AND PELVIS except for evidence of prior cholecystectomy. NO RENAL STONES. NO ACUTE PATHOLOGY OR INFLAMMATION SEEN. This study was performed using dose reduction techniques to include automated exposure control and/or adjustment of the mA and/or kV according to patient size.
[2025-03-07 10:25] LABS: CREATININE 3.9 mg/dL (0.5-1.0); POTASSIUM 3.7 mmol/L (3.5-5.1)
--- NOTE | 2025-03-07 10:38 | ERN ---
General Chief Complaint: Multiple Complaints Stated Complaint: MULTIPLE COMPLAINTS Time Seen by MD: 09:25 Source: patient History of Present Illness Initial Comments PATIENT IS AN 80-YEAR-OLD FEMALE COMING IN TO COMPLAINING OF RIGHT FLANK PAIN. PER PATIENT THIS PAIN BEGAN A COUPLE OF DAYS AGO. SHE STATES THAT THE PAIN IS LOCALIZED TO THE RIGHT FLANK AND RADIATES TO HER LOWER BACK REGION. NO FEVER NO CHILLS. SHE WAS A DIALYSIS PATIENT. Allergies: Coded Allergies: No Known Drug Allergies (Verified Allergy, 10/16/12) Home Meds Active Scripts Pantoprazole Sodium (Protonix) 40 Mg Tablet.dr, 40 MG PO BID for 14 Days, #28 TAB Prov:VICKI CARRENO 01/19/25 Metoclopramide HCl (Metoclopramide HCl) 5 Mg Tablet, 5 MG PO TIDAC for 30 Days, #90 TAB Prov:VICKI CARRENO 01/19/25 Linezolid (Zyvox) 600 Mg Tablet, 600 MG PO Q12H, #14 TAB Prov:VICKI CARRENO 01/19/25 Reported Medications Folic Acid/Vitamin B Comp W-C (Shannan-Dia Tablet) 0.8 Mg Tablet, 1 TAB PO DAILY for 30 Days, #30 TAB 0 Refills 12/22/24 Gabapentin (Gabapentin) 100 Mg Capsule, 100 MG PO HS, CAP 10/29/24 Amlodipine Besylate (Amlodipine Besylate) 10 Mg Tablet, 1 TAB PO DAILY for 30 Days, #30 TAB 0 Refills 10/29/24 Atorvastatin Calcium (Atorvastatin Calcium) 40 Mg Tablet, 1 TAB PO HS for 30 Days, #30 TAB 0 Refills 10/29/24 Folic Acid/Vitamin B Comp W-C (Shannan-Dia Tablet) 0.8 Mg Tablet, 1 TAB PO DAILY for 30 Days, #30 TAB 0 Refills 10/29/24 Insulin Degludec (Tresiba) 100 Unit/Ml Vial, 15 UNITS SQ DAILY, VIAL 10/29/24 Past Medical History Past Medical History: Diabetes-Type II, High Cholesterol, Hypertension Medical History Other: ESBL Past Surgical History: LAVA Surgical History Other: 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 HEAD/FACE: NO SIGNS OF TRAUMA. EENT: NO EYE PAIN, NO BLURRED VISION, NO TEARING, NO DOUBLE VISION, NO EAR PAIN, NO EAR DISCHARGE, NO NOSE PAIN, NO NASAL CONGESTION, NO THROAT PAIN, NO THROAT SWELLING, NO MOUTH PAIN. RESPIRATORY: NO COUGH, NO ORTHOPNEA, NO SOB, NO STRIDOR, NO WHEEZING. CARDIOVASCULAR: NO CHEST PAIN, NO EDEMA, NO PALPITATIONS, NO SYNCOPE. GASTROINTESTINAL/ABDOMINAL: NO ABDOMINAL PAIN, NO CONSTIPATION, NO DIARRHEA, NO NAUSEA, NO VOMITING. GENITOURINARY: NO ABNORMAL DISCHARGE, NO DYSURIA, NO FREQUENT URINATION, NO HEMATURIA. NO COMPLAINTS OF PAIN IN THE GENITALS. MUSCULOSKELETAL: NO BACK PAIN, NO GOUT, NO JOINT PAIN, NO JOINT SWELLING, NO MUSCLE PAIN, NO MUSCLE STIFFNESS, NO NECK PAIN. INTEGUMENTARY: NO CHANGE IN COLOR, NO CHANGE IN HAIR/NAILS, NO DRYNESS, NO LESION, NO LUMPS, NO RASH. NEUROLOGICAL/PSYCH: NO ANXIETY, NOT DEPRESSED, NO EMOTIONAL PROBLEM, NO HEADACHE, NO NUMBNESS, NO PRE-EXISTING DEFICIT, NO HISTORY OF SEIZURES, NO TREMORS, NO WEAKNESS. HEMATOLOGIC/LYMPHATIC: NOT ANEMIC, NO HISTORY OF BLOOD CLOTS, NO APPARENT BLEEDING, NO BRUISING, GLANDS NOT SWOLLEN. ALL SYSTEMS NEGATIVE, EXCEPT NOTED. Physical Exam Physical Exam Dictation VITAL SIGNS: REVIEWED. GENERAL APPEARANCE: ALERT, ORIENTED X3, NO ACUTE DISTRESS, OBESE. HEAD AND FACE: NON-TRAUMATIC. EYES: PERRL, PINK CONJUNCTIVAS, EYELID NO TRAUMA, ANTERIOR CHAMBER CLEAR. EARS: PINNAS INTACT AND NO SIGNS OF TRAUMA OR ERYTHEMA. EAR CANALS CLEAR AND NO DISCHARGE. TMS NO ERYTHEMA. NOSE: NO DISCHARGE, NO BLEEDING. OROPHARYNX: MOUTH NORMAL, TEETH NO CARIES, TONGUE PINK. PHARYNX CLEAR, NO ERYTHEMA. TONSILS NO EXUDATES, NO ABSCESSES NOTED. MUCOUS MEMBRANE MOIST. NECK: SUPPLE, NON-TENDER, NO THYROMEGALY, NO MASSES, NO JVD, NO BRUITS. BREAST: DEFERRED. CHEST: NO TENDERNESS, NO CREPITUS, NO PARADOXICAL MOVEMENT, NO RETRACTIONS. LUNGS: CLEAR, WELL-VENTILATED, SYMMETRIC, NO RALES, NO WHEEZING, NO RHONCHI, NO STRIDOR, GOOD BREATH SOUNDS BILATERALLY. HEART: REGULAR RATE, REGULAR RHYTHM, NO MURMUR, NO GALLOPS. VASCULAR: NO PERIPHERAL EDEMA. ABDOMEN: SOFT, POSITIVE BOWEL SOUNDS, NONDISTENDED, NO GUARDING, NONTENDER, NO REBOUND, NO MASSES NO HEPATOMEGALY, NO SPLENOMEGALY, NO CAMPO'S SIGN, NO HERNIAS. RECTAL: DEFERRED. GENITAL: DEFERRED. NEUROLOGICAL: NORMAL SPEECH, GROSS MOTOR FUNCTION INTACT, GROSS SENSORY FUNCTION INTACT. MUSCULOSKELETAL: NECK NONTENDER, FULL RANGE OF MOTION, BACK NONTENDER, FULL RANGE OF MOTION. EXTREMITIES: NONTENDER, FULL RANGE OF MOTION. SKIN: COLOR PINK, DRY, NO TURGOR, NO RASH, NO LACERATIONS, NO ABRASIONS, NO CONTUSIONS. LYMPHATICS: DEFERRED. Results Laboratory and Microbiology Lab and Micro Result Laboratory Tests Test 03/07/25 09:55 03/07/25 10:01 Urine Color LIGHT-YELLOW (YELLOW) Urine Appearance CLEAR (CLEAR) Urine pH 7.5 (5.0-8.0) Urine Specific [place] 1.016 (1.001-1.031) Urine Protein 300 mg/dL (NEGATIVE) H Urine Glucose (UA) >=1000 mg/dL (NEGATIVE) H Urine Ketones NEGATIVE mg/dL (NEGATIVE) Urine Occult Blood +- (TRACE) (NEGATIVE) H Urine Nitrate NEGATIVE (NEGATIVE) Urine Bilirubin NEGATIVE mg/dL (NEGATIVE) Urine Urobilinogen 0.2 mg/dL (0.2-1.0) Urine Leukocyte Esterase NEGATIVE [place]/uL Urine RBC 0-1 /HPF (0-1) Urine WBC 6-10 /HPF (0-1) H Urine Squamous Epithelial Cells FEW /HPF (0-2) Urine Bacteria None /HPF (None Seen) White Blood Count 8.5 K/uL (4.8-10.8) Red Blood Count 3.55 MIL/uL (4.00-5.50) L Hemoglobin 11.6 g/dL (12.0-16.0) L Hematocrit 34.8 % (36-48) L Mean Corpuscular Volume 98.0 fL (79-99) Mean Corpuscular Hemoglobin 32.7 pg (27.0-33.0) Mean Corpuscular Hemoglobin Concent 33.3 g/dL (32.0-36.0) Red Cell Distribution Width 13.1 % (11.0-15.5) Platelet Count 249 K/uL (130-400) Mean Platelet Volume 9.7 fL (7.5-10.5) Immature Granulocyte % (Auto) 0.4 % (0-1) Neutrophils (%) (Auto) 74.1 % (40.0-77.0) Lymphocytes (%) (Auto) 9.5 % (21.0-51.0) L Monocytes (%) (Auto) 14.1 % (3.0-13.0) H Eosinophils (%) (Auto) 1.2 % (0.0-8.0) Basophils (%) (Auto) 0.7 % (0.0-5.0) Neutrophils # (Auto) 6.3 K/uL (1.8-7.7) Lymphocytes # (Auto) 0.8 K/uL (1.0-4.8) L Monocytes # (Auto) 1.2 K/uL (0.1-1.0) H Eosinophils # (Auto) 0.10 K/uL (0.00-0.70) Basophils # (Auto) 0.06 K/uL (0.00-0.20) Absolute Immature Granulocyte (auto 0.03 K/uL (0-1) Nucleated Red Blood Cells 0.0 % (0.0-0.19) Sodium Level 140 mmol/L (136-145) Potassium Level 3.7 mmol/L (3.5-5.1) Chloride Level 99 mmol/L (101-111) L Carbon Dioxide Level 32 mmol/L (21-32) Blood Urea Nitrogen 21 mg/dL (7-18) H Creatinine 3.9 mg/dL (0.5-1.0) H Glomerular Filtration Rate Calc 11 mL/min (>90) Random Glucose 192 mg/dL (70-105) H Total Calcium 8.4 mg/dL (8.5-10.1) L Labs Reviewed?: Yes EKG/XRAY/US/CT/MRI CT Scan Comment [place] [id number] [id number] IMAGING REPORT Signed PATIENT: PREET DUKES MR#: [id number] : 1945 SEX: F AGE: 80 LOCATION: [facility] ORDER 6 STATUS: REG ER REPORT#: [id number] SERVICE 5 REASON: lower back pain/ right flank pain ORDERING PHYSICIAN: CASS WANG MD PROCEDURE: ABD PEL WO - CT ABDOMEN/PELVIS W/O CONTRAST Exam Type: CT ABDOMEN/PELVIS W/O CONTRAST Clinical Information: lower back pain/ right flank pain Comparison: None CT Dose Index (CTDI): 10.20 mGy Dose Length Product (DLP): 530.00 total mGy-cm PROTOCOL: Routine noncontrast helical scanning of the abdomen and pelvis was performed at 5mm collimation. Findings: No evidence of nephro or ureterolithiasis is found. No hydronephrosis or ureteral dilatation is seen. The lung bases are clear. The stomach is unremarkable. It shows no wall thickening. No gross ulceration is seen. It is not overly distended. There are no surrounding inflammatory changes. No wall lesions are identified to suggest cancer. The spleen is unremarkable. It is not enlarged. The pancreas shows normal anatomy. It is not fatty replaced. It shows no lesions. The pancreatic duct is not dilated. The gallbladder is surgically absent. The adrenal glands are unremarkable. There is no enlargement. No lesions are noted. The liver is unremarkable. It shows no focal masses. The appendix is unremarkable. It shows no evidence of inflammation. No appendicolith is seen. The small bowel is unremarkable. There is no evidence of dilatation to suggest obstruction. No evidence of adynamic ileus is seen. There is no small bowel wall thickening to suggest enteritis. The colon is unremarkable. The urinary bladder is unremarkable. There is no wall thickening to suggest tumor or inflammation. There are no intraluminal calculi. There are no diverticula. There is no evidence of chronic bladder outlet obstruction. There is no evidence of urinary bladder distention to suggest urinary retention. The other pelvic structures are unremarkable. The bony and vascular structures are unremarkable for the patient's age. IMPRESSION: NEGATIVE CT SCAN OF THE ABDOMEN AND PELVIS except for evidence of prior cholecystectomy. NO RENAL STONES. NO ACUTE PATHOLOGY OR INFLAMMATION SEEN. This study was performed using dose reduction techniques to include automated exposure control and/or adjustment of the mA and/or kV according to patient size. DICTATED BY: TANNA HORTA MD DATE: 03/07/25 1017 ELECTRONICALLY SIGNED BY: TANNA HORTA MD DATE: 03/07/25 1021 MDM MDM: DIFFERENTIAL DIAGNOSIS: RIGHT FLANK PAIN, NEPHROLITHIASIS, UTI, CONSTIPATION, RATIONALE: TESTS CONSIDERED AND ORDERED SECONDARY TO SHARED DECISION MAKING INCLUDE: PREVIOUS OUTSIDE RECORDS REVIEWED: OLD ER VISITS. PATIENT IS A AN 80-YEAR-OLD FEMALE COMING IN TO BE EVALUATED FOR RIGHT FLANK PAIN. CT DID NOT DISCLOSE ACUTE FINDINGS. LABORATORY WORKUP SHOWS ELEVATED CREATININE BUT SHE DOES HAVE A HISTORY OF END-STAGE RENAL DISEASE ON DIALYSIS. REST OF THE LABORATORY NEGATIVE FOR ACUTE FINDINGS. PATIENT WILL BE DISCHARGED WITH DIAGNOSIS OF LUMBAR STRAIN AND CONSTIPATION. ED Course Orders Procedure Category Date Status Time Cbc With Differential LAB 03/07/25 In Process 09: Basic Metabolic Panel LAB 03/07/25 Complete : Urinalysis LAB 03/07/25 Complete W/Microscopic : Ct Abdomen/Pelvis W/O CT 03/07/25 Resulted Contrast : Culture Urine BABITA 03/07/25 Logged 10:15 Vital Signs Date Time Temp Pulse Resp B/P (MAP) Pulse Ox O2 Delivery O2 Flow Rate FiO2 03/07/25 09:24 98.4 70 16 170/55 98 Room Air 0 DX & DISP Disposition: Discharge Departure Impression: Primary Impression: End stage renal disease on dialysis Additional Impressions: Constipation, Lumbar strain Condition: Stable Scripts Lidocaine (Lidocaine Pain Relief) 4 % Adh..patch 1 PATCH TP DAILY for 7 Days, #7 PATCH 0 Refills Prov: CASS WANG MD 03/07/25 Lactulose (Lactulose) 10 Gram/15 Ml Solution 30 ML PO BID for constipation, #500 ML 0 Refills Prov: CASS WANG MD 03/07/25 Additional Instructions: FOLLOW-UP WITH PRIMARY CARE PROVIDER IN 1 TO 2 DAYS. TAKE MEDICATIONS DIRECTED HERE IN THE EMERGENCY ROOM. OKAY TO CONTINUE HOME MEDICATIONS UNLESS OTHERWISE DISCUSSED DURING YOUR VISIT IN THE EMERGENCY ROOM TODAY. RETURN TO YOUR NEAREST EMERGENCY ROOM IF SYMPTOMS WORSEN OR IF THERE IS NO IMPROVEMENT. CALL 911 IF YOU NEED IMMEDIATE ASSISTANCE. TAKE TYLENOL [id number] NEEDED AND IF NO CONTRAINDICATIONS ARE PRESENT. INCREASE ORAL HYDRATION. A WOUND CULTURE OR URINE CULTURE WAS ORDERED HERE IN THE EMERGENCY ROOM DEPARTMENT PLEASE FOLLOW-UP WITH PRIMARY CARE PROVIDER AND ADVISE THEM TO GET REPEAT PORTS FROM OUR FACILITY. IF YOU HAD ANY RAINA WRAP/SPLINTS THAT WERE APPLIED HERE, PLEASE DO NOT REMOVE THEM UNTIL YOU SEE YOUR PRIMARY CARE OR SPECIALTY. REFERRALS: Referrals: JOSHUA NUNES MD (PCP) Time of Disposition: 10:44 CASS WANG MD Mar 07, 2025 10:38
[2025-03-07] MEDS ORDERED: LIDO1ADH71 TP (10:45)
[2025-03-07] MEDS ORDERED: LACT10SO85 PO (10:45)
[2025-03-07] MEDS: ORPHENADRINE 60MG/2ML IM ONE (10:53)
[2025-03-07 11:14] VITALS: BP 164/57; PULSE 71; RESP 17; O2SAT 98
[2025-03-11] MEDS ORDERED: DAPA10TA PO (15:15)
== END 2025-03-07 11:00 | disposition home or self-care (01) ==
LOC: EDH 09:22
DX: S39.012A Strain of muscle, fascia and tendon of lower back, initial encounter (principal); K59.00 Constipation, unspecified; I12.0 Hypertensive chronic kidney disease with stage 5 chronic kidney disease or end stage renal disease; E11.22 Type 2 diabetes mellitus with diabetic chronic kidney disease; N18.6 End stage renal disease; E78.00 Pure hypercholesterolemia, unspecified; Z79.4 Long term (current) use of insulin; Z79.899 Other long term (current) drug therapy; Z99.2 Dependence on renal dialysis; X58.XXXA Exposure to other specified factors, initial encounter; Y93.89 Activity, other specified; Y92.89 Other specified places as the place of occurrence of the external cause; Y99.8 Other external cause status
CPT/HCPCS: 36415; 74176; 80048; 81001; 85025; 87086; 87186; 96372; 99285; J2360

== ENCOUNTER 2025-06-03 22:16 | Emergency (ER) | payer MEDICARE, MEDICAID ==
[~2025-06-03] VITALS: Ht 157.5 cm; Wt 55.3 kg
[~2025-06-03 22:16] MED LIST changes: +AMLO-257 PO; -AMLO-258 PO; -ATOR40TA71 PO; +DAPA10TA PO; -GABA-529 PO; +LEVO-70 PO; -LINE600T11 PO; -METO5TAB2 PO; +METR-172 PO; -PANT40TA PO; +PANT40TA55 PO
[2025-06-03] MEDS: HYDROcodone/APAP 5/325 1 TAB TABLET PO ONE (23:09)
[2025-06-04 00:09] LABS: APPEARANCE,URINE CLEAR (CLEAR); GLUCOSE, URINE (UA) >=1000 mg/dL (NEGATIVE); LEUKOCYTE ESTERASE ,URINE 25 Leu/uL (NEGATIVE); NITRATE,URINE NEGATIVE (NEGATIVE); OCCULT BLOOD,URINE +- (TRACE) (NEGATIVE)
[2025-06-04 00:18] LABS: ADD UA MICROSCOPIC YES
[2025-06-04 00:19] LABS: SQUAMOUS EPITHELIAL CELL,UR RARE /HPF (0-2)
--- NOTE | 2025-06-04 00:33 | HMCIMG ---
EXAM: CT Pelvis without IV contrast. CLINICAL HISTORY: Pain. TECHNIQUE: Thin collimated axial CT images of the abdomen and pelvis were obtained with sagittal and coronal reformatted images also submitted. CT scan done according to ALARA (As Low As Reasonably Achievable). CONTRAST: None. COMPARISON: CT abdomen and pelvis with contrast dated 03/11/25. FINDINGS: The visualized bowel loops are normal in caliber without evidence of obstruction or ileus. The appendix is normal. Mild circumferential thickening of the urinary bladder wall measuring up to 5 mm. Status post hysterectomy and bilateral salpingo-oophorectomy. Multiple tiny phleboliths in the pelvis. Moderate calcific atheromatous changes in the abdominal aorta. No significant lymphadenopathy. No free fluid. There is no acute osseous abnormality. Moderate degenerative osseous changes. IMPRESSION: 1. Mild stable circumferential urinary bladder wall thickening, likely chronic cystitis. 2. Status post hysterectomy and bilateral salpingo-oophorectomy. No gross interval changes, within the limitations of cross technique correlation. /[place]
--- NOTE | 2025-06-04 00:36 | HMCIMG ---
EXAM: CT Lumbar Spine Without IV Contrast CLINICAL HISTORY: Pain. TECHNIQUE: Spiral axial CT images through the lumbar spine were acquired, reconstructed in axial and sagittal projections and imaged using soft tissue and bone algorithms. Reformatted/MPR images were performed. CT scan is done according to ALARA (As Low as Reasonably Achievable). CONTRAST: None. COMPARISON: None provided. FINDINGS: Acute compression fracture around the superior endplate of L4 vertebral body with about 10% to 50% vertebral body height reduction. The remaining vertebral body heights are maintained. Mild osteopenia. Mild to moderate spondylosis is evident by marginal osteophytes and facet arthropathy at multiple levels. Mild degenerative disc disease, anterior thecal sac indentation, and neuroforaminal narrowing at multiple levels, most pronounced at L4-L5. No spinal canal stenosis. Atherosclerotic vascular calcification is evident. Mild diffuse fatty atrophy of the posterior paraspinal muscles. IMPRESSIONS: Acute compression fracture around the superior endplate of L4 vertebral body with about 10% to 50% vertebral body height reduction. Mild osteopenia. Mild to moderate spondylosis and degenerative disc disease, most pronounced at L4-L5. /[place]
--- NOTE | 2025-06-04 01:34 | ERN ---
ED Note History of Present Illness Stated Complaint: LOW BACK PAIN Chief Complaint: Back Pain-No Injury Time Seen by MD: 22:46 Time Seen by Midlevel: 22:46 Dictation: The patient is an 80-year-old female with a history of ESRD on dialysis Thursday, hypertension, diabetes, hysterectomy who presents to the emergency department with lower back pain and bilateral hip pain onset 5:00 a.m.. Patient denies any falls or traumas. Patient denies any urinary or fecal incontinence. Denies any saddle paresthesia. Patient denies any shortness of breath, chest pain, nausea vomiting or diarrhea. No other complaints reported. Allergies: Coded Allergies: No Known Drug Allergies (Verified Allergy, 10/16/12) Home Meds Active Scripts Metronidazole (Metronidazole) 500 Mg Tablet, 1 TAB PO TID for 7 Days, #14 TAB 0 Refills Prov:CHARLEE RICKETTS 03/12/25 Levofloxacin (Levofloxacin) 500 Mg Tablet, 1 TAB PO Every two days for 10 Days, #5 TAB 0 Refills Prov:CHARLEE RICKETTS 03/12/25 Reported Medications Amlodipine Besylate (Amlodipine Besylate) 5 Mg Tablet, 1 TAB PO DAILY for 30 Days, #30 TAB 0 Refills 03/13/25 Pantoprazole Sodium (Protonix) 40 Mg Ectab, 1 TAB PO DAILY for 30 Days, #30 TAB 0 Refills 03/13/25 Folic Acid/Vitamin B Comp W-C (Shannan-Dia Tablet) 0.8 Mg Tablet, 1 TAB PO DAILY for 30 Days, #30 TAB 0 Refills 03/11/25 Dapagliflozin Propanediol (Farxiga) 10 Mg Tablet, 1 TAB PO DAILY 03/11/25 Insulin Degludec (Tresiba) 100 Unit/Ml Vial, 15 UNITS SQ DAILY, VIAL 10/29/24 Past Medical History Past Medical History: Diabetes-Type II, High Cholesterol, Hypertension, Renal Disese, Renal Failure, UTI Additional Past Medical Hx: ESBL Surgical History: Hysterectomy, , LAVA Surgical History Other: DIALYSIS FISTULA TO LEFT UPPER ARM; CATARACT SX, RT ARM Family History: Negative Social History: Negative, Lives with family History: Not Applicable RN Note Reviewed/Agreed w/PFSH: Yes Review of System Dictation Constitutional: Negative for fever,chills, and weight loss Eyes: Negative for injury, pain,redness, and discharge ENT: Negative for injury,pain or swelling Cardiovascular: Negative for chest pain, palpitations, and edema Respiratory: Negative for shortness of breath, cough, and wheezing, Abdomen/GI: Negative for abdominal pain, nausea, vomiting, diarrhea, and constipation Back: Negative for injury and pain : Negative for injury, bleeding and discharge MS/Extremity: Positive for low back pain Skin: Negative for rash, and discoloration Neuro: Negative for headache, weakness, numbness, tingling, and seizure Psych: Negative for suicide ideation, homicidal ideation, and hallucinations Initial Vital Sign VS Vital Signs Date Time Temp Pulse Resp B/P (MAP) Pulse Ox O2 Delivery O2 Flow Rate FiO2 06/03/25 22:17 99.0 81 16 179/57 97 Room Air Physical Exam Dictation Vital Signs reviewed General Appearance: Alert, oriented x 3, no acute distress, well developed, nourished. Head and Face: non-traumatic. Eyes: PERRL, pink conjunctivas, eyelid no trauma, anterior chamber with arcus senilis. Ears: Pinnas intact and no signs of trauma or erythema ear canals clear and no discharge TM no erythema Nose: No discharge, no bleeding. Oropharynx: Mouth normal, tongue pink. pharynx clear,no erythema, tonsils no exudates, no abscesses noted, mucous membrane moist Neck: Supple, non-tender, no thyromegaly, no masses, no JVD, no bruits Breast:Deferred Chest:No tenderness, no crepitus, no paradoxical movement, no retractions Lungs:Clear, well-ventilated, symmetric, no rales, no wheezing, no rhonchi, no stridor, good breath sounds bilaterally Heart: Regular rate, regular rhythm, no murmur, no gallops Vascular: no peripheral edema, dorsalis pedis 2+ bilaterally Abdomen: Soft, positive bowel sounds, nondistended, no guarding, nontender, no rebound, no masses no hepatomegaly, no splenomegaly, no Voss's sign, no hernias. Rectal: Deferred Genital: Deferred Neurological: Normal speech, motor function intact, sensory function intact Musculoskeletal: Neck nontender, full range of motion, tenderness to low back, no open wounds, full range of motion, Extremities: nontender, full range of motion Skin: Color pink, dry, no turgor, no rash, no lacerations, no abrasions, no contusions. Lymphatic: Deferred Results (Laboratory/Radiology) Laboratory/Radiology Laboratory Tests Test 06/03/25 23:53 Urine Color LIGHT-YELLOW (YELLOW) Urine Appearance CLEAR (CLEAR) Urine pH 7.0 (5.0-8.0) Urine Specific [place] 1.012 (1.001-1.031) Urine Protein 200 mg/dL (NEGATIVE) H Urine Glucose (UA) >=1000 mg/dL (NEGATIVE) H Urine Ketones NEGATIVE mg/dL (NEGATIVE) Urine Occult Blood +- (TRACE) (NEGATIVE) H Urine Nitrate NEGATIVE (NEGATIVE) Urine Bilirubin NEGATIVE mg/dL (NEGATIVE) Urine Urobilinogen 0.2 mg/dL (0.2-1.0) Urine Leukocyte Esterase 25 [place]/uL (NEGATIVE) H Urine RBC 0-1 /HPF (0-1) Urine WBC 6-10 /HPF (0-1) H Urine Squamous Epithelial Cells RARE /HPF (0-2) Urine Bacteria FEW /HPF (None Seen) REASON: pain ORDERING PHYSICIAN: LINDY GERARDO TELECASTING ENGINEER PROCEDURE: L SPIN WO - CT LUMBAR SPINE W/O CONTRAST EXAM: CT Lumbar Spine Without IV Contrast CLINICAL HISTORY: Pain. TECHNIQUE: Spiral axial CT images through the lumbar spine were acquired, reconstructed in axial and sagittal projections and imaged using soft tissue and bone algorithms. Reformatted/MPR images were performed. CT scan is done according to ALARA (As Low as Reasonably Achievable). CONTRAST: None. COMPARISON: None provided. FINDINGS: Acute compression fracture around the superior endplate of L4 vertebral body with about 10% to 50% vertebral body height reduction. The remaining vertebral body heights are maintained. Mild osteopenia. Mild to moderate spondylosis is evident by marginal osteophytes and facet arthropathy at multiple levels. Mild degenerative disc disease, anterior thecal sac indentation, and neuroforaminal narrowing at multiple levels, most pronounced at L4-L5. No spinal canal stenosis. Atherosclerotic vascular calcification is evident. Mild diffuse fatty atrophy of the posterior paraspinal muscles. IMPRESSIONS: Acute compression fracture around the superior endplate of L4 vertebral body with about 10% to 50% vertebral body height reduction. Mild osteopenia. Mild to moderate spondylosis and degenerative disc disease, most pronounced at L4-L5. /[facility] REASON: pain ORDERING PHYSICIAN: LINDY GERARDO PROCEDURE: PELVIS WO - CT PELVIS W/O CONTRAST EXAM: CT Pelvis without IV contrast. CLINICAL HISTORY: Pain. TECHNIQUE: Thin collimated axial CT images of the abdomen and pelvis were obtained with sagittal and coronal reformatted images also submitted. CT scan done according to ALARA (As Low As Reasonably Achievable). CONTRAST: None. COMPARISON: CT abdomen and pelvis with contrast dated 03/11/25. FINDINGS: The visualized bowel loops are normal in caliber without evidence of obstruction or ileus. The appendix is normal. Mild circumferential thickening of the urinary bladder wall measuring up to 5 mm. Status post hysterectomy and bilateral salpingo-oophorectomy. Multiple tiny phleboliths in the pelvis. Moderate calcific atheromatous changes in the abdominal aorta. No significant lymphadenopathy. No free fluid. There is no acute osseous abnormality. Moderate degenerative osseous changes. IMPRESSION: 1. Mild stable circumferential urinary bladder wall thickening, likely chronic cystitis. 2. Status post hysterectomy and bilateral salpingo-oophorectomy. No gross interval changes, within the limitations of cross technique correlation. /[facility] Labs Reviewed?: Yes ED Course ED Course Orders Procedure Category Date Status Time Ct Pelvis W/O Contrast CT 06/03/25 Resulted 22:55 Ct Lumbar Spine W/O CT 06/03/25 Resulted Contrast 22:55 Urinalysis Profile LAB 06/03/25 Complete 22:55 Hydrocodone/Apap PHA 06/03/25 Complete 5/325 (Zavalla 5/325mg) 23:00 Culture Urine BABITA 06/04/25 In Process 00:24 Current Medications Medications (Trade) Dose Ordered Sig/Sean Route PRN Reason Start Time Stop Time Status Last Admin Dose Admin Acetaminophen/ Hydrocodone Bitart (NORco 5/325MG) 1 tab ONCE ONCE PO 06/03/25 23:00 06/03/25 23:06 DC 06/03/25 23:09 Vital Signs Date Time Temp Pulse Resp B/P (MAP) Pulse Ox O2 Delivery O2 Flow Rate FiO2 06/03/25 22:17 99.0 81 16 179/57 97 Room Air Medical Decision Making MDM The patient is an 80-year-old female with a history of ESRD on dialysis Thursday, hypertension, diabetes, hysterectomy who presents to the emergency department with lower back pain and bilateral hip pain onset 5:00 a.m.. Patient denies any falls or traumas. Patient denies any urinary or fecal incontinence. Denies any saddle paresthesia. Patient denies any shortness of breath, chest pain, nausea vomiting or diarrhea. No other complaints reported. Pelvic CT showed no acute fractures. Lumbar CT showed acute compression fracture around the superior endplate of L4 with 10-50% body height reduction. Spoke to Dr. Carrington orthopedic on-call but reports patient needs Neurosurgery. Case discussed with Dr. Galaviz who states patient can be safely discharged to follow up with Neurosurgery as outpatient. Patient currently with no saddle anesthesia, good rectal tone, no urinary or fecal incontinence. At this time patient denies any other pain. Patient is able to ambulate slowly with walker. Patient will be placed on a abdominal binder. Discharge planning discussed with the family and instructed to follow up with Neurosurgery. All questions answered. Family agrees with discharge.. Differential diagnosis: Hip fracture, osteoarthritis, lumbar fracture, Need for hospitalization: Patient does not meet criteria for hospitalization. There are no social concerns with this patient. DX & DISP Disposition: Discharge Departure Impression: Primary Impression: Compression fracture of L4 vertebra Additional Impression: Back pain Condition: Stable Scripts Tramadol Hcl (Tramadol HCl) 50 Mg Tablet 25 MG PO BID for pain, #15 TAB Prov: LINDY GERARDO TELECASTING ENGINEER 06/04/25 Additional Instructions: Please follow up with your primary doctor and the neurosurgeon (rheumatology specialist) you were referral to. Take your medications as prescribed. Be cautious with the medications because they can make the patient drowsy. Do not let her ambulate without assistance. If anything worsens please return to ER. FOLLOW-UP WITH PRIMARY CARE PROVIDER IN 1 TO 2 DAYS. TAKE MEDICATIONS DIRECTED HERE IN THE EMERGENCY ROOM. OKAY TO CONTINUE HOME MEDICATIONS UNLESS OTHERWISE DISCUSSED DURING YOUR VISIT IN THE EMERGENCY ROOM TODAY. RETURN TO YOUR NEAREST EMERGENCY ROOM IF SYMPTOMS WORSEN OR IF THERE IS NO IMPROVEMENT. CALL 911 IF YOU NEED IMMEDIATE ASSISTANCE. TAKE TYLENOL [id number] NEEDED AND IF NO CONTRAINDICATIONS ARE PRESENT. INCREASE ORAL HYDRATION. A WOUND CULTURE OR URINE CULTURE WAS ORDERED HERE IN THE EMERGENCY ROOM DEPARTMENT PLEASE FOLLOW-UP WITH PRIMARY CARE PROVIDER AND ADVISE THEM TO GET REPEAT PORTS FROM OUR FACILITY. IF YOU HAD ANY RAINA WRAP/SPLINTS THAT WERE APPLIED HERE, PLEASE DO NOT REMOVE THEM UNTIL YOU SEE YOUR PRIMARY CARE OR SPECIALTY. Referrals: JOSHUA NUNES MD (PCP) BILL LOPEZ MD Time of Disposition: 03:06 I have reviewed the case, and I agree with, Diagnosis and Plan [facility] Jun 04, 2025 01:34
[2025-06-04] MEDS ORDERED: TRAM50TA4 PO (03:09)
[2025-06-04 03:18] VITALS: BP 153/60; PULSE 77; RESP 17; TEMP 98.6; O2SAT 96
== END 2025-06-04 03:19 | disposition home or self-care (01) ==
LOC: EDH 22:16
DX: M48.56XA Collapsed vertebra, not elsewhere classified, lumbar region, initial encounter for fracture (principal); M54.50 Low back pain, unspecified; I12.0 Hypertensive chronic kidney disease with stage 5 chronic kidney disease or end stage renal disease; E11.22 Type 2 diabetes mellitus with diabetic chronic kidney disease; N18.6 End stage renal disease; E78.00 Pure hypercholesterolemia, unspecified; Z79.4 Long term (current) use of insulin; Z79.84 Long term (current) use of oral hypoglycemic drugs; Z79.899 Other long term (current) drug therapy; Z90.710 Acquired absence of both cervix and uterus; Z90.722 Acquired absence of ovaries, bilateral; Z99.2 Dependence on renal dialysis
CPT/HCPCS: 72131; 72192; 81001; 87086; 87186; 99284

== ENCOUNTER 2025-07-03 00:28 | Emergency (ER) | payer MEDICARE, MEDICAID ==
[~2025-07-03] VITALS: Ht 157.5 cm; Wt 54.4 kg
[~2025-07-03 00:28] MED LIST changes: +ONDA-243 PO; +TRAM50TA4 PO
[2025-07-03 00:29] VITALS: TEMP 97.8
--- NOTE | 2025-07-03 01:35 | ERN ---
ED Note History of Present Illness Stated Complaint: VOMITING X 2 EPISODES IN 48 HOURS Chief Complaint: Nausea,Vomiting,Diarrhea Time Seen by MD: 00:30 Dictation: This is an 80-year-old female who was brought into the emergency room with complaints of 2 episodes of emesis. Apparently patient was started on hydrocodone for severe compression fracture related back pain. hundred 2024 she was diagnosed with a compression fracture of the lumbar vertebrae and she was given referral to neurosurgeon. On 06/27/2025 patient is saw , neurosurgeon who is planning a procedure after medical clearance. The hydrocodone was initiated a few days ago and the 1st day she had 1 episode of emesis and similarly on the following day she had a 2nd episode of emesis. No abdominal pain diarrhea. Temperature 97.8 pulse 75 respirations 18 blood pressure 163/45 with a pulse oximetry of 96% on room air Patient has chronic medical problems include diabetes mellitus-2, hypertension, end-stage renal disease on hemodialysis, hypercholesterolemia. Patient also has a history of compression fracture of lumbar vertebrae. Allergies: Coded Allergies: No Known Drug Allergies (Verified Allergy, 10/16/12) Home Meds Active Scripts Ondansetron (Ondansetron Odt) 4 Mg Tab.rapdis, 4 MG PO Q6HPRN PRN for nausea, #16 TAB 0 Refills Prov:LIZ AVERY MD 07/03/25 Ondansetron (Ondansetron Odt) 4 Mg Tab.rapdis, 2 MG PO Q6HPRN PRN for nausea, #5 TAB 0 Refills Prov:LINDY GERARDO 06/08/25 Tramadol Hcl (Tramadol HCl) 50 Mg Tablet, 25 MG PO BID for pain, #15 TAB Prov:LINDY GERARDO 06/04/25 Metronidazole (Metronidazole) 500 Mg Tablet, 1 TAB PO TID for 7 Days, #14 TAB 0 Refills Prov:CHARLEE RICKETTS 03/12/25 Levofloxacin (Levofloxacin) 500 Mg Tablet, 1 TAB PO Every two days for 10 Days, #5 TAB 0 Refills Prov:CHARLEE RICKETTS 03/12/25 Reported Medications Amlodipine Besylate (Amlodipine Besylate) 5 Mg Tablet, 1 TAB PO DAILY for 30 Days, #30 TAB 0 Refills 03/13/25 Pantoprazole Sodium (Protonix) 40 Mg Ectab, 1 TAB PO DAILY for 30 Days, #30 TAB 0 Refills 03/13/25 Folic Acid/Vitamin B Comp W-C (Shannan-Dia Tablet) 0.8 Mg Tablet, 1 TAB PO DAILY for 30 Days, #30 TAB 0 Refills 03/11/25 Dapagliflozin Propanediol (Farxiga) 10 Mg Tablet, 1 TAB PO DAILY 03/11/25 Insulin Degludec (Tresiba) 100 Unit/Ml Vial, 15 UNITS SQ DAILY, VIAL 10/29/24 Past Medical History Past Medical History: Diabetes-Type II, High Cholesterol, Hypertension, Renal Disese, Renal Failure, UTI Additional Past Medical Hx: ESBL Surgical History: Hysterectomy, Cholecystectomy, , LAVA Surgical History Other: DIALYSIS FISTULA TO LEFT UPPER ARM; CATARACT SX, RT ARM Family History: Negative Social History: Negative, Lives with family History: Not Applicable RN Note Reviewed/Agreed w/PFSH: Yes Review of System Dictation Constitutional: Negative for fever,chills, and weight loss Eyes: Negative for injury, pain,redness, and discharge ENT: Negative for injury,pain or swelling Cardiovascular: Negative for chest pain, palpitations, and edema Respiratory: Negative for shortness of breath, cough, and wheezing, Abdomen/GI: Negative for abdominal pain, nausea, diarrhea, and constipation positive for 2 episodes of vomiting, Back: Negative for injury and pain : Negative for injury, bleeding and discharge MS/Extremity: Negative for injury and deformity Skin: Negative for rash, and discoloration Neuro: Negative for headache, weakness, numbness, tingling, and seizure Psych: Negative for suicide ideation, homicidal ideation, and hallucinations Initial Vital Sign VS Vital Signs Date Time Temp Pulse Resp B/P (MAP) Pulse Ox O2 Delivery O2 Flow Rate FiO2 07/03/25 00:29 97.9 75 18 163/45 96 Nasal Cannula 07/03/25 01:51 0 21 Physical Exam Dictation General: awake, alert, NAD THIN CHRONICALLY ILL-APPEARING ELDERLY FEMALE Head/Face: Normocephalic, atraumatic Eyes: PERRL, EOMI, vision at baseline ENT: oral cavity clear, TMs clear, no signs of infection Neck: Trachea midline, supple, no nuchal rigidity Cardiovascular: RRR, normal S1/S2, No MRGs, no JVD Respiratory: CTAB, no respiratory distress, No rales or wheezes Abdomen: Soft, non-tender, non-distended, normal bowel sounds, no guarding or r ebound. Skin: Warm, dry, normal turgor, no rash MS/Extremity: Pulses equal, no cyanosis, neurovascular intact, FROM [facility] Neuro: COAx4, GCS 15, strength 5/5, CN 2-12 intact, normal cerebellar exam, normal gait, Psych: Normal behavior, mood, and affect normal Extremities-trace edema without any palpable cords, Homans sign is negative Results (Laboratory/Radiology) Labs Reviewed?: Yes ED Course ED Course Orders Procedure Category Date Status Time Ondansetron 4mg Inj PHA 07/03/25 Complete (Zofran 4mg Inj) 01:30 Ondansetron Odt 4mg PHA 07/03/25 Complete Tab (Zofran 4mg Odt) 02:00 Current Medications Medications (Trade) Dose Ordered Sig/Sean Route PRN Reason Start Time Stop Time Status Last Admin Dose Admin Ondansetron HCl (zoFRAN 4MG INJ) 4 mg ONCE ONCE IVP 07/03/25 01:30 07/03/25 01:36 DC Ondansetron HCl (zoFRAN 4MG ODT) 4 mg ONCE ONCE SL 07/03/25 02:00 07/03/25 02:01 DC 07/03/25 01:45 Vital Signs Date Time Temp Pulse Resp B/P (MAP) Pulse Ox O2 Delivery O2 Flow Rate FiO2 07/03/25 01:51 76 18 162/54 96 Room Air* 0 21 07/03/25 00:29 97.9 75 18 163/45 96 Nasal Cannula We will administer medications according to the patient's complaint. Once the results are available, will review and personally interpreted the labs to rule out any acute life-threatening emergency the trach require immediate intervention and treatment. I will then re-evaluate the patient after treatment and diagnostic exams have return to determine whether the patient requires any further testing, can safely be discharged home or need further admission to hospital for additional treatment and evaluation. Patient responded to rapid Zofran and feels better. I had a long discussion with the patient and her daughter about needing pain relief and unfortunately she may have to take antiemetic with her pain medication. They verbalized full understanding and they would like to be discharged to home as she has hemod ialysis set up at 3:00 p.m.. Medical Decision Making MDM MDM: Differential diagnosis: Adverse effect of opioids, gastritis and gastroesophageal reflux, esophagitis, food poisoning Rationale: Tests considered and ordered secondary to shared decision making include: Previous outside records reviewed: Old ER visits. Risk of complication and/or morbidity or mortality of patient management: None Medications-Per medication reconciliation Need for hospitalization: Patient does not meet criteria for hospitalization. Need for emergency major/minor surgery: No There are no social concerns with this patient. Prescription drug management Prescriptions will include symptomatic care Patient's prior external medical records from other ER visits were reviewed by me as indicated. Prior testing and results from previous visits were reviewed. Prior tests were taken into account with medical decision making and resource utilization, independent historian/historians were used to obtain complete medical history. I independently interpreted the test that were performed, results were reviewed by me and considered findings on radiology if ordered. Medical management and examination interpretation discussions were had by me with other qualified healthcare professionals as indicated for the patient's care. Problem List Problem List: (1) Nausea & vomiting (2) End stage renal disease on dialysis (3) Compression fracture of L4 vertebra (4) Hypertension DX & DISP Disposition: Discharge Departure Impression: Primary Impression: Nausea & vomiting Additional Impressions: Compression fracture of L4 vertebra, Hypertension, ESRD on dialysis Condition: Stable Scripts Ondansetron (Ondansetron Odt) 4 Mg Tab.rapdis 4 MG PO Q6HPRN PRN for nausea, #16 TAB 0 Refills Prov: LIZ AVERY MD 07/03/25 Additional Instructions: Patient and the caregiver have been informed of all the diagnostic tests and the imaging conducted during the today's visit to the emergency room and has verbalized understanding of the results I have personally reviewed and interpreted all diagnostic exams performed here in the ER today as well as the vital signs documented by the nursing staff. The patient is now being discharged to home and should follow up with the primary care physician or the specialist as directed by the ER staff. Follow-up with primary care provider in 1 to 2 days. Take medications as directed here in the emergency room. Okay to continue home medications unless otherwise discussed during your visit in the emergency room today. Return to your nearest emergency room if symptoms worsen or if there is no improvement. Call 911 if you need immediate assistance. Take Tylenol or Motrin [id number] as needed and if no contraindications are present. Increase oral hydration. A wound culture or urine culture was ordered here in the emergency room department please follow-up with primary care provider and advise them to get repeat ports from our facility. If you had any Gen wrap/splints that were applied here, please do not remove them until you see your primary care or specialty. Referrals: JOSHUA NUNES MD (PCP) LIZ AVERY MD Jul 03, 2025 01:35
[2025-07-03 01:51] VITALS: BP 162/54; PULSE 76; RESP 18; O2SAT 96
[2025-07-03] MEDS ORDERED: ONDA-243 PO (02:25)
[2025-07-26] MEDS ORDERED: LACT10SO85 PO (04:09)
[2025-07-26] MEDS ORDERED: CEPH500B PO (04:09)
== END 2025-07-03 02:42 | disposition home or self-care (01) ==
LOC: EDH 00:28
DX: M48.56XA Collapsed vertebra, not elsewhere classified, lumbar region, initial encounter for fracture (principal); R11.2 Nausea with vomiting, unspecified; I12.0 Hypertensive chronic kidney disease with stage 5 chronic kidney disease or end stage renal disease; E11.22 Type 2 diabetes mellitus with diabetic chronic kidney disease; N18.6 End stage renal disease; E78.00 Pure hypercholesterolemia, unspecified; Z79.4 Long term (current) use of insulin; Z79.84 Long term (current) use of oral hypoglycemic drugs; Z79.899 Other long term (current) drug therapy; Z90.49 Acquired absence of other specified parts of digestive tract; Z90.710 Acquired absence of both cervix and uterus; Z99.2 Dependence on renal dialysis
CPT/HCPCS: 99283

== ENCOUNTER 2025-07-04 11:53 | Observation (INO) | payer MEDICARE, MEDICAID ==
[~2025-07-04] VITALS: Ht 154.9 cm; Wt 52.6 kg
[2025-07-04] MEDS: TRIAMCINOLONE ACETONIDE 40 MG/ML 1ML VIAL IM ONE (12:30)
[2025-07-04] MEDS: ORPHENADRINE 60MG/2ML IM ONE (12:39)
[2025-07-04 12:57] LABS: IMMATURE GRANULOCYTE ABSOLUTE 0.03 K/uL (0-1); NUCLEATED RED BLOOD CELLS 0.0 % (0.0-0.19); PLATELET COUNT (AUTO) 280 K/uL (130-400); RED BLOOD CELL COUNT(AUTO) 3.40 MIL/uL (4.00-5.50); RED CELL DISTRIBUTION WIDTH 12.0 % (11.0-15.5); WHITE BLOOD COUNT (AUTO) 7.7 K/uL (4.8-10.8)
--- NOTE | 2025-07-04 13:00 | HMCIMG ---
EXAM: CR bilateral knee, 3 View. CLINICAL HISTORY: PAIN COMPARISON: None provided. FINDINGS: BONES: No acute fracture or aggressive appearing osseous lesion. JOINTS: The joint spaces show no significant degenerative disease. There is no joint effusion appreciated. Chondrocalcinosis within the medial and lateral menisci bilaterally. This is likely related to senescence. SOFT TISSUES: The soft tissues are unremarkable. IMPRESSION: 1. No acute findings. /[place]
[2025-07-04 13:09] LABS: CREATININE 3.2 mg/dL (0.5-1.0); GLOMERULAR FILTR. RATE CALC 14.0 mL/min (>90); GLUCOSE,RANDOM 135.0 mg/dL (70-105); SODIUM SERUM 135.0 mmol/L (136-145); UREA NITROGEN, BLOOD 19.0 mg/dL (7-18)
--- NOTE | 2025-07-04 13:13 | ERN ---
General Chief Complaint: Back Pain or Injury Stated Complaint: BACK PAIN Time Seen by MD: 11:54 Source: patient History of Present Illness Initial Comments PATIENT IS A AN 80-YEAR-OLD FEMALE COMING IN COMPLAINING OF LOWER EXTREMITY PAIN. PATIENT STATES THAT THIS HAS BEEN ONGOING FOR A COUPLE OF DAYS. PREVIOUS TO THIS SHE STATES THAT SHE WAS DIAGNOSED WITH A L4 COMPRESSION FRACTURE COUPLE OF MONTHS AGO IN HIS PENDING A REVISIT BY DOCTOR LOPEZ NEUROSURGEON. ALONG WITH THIS PATIENT STATES THAT SHE HAS HAD MILD ABDOMINAL DISCOMFORT WELL BILATERAL LOWER EXTREMITY PAIN FOCUSED ON THE BILATERAL KNEE AREA. Allergies: Coded Allergies: No Known Drug Allergies (Verified Allergy, 10/16/12) Home Meds Active Scripts Ondansetron (Ondansetron Odt) 4 Mg Tab.rapdis, 4 MG PO Q6HPRN PRN for nausea, #16 TAB 0 Refills Prov:LIZ AVERY MD 07/03/25 Ondansetron (Ondansetron Odt) 4 Mg Tab.rapdis, 2 MG PO Q6HPRN PRN for nausea, #5 TAB 0 Refills Prov:LINDY GERARDO 06/08/25 Tramadol Hcl (Tramadol HCl) 50 Mg Tablet, 25 MG PO BID for pain, #15 TAB Prov:LINDY GERARDO MEDICAL SAFETY DIRECTOR 06/04/25 Metronidazole (Metronidazole) 500 Mg Tablet, 1 TAB PO TID for 7 Days, #14 TAB 0 Refills Prov:CHARLEE RICKETTS 03/12/25 Levofloxacin (Levofloxacin) 500 Mg Tablet, 1 TAB PO Every two days for 10 Days, #5 TAB 0 Refills Prov:CHARLEE RICKETTS 03/12/25 Reported Medications Amlodipine Besylate (Amlodipine Besylate) 5 Mg Tablet, 1 TAB PO DAILY for 30 Days, #30 TAB 0 Refills 03/13/25 Pantoprazole Sodium (Protonix) 40 Mg Ectab, 1 TAB PO DAILY for 30 Days, #30 TAB 0 Refills 03/13/25 Folic Acid/Vitamin B Comp W-C (Shannan-Dia Tablet) 0.8 Mg Tablet, 1 TAB PO DAILY for 30 Days, #30 TAB 0 Refills 03/11/25 Dapagliflozin Propanediol (Farxiga) 10 Mg Tablet, 1 TAB PO DAILY 4/26/25 Insulin Degludec (Tresiba) 100 Unit/Ml Vial, 15 UNITS SQ DAILY, VIAL 10/29/24 Past Medical History Past Medical History: Diabetes-Type II, High Cholesterol, Hypertension Medical History Other: ESBL Past Surgical History: Cholecystectomy, LAVA Surgical History Other: DIALYSIS FISTULA TO LEFT UPPER ARM; CATARACT SX, RT ARM Family History Family History: Negative Social History Social History: Negative, Lives with family Female( History) History: Not Applicable ROS Dictation CONSTITUTIONAL: NO CHILLS, NO FEVER, NO WEAKNESS, NO DIAPHORESIS, NO MALAISE. HEAD/FACE: NO SIGNS OF TRAUMA. EENT: NO EYE PAIN, NO BLURRED VISION, NO TEARING, NO DOUBLE VISION, NO EAR PAIN, NO EAR DISCHARGE, NO NOSE PAIN, NO NASAL CONGESTION, NO THROAT PAIN, NO THROAT SWELLING, NO MOUTH PAIN. RESPIRATORY: NO COUGH, NO ORTHOPNEA, NO SOB, NO STRIDOR, NO WHEEZING. CARDIOVASCULAR: NO CHEST PAIN, NO EDEMA, NO PALPITATIONS, NO SYNCOPE. GASTROINTESTINAL/ABDOMINAL: NO ABDOMINAL PAIN, NO CONSTIPATION, NO DIARRHEA, NO NAUSEA, NO VOMITING. GENITOURINARY: NO ABNORMAL DISCHARGE, NO DYSURIA, NO FREQUENT URINATION, NO HEMATURIA. NO COMPLAINTS OF PAIN IN THE GENITALS. MUSCULOSKELETAL: NO BACK PAIN, NO GOUT, JOINT PAIN, NO JOINT SWELLING, MUSCLE PAIN, MUSCLE STIFFNESS, NO NECK PAIN. INTEGUMENTARY: NO CHANGE IN COLOR, NO CHANGE IN HAIR/NAILS, NO DRYNESS, NO LESION, NO LUMPS, NO RASH. NEUROLOGICAL/PSYCH: NO ANXIETY, NOT DEPRESSED, NO EMOTIONAL PROBLEM, NO HEAD ACHE, NO NUMBNESS, NO PRE-EXISTING DEFICIT, NO HISTORY OF SEIZURES, NO TREMORS, NO WEAKNESS. HEMATOLOGIC/LYMPHATIC: NOT ANEMIC, NO HISTORY OF BLOOD CLOTS, NO APPARENT BLEEDING, NO BRUISING, GLANDS NOT SWOLLEN. ALL SYSTEMS NEGATIVE, EXCEPT NOTED. Physical Exam Physical Exam Dictation VITAL SIGNS: REVIEWED. GENERAL APPEARANCE: ALERT, ORIENTED X3, NO ACUTE DISTRESS, OBESE. HEAD AND FACE: NON-TRAUMATIC. EYES: PERRL, PINK CONJUNCTIVAS, EYELID NO TRAUMA, ANTERIOR CHAMBER CLEAR. EARS: PINNAS INTACT AND NO SIGNS OF TRAUMA OR ERYTHEMA. EAR CANALS CLEAR AND NO DISCHARGE. TMS NO ERYTHEMA. NOSE: NO DISCHARGE, NO BLEEDING. OROPHARYNX: MOUTH NORMAL, TEETH NO CARIES, TONGUE PINK. PHARYNX CLEAR, NO ERYTHEMA. TONSILS NO EXUDATES, NO ABSCESSES NOTED. MUCOUS MEMBRANE MOIST. NECK: SUPPLE, NON-TENDER, NO THYROMEGALY, NO MASSES, NO JVD, NO BRUITS. BREAST: DEFERRED. CHEST: NO TENDERNESS, NO CREPITUS, NO PARADOXICAL MOVEMENT, NO RETRACTIONS. LUNGS: CLEAR, WELL-VENTILATED, SYMMETRIC, NO RALES, NO WHEEZING, NO RHONCHI, NO STRIDOR, GOOD BREATH SOUNDS BILATERALLY. HEART: REGULAR RATE, REGULAR RHYTHM, NO MURMUR, NO GALLOPS. VASCULAR: NO PERIPHERAL EDEMA. ABDOMEN: SOFT, POSITIVE BOWEL SOUNDS, NONDISTENDED, NO GUARDING, NONTENDER, NO REBOUND, NO MASSES NO HEPATOMEGALY, NO SPLENOMEGALY, NO CAMPO'S SIGN, NO HERNIAS. RECTAL: DEFERRED. GENITAL: DEFERRED. NEUROLOGICAL: NORMAL SPEECH, GROSS MOTOR FUNCTION INTACT, GROSS SENSORY FUNCTION INTACT. MUSCULOSKELETAL: NECK NONTENDER, FULL RANGE OF MOTION, BACK NONTENDER, FULL RANGE OF MOTION. EXTREMITIES: NONTENDER, FULL RANGE OF MOTION. BILATERAL KNEE PAIN ON PALPATION SKIN: COLOR PINK, DRY, NO TURGOR, NO RASH, NO LACERATIONS, NO ABRASIONS, NO CONTUSIONS. LYMPHATICS: DEFERRED. Results Laboratory and Microbiology Lab and Micro Result Laboratory Tests Test 07/04/25 12:48 White Blood Count 7.7 K/uL (4.8-10.8) Red Blood Count 3.40 MIL/uL (4.00-5.50) L Hemoglobin 11.0 g/dL (12.0-16.0) L Hematocrit 34.3 % (36-48) L Mean Corpuscular Volume 100.9 fL (79-99) H Mean Corpuscular Hemoglobin 32.4 pg (27.0-33.0) Mean Corpuscular Hemoglobin Concent 32.1 g/dL (32.0-36.0) Red Cell Distribution Width 12.0 % (11.0-15.5) Platelet Count 280 K/uL (130-400) Mean Platelet Volume 9.2 fL (7.5-10.5) Immature Granulocyte % (Auto) 0.4 % (0-1) Neutrophils (%) (Auto) 63.6 % (40.0-77.0) Lymphocytes (%) (Auto) 15.6 % (21.0-51.0) L Monocytes (%) (Auto) 16.7 % (3.0-13.0) H Eosinophils (%) (Auto) 2.9 % (0.0-8.0) Basophils (%) (Auto) 0.8 % (0.0-5.0) Neutrophils # (Auto) 4.9 K/uL (1.8-7.7) Lymphocytes # (Auto) 1.2 K/uL (1.0-4.8) Monocytes # (Auto) 1.3 K/uL (0.1-1.0) H Eosinophils # (Auto) 0.22 K/uL (0.00-0.70) Basophils # (Auto) 0.06 K/uL (0.00-0.20) Absolute Immature Granulocyte (auto 0.03 K/uL (0-1) Nucleated Red Blood Cells 0.0 % (0.0-0.19) White Cell Morphology Comment See comments Sodium Level 135 mmol/L (136-145) L Potassium Level 3.8 mmol/L (3.5-5.1) Chloride Level 96 mmol/L (101-111) L Carbon Dioxide Level 33 mmol/L (21-32) H Blood Urea Nitrogen 19 mg/dL (7-18) H Creatinine 3.2 mg/dL (0.5-1.0) H Glomerular Filtration Rate Calc 14 mL/min (>90) Random Glucose 135 mg/dL (70-105) H Total Calcium 8.6 mg/dL (8.5-10.1) Labs Reviewed?: Yes EKG/XRAY/US/CT/MRI X-RAY Comment IMAGING REPORT Signed PATIENT: PREET DUKES MR#: [id number] : 1945 SEX: F AGE: 80 LOCATION: [facility] ORDER 08 STATUS: REG REPORT#: [id number] SERVICE 07 REASON: PAIN ORDERING PHYSICIAN: CASS WANG MD PROCEDURE: KNEE 2VBIL - KNEE 2VW BILATERAL EXAM: CR bilateral knee, 3 View. CLINICAL HISTORY: PAIN COMPARISON: None provided. FINDINGS: BONES: No acute fracture or aggressive appearing osseous lesion. JOINTS: The joint spaces show no significant degenerative disease. There is no joint effusion appreciated. Chondrocalcinosis within the medial and lateral menisci bilaterally. This is likely related to senescence. SOFT TISSUES: The soft tissues are unremarkable. IMPRESSION: 1. No acute findings. /[place] DICTATED BY: DWAYNE NELSON Jr., MD DATE: 07/04/25 135 ELECTRONICALLY SIGNED BY: DWAYNE NELSON Jr., MD DATE: 07/04/25 1359 MDM MDM: DIFFERENTIAL DIAGNOSIS: SCIATICA, LEG PAIN, HISTORY OF L4 COMPRESSION FRACTURE RATIONALE: TESTS CONSIDERED AND ORDERED SECONDARY TO SHARED DECISION MAKING INCLUDE: PREVIOUS OUTSIDE RECORDS REVIEWED: OLD ER VISITS. RISK OF COMPLICATION AND/OR MORBIDITY OR MORTALITY OF PATIENT MANAGEMENT: NONE MEDICATIONS-PER MEDICATION RECONCILIATION NEED FOR HOSPITALIZATION: PATIENT DOES MEET CRITERIA FOR HOSPITALIZATION. NEED FOR EMERGENCY MAJOR/MINOR SURGERY: NO THERE ARE NO SOCIAL CONCERNS WITH THIS PATIENT. PRESCRIPTION DRUG MANAGEMENT PRESCRIPTIONS WILL INCLUDE SYMPTOMATIC CARE PATIENT'S PRIOR EXTERNAL MEDICAL RECORDS FROM OTHER ER VISITS WERE REVIEWED BY ME INDICATED. PRIOR TESTING AND RESULTS FROM PREVIOUS VISITS WERE REVIEWED. PRIOR TESTS WERE TAKEN INTO ACCOUNT WITH MEDICAL DECISION MAKING AND RESOURCE UTILIZATION, INDEPENDENT HISTORIAN/HISTORIANS WERE USED TO OBTAIN COMPLETE MEDICAL HISTORY. I INDEPENDENTLY INTERPRETED THE TEST THAT WERE PERFORMED, RESULTS WERE REVIEWED BY ME AND CONSIDERED FINDINGS ON RADIOLOGY IF ORDERED. MEDICAL MANAGEMENT AND EXAMINATION INTERPRETATION DISCUSSIONS WERE HAD BY ME WITH OTHER QUALIFIED HEALTHCARE PROFESSIONALS INDICATED FOR THE PATIENT'S CARE. PATIENT IS A 78-YEAR-OLD FEMALE COMING IN COMPLAINING OF LATERAL KNEE PAIN. PER PATIENT THE PAIN RADIATES FROM THE HIP REGION. LABORATORY WORKUP NORMAL LIMITS. DESPITE PATIENT HAVING END-STAGE RENAL FAILURE. PATIENT DOES HAS A HISTORY OF END-STAGE RENAL FAILURE. He will be admitted under the care of [facility] for ongoing management. ED Course Orders Procedure Category Date Status Time Cbc With Differential LAB 07/04/25 Complete 12:06 Basic Metabolic Panel LAB 07/04/25 Complete 12:06 Urinalysis Profile LAB 07/04/25 Logged Catherized 12:06 Orphenadrine Citrate PHA 07/04/25 Complete (Norflex) 12:30 Triamcinolone Acet PHA 07/04/25 Complete 40mg/Ml 1ml (Kenalog 12:30 Knee 2vw Bilateral RAD 07/04/25 Resulted 12:08 Morphine 2mg Syg PHA 07/04/25 Complete (Morphine 2mg Syg) 14:00 Lumbar Spine 2-3vws RAD 07/04/25 Logged 13:54 Current Medications Medications (Trade) Dose Ordered Sig/Sean Route PRN Reason Start Time Stop Time Status Last Admin Dose Admin Morphine Sulfate (morPHINE 2MG SYG) 2 mg ONCE ONCE IVP 07/04/25 14:00 07/04/25 14:01 DC Orphenadrine Citrate (Norflex) 60 mg ONCE ONCE IM 07/04/25 12:30 07/04/25 12:31 DC 07/04/25 12:39 Triamcinolone Acetonide (Kenalog 40) 40 mg ONCE ONCE IM 07/04/25 12:30 07/04/25 12:31 DC Vital Signs Date Time Temp Pulse Resp B/P (MAP) Pulse Ox O2 Delivery O2 Flow Rate FiO2 07/04/25 12:06 97.9 89 20 174/53 97 Room Air* 0 21 07/04/25 11:53 97.9 80 16 190/70 96 Room Air 0 DX & DISP Disposition: Inpatient Decision to Admit Time: 14:33 Departure Impression: Primary Impression: Sciatica associated with disorder of lumbar spine Additional Impressions: Intractable pain, Compression fracture of L4 vertebra Condition: Stable Referrals: JOSHUA NUNES MD (PCP) CASS WANG MD Jul 04, 2025 13:13
[2025-07-04] MEDS ORDERED: LOPERAMIDE HCL 2 MG CAP PO PRN (16:00)
[2025-07-04] MEDS ORDERED: BENZOCAINE/MENTH/CETYLPYRD CL 1 EACH LOZENGE MM PRN (16:00)
[2025-07-04] MEDS ORDERED: guaiFENesin-DM 200/20MG 10ML PO PRN (16:00)
[2025-07-04] MEDS ORDERED: NITROGLYCERIN 0.4 MG SL TAB SL PRN (16:00)
[2025-07-04] MEDS ORDERED: LIDOCAINE HCL 2% VISCOUS 30 ML, MAG/ALUM/SIMETH 30ML 30 ML, DICYCLOMINE HCL 20 MG PO PRN (16:00)
[2025-07-04] MEDS ORDERED: ARTIFICAL TEARS SOL 15 ML OP PRN (16:00)
--- NOTE | 2025-07-04 16:07 | HMCIMG ---
EXAM: Lumbar spine radiograph 3 view HISTORY: Back pain COMPARISON: 06/03/25 TECHNIQUE: AP, lateral and coned down views of the spine FINDINGS: Bones are osteopenic. Loss of height of the L4 vertebrae in comparison to prior CT. No significant retropulsion. No spondylolisthesis. Vascular calcifications. IMPRESSION: Mild compression fracture of the L4 vertebrae. /[place]
--- NOTE | 2025-07-04 17:49 | NUR ---
ATTEMPTED TO CALL REPORT. NURSE TOLD ME SHE WILL CALL ME RIGHT BACK.
--- NOTE | 2025-07-04 17:54 | NUR ---
REPORT CALLED TO DESTINY.
[2025-07-04 18:15] VITALS: O2SAT 95
[2025-07-04 18:43] VITALS: BP 140/47; PULSE 63; RESP 17
--- NOTE | 2025-07-04 19:15 | NUR ---
PATIENT ARRIVED TO UNIT VIA BED FROM ER ACCOMPANIED BY DAUGHTER, ELIO COBURN. ORIENTED TO ROOM AND UNIT. PATIENT REPORTED TO ER WITH CHIEF COMPLAINTS: BACK, HIP, WAIST, AND BILATERAL KNEE PAIN. FAMILY REPORTS THAT SHE HAS PRE-EXISTING L4 COMPRESSION FRACTURE. FOLLOWED BY DR. LOPEZ IN THE COMMUNITY. PAIN IS MANAGED BY HYDROCODONE. NAUSEA ASSOCIATED WITH HYDROCODONE IS MANAGED BY ONDANSETRON. DIALYSIS PATIENT, THURSDAY, THURSDAY, THURSDAY. BENCHMARK CLEARANCE REPRESENTATIVE PHONED FOR PAIN MANAGEMENT. ADJUNCT PSYCHOLOGY INSTRUCTOR WILL INQUIRE ABOUT CONSULT AND ORDERS FOR DIALYSIS. PENDING UA COLLECTION.
[2025-07-04 20:00] VITALS: BP 135/47; PULSE 58; RESP 18; TEMP 98.2; O2SAT 97
[2025-07-04] MEDS: FAMOTIDINE 20MG TAB PO SCH (20:34)
--- NOTE | 2025-07-04 23:28 | HP ---
[facility] HISTORY & PHYSICAL Date Patient Seen: Jul 04, 2025 Time of Visit: 23:45 Supervising Physician: [Dr. Eric Iqbal] Primary Care Physician: [Dr. Artur Velasco] Outpatient Specialists: [Nephro: Dr. Berman ] Inpatient Consults: [Dr. Serrano-neurosurgery, Nephro: Dr. Berman ] PROBLEM LIST: Acute compression fracture of the L4-POA Mild osteopenia-POA Mild to moderate spondylosis and degenerative disc disease, most pronounced at L4-L5-POA Intractable pain: waist,lumbar region, LLQ abdomen and jb knees ESRD with HD MWF HTN DM HX of diverticulitis HX of recurrent UTI Anxiety PLAN: -Admit to medsur telemetry -Obtain lumbar MRI -Consult Dr. Serrano, aware about the patient, needs to follow-up in am -Medical clearance, obtain EKG and 2decho -Multimodal pain management -Obtain uric acid and rheumatoid factor -Strict bedrest -Consult Dr. Berman for HD management -Obtain CT Ap 2/ complaint of left lower quadrant abdominal pain HPI: [Embroidery Designer services provided by Charmaine TYLER, patient's daughter called on the phone in the middle of the interview and gave the residual history. Patient is a 80-year-old female with PMH significant for ESRD HD MWF, HTN, HLD, DM, diverticulitis, UTi and anxiety who has presented to the ED concerning intractable back pain that extends to the knees. She was diagnosed of acute compression fracture on the L4 last month, she denies any mechanical fall. She was evaluated by Dr. Serrano and was instructed to return to the hospital for medical clearance for a planned spinal procedure. Patient verbalized LLQ abdominal pain as well, otherwise no other constitutional symptoms. Negative for paresthesia, saddle anesthesia or loss of urinary or bowel control. Physical assessment was unrevealing except for severe tenderness on the lower lumbar region that the patient screamed upon palpation. Goals of care were discussed with the patient and daughters verbalizing understanding and agreement. PAST MEDICAL HX: see above PAST SURGICAL HX: noncontributory SOCIAL HISTORY: No tobacco, ETOH, or illicit drug use Coded Allergies: No Known Drug Allergies (Verified Allergy, 10/16/12) REVIEW OF SYSTEMS: 12 point ROS reviewed with patient. Pertinent positives mentioned above. Otherwise negative. PHYSICAL EXAM: GENERAL: alert, weak, awake oriented x 3 HEENT: EOMI, Sclera non icteric, moist mucosa NECK: Supple, no JVD, trachea midline LUNGS: Clear breath sounds bilaterally. No wheezes HEART: Regular rate and rhythm. Normal S1 and S2, without murmurs ABD: Abdomen soft, nontender. Bowel sounds present EXT: No clubbing cyanosis or edema. Severe tenderness o the lumbar region, LAVA (+) thrill and bruit NEURO: Alert and oriented to person, follows commands Vital Signs (last 8hr) Date Time Temp Pulse Resp B/P (MAP) Pulse Ox O2 Delivery O2 Flow Rate FiO2 07/04/25 20:00 98.2 58 18 135/47 96 Room Air 07/04/25 18:43 63 17 140/47 94 Room Air 07/04/25 18:15 95 Room Air* 0 21 07/04/25 18:00 61 18 142/61 97 Room Air* 0 21 07/04/25 16:00 79 19 151/69 99 Room Air* 0 21 LABS: Hematology Labs: Test 07/04/25 12:48 Range/Units White Blood Count 7.7 4.8-10.8 K/uL Red Blood Count 3.40 L 4.00-5.50 MIL/uL Hemoglobin 11.0 L 12.0-16.0 g/dL Hematocrit 34.3 L 36-48 % Mean Corpuscular Volume 100.9 H 79-99 fL Mean Corpuscular Hemoglobin 32.4 27.0-33.0 pg Mean Corpuscular Hemoglobin Concent 32.1 32.0-36.0 g/dL Red Cell Distribution Width 12.0 11.0-15.5 % Platelet Count 280 130-400 K/uL Mean Platelet Volume 9.2 7.5-10.5 fL Immature Granulocyte % (Auto) 0.4 0-1 % Neutrophils (%) (Auto) 63.6 40.0-77.0 % Lymphocytes (%) (Auto) 15.6 L 21.0-51.0 % Monocytes (%) (Auto) 16.7 H 3.0-13.0 % Eosinophils (%) (Auto) 2.9 0.0-8.0 % Basophils (%) (Auto) 0.8 0.0-5.0 % Neutrophils # (Auto) 4.9 1.8-7.7 K/uL Lymphocytes # (Auto) 1.2 1.0-4.8 K/uL Monocytes # (Auto) 1.3 H 0.1-1.0 K/uL Eosinophils # (Auto) 0.22 0.00-0.70 K/uL Basophils # (Auto) 0.06 0.00-0.20 K/uL Absolute Immature Granulocyte (auto 0.03 0-1 K/uL Nucleated Red Blood Cells 0.0 0.0-0.19 % White Cell Morphology Comment See comments Chemistry Labs: Test 07/04/25 12:48 Range/Units Sodium Level 135 L 136-145 mmol/L Potassium Level 3.8 3.5-5.1 mmol/L Chloride Level 96 L 101-111 mmol/L Carbon Dioxide Level 33 H 21-32 mmol/L Blood Urea Nitrogen 19 H 7-18 mg/dL Creatinine 3.2 H 0.5-1.0 mg/dL Glomerular Filtration Rate Calc 14 >90 mL/min Random Glucose 135 H 70-105 mg/dL Total Calcium 8.6 8.5-10.1 mg/dL DIAGNOSTICS / RADIOLOGY RESULTS: [ ] PLAN NEURO: Minimize central acting medications as possible. Maintain fall precautions, adequate lighting during the day PULMONARY: Supplemental 02 as needed. Maintain aspiration precautions at all times CARDIOVASCULAR: Follow hemodynamics. Vital signs per facility protocol GI & NUTRITION: Continue with nutritional support. Continue stool softeners and laxatives as needed. KIDNEYS & ELECTROLYTES: Strict monitoring of intake, output and overall fluid balance. Avoid nephrotoxic medications to the extent possible. Medications to be dosed according to renal function. Monitor electrolytes and replace as needed ENDOCRINE: Maintain blood glucose between 100-180 at all times. Hypoglycemia protocol in place INFECTIOUS DISEASE: Trend temperature, WBC and procalcitonin level Follow cultures, deescalate antibiotics as soon as possible. Panculture if new onset fever ONCOLOGY/HEMATOLOGY/COAGULATION: Monitor for s/s of bleeding Monitor hemoglobin, coagulation studies as needed SKIN: Pressure ulcer prevention per facility protocol Specialty mattress ORTHO/REHAB: Continue PT/OT Prophylaxis: Continue GI and DVT prophylaxis. No AC pending neurosurgical eval Code Status: Full Resuscitation Disposition: DAYLIN HOOKS AGPCNP Jul 04, 2025 23:28
[2025-07-05] VITALS (22 sets, daily range): BP systolic 124–170; BP diastolic 40–65; PULSE 60–75; RESP 14–19; TEMP 98–98.5; O2SAT 94
[2025-07-05] MEDS: LIDOCAINE 5% TOPICAL PATCH TP SCH (00:53)
[2025-07-05 01:55] LABS: APPEARANCE,URINE CLEAR (CLEAR); GLUCOSE, URINE (UA) >=1000 mg/dL (NEGATIVE); LEUKOCYTE ESTERASE ,URINE 75 Leu/uL (NEGATIVE); NITRATE,URINE NEGATIVE (NEGATIVE); OCCULT BLOOD,URINE NEGATIVE (NEGATIVE); SQUAMOUS EPITHELIAL CELL,UR MANY /HPF (0-2); YEAST,URINE BUDDING FEW /HPF (None Seen)
--- NOTE | 2025-07-05 01:55 | HMCIMG ---
EXAM: CT Abdomen and Pelvis without IV contrast. CLINICAL HISTORY: Pain. Diverticulitis. TECHNIQUE: Thin collimated axial CT images of the abdomen and pelvis were obtained, with sagittal and coronal reformatted images also submitted. A CT scan is done according to ALARA (As Low As Reasonably Achievable). CONTRAST: None. COMPARISON: CT scan of the abdomen and pelvis 03/11/2025. FINDINGS: Unremarkable visualized lung parenchyma. There is no focal abnormality appreciated within the liver, pancreas, spleen, or adrenals. Status post cholecystectomy. There is a 3.5 cm cortical exophytic cyst in the lower pole of the right kidney. Mildly dilated small bowel loops, measuring up to 3.4 cm in diameter, without any zone of transition. No definite bowel obstruction. The appendix is unremarkable. Uncomplicated diverticula at the proximal ascending colon. There is no abnormality within the urinary bladder. Status post hysterectomy. No lymphadenopathy. No free fluid. No pneumoperitoneum. Patchy atherosclerotic calcifications of the aorta and its major branches. There is an interval compression fracture of the L4 vertebral body by up to 20%. Mild retropulsion of the posterior-superior segment indenting the anterior thecal sac. Osteopenia. Thoracolumbar spondylosis. IMPRESSIONS: Mildly dilated small bowel loops, measuring up to 3.4 cm in diameter without any zone of transition, likely mild ileus. Uncomplicated diverticula at the proximal ascending colon. Cortical exophytic cyst in the lower pole of the right kidney. An interval compression fracture of the L4 vertebral body by up to 20%. Mild retropulsion of the posterior-superior segment indenting the anterior thecal sac. Osteopenia. Thoracolumbar spondylosis. No gross interval changes compared to the previous CT dated 03/11/2025. /[place]
[2025-07-05] MEDS ORDERED: HYDR-4060 PO (03:00)
[2025-07-05] MEDS ORDERED: PANT40TA54 PO (03:00)
[2025-07-05] MEDS ORDERED: DOCU100C33 PO (03:00)
[2025-07-05] MEDS ORDERED: ROPI0.2535 PO (03:00)
[2025-07-05 05:59] LABS: IMMATURE GRANULOCYTE ABSOLUTE 0.05 K/uL (0-1); NUCLEATED RED BLOOD CELLS 0.0 % (0.0-0.19); PLATELET COUNT (AUTO) 264 K/uL (130-400); RED BLOOD CELL COUNT(AUTO) 3.14 MIL/uL (4.00-5.50); RED CELL DISTRIBUTION WIDTH 12.0 % (11.0-15.5); WHITE BLOOD COUNT (AUTO) 7.4 K/uL (4.8-10.8)
[2025-07-05 06:10] LABS: INR 0.95 (0.85-1.15)
[2025-07-05 06:21] LABS: CREATININE 4.0 mg/dL (0.5-1.0); GLOMERULAR FILTR. RATE CALC 11.0 mL/min (>90); GLUCOSE,RANDOM 174.0 mg/dL (70-105); SODIUM SERUM 138.0 mmol/L (136-145); UREA NITROGEN, BLOOD 24.0 mg/dL (7-18)
--- NOTE | 2025-07-05 06:38 | EKG ---
[facility] Test Date: 2025-07-05 Test Time: 06:35:33 Pat Name: PREET DUKES Department: [facility] Room: 317 1 Gender: F Oracle Erp Developer: CATRACHITA : 1945 Requested By: DAYLIN RIZZO Order Number: [id number] Reading MD: Louise Vogt Measurements Intervals [place] Rate: 60 P: 51 MI: 162 QRS: 13 QRSD: 98 T: 20 QT: 448 QTc: 448 Interpretive Statements Normal sinus rhythm Compared to ECG 06/08/2025 02:19:51 No significant changes Electronically Signed On 07-05-2025 11:32:40 CDT by Louise Vogt Please click the below link to view image of tracing.
[2025-07-05] MEDS ORDERED: EPOETIN ALFA-EPBX (NON-ESRD) 10,000 UNIT/ML VIAL SQ SCH (09:30)
[2025-07-05] MEDS: 0.9%NACL 1000ML 1,000 ML IV SCH (09:30)
--- NOTE | 2025-07-05 10:06 | CONS ---
REQUESTING PHYSICIAN: Eric Iqbal MD REASON FOR CONSULTATION: Compression fracture, ESRD. HISTORY OF PRESENT ILLNESS: An 80-year-old female with a history of diabetes mellitus and hypertension. She has a history of end-stage renal disease on dialysis 3 times per week. The patient has been complaining of intractable back pain. The patient was diagnosed with a compression fracture. The patient had been seen by Neurosurgery for possible surgery. She presents to the hospital with intractable pain, requiring narcotics and she is being seen in consultation for all the above. She does receive dialysis on a Thursday, Thursday, and Thursday schedule. PAST MEDICAL HISTORY: Diabetes mellitus, hypertension, and ESRD. PAST SURGICAL HISTORY: AV access. SOCIAL HISTORY: No alcohol or tobacco use. She lives independently. FAMILY HISTORY: There is no renal disease in the family. ALLERGIES: There are no allergies. MEDICATIONS: Noted. REVIEW OF SYSTEMS: GENERAL: She is complaining of the pain. HEENT: No change in vision. No change in hearing. CARDIOVASCULAR: There is no current chest pain or palpitation. PULMONARY: There is no shortness of breath. GASTROINTESTINAL: She is tolerating a diet. MUSCULOSKELETAL: As described above. NEUROLOGIC: No history of seizures or focal deficit. PSYCHIATRIC: No history of hallucination or psychosis. ENDOCRINE: Diabetes mellitus. No history of thyroid disease. HEME: History of anemia. No history of malignancy. PHYSICAL EXAMINATION: VITAL SIGNS: Blood pressure 124/40, pulse 60s, afebrile. GENERAL: Chronically ill female, elderly, lying in bed on the medical floor. HEENT: Head is atraumatic. Pupils are equal, roving to light. Oropharynx is without exudate. Nares clear. NECK: There is no JVP. There is no thyromegaly. No mass. CARDIOVASCULAR: Regular. There is no S3 or S4 gallop. LUNGS: Coarse with equal thoracic movement. ABDOMEN: Soft, nondistended, and nontender. EXTREMITIES: Reveal no clubbing, no cyanosis. NEUROLOGICAL: She is awake. She is alert. She is oriented. SKIN: Reveals no rash or nodules. BACK: There is no CVA tenderness, no back deformities. LABORATORY DATA: Hemoglobin 10, hematocrit 30. Sodium 138, BUN 24, creatinine is 4. DIAGNOSTIC DATA: CT scan does reveal the compression fracture and 2D echo is pending. IMPRESSION: * Compression fracture, intractable pain. * Diabetes mellitus. * Hypertension. * ESRD. PLAN: The patient is scheduled for MRI later today. The patient remains with the pain medications. The patient will continue with dialysis 3 times per week. The patient will continue with Epogen for the anemia. We will continue to follow closely. All labs including phosphorus will be checked in the a.m. and we will continue to follow closely. The patient and family at the bedside, multiple questions were all answered. TID: [id number] RECEIPT: [id number]
--- NOTE | 2025-07-05 10:34 | NUR ---
DCP:HOME Pt currently lives with dgt Khushboo Matamoros [phone]. Pt does use a walker and wheelchair at home. pt does go to dialysis at [facility]. pt does have a provider that goes to the home [facility] for 4hrs and [facility] for 7hrs and assist with all ADLs, home management, and meals. PCP is Dr. Artur Velasco and uses [facility] for any RX needs. At [place] pt will want to go home and family will assist with transportation. Addendum: 07/05/25 at 1045 by VICKI SOLER SS Amended: Links added.
--- NOTE | 2025-07-05 10:55 | HMCSR ---
APPROVED REPORT EXAM: Two-dimensional and M-mode echocardiogram with Doppler and color Doppler. INDICATION ICD: medical clearance 2D Dimensions RVDd3.6 cmLVEF(%)79.7 (>50%)LVED Vol(simp.)81.8 mL IVSd0.8 (0.7-1.1cm)FS(%)48 %LVES Vol(simp.)27.5 mL LVDd4.3 (3.8-5.6cm)LA (2D)3.6 (1.6-4.0cm)LVEF(%, simp.)66 % PWd1.2 (0.7-1.1cm)Ao Root(2D)2.7 (2.0-3.7cm)LA ESV INDEX (BP)35.43 mL/m2 LVDs2.2 (2.5-4.0cm)LVOT diam1.8 (1.8-2.4cm) Deformation Strain Apical 4-20.7 % Apical 2-19.9 % Apical 3-19.1 % Global Strain-19.9 % M-Mode Dimensions EPSS0.4 cm LA (MM)3.7 (1.6-4.0cm) Ao Root(MM)2.3 (2.0-3.7cm) Aortic Valve AoV Vmax1.4 m/Alexis Peak GR7.3 mmHgLVOT Vmax1.2 m/s AoV VTI0.4 mAo Mean GR4.1 mmHgLVOT VTI0.32 m OLINDA (VMAX)2.25 cm2AVA (VTI) 2.4 cm2 Mitral Valve MV E Vmax90.1 cm/sDECEL Umrk718 ms MV A Vmax94.8 cm/sP 1/2 T78 ms E/A ratio1.0MVA (PHT)2.8 cm2 TDI E/E' Medial9.8E/E' Ciwrrsi84.7 Medial E' Peak V9.24 cm/sLateral E' Peak V6.13 cm/s Pulmonary Valve PV Vmax1.2 m/sPV VTI0.30 mPV Mean GR3.3 mmHg PV Peak GR5.5 mmHg Tricuspid Valve TR Vmax2.8 m/sRVSP30.7 mmHg TR Peak GR33.9 mmHg Left Ventricle The left ventricle is normal size. There is normal left ventricular wall thickness. LVEF is 60-65%. I ndeterminate diastolic dysfunction. Right Ventricle The right ventricle is normal size. The right ventricular systolic function is normal. Atria The left atrium is upper limits normal in size. The right atrium size is normal. Aortic Valve The aortic valve is normal in structure. No aortic regurgitation is present. There is no aortic valvu lar stenosis. Mitral Valve There is mild posterior mitral annular calcification. There is trace mitral valve regurgitation noted . There is no mitral valve stenosis. Tricuspid Valve The tricuspid valve is normal in structure. There is trivial tricuspid valve regurgitation noted. Pulmonic Valve The pulmonary valve is normal in structure. There is no pulmonic valvular regurgitation. Great Vessels The aortic root is normal in size. The IVC is normal in size and collapses >50% with inspiration. Pericardium There is no pericardial effusion. Other Information Quality : GoodRhythm : NSR Conclusion LVEF is 60-65%. Indeterminate diastolic dysfunction.
--- NOTE | 2025-07-05 11:23 | PN ---
[facility] PROGRESS NOTE Date Patient Seen: Jul 05, 2025 Time of Visit: 11:23 Supervising Physician: Dr. Eric Iqbal Primary Care Physician: [Dr. Artur Velasco] Outpatient Specialists: [Nephro: Dr. Berman ] Inpatient Consults: [Dr. Serrano-neurosurgery, Nephro: Dr. eBrman ] PROBLEM LIST: Acute compression fracture of the L4, POA Abdominal pain due to possible ileus per CT abdomen Intractable pain to bilateral knees Mild to moderate spondylosis and degenerative disc disease, most pronounced at L4-L5, POA Mild osteopenia, POA ESRD with HD, MWF Hypertension DM type 2 History of diverticulitis History of recurrent UTI Anxiety Octogenarian INTERVAL HISTORY: Patient assessed at bedside. AAOX3. Laying in bed. Able to voice needs and follow commands. Complains of bilateral knee pain. Added lidocaine patches and started on scheduled Tylenol. Knee x-ray negative for fracture. States last BM was yesterday. Spoke to both daughters at bedside, updated on status. PLAN: Pending lumbar MRI Start on lan, last BM on 07/04/[address] Serrano, aware about the patient, pending to evaluate Multimodal pain management Strict bedrest Follow Dr. Berman for HD management REVIEW OF SYSTEMS: 12 point ROS reviewed with patient. Pertinent positives mentioned above. Otherwise negative. PHYSICAL EXAM: GENERAL: alert, weak, awake oriented x 3 HEENT: EOMI, Sclera non icteric, moist mucosa NECK: Supple, no JVD, trachea midline LUNGS: Clear breath sounds bilaterally. No wheezes HEART: Regular rate and rhythm. Normal S1 and S2, without murmurs ABD: Abdomen soft, nontender. Bowel sounds present EXT: No clubbing cyanosis or edema. Severe tenderness o the lumbar region, LAVA (+) thrill and bruit NEURO: AAOX3, follows commands Vital Signs (last 8hr) Date Time Temp Pulse Resp B/P (MAP) Pulse Ox O2 Delivery O2 Flow Rate FiO2 07/05/25 08:45 98.1 63 14 155/50 Room Air 07/05/25 08:00 98.1 61 18 124/40 94 Room Air 07/05/25 04:00 98.2 64 17 140/48 91 Room Air LABS: Hematology Labs: Test 07/05/25 05:47 07/04/25 12:48 Range/Units White Blood Count 7.4 4.8-10.8 K/uL Red Blood Count 3.14 L 4.00-5.50 MIL/uL Hemoglobin 10.2 L 12.0-16.0 g/dL Hematocrit 30.7 L 36-48 % Mean Corpuscular Volume 97.8 79-99 fL Mean Corpuscular Hemoglobin 32.5 27.0-33.0 pg Mean Corpuscular Hemoglobin Concent 33.2 32.0-36.0 g/dL Red Cell Distribution Width 12.0 11.0-15.5 % Platelet Count 264 130-400 K/uL Mean Platelet Volume 9.2 7.5-10.5 fL Immature Granulocyte % (Auto) 0.7 0-1 % Neutrophils (%) (Auto) 66.3 40.0-77.0 % Lymphocytes (%) (Auto) 14.8 L 21.0-51.0 % Monocytes (%) (Auto) 15.0 H 3.0-13.0 % Eosinophils (%) (Auto) 2.4 0.0-8.0 % Basophils (%) (Auto) 0.8 0.0-5.0 % Neutrophils # (Auto) 4.9 1.8-7.7 K/uL Lymphocytes # (Auto) 1.1 1.0-4.8 K/uL Monocytes # (Auto) 1.1 H 0.1-1.0 K/uL Eosinophils # (Auto) 0.18 0.00-0.70 K/uL Basophils # (Auto) 0.06 0.00-0.20 K/uL Absolute Immature Granulocyte (auto 0.05 0-1 K/uL Nucleated Red Blood Cells 0.0 0.0-0.19 % White Cell Morphology Comment See comments Chemistry Labs: Test 07/05/25 05:47 Range/Units Sodium Level 138 136-145 mmol/L Potassium Level 4.1 3.5-5.1 mmol/L Chloride Level 100 L 101-111 mmol/L Carbon Dioxide Level 31 21-32 mmol/L Blood Urea Nitrogen 24 H 7-18 mg/dL Creatinine 4.0 H 0.5-1.0 mg/dL Glomerular Filtration Rate Calc 11 >90 mL/min Random Glucose 174 H 70-105 mg/dL Uric Acid 3.9 2.6-7.2 mg/dL Total Calcium 8.5 8.5-10.1 mg/dL Magnesium Level 1.90 1.80-2.40 mg/dL Coagulation Labs: Test 07/05/25 05:47 Range/Units Prothrombin Time 10.1 9.6-11.6 SEC Prothromb Time International Ratio 0.95 0.85-1.15 Activated Partial Thromboplast Time 26.5 26.3-35.5 SEC DIAGNOSTICS / RADIOLOGY RESULTS: REASON: MEDICAL CLEARANCE ORDERING PHYSICIAN: DAYLIN RIZZO PROCEDURE: ECHO [facility] - ECHO 2-D COMPLETE APPROVED REPORT EXAM: Two-dimensional and M-mode echocardiogram with Doppler and color Doppler. INDICATION ICD: medical clearance 2D Dimensions RVDd 3.6 cm LVEF(%) 79.7 (>50%) LVED Vol(simp.) 81.8 mL IVSd 0.8 (0.7-1.1cm) FS(%) 48 % LVES Vol(simp.) 27.5 mL LVDd 4.3 (3.8-5.6cm) LA (2D) 3.6 (1.6-4.0cm) LVEF(%, simp.) 66 % PWd 1.2 (0.7-1.1cm) Ao Root(2D) 2.7 (2.0-3.7cm) LA ESV INDEX (BP) 35.43 mL/m2 LVDs 2.2 (2.5-4.0cm) LVOT diam 1.8 (1.8-2.4cm) Deformation Strain Apical 4 -20.7 % Apical 2 -19.9 % Apical 3 -19.1 % Global Strain -19.9 % M-Mode Dimensions EPSS 0.4 cm LA (MM) 3.7 (1.6-4.0cm) Ao Root(MM) 2.3 (2.0-3.7cm) Aortic Valve AoV Vmax 1.4 m/s Ao Peak GR 7.3 mmHg LVOT Vmax 1.2 m/s AoV VTI 0.4 m Ao Mean GR 4.1 mmHg LVOT VTI 0.32 m OLINDA (VMAX) 2.25 cm2 OLINDA (VTI) 2.4 cm2 Mitral Valve MV E Vmax 90.1 cm/s DECEL Time 277 ms MV A Vmax 94.8 cm/s P 1/2 T 78 ms E/A ratio 1.0 MVA (PHT) 2.8 cm2 TDI E/E' Medial 9.8 E/E' Lateral 14.7 Medial E' Peak V 9.24 cm/s Lateral E' Peak V 6.13 cm/s Pulmonary Valve PV Vmax 1.2 m/s PV VTI 0.30 m PV Mean GR 3.3 mmHg PV Peak GR 5.5 mmHg Tricuspid Valve TR Vmax 2.8 m/s RVSP 30.7 mmHg TR Peak GR 33.9 mmHg Left Ventricle The left ventricle is normal size. There is normal left ventricular wall thickness. LVEF is 60-65%. Indeterminate diastolic dysfunction. Right Ventricle The right ventricle is normal size. The right ventricular systolic function is normal. Atria The left atrium is upper limits normal in size. The right atrium size is normal. Aortic Valve The aortic valve is normal in structure. No aortic regurgitation is present. There is no aortic valvular stenosis. Mitral Valve There is mild posterior mitral annular calcification. There is trace mitral valve regurgitation noted. There is no mitral valve stenosis. Tricuspid Valve The tricuspid valve is normal in structure. There is trivial tricuspid valve regurgitation noted. Pulmonic Valve The pulmonary valve is normal in structure. There is no pulmonic valvular regurgitation. Great Vessels The aortic root is normal in size. The IVC is normal in size and collapses >50% with inspiration. Pericardium There is no pericardial effusion. Other Information Quality : Good Rhythm : NSR Conclusion LVEF is 60-65%. Indeterminate diastolic dysfunction. PLAN NEURO: Minimize central acting medications as possible. Maintain fall precautions, adequate lighting during the day PULMONARY: Supplemental 02 as needed. Maintain aspiration precautions at all times CARDIOVASCULAR: Follow hemodynamics. Vital signs per facility protocol GI & NUTRITION: Continue with nutritional support. Continue stool softeners and laxatives as needed. KIDNEYS & ELECTROLYTES: Strict monitoring of intake, output and overall fluid balance. Avoid nephrotoxic medications to the extent possible. Medications to be dosed according to renal function. Monitor electrolytes and replace as needed ENDOCRINE: Maintain blood glucose between 100-180 at all times. Hypoglycemia protocol in place INFECTIOUS DISEASE: Trend temperature, WBC and procalcitonin level Follow cultures, deescalate antibiotics as soon as possible. Panculture if new onset fever ONCOLOGY/HEMATOLOGY/COAGULATION: Monitor for s/s of bleeding Monitor hemoglobin, coagulation studies as needed SKIN: Pressure ulcer prevention per facility protocol Specialty mattress ORTHO/REHAB: Continue PT/OT Prophylaxis: Continue GI and DVT prophylaxis. Code Status: Full Resuscitation Disposition: OSCAR DUMONT NP Jul 05, 2025 11:23
[2025-07-05] MEDS ORDERED: PHARMACY COMMUNICATION 1 EACH EACH MISC SCH (11:30)
--- NOTE | 2025-07-05 21:13 | PN ---
FOLLOWUP PROGRESS NOTE SUBJECTIVE: The patient was seen on hemodialysis, prescription noted. OBJECTIVE: VITAL SIGNS: Blood pressure 149/55. CARDIOVASCULAR: Regular. LUNGS: Coarse. IMPRESSION: ESRD. PLAN: The patient will continue with maximal ultrafiltration if blood pressure allows. The patient is to be seen by Neurosurgery. TID: [id number] RECEIPT: [id number]
[2025-07-06 04:00] VITALS: BP 179/55; PULSE 66; RESP 18; TEMP 98.4
[2025-07-06 05:56] LABS: IMMATURE GRANULOCYTE ABSOLUTE 0.05 K/uL (0-1); NUCLEATED RED BLOOD CELLS 0.0 % (0.0-0.19); PLATELET COUNT (AUTO) 272 K/uL (130-400); RED BLOOD CELL COUNT(AUTO) 3.16 MIL/uL (4.00-5.50); RED CELL DISTRIBUTION WIDTH 11.9 % (11.0-15.5); WHITE BLOOD COUNT (AUTO) 7.3 K/uL (4.8-10.8)
[2025-07-06 06:15] LABS: ASPARTATE AMINOTRANSFERASE 17.0 U/L (10-37); CREATININE 3.4 mg/dL (0.5-1.0); GLOMERULAR FILTR. RATE CALC 13.0 mL/min (>90); GLUCOSE,RANDOM 155.0 mg/dL (70-105); PHOSPHORUS 2.6 mg/dL (2.5-4.9); SODIUM SERUM 141.0 mmol/L (136-145); TOTAL PROTEIN, SERUM 6.2 g/dL (6.0-8.3); UREA NITROGEN, BLOOD 22.0 mg/dL (7-18)
[2025-07-06 06:20] VITALS: TEMP 98.4
[2025-07-06 08:00] VITALS: BP 143/58; PULSE 57; RESP 16; TEMP 98.3; O2SAT 93
[2025-07-06] MEDS: amLODIPine 5 MG TAB PO SCH (08:54)
[2025-07-06] MEDS ORDERED: LIDOCAINE 4% ADH..PATCH TP SCH ×2 (09:00)
[2025-07-06] MEDS: LISINOPRIL 40 MG TABLET PO SCH (09:00)
[2025-07-06] MEDS ORDERED: LACTULOSE 20 GM/30 ML UDCUP PO PRN (09:00)
--- NOTE | 2025-07-06 09:19 | PN ---
FOLLOWUP PROGRESS NOTE SUBJECTIVE: The patient is an 80-year-old female initially presented with intractable back pain. The patient has known vertebral compression. The patient has been seen by Neurosurgery and the patient is being seen as a followup visit for all of the above. She did receive dialysis yesterday without difficulty. REVIEW OF SYSTEMS: CONSTITUTIONAL: The patient is feeling weak and tired. HEENT: No change in vision. No change in hearing. No nasal discharge, no sore throat. CARDIOVASCULAR: There are no current chest pain or palpitations. PULMONARY: There is no shortness of breath. GASTROINTESTINAL: She is complaining of constipation. MUSCULOSKELETAL: Complaints of the pain. PHYSICAL EXAMINATION: VITAL SIGNS: Blood pressure is 179/55, pulse 60s, afebrile. GENERAL: She is a chronically old female, lying in bed on the medical floor. HEENT: Head is atraumatic. Pupils are equal, roving to light. Oropharynx is without exudate. Nares clear. NECK: There is no JVP. There is no thyromegaly. No mass. CARDIOVASCULAR: Regular. There is no S3 or S4 gallop. LUNGS: Coarse with equal thoracic movement. ABDOMEN: Soft, nondistended, and nontender. EXTREMITIES: There is no clubbing, no cyanosis. NEUROLOGICAL: She is awake. She is alert. She is oriented. LABORATORY DATA: Hemoglobin 10, hematocrit 30. BUN 22, creatinine 3.4. IMPRESSION: * Compression fraction with intractable pain. * Diabetes mellitus. * Hypertension. * History of constipation. PLAN: The patient is to be seen by Neurosurgery. We will await recommendation. The patient will be started on lactulose for the constipation. The patient with uncontrolled hypertension. The patient will be resumed on lisinopril 40 mg daily. She remains on dialysis 3 times a week. The patient does continue with Epogen with her dialysis. We will follow closely. TID: [id number] RECEIPT: [id number]
[2025-07-06] MEDS: LACTULOSE 20 GM/30 ML UDCUP PO ONE (09:53)
--- NOTE | 2025-07-06 10:10 | HMCIMG ---
EXAM: MR Lumbar Spine Without Intravenous Contrast. CLINICAL HISTORY: Pain. TECHNIQUE: Magnetic resonance images of the lumbar spine in multiple planes. CONTRAST: None. COMPARISON: None. FINDINGS: For this examination, spinal levels were labelled assuming five [id number], lumbar-type vertebrae with the inferior labelled L5. Straightening of lumbar lordosis. Compression fracture of the L4 vertebral body with a reduction in 50% height of the L4 vertebral body.3 mm retropulsion of the posterior superior endplate of the L4 vertebral body with indentation of the underlying thecal sac. Altered marrow signal intensity seen in the L4 vertebral body represents a bone marrow contusion. Subcutaneous edema is seen in the lower lumbar region. Multilevel disc degenerative changes in the lumbar spine. Conus medullaris terminates at the T12-L1 level. No abnormal epidural masses. The surrounding soft tissues are unremarkable. Individual spinal levels are described as follows: T12-L1: No disc bulge or herniation. No neural foraminal, lateral recess, or spinal canal stenosis. L1-2: No disc bulge or herniation. No neural foraminal, lateral recess, or spinal canal stenosis. L2-3: No disc bulge or herniation. No neural foraminal, lateral recess, or spinal canal stenosis. L3-4: 4.2 mm of posterior disc protrusion. Mild narrowing of the spinal canal with compression of the underlying thecal sac. Mild narrowing of bilateral neural foramina and lateral recesses. Moderate bilateral facet joint arthropathy with ligamentum flavum hypertrophy. L4-5: 1 mm diffuse disc bulge. Mild narrowing of bilateral neural foramina. Bilateral mild facet joint arthropathy with ligamentum flavum hypertrophy. No spinal canal stenosis. L5-S1: 4 mm postero-central disc protrusion. Mild narrowing of the bilateral lateral recess and neural foramen. Mild narrowing of the spinal canal stenosis. IMPRESSION: Multilevel degenerative disc disease in the lumbar spine, more pronounced at the L3-4 and L5-S1 levels. Moderate bilateral facet joint arthropathy with ligamentum flavum hypertrophy. Compression fracture of the L4 vertebral body with a reduction in 50% height of the L4 vertebral body.3 mm retropulsion of the posterior superior endplate of the L4 vertebral body with indentation of the underlying thecal sac. Altered marrow signal intensity seen in the L4 vertebral body represents a bone marrow contusion. /Ayush
--- NOTE | 2025-07-06 11:24 | PN ---
[facility] PROGRESS NOTE Date Patient Seen: Jul 06, 2025 Time of Visit: 11:24 Supervising Physician: [ ] Primary Care Physician: [Dr. Artur Velasco] Outpatient Specialists: [Nephro: Dr. Berman ] Inpatient Consults: [Dr. Serrano-neurosurgery, Nephro: Dr. Berman ] PROBLEM LIST: Acute compression fracture of the L4, POA Abdominal pain due to possible ileus per CT abdomen Intractable pain to bilateral knees Mild to moderate spondylosis and degenerative disc disease, most pronounced at L4-L5, POA Mild osteopenia, POA ESRD with HD, MWF Hypertension DM type 2 History of diverticulitis History of recurrent UTI Anxiety Octogenarian INTERVAL HISTORY: Patient assessed at bedside. AAOX3. Laying in bed. Able to voice needs and follow commands. Complains of bilateral knee pain. Added lidocaine patches and started on scheduled Tylenol. Knee x-ray negative for fracture. States last BM was yesterday. Spoke to both daughters at bedside, updated on status. PLAN: Pending lumbar MRI Start on Reglan, last BM on 07/04/[address] Serrano, aware about the patient, pending to evaluate Multimodal pain management Strict bedrest Follow Dr. Berman for HD management REVIEW OF SYSTEMS: 12 point ROS reviewed with patient. Pertinent positives mentioned above. Otherwise negative. PHYSICAL EXAM: GENERAL: alert, weak, awake oriented x 3 HEENT: EOMI, Sclera non icteric, moist mucosa NECK: Supple, no JVD, trachea midline LUNGS: Clear breath sounds bilaterally. No wheezes HEART: Regular rate and rhythm. Normal S1 and S2, without murmurs ABD: Abdomen soft, nontender. Bowel sounds present EXT: No clubbing cyanosis or edema. Severe tenderness o the lumbar region, LAVA (+) thrill and bruit NEURO: AAOX3, follows commands Vital Signs (last 8hr) Date Time Temp Pulse Resp B/P (MAP) Pulse Ox O2 Delivery O2 Flow Rate FiO2 07/06/25 08:00 98.2 57 16 143/58 93 Room Air 07/06/25 06:20 98.4 07/06/25 04:00 98.4 66 18 179/55 95 Room Air LABS: Hematology Labs: Test 07/06/25 05:37 07/04/25 12:48 Range/Units White Blood Count 7.3 4.8-10.8 K/uL Red Blood Count 3.16 L 4.00-5.50 MIL/uL Hemoglobin 10.4 L 12.0-16.0 g/dL Hematocrit 30.9 L 36-48 % Mean Corpuscular Volume 97.8 79-99 fL Mean Corpuscular Hemoglobin 32.9 27.0-33.0 pg Mean Corpuscular Hemoglobin Concent 33.7 32.0-36.0 g/dL Red Cell Distribution Width 11.9 11.0-15.5 % Platelet Count 272 130-400 K/uL Mean Platelet Volume 9.4 7.5-10.5 fL Immature Granulocyte % (Auto) 0.7 0-1 % Neutrophils (%) (Auto) 64.9 40.0-77.0 % Lymphocytes (%) (Auto) 14.6 L 21.0-51.0 % Monocytes (%) (Auto) 15.7 H 3.0-13.0 % Eosinophils (%) (Auto) 3.3 0.0-8.0 % Basophils (%) (Auto) 0.8 0.0-5.0 % Neutrophils # (Auto) 4.7 1.8-7.7 K/uL Lymphocytes # (Auto) 1.1 1.0-4.8 K/uL Monocytes # (Auto) 1.2 H 0.1-1.0 K/uL Eosinophils # (Auto) 0.24 0.00-0.70 K/uL Basophils # (Auto) 0.06 0.00-0.20 K/uL Absolute Immature Granulocyte (auto 0.05 0-1 K/uL Nucleated Red Blood Cells 0.0 0.0-0.19 % White Cell Morphology Comment See comments Chemistry Labs: Test 07/06/25 05:37 07/06/25 05:13 07/05/25 05:47 Range/Units Sodium Level 141 136-145 mmol/L Potassium Level 4.0 3.5-5.1 mmol/L Chloride Level 102 101-111 mmol/L Carbon Dioxide Level 32 21-32 mmol/L Blood Urea Nitrogen 22 H 7-18 mg/dL Creatinine 3.4 H 0.5-1.0 mg/dL Glomerular Filtration Rate Calc 13 >90 mL/min Random Glucose 155 H 70-105 mg/dL Total Calcium 8.1 L 8.5-10.1 mg/dL Phosphorus Level 2.6 2.5-4.9 mg/dL Magnesium Level 1.90 1.80-2.40 mg/dL Total Bilirubin 0.5 0.2-1.0 mg/dL Aspartate Amino Transf (AST/SGOT) 17 10-37 U/L Alanine Aminotransferase (ALT/SGPT) 12 12-78 U/L Alkaline Phosphatase 160 H 50-136 U/L Total Protein 6.2 6.0-8.3 g/dL Albumin 2.6 L 3.5-5.0 g/dL Whole Blood Glucose 144 H 70-110 MG/DL Uric Acid 3.9 2.6-7.2 mg/dL Coagulation Labs: Test 07/05/25 05:47 Range/Units Prothrombin Time 10.1 9.6-11.6 SEC Prothromb Time International Ratio 0.95 0.85-1.15 Activated Partial Thromboplast Time 26.5 26.3-35.5 SEC DIAGNOSTICS / RADIOLOGY RESULTS: [ ] PLAN NEURO: Minimize central acting medications as possible. Maintain fall precautions, adequate lighting during the day PULMONARY: Supplemental 02 as needed. Maintain aspiration precautions at all times CARDIOVASCULAR: Follow hemodynamics. Vital signs per facility protocol GI & NUTRITION: Continue with nutritional support. Continue stool softeners and laxatives as needed. KIDNEYS & ELECTROLYTES: Strict monitoring of intake, output and overall fluid balance. Avoid nephrotoxic medications to the extent possible. Medications to be dosed according to renal function. Monitor electrolytes and replace as needed ENDOCRINE: Maintain blood glucose between 100-180 at all times. Hypoglycemia protocol in place INFECTIOUS DISEASE: Trend temperature, WBC and procalcitonin level Follow cultures, deescalate antibiotics as soon as possible. Panculture if new onset fever ONCOLOGY/HEMATOLOGY/COAGULATION: Monitor for s/s of bleeding Monitor hemoglobin, coagulation studies as needed SKIN: Pressure ulcer prevention per facility protocol Specialty mattress ORTHO/REHAB: Continue PT/OT Prophylaxis: Continue GI and DVT prophylaxis. Code Status: Full Resuscitation Disposition: OSCAR DUMONT NP Jul 06, 2025 11:24
--- NOTE | 2025-07-06 13:07 | NUR ---
REACHED OUT TO DR. LOPEZ WITH MRI RESULTS. AWAITING CALL BACK.
--- NOTE | 2025-07-06 14:00 | NUR ---
NURSING NOTE PATIENT RECEIVED LSO BRACE. PHYSICAL THERAPY HELPED WITH PUTTING IT ON PATIENT. PATIENT WAS TAUGHT HOW TO PUT BRACE ON AND INSTRUCTIONS. PATIENT VERBALIZED UNDERSTANDING AND PROVIDED TEACH BACK. ANSWERED ANY QUESTIONS AND CONCERNS PATIENT AND FAMILY HAD.
[2025-07-06] MEDS ORDERED: LIDO1ADH82 TP (16:04)
--- NOTE | 2025-07-06 16:06 | DS ---
[facility] DISCHARGE SUMMARY Date Patient Seen: Jul 06, 2025 Time of Visit: 16:06 Supervising Physician: Dr. Pipe Raymond Primary Care Physician: [Dr. Artur Velasco] Outpatient Specialists: [Nephro: Dr. Berman ] Inpatient Consults: [Dr. Serrano-neurosurgery, Nephro: Dr. Berman ] PROBLEM LIST: Acute compression fracture of the L4, POA, TSLO brace per Dr. Serrano, she will follow up outpatient Abdominal pain due to possible ileus per CT abdomen, resolved, had BMs Intractable pain to bilateral knees, improved Mild to moderate spondylosis and degenerative disc disease, most pronounced at L4-L5, POA Mild osteopenia, POA ESRD with HD, MWF Hypertension DM type 2 History of diverticulitis History of recurrent UTI, urine culture negative Anxiety Octogenarian HPI (per admitting provider) Patient is a 80-year-old female with PMH significant for ESRD HD MWF, HTN, HLD, DM, diverticulitis, UTi and anxiety who has presented to the ED concerning intractable back pain that extends to the knees. She was diagnosed of acute com pression fracture on the L4 last month, she denies any mechanical fall. She was evaluated by Dr. Serrano and was instructed to return to the hospital for medical clearance for a planned spinal procedure. Patient verbalized LLQ abdominal pain as well, otherwise no other constitutional symptoms. Negative for paresthesia, saddle anesthesia or loss of urinary or bowel control. Physical assessment was unrevealing except for severe tenderness on the lower lumbar region that the patient screamed upon palpation. Goals of care were discussed with the patient and daughters verbalizing understanding and agreement. HOSPITAL COURSE: Patient was admitted due to intractable back pain and bilateral knee pain. Patient had been diagnosed with compression fracture of back last month and was pending for possible kyphoplasty in outpatient setting. MRI of back done in house showed Multilevel degenerative disc disease in the lumbar spine, more pronounced at the L3-4 and L5-S1 levels.Moderate bilateral facet joint arthropathy with ligamentum flavum hypertrophy.Compression fracture of the L4 vertebral body with a reduction in 50% height of the L4 vertebral body.3 mm retropulsion of the posterior superior endplate of the L4 vertebral body with indentation of the underlying thecal sac. Altered marrow signal intensity seen in the L4 vertebral body represents a bone marrow contusion. Neurosurgery was consulted. Dr. Serrano was notified and he cleared patient for discharge with TSLO ordered and delivered at bedside. Discussed discharge instructions with daughter at bedside, verbalized understanding. Vital signs are stable. Labs are within limits. Patient has been advised to follow-up with PCP in next 1 to [address] Serrano tomorrow. Medication reconciliation has been completed. RX with new medications sent to pharmacy (see list below). Education regarding current diagnoses has been provided to the patient. Discussed s/s that would warrant return to the emergency department. All questions have been answered. Patient to be discharged home. No are no contraindications for proposed surgery by neurosurgery. -Follow Orthopedic surgeon's recommendations. -ACS NSQIP surgical risk calculator for the proposed surgery: -12.5% risk for serious complications -9.5% risk for any complications -1.5% risk for cardiac complications -0.7% risk for . -Revised cardiac risk index for perioperative risk: -5% 30-day risk of , AR, or cardiac arrest -García perioperative risk for AR or cardiac arrest: -0.8% risk of myocardial infarction or cardiac arrest, intraoperatively or up to 30 days post-op -These risks have been presented to the patient. Specific risk/benefits of the surgery to be discussed by surgeon. Patient to decide. -No shortness of breath on exertion, no chest pain, normal EKG, normal cardiac exam (no murmurs). New Medications: Lidocaine (Lidocaine) 4 % Adh..patch 1 PATCH TP DAILY for 30 Days, #30 PATCH 0 Refills Continued Medications: Amlodipine Besylate (Amlodipine Besylate) 5 Mg Tablet 1 TAB PO DAILY for 30 Days, #30 TAB 0 Refills Dapagliflozin Propanediol (Farxiga) 10 Mg Tablet 1 TAB PO DAILY Docusate Sodium (Docusate Sodium) 100 Mg Capsule 100 MG PO BID for constipation, CAP Folic Acid/Vitamin B Comp W-C (Shannan-Dia Tablet) 0.8 Mg Tablet 1 TAB PO DAILY for 30 Days, #30 TAB 0 Refills Hydrocodone/Acetaminophen (Hydrocodon-Acetaminophen 5-325) 5 Mg-325 Mg Tablet 1 EACH PO TIDP PRN for PAIN, TAB Insulin Degludec (Tresiba) 100 Unit/Ml Vial 15 UNITS SQ DAILY, VIAL Ondansetron (Ondansetron Odt) 4 Mg Tab.rapdis 4 MG PO Q6HPRN PRN for nausea, #16 TAB 0 Refills Pantoprazole Sodium (Pantoprazole Sodium) 40 Mg Tablet.dr 40 MG PO BID, TAB Ropinirole HCl (Ropinirole HCl) 0.25 Mg Tablet 0.25 MG PO HS, TAB PHYSICAL EXAM: GENERAL: alert, weak, awake oriented x 3 HEENT: EOMI, Sclera non icteric, moist mucosa NECK: Supple, no JVD, trachea midline LUNGS: Clear breath sounds bilaterally. No wheezes HEART: Regular rate and rhythm. Normal S1 and S2, without murmurs ABD: Abdomen soft, nontender. Bowel sounds present EXT: No clubbing cyanosis or edema. Severe tenderness o the lumbar region, LAVA (+) thrill and bruit NEURO: AAOX3, follows commands FOLLOW-UP: Follow-up with PCP in 2-3 days Follow up with Dr. Serrano tomorrow RECOMMENDATIONS: See Discharge Instructions This case was seen and discussed with my supervising physician. 40 minutes spent on discharge process, including evaluation of the patient, discussion with nursing staff, medication reconciliation and follow-up appointments OSCAR NEAL NP Jul 06, 2025 16:06
--- NOTE | 2025-07-06 18:05 | NUR ---
PATIENT DISCHARGED HOME ID BAND AND IV REMOVED. DISCHARGE INSTRUCTIONS WERE EXPLAINED AND GIVEN TO PATIENT ALONG WITH MRI RESULTS AND SURGERY CLEARANCE. PATIENT AND FAMILY VERBALIZED UNDERSTANDING. BELONGINGS PACKED ND TAKEN BY PATIENT. WHEELED DOWN TO PRIVATE CAR.
--- NOTE | 2025-07-06 18:42 | NUR ---
Pt able to complete bed mob, transfer and gait in room with DRUM MAKER and/or walker. Pt already prepared for DC upon PT arrival to unit. PT donned LSO and provided EDU.
[2025-07-07] MEDS ORDERED: EPOETIN ALFA-EPBX (NON-ESRD) 10,000 UNIT/ML VIAL SQ SCH (09:00)
== END 2025-07-06 17:45 | disposition home or self-care (01) ==
LOC: EDH 11:53 → EDHIP 15:48 → INTOOBSV 15:48 → 3CH 18:25
PROVIDERS: ADMIT Internal Medicine; ATTEND Internal Medicine
DX: M48.56XA Collapsed vertebra, not elsewhere classified, lumbar region, initial encounter for fracture (principal); M47.816 Spondylosis without myelopathy or radiculopathy, lumbar region; M51.369 Other intervertebral disc degeneration, lumbar region without mention of lumbar back pain or lower extremity pain; I12.0 Hypertensive chronic kidney disease with stage 5 chronic kidney disease or end stage renal disease; E11.22 Type 2 diabetes mellitus with diabetic chronic kidney disease; F41.9 Anxiety disorder, unspecified; E78.00 Pure hypercholesterolemia, unspecified; N18.6 End stage renal disease; Z99.2 Dependence on renal dialysis; R10.32 Left lower quadrant pain
CPT/HCPCS: 96372 ×2; 99285; 80048 ×2; 85025 ×3; 82948 ×7; 36415 ×3; 73565; 72100; 96374; 93005; 83735 ×2; 84550; 85610; 85730; 87086; 86431; 81001; 74176; 93306; 93356; 72148; 90935; 84100; 80053; J2270; J3301; Q5106; G0378 ×2; 73560; G0257; J2360

== ENCOUNTER 2025-07-24 19:47 | Emergency (ER) | payer MEDICARE, MEDICAID ==
[~2025-07-24] VITALS: Ht 157.5 cm; Wt 53.1 kg
[~2025-07-24 19:47] MED LIST changes: +DOCU100C33 PO; +HYDR-4060 PO; -LEVO-70 PO; +LIDO1ADH82 TP; -METR-172 PO; +PANT40TA54 PO; -PANT40TA55 PO; +ROPI0.2535 PO; -TRAM50TA4 PO
--- NOTE | 2025-07-24 20:33 | ERN ---
General Chief Complaint: Dizzy/Light Headed Stated Complaint: C/O NAUSEA, DIZZINESS, FATIGUE Time Seen by MD: 19:55 History of Present Illness Initial Comments 80-year-old female history of hypertension, renal failure, type 2 diabetes and history ESBL. She comes in with complaints of feeling dizzy and lightheaded on emesis x1 today. She also is constipated and has dysuria. (The patient does make urine even though she is a dialysis patient.) Other past medical history includes back surgery four days ago and she is taking ciprofloxacin for three days as well as Tylenol with codeine for pain. Allergies: Coded Allergies: No Known Drug Allergies (Verified Allergy, 10/16/12) Home Meds Active Scripts Lidocaine (Lidocaine) 4 % Adh..patch, 1 PATCH TP DAILY for 30 Days, #30 PATCH 0 Refills Prov:OSCAR NEAL SALES DIRECTOR 07/06/25 Ondansetron (Ondansetron Odt) 4 Mg Tab.rapdis, 4 MG PO Q6HPRN PRN for nausea, #16 TAB 0 Refills Prov:LIZ AVERY MD 07/03/25 Reported Medications Hydrocodone/Acetaminophen (Hydrocodon-Acetaminophen 5-325) 5 Mg-325 Mg Tablet, 1 EACH PO TIDP PRN for PAIN, TAB 07/05/25 Ropinirole HCl (Ropinirole HCl) 0.25 Mg Tablet, 0.25 MG PO HS, TAB 07/05/25 Pantoprazole Sodium (Pantoprazole Sodium) 40 Mg Tablet.dr, 40 MG PO BID, TAB 07/05/25 Docusate Sodium (Docusate Sodium) 100 Mg Capsule, 100 MG PO BID for constipation, CAP 07/05/25 Amlodipine Besylate (Amlodipine Besylate) 5 Mg Tablet, 1 TAB PO DAILY for 30 Days, #30 TAB 0 Refills 03/13/25 Folic Acid/Vitamin B Comp W-C (Shannan-Dia Tablet) 0.8 Mg Tablet, 1 TAB PO DAILY for 30 Days, #30 TAB 0 Refills 03/11/25 Dapagliflozin Propanediol (Farxiga) 10 Mg Tablet, 1 TAB PO DAILY 03/11/25 Insulin Degludec (Tresiba) 100 Unit/Ml Vial, 15 UNITS SQ DAILY, VIAL 10/29/24 Past Medical History Past Medical History: Diabetes-Type II, Hypertension Medical History Other: ESBL Past Surgical History: Other Surgical History Other: DIALYSIS FISTULA TO LEFT UPPER ARM; CATARACT SX, RT ARM Family History Family History: Negative Social History Social History: Negative, Lives with family Female( History) History: Not Applicable Constitutional: (+) chills EENTM: (-) eye pain, (-) blurred vision, (-) tearing, (-) double vision, (-) ear pain, (-) ear discharge, (-) nose pain, (-) nose congestion, (-) throat pain, (-) Throat swelling, (-) mouth pain, (-) tooth pain, (-) mouth swelling, (-) other documentation Respiratory: (-) cough, (-) orthopnea, (-) short of breath, (-) stridor, (-) wheezing, (-) other documentation Cardiovascular: (-) chest pain, (-) edema, (-) palpitations, (-) syncope, (-) dyspnea on exertion, (-) other documentation Gastrointestinal/Abdominal: (+) nausea, (+) vomiting, (+) constipation Genitourinary: (-) vaginal discharge, (-) vaginal bleeding, (-) dysuria, (-) frequency, (-) hematuria, (-) pain, (-) other documentation Musculoskeletal: (-) Neck pain, (-) back pain, (-) Flank Pain, (-) joint pain, (-) joint swelling, (-) muscle pain, (-) muscle stiffness, (-) gout, (-) other documentation Skin: (-) laceration, (-) contusion, (-) abrasion, (-) abscess, (-) rash, (-) change in color, (-) change in hair, (-) change in nails, (-) diaphoresis, (-) dryness, (-) other documentation Physical Exam General Appearance: (+) no apparent distress Orientation: (+) alert, (+) oriented x 3 Head/Face Trauma: No Eye: bilateral eye normal inspection, bilateral eye PERRL, bilateral eye EOMI Ear, Nose, Throat: (+) hearing grossly normal, (+) normal ENT inspection, (+) moist mucous membraine Neck: (+) normal inspection, (+) supple, (+) full range of motion, (+) no JVD Respiratory: (+) chest non-tender, (+) lungs clear, (+) well ventilated Heart: (+) regular, (+) no gallop Vascular: (+) no edema Gastrointestinal: (+) soft, (+) non-tender, (+) bowel sound present Skin Comment Skin with marked tenting, radial pulses weak. Results Laboratory and Microbiology Lab and Micro Result Laboratory Tests Test 07/24/25 22:21 07/24/25 23:40 White Blood Count 9.1 K/uL (4.8-10.8) Red Blood Count 3.20 MIL/uL (4.00-5.50) L Hemoglobin 10.5 g/dL (12.0-16.0) L Hematocrit 31.7 % (36-48) L Mean Corpuscular Volume 99.1 fL (79-99) H Mean Corpuscular Hemoglobin 32.8 pg (27.0-33.0) Mean Corpuscular Hemoglobin Concent 33.1 g/dL (32.0-36.0) Red Cell Distribution Width 12.6 % (11.0-15.5) Platelet Count 288 K/uL (130-400) Mean Platelet Volume 9.5 fL (7.5-10.5) Immature Granulocyte % (Auto) 0.8 % (0-1) Neutrophils (%) (Auto) 81.5 % (40.0-77.0) H Lymphocytes (%) (Auto) 6.9 % (21.0-51.0) L Monocytes (%) (Auto) 9.8 % (3.0-13.0) Eosinophils (%) (Auto) 0.7 % (0.0-8.0) Basophils (%) (Auto) 0.3 % (0.0-5.0) Neutrophils # (Auto) 7.4 K/uL (1.8-7.7) Lymphocytes # (Auto) 0.6 K/uL (1.0-4.8) L Monocytes # (Auto) 0.9 K/uL (0.1-1.0) Eosinophils # (Auto) 0.06 K/uL (0.00-0.70) Basophils # (Auto) 0.03 K/uL (0.00-0.20) Absolute Immature Granulocyte (auto 0.07 K/uL (0-1) Nucleated Red Blood Cells 0.0 % (0.0-0.19) White Cell Morphology Comment CONSISTENT W/DIFF Platelet Morphology LARGE PLTS PRESENT Sodium Level 132 mmol/L (136-145) L Potassium Level 3.3 mmol/L (3.5-5.1) L Chloride Level 96 mmol/L (101-111) L Carbon Dioxide Level 27 mmol/L (21-32) Blood Urea Nitrogen 15 mg/dL (7-18) Creatinine 2.6 mg/dL (0.5-1.0) H Glomerular Filtration Rate Calc 18 mL/min (>90) Random Glucose 152 mg/dL (70-105) H Lactic Acid Level 1.1 mmol/L (0.8-2.5) Total Calcium 8.5 mg/dL (8.5-10.1) Total Bilirubin 0.5 mg/dL (0.2-1.0) Aspartate Amino Transf (AST/SGOT) 23 U/L (10-37) Alanine Aminotransferase (ALT/SGPT) < 6 U/L (12-78) L Alkaline Phosphatase 155 U/L (50-136) H Troponin I High Sensitivity 19 ng/L (4-50) Total Protein 7.0 g/dL (6.0-8.3) Albumin 2.7 g/dL (3.5-5.0) L Urine Color YELLOW (YELLOW) Urine Appearance TURBID (CLEAR) Urine pH 6.0 (5.0-8.0) Urine Specific Rachel 1.019 (1.001-1.031) Urine Protein 300 mg/dL (NEGATIVE) H Urine Glucose (UA) 500 mg/dL (NEGATIVE) H Urine Ketones 5 mg/dL (NEGATIVE) H Urine Occult Blood MODERATE (NEGATIVE) H Urine Nitrate NEGATIVE (NEGATIVE) Urine Bilirubin NEGATIVE mg/dL (NEGATIVE) Urine Urobilinogen 0.2 mg/dL (0.2-1.0) Urine Leukocyte Esterase 500 Doroteo/uL (NEGATIVE) H Urine RBC 26-50 /HPF (0-1) H Urine WBC TNTC /HPF (0-1) H Urine WBC Clumps (Auto) MANY /HPF (0-1) Urine Squamous Epithelial Cells MANY /HPF (0-2) Urine Bacteria FEW /HPF (None Seen) Urine Yeast FEW /HPF (None Seen) MDM MDM: Differential diagnosis: Urinary tract infection, over aggressive dialysis, hypovolemia, gastroenteritis, cardiac failure Rationale: Tests considered and ordered secondary to shared decision making include: Previous outside records reviewed: Old ER visits. Risk of complication and/or morbidity or mortality of patient management: None Medications-Per medication reconciliation Need for hospitalization: Patient does meet criteria for hospitalization. Need for emergency major/minor surgery: No There are no social concerns with this patient. Prescription drug management Prescriptions will include symptomatic care Patient's prior external medical records from other ER visits were reviewed by me as indicated. Prior testing and results from previous visits were reviewed. Prior tests were taken into account with medical decision making and resource utilization, independent historian/historians were used to obtain complete medical history. I independently interpreted the test that were performed, results were reviewed by me and considered findings on radiology if ordered. Laboratory analysis shows that the patient has a large amount of leukocyte esterase activity in her urine most likely due to urinary tract infection. KUB does show constipation. ED Course Orders Procedure Category Date Status Time 12 Lead Ekg Tracing- EKG 07/24/25 Logged Technical 20:10 Cbc With Differential LAB 07/24/25 Complete 20:10 Comprehensive LAB 07/24/25 Complete Metabolic Panel 20:10 Lactic Acid LAB 07/24/25 Complete 20:10 Troponin I High LAB 07/24/25 Complete Sensitivity 20:10 Chest 1vw RAD 07/24/25 Resulted 20:10 Lactated Ringers PHA 07/24/25 Complete 1000ml (Lactated 20:10 Ondansetron 4mg Inj PHA 07/24/25 Complete (Zofran 4mg Inj) 20:30 Orthostatic Vital CPOE 07/24/25 Transmitted Signs 20:10 Abd 1vw RAD 07/24/25 Resulted 20:12 Urinalysis Profile LAB 07/24/25 Complete 23:51 Culture Urine BABITA 07/25/25 In Process 00:20 Current Medications Medications (Trade) Dose Ordered Sig/Sean Route PRN Reason Start Time Stop Time Status Last Admin Dose Admin Lactated Ringer's (Lactated Ringers 1000ml) 1,000 ml BOLUS STAT IV 07/24/25 20:10 07/24/25 20:14 DC 07/24/25 21:07 Ondansetron HCl (zoFRAN 4MG INJ) 4 mg ONCE ONCE IVP 07/24/25 20:30 07/24/25 20:31 DC 07/24/25 21:06 Vital Signs Date Time Temp Pulse Resp B/P (MAP) Pulse Ox O2 Delivery O2 Flow Rate FiO2 07/24/25 23:26 98.2 81 16 174/62 96 Room Air* 0 21 07/24/25 19:50 99.0 76 20 150/45 94 Room Air DX & DISP Disposition: Discharge Departure Impression: Primary Impression: UTI (urinary tract infection) Additional Impressions: Renal failure (ARF), acute on chronic, Back pain, Constipation Condition: Stable Scripts Cephalexin Monohydrate (Keflex) 500 Mg Cap 500 MG PO QID for 7 Days, #28 CAP Prov: MONET SILVA MD 07/25/25 Additional Instructions: You came here with a feeling of weakness dizziness emesis lightheadedness and dysuria. In addition you have a concern for constipation. Are laboratory work does show that you have a urinary tract infection. I have sent a prescription to your pharmacy to treat it. You should call the hospital tomorrow or the next day find out the what bacteria is growing in her urine right now. My concern with your history of prior infections is that you will need very strong antibiotics to cure the urinary tract infection. In addition you stated you felt better with the IV fluids so I am concerned maybe a little too much fluid was taken off during her dialysis session. Regarding the constipation I think the best medicine is MiraLax which you take every day just before going to bed. It is available in any pharmacy and many grocery stores, especially [employer]. Please follow-up with your primary care provider if your symptoms of lightheadedness painful urination to not improve with the antibiotics I have prescribed. Referrals: JOSHUA NUNES MD (PCP) MONET SILVA MD Jul 24, 2025 20:33
[2025-07-24] MEDS: LACTATED RINGERS 1000ML IV STA (21:07)
--- NOTE | 2025-07-24 21:46 | HMCIMG ---
EXAM: XR Chest, 1 View. CLINICAL HISTORY: 80-year-old female with hypoxia. COMPARISON: XR Chest 03/11/2025. FINDINGS: LUNGS: The lungs are clear. No consolidation. PLEURAL SPACES: No pleural effusion or pneumothorax. HEART: There is mild cardiomegaly. BONES: There is a fixation of the right proximal humerus, similar to prior study. No acute osseous abnormality. IMPRESSION: 1. Mild cardiomegaly, similar to prior XR Chest 03/11/2025 14:42. 2. Fixation of the right proximal humerus. /[place]
--- NOTE | 2025-07-24 21:46 | HMCIMG ---
EXAM: XR Abdomen, 1 View. CLINICAL HISTORY: 80 year old female with constipation. COMPARISON: None provided. FINDINGS: LUNG BASES: Lung bases clear where seen. BOWEL: No bowel obstruction. PERITONEUM/SOFT TISSUES: No appreciable free air. No abnormal calcifications, negative for visceral pathology. BONES: Spine kyphoplasty changes in a lower lumbar vertebral body, no acute osseous abnormality. Note: Cholecystectomy clips are present. IMPRESSION: 1. No acute abnormalities. /[place]
[2025-07-24 22:30] LABS: IMMATURE GRANULOCYTE ABSOLUTE 0.07 K/uL (0-1); NUCLEATED RED BLOOD CELLS 0.0 % (0.0-0.19); PLATELET COUNT (AUTO) 288 K/uL (130-400); RED BLOOD CELL COUNT(AUTO) 3.20 MIL/uL (4.00-5.50); RED CELL DISTRIBUTION WIDTH 12.6 % (11.0-15.5); WHITE BLOOD COUNT (AUTO) 9.1 K/uL (4.8-10.8)
[2025-07-24 22:55] LABS: ASPARTATE AMINOTRANSFERASE 23 U/L (10-37); CREATININE 2.6 mg/dL (0.5-1.0); GLOMERULAR FILTR. RATE CALC 18 mL/min (>90); TOTAL PROTEIN, SERUM 7.0 g/dL (6.0-8.3); UREA NITROGEN, BLOOD 15 mg/dL (7-18)
[2025-07-24 22:56] LABS: SODIUM SERUM 132 mmol/L (136-145)
[2025-07-24 22:57] LABS: GLUCOSE,RANDOM 152 mg/dL (70-105)
[2025-07-24 23:50] LABS: WBC MORPHOLOGY CONSISTENT W/DIFF
[2025-07-24 23:52] LABS: PLATELET MORPHOLOGY LARGE PLTS PRESENT
[2025-07-25 00:20] LABS: ADD UA MICROSCOPIC YES; APPEARANCE,URINE TURBID (CLEAR); GLUCOSE, URINE (UA) 500 mg/dL (NEGATIVE); LEUKOCYTE ESTERASE ,URINE 500 Leu/uL (NEGATIVE); NITRATE,URINE NEGATIVE (NEGATIVE); OCCULT BLOOD,URINE MODERATE (NEGATIVE)
[2025-07-25 00:23] LABS: SQUAMOUS EPITHELIAL CELL,UR MANY /HPF (0-2); WBC CLUMP MANY /HPF (0-1); YEAST,URINE BUDDING FEW /HPF (None Seen)
[2025-07-25] MEDS ORDERED: CEPH500B PO (00:39)
[2025-07-25 01:00] VITALS: BP 143/55; PULSE 75; RESP 17; TEMP 98.4; O2SAT 97
--- NOTE | 2025-07-25 06:46 | EKG ---
[facility] Test Date: 2025-07-24 Test Time: 20:28:24 Pat Name: PREET DUKES Department: ED Room: Gender: F Esthetician/Spa Coordinator: [id number] : 1945 Requested By: MONET SILVA Order Number: [id number] Reading MD: Raheel Barillas Measurements Intervals [place] Rate: 82 P: 46 CT: 149 QRS: 6 QRSD: 106 T: -2 QT: 447 QTc: 506 Interpretive Statements Sinus rhythm Multiple premature complexes, vent & supraven Prolonged QT interval Compared to ECG 07/05/2025 06:35:33 Prolonged QT interval now present Electronically Signed On 07-25-2025 09:55:11 CDT by Raheel Barillas Please click the below link to view image of tracing.
[2025-07-26] MEDS ORDERED: CEPH500B PO (04:09)
[2025-07-26] MEDS ORDERED: LACT10SO85 PO (04:09)
== END 2025-07-25 01:01 | disposition home or self-care (01) ==
LOC: EDH 19:47
DX: I12.9 Hypertensive chronic kidney disease with stage 1 through stage 4 chronic kidney disease, or unspecified chronic kidney disease (principal); E11.22 Type 2 diabetes mellitus with diabetic chronic kidney disease; N18.9 Chronic kidney disease, unspecified; M54.50 Low back pain, unspecified; N39.0 Urinary tract infection, site not specified; K59.00 Constipation, unspecified; Z79.4 Long term (current) use of insulin; Z79.84 Long term (current) use of oral hypoglycemic drugs; Z79.899 Other long term (current) drug therapy; Z99.2 Dependence on renal dialysis
CPT/HCPCS: 99285; 96374; 71045; 84484; 80053; 85025; 87086; 83605; 81001; 36415; 74018; 93005; J2405

== ENCOUNTER 2025-09-02 23:58 | Emergency (ER) | payer MEDICARE, MEDICAID ==
[~2025-09-02] VITALS: Ht 157.5 cm; Wt 50.8 kg
[~2025-09-02 23:58] MED LIST changes: -DOCU100C33 PO; -HYDR-4060 PO; -INSU100V37 SQ; +LACT10SO85 PO
--- NOTE | 2025-09-03 00:25 | ERN ---
ED Note History of Present Illness Stated Complaint: HTN Chief Complaint: Hypertension Time Seen by MD: 00:03 Time Seen by Midlevel: 00:03 Dictation: The patient is an 80-year-old female with a history of ESRD on dialysis, hypertension, diabetes who presents to the emergency department with daughter with complaints of elevated blood pressure. Per daughter patient's blood press ure was in the 200s systolic and took her prescribed 7.5 mg of amlodipine around 10:00 p.m. and when she noticed that her blood pressure was not trending down she gave her five more mg around 10 40. Patient is currently only complaints of nausea but reports she thinks it is due to her recently prescribed sertraline for her anxiety. Patient otherwise denies any chest pain, denies shortness of breath, denies any dizziness or headache. Allergies: Coded Allergies: No Known Drug Allergies (Verified Allergy, 10/16/12) Home Meds Active Scripts Lidocaine (Lidocaine) 4 % Adh..patch, 1 PATCH TP DAILY for 30 Days, #30 PATCH 0 Refills Prov:OSCAR NEAL SET RIDER 07/06/25 Ondansetron (Ondansetron Odt) 4 Mg Tab.rapdis, 4 MG PO Q6HPRN PRN for nausea, #16 TAB 0 Refills Prov:LIZ AVERY MD 07/03/25 Reported Medications Lactulose (Lactulose) 10 Gram/15 Ml Solution, 30 ML PO DAILY for constipation, #900 ML 0 Refills 07/26/25 Amlodipine Besylate (Amlodipine Besylate) 5 Mg Tablet, 7.5 MG PE PO DAILY for 30 Days, #30 TAB 0 Refills 07/26/25 Ropinirole HCl (Ropinirole HCl) 0.25 Mg Tablet, 0.25 MG PO HS, TAB 07/05/25 Pantoprazole Sodium (Pantoprazole Sodium) 40 Mg Tablet.dr, 40 MG PO BID, TAB 07/05/25 Folic Acid/Vitamin B Comp W-C (Shannan-Dia Tablet) 0.8 Mg Tablet, 1 TAB PO DAILY for 30 Days, #30 TAB 0 Refills 03/11/25 Dapagliflozin Propanediol (Farxiga) 10 Mg Tablet, 1 TAB PO DAILY 03/11/25 Past Medical History Past Medical History: Diabetes-Type II, High Cholesterol, Hypertension, Renal Failure Additional Past Medical Hx: ESBL, RESTLESS LEG Surgical History: Hysterectomy, Cholecystectomy, Other, LAVA Surgical History Other: CATARACT, RT ARM, BACK Family History: Negative Social History: Negative, Lives with family History: Not Applicable RN Note Reviewed/Agreed w/PFSH: Yes Review of System Dictation Constitutional: Negative for fever,chills, and weight loss Eyes: Negative for injury, pain,redness, and discharge ENT: Negative for injury,pain or swelling Cardiovascular: Negative for chest pain, palpitations, and edema Respiratory: Negative for shortness of breath, cough, and wheezing, Abdomen/GI: Negative for abdominal pain, vomiting, diarrhea, and constipation positive for nausea Back: Negative for injury and pain : Negative for injury, bleeding and discharge MS/Extremity: Negative for injury and deformity Skin: Negative for rash, and discoloration Neuro: Negative for headache, weakness, numbness, tingling, and seizure Psych: Negative for suicide ideation, homicidal ideation, and hallucinations Initial Vital Sign VS Vital Signs Date Time Temp Pulse Resp B/P (MAP) Pulse Ox O2 Delivery O2 Flow Rate FiO2 09/03/25 00:00 97.3 77 16 192/57 98 Room Air 09/03/25 00:13 0 21 Physical Exam Dictation Vital Signs reviewed General Appearance: Alert, oriented x 3, no acute distress, well developed, nourished. Head and Face: non-traumatic. Eyes: PERRL, pink conjunctivas, eyelid no trauma, anterior chamber with arcus senilis. Ears: Pinnas intact and no signs of trauma or erythema ear canals clear and no discharge TM no erythema Nose: No discharge, no bleeding. Oropharynx: Mouth normal, tongue pink. pharynx clear,no erythema, tonsils no exudates, no abscesses noted, mucous membrane moist Neck: Supple, non-tender, no thyromegaly, no masses, no JVD, no bruits Breast:Deferred Chest:No tenderness, no crepitus, no paradoxical movement, no retractions Lungs:Clear, well-ventilated, symmetric, no rales, no wheezing, no rhonchi, no stridor, good breath sounds bilaterally Heart: Regular rate, regular rhythm, no murmur, no gallops Vascular: no peripheral edema, Abdomen: Soft, positive bowel sounds, nondistended, no guarding, nontender, no rebound, no masses no hepatomegaly, no splenomegaly, no Voss's sign, no hernias. Rectal: Deferred Genital: Deferred Neurological: Normal speech, motor function intact, sensory function intact Musculoskeletal: Neck nontender, full range of motion, back nontender, full range of motion, Extremities: nontender, full range of motion Skin: Color pink, dry, no turgor, no rash, no lacerations, no abrasions, no contusions. Lymphatic: Deferred Results (Laboratory/Radiology) Laboratory/Radiology Laboratory Tests Test 09/03/25 00:12 White Blood Count 10.4 K/uL (4.8-10.8) Red Blood Count 2.67 MIL/uL (4.00-5.50) L Hemoglobin 9.1 g/dL (12.0-16.0) L Hematocrit 27.9 % (36-48) L Mean Corpuscular Volume 104.5 fL (79-99) H Mean Corpuscular Hemoglobin 34.1 pg (27.0-33.0) H Mean Corpuscular Hemoglobin Concent 32.6 g/dL (32.0-36.0) Red Cell Distribution Width 15.6 % (11.0-15.5) H Platelet Count 312 K/uL (130-400) Mean Platelet Volume 9.5 fL (7.5-10.5) Immature Granulocyte % (Auto) 0.6 % (0-1) Neutrophils (%) (Auto) 68.7 % (40.0-77.0) Lymphocytes (%) (Auto) 15.4 % (21.0-51.0) L Monocytes (%) (Auto) 12.2 % (3.0-13.0) Eosinophils (%) (Auto) 2.3 % (0.0-8.0) Basophils (%) (Auto) 0.8 % (0.0-5.0) Neutrophils # (Auto) 7.2 K/uL (1.8-7.7) Lymphocytes # (Auto) 1.6 K/uL (1.0-4.8) Monocytes # (Auto) 1.3 K/uL (0.1-1.0) H Eosinophils # (Auto) 0.24 K/uL (0.00-0.70) Basophils # (Auto) 0.08 K/uL (0.00-0.20) Absolute Immature Granulocyte (auto 0.06 K/uL (0-1) Nucleated Red Blood Cells 0.0 % (0.0-0.19) Sodium Level 139 mmol/L (136-145) Potassium Level 3.7 mmol/L (3.5-5.1) Chloride Level 98 mmol/L (101-111) L Carbon Dioxide Level 30 mmol/L (21-32) Blood Urea Nitrogen 22 mg/dL (7-18) H Creatinine 3.5 mg/dL (0.5-1.0) H Glomerular Filtration Rate Calc 13 mL/min (>90) Random Glucose 180 mg/dL (70-105) H Total Calcium 8.5 mg/dL (8.5-10.1) Troponin I High Sensitivity 14 ng/L (4-50) Labs Reviewed?: Yes EKG: (+) rhythm (Sinus rhythm) EKG Comment: Date:09/03/2025 Time:0006 Ventricular rate:78 FL interval:161 QRS duration:101 QT/QTc:421/480 EKG interpretation: Sinus rhythm Reviewed by ED Attending no STEMI ED Course ED Course Orders Procedure Category Date Status Time Cbc With Differential LAB 09/03/25 Complete 00:13 Basic Metabolic Panel LAB 09/03/25 Complete 00:13 12 Lead Ekg Tracing- EKG 09/03/25 Complete Technical 00:13 Ondansetron 4mg Inj PHA 09/03/25 Complete (Zofran 4mg Inj) 00:30 Troponin I High LAB 09/03/25 Complete Sensitivity 00:18 Current Medications Medications (Trade) Dose Ordered Sig/Sean Route PRN Reason Start Time Stop Time Status Last Admin Dose Admin Ondansetron HCl (zoFRAN 4MG INJ) 4 mg ONCE ONCE IVP 09/03/25 00:30 09/03/25 00:31 DC 09/03/25 00:28 Vital Signs Date Time Temp Pulse Resp B/P (MAP) Pulse Ox O2 Delivery O2 Flow Rate FiO2 09/03/25 00:34 70 14 163/52 96 Room Air* 0 21 09/03/25 00:13 98.8 75 14 187/51 98 Room Air* 0 21 09/03/25 00:00 97.3 77 16 192/57 98 Room Air Medical Decision Making MDM The patient is an 80-year-old female with a history of ESRD on dialysis, hypertension, diabetes who presents to the emergency department with daughter with complaints of elevated blood pressure. Per daughter patient's blood pressure was in the 200s systolic and took her prescribed 7.5 mg of amlodipine around 10:00 p.m. and when she noticed that her blood pressure was not trending down she gave her five more mg around 10 . Patient is currently only complaints of nausea but reports she thinks it is due to her recently prescribed sertraline for her anxiety. Patient otherwise denies any chest pain, denies shortness of breath, denies any dizziness or headache. CBC showed no leukocytosis, microcytic anemia, chemistry showed normal potassium, elevated BUN and creatinine but patient is dialysis. Negative trop onin. Patient's blood pressure improved spontaneously. Now in the 150 systolic. Patient reports she no longer feels nauseous. Patient currently with no chest pain, no shortness of breath, no abdominal pain. Denies any dizziness or headache. Physical exam patient is in no acute distress, is neurologically intact. No need for any further imaging at this time. Discharge planning discussed with the patient and patient's daughter who agreed to follow up with the primary doctor on Thursday. Differential diagnosis: Hypertensive urgency, hypertension emergency, electrolyte imbalance Need for hospitalization: Patient does not meet criteria for hospitalization. There are no social concerns with this patient. DX & DISP Disposition: Discharge Departure Impression: Primary Impression: Elevated blood pressure reading Condition: Stable Additional Instructions: The labs here were unremarkable. Your blood pressure improve spontaneously. Please follow up with your primary doctor as soon as possible and discussed blood pressure medications with the your primary doctor. If anything worsens or you have any concerns please return to ER. FOLLOW-UP WITH PRIMARY CARE PROVIDER IN 1 TO 2 DAYS. TAKE MEDICATIONS DIRECTED HERE IN THE EMERGENCY ROOM. OKAY TO CONTINUE HOME MEDICATIONS UNLESS OTHERWISE DISCUSSED DURING YOUR VISIT IN THE EMERGENCY ROOM TODAY. RETURN TO YOUR NEAREST EMERGENCY ROOM IF SYMPTOMS WORSEN OR IF THERE IS NO IMPROVEMENT. CALL 911 IF YOU NEED IMMEDIATE ASSISTANCE. TAKE TYLENOL [id number] NEEDED AND IF NO CONTRAINDICATIONS ARE PRESENT. INCREASE ORAL HYDRATION. A WOUND CULTURE OR URINE CULTURE WAS ORDERED HERE IN THE EMERGENCY ROOM DEPARTMENT PLEASE FOLLOW-UP WITH PRIMARY CARE PROVIDER AND ADVISE THEM TO GET REPEAT PORTS FROM OUR FACILITY. IF YOU HAD ANY RAINA WRAP/SPLINTS THAT WERE APPLIED HERE, PLEASE DO NOT REMOVE THEM UNTIL YOU SEE YOUR PRIMARY CARE OR SPECIALTY. Referrals: JOSHUA NUNES MD (PCP) Time of Disposition: 01:12 I have reviewed the case, and I agree with, Diagnosis and Plan LINDY GERARDO SET RIDER Sep 03, 2025 00:25
[2025-09-03 00:27] LABS: CREATININE 3.5 mg/dL (0.5-1.0); GLOMERULAR FILTR. RATE CALC 13.0 mL/min (>90); GLUCOSE,RANDOM 180.0 mg/dL (70-105); SODIUM SERUM 139.0 mmol/L (136-145); UREA NITROGEN, BLOOD 22.0 mg/dL (7-18)
[2025-09-03 00:54] LABS: IMMATURE GRANULOCYTE ABSOLUTE 0.06 K/uL (0-1); NUCLEATED RED BLOOD CELLS 0.0 % (0.0-0.19); PLATELET COUNT (AUTO) 312 K/uL (130-400); RED BLOOD CELL COUNT(AUTO) 2.67 MIL/uL (4.00-5.50); RED CELL DISTRIBUTION WIDTH 15.6 % (11.0-15.5); WHITE BLOOD COUNT (AUTO) 10.4 K/uL (4.8-10.8)
--- NOTE | 2025-09-03 01:04 | EKG ---
[facility] Test Date: 2025-09-03 Test Time: 00:06:30 Pat Name: PREET DUKES Department: ED Room: Gender: F Event Coordinator: [id number] : 1945 Requested By: LINDY GERARDO Order Number: [id number] Reading MD: John Kidd Measurements Intervals Hector Rate: 78 P: 7 MD: 161 QRS: 2 QRSD: 101 T: 24 QT: 421 QTc: 480 Interpretive Statements Sinus rhythm Anterior infarct, old Compared to ECG 07/24/2025 20:28:24 Myocardial infarct finding now present Prolonged QT interval no longer present Electronically Signed On 09-03-2025 12:50:51 CDT by John Kidd Please click the below link to view image of tracing.
[2025-09-03 01:27] VITALS: BP 156/42; PULSE 72; RESP 14; TEMP 98.6; O2SAT 98
== END 2025-09-03 01:28 | disposition home or self-care (01) ==
LOC: EDH 23:58
DX: I12.0 Hypertensive chronic kidney disease with stage 5 chronic kidney disease or end stage renal disease (principal); E11.22 Type 2 diabetes mellitus with diabetic chronic kidney disease; N18.6 End stage renal disease; Z99.2 Dependence on renal dialysis; E78.00 Pure hypercholesterolemia, unspecified; Z79.899 Other long term (current) drug therapy; Z79.84 Long term (current) use of oral hypoglycemic drugs; Z90.49 Acquired absence of other specified parts of digestive tract; Z90.710 Acquired absence of both cervix and uterus
CPT/HCPCS: 99284; 84484; 80048; 85025; 36415; 96374; 93005; J2405